=== PATIENT | female | born 1990 | race Caucasian/White ===

== ENCOUNTER 2024-02-25 09:19 | Outpatient (RCR) | payer MEDICAID, SELFPAY ==
--- NOTE | 2024-02-25 09:05 | BH.SGPN.GN ---
Behaviors/Verbalizations/Mental Status: [] Eye contact is poor.. Motor activity is appropriate. Appearance is casual. Speech is Appropriate. Mood is anxious. Affect is congruent. Thoughts are linear and logical. No evidence of psychosis. Reviewed daily check in sheet and no reports of suicidal ideations or intent. Client Response/Progress/Benefit: [] Pt did not participate in group discussions. Choose not to check-in our share reasons for entering IOP. Today was her first day in IOP. Smiled at times and appeared attentive. Group provided support, encouragement, and advice for her first day in IOP which was beneficial. Will continue in IOP to maintain safety, stabilize anxiety, and improve functioning. Narrative Note: []
--- NOTE | 2024-02-25 10:10 | BH.SGPN.GN ---
Behaviors/Verbalizations/Mental Status: []Client alert and oriented, casually dressed and groomed. Eye contact good. Motor activity appropriate. Speech within normal limits. Affect constricted, mood anxious. Thoughts linear, logical, no signs of hallucinations or delusions. Client Response/Progress/Benefit: [] Pt responded well to session AEB actively participating throughout group. Pt was attentive throughout group activity discussing famous individuals and how they overcame failure to be successful. Pt helped group identify how fear of failure can impact mental health and relationships. Pt was quiet, but she was taking notes. participated in experiential activity, working with group members to problem solve. Appeared to benefit from increased knowledge of what causes fear of failure and how it impacts people. Will continue IOP tx to prevent decompensation, gain healthy coping skills, and improve daily functioning. Narrative Note: []
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
--- NOTE | 2024-02-26 09:00 | BH.SGPN.GN ---
Behaviors/Verbalizations/Mental Status: [] Eye contact good. Motor activity appropriate. Speech within normal limits. Affect congruent, mood anxious and depressed. Thoughts linear, logical, no signs of hallucinations or delusions. Reviewed client?s symptom tracker, pt denies SI,?plan, or intent as of 02/26/2024. Client Response/Progress/Benefit: [] Client receptive of session, attentive and willing to process with group. Reports improving sx of depression?(2/5) and ongoing anxiety (4/5) per daily sx tracker. ?Identified mental health ?win as returning to group despite her nerves the day before. Shared that it had been a more open and encouraging environment than she had expected which motivated her to return. Additional win noted as feeling less anxious than yesterday. Pt however did not share anything further as she does continue to struggle with significant social anxiety. Receptive of and appearing to benefit from group support. Recommended continued IOP tx to improve mood stability, reduce anxiety, well as prevent decompensation. Narrative Note: []
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
--- NOTE | 2024-02-26 11:10 | BH.SGPN.GN ---
Behaviors/Verbalizations/Mental Status: []Pt alert and oriented, disheveled appearance. Eye contact good. Motor activity appropriate. Speech within normal limits. Affect congruent, mood anxious. Thoughts linear, logical, no signs of hallucinations or delusions. Client Response/Progress/Benefit: [] Pt responded well to session, taking notes and participating in worksheet discussion. Pt connected with the discussion on motion vs action steps, and this helped pt learn how to set goals differently. Pt set a goal to better manage her trauma and anxiety. Pt identified motion steps including getting a book about trauma, continue with IOP, and learn about her triggers. Pt also made action steps which included going to therapy appointments, reading about her diagnosis, and setting boundaries. Appeared to benefit from identifying a small goal to benefit mental health. Pt is to continue IOP to prevent decompensation, gain healthy coping skills, and improve daily functioning. ??? Narrative Note: []
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
--- NOTE | 2024-02-26 13:20 | BH.DR.ITP ---
Initial Treatment Plan Patient Information Visit Information: ADMISSION DATE: EXPECTED LOS: 4-6 weeks Problems/Symptoms Problem #1:: Anxiety Symptom:: Panic attacks, avoidance, flashbacks, nightmares, worry, rumination, rule out pseudoseizures Problem #2:: Depression Symptom:: Sadness, hopelessness, recent suicidal ideation, thoughts and actions of self-harm, hopelessness, worthlessness, anhedonia, low energy, guilt, biological disruption of sleep
--- NOTE | 2024-02-28 09:00 | BH.SGPN.GN ---
Behaviors/Verbalizations/Mental Status: [] Eye contact is good. Motor activity is appropriate. Appearance is disheveled. Speech is Appropriate. Mood is anxious/irritable. Affect is congruent. Thoughts are linear and logical. No evidence of psychosis. Reviewed daily check in sheet and no reports of suicidal ideations or intent. Client Response/Progress/Benefit: [] Pt participated at times during the group discussion. Attentive. Daily symptom tracker notes 2/5 for anxiety and 1/5 for irritability. According to pt her primary coping skills is spending time with her siblings. She has plans to attend a community movie this evening with her siblings, however is anxious due to being in a large crowd. Briefly discussed her struggles with social anxiety. Being in public leads to fear, uncertainty, and some hypervigilance. Group provided feedback and suggestions for calming skills in large social settings which was beneficial. Will continue in IOP to maintain safety, increase healthy coping, and prevent decompensation. Narrative Note: []
--- NOTE | 2024-02-28 10:10 | BH.SGPN.GN ---
Behaviors/Verbalizations/Mental Status: [] Client alert and oriented, casually dressed and groomed. Eye contact good. Motor activity appropriate. Speech within normal limits. Affect congruent, mood euthymic. Thoughts linear, logical, no signs of hallucinations or delusions. Client Response/Progress/Benefit: []Pt responded well to session AEB sharing and listening attentively to others. Group provided examples of benefits of having social support, including: validation, get assistance, and accountability. Pt also participated in group discussion regarding the barriers to accessing support including examples like: lack of trust, avoidance, and fear of vulnerability. Pt discussed that trusting others has been the biggest obstacle in reaching out for help. Pt participated in experiential activity illustrating the impact communication, boundaries, and patience play in creating healthy support systems. Pt appeared to benefit from increased knowledge of the benefits of social support and greater self-awareness. Will continue IOP tx to prevent decompensation,increase self care, and improve overall functioning. Narrative Note: []
--- NOTE | 2024-02-28 11:10 | BH.SGPN.GN ---
Behaviors/Verbalizations/Mental Status: [] Client alert and oriented, casually dressed and groomed. Eye contact good. Motor activity appropriate. Speech within normal limits. Affect congruent, mood euthymic. Thoughts linear, logical, no signs of hallucinations or delusions. Client Response/Progress/Benefit: []Pt was an active participant throughout AEB contributing to discussion, providing personal examples, and taking notes. Pt provided input during discussion on the types of support our supports can provide. Pt able to identify current support system and barriers that get in the way of using supports. Pt reported after identifying what type of supports pt receives, pt gained awareness that pt could benefit from more emotional support. Pt wants to work on opening up more and reaching out to others. Pt shared this would help her utilize others for emotional needs. Pt seemed to benefit from identifying the type of support pt needs to work on improving. Pt recommended to continue IOP tx to prevent decompensation, and increase emotional regulation skills. Narrative Note: []
--- NOTE | 2024-03-02 09:00 | BH.SGPN.GN ---
Behaviors/Verbalizations/Mental Status: [] Client alert and oriented, casually dressed and groomed. Eye contact good. Motor activity appropriate. Speech within normal limits. Affect flat, mood irritable. Thoughts linear, logical, no signs of hallucinations or delusions. Reviewed client?s symptom tracker, no risk for suicidal ideation, plan, or intent as of 03/02/24 Client Response/Progress/Benefit: [] Client attentive while other group members were sharing. Client did not want to with group today with indicating not today when called upon. Client did say she would talk about ice breaker question, but did not the other stuff. Client appeared interested in while other group members shared their wins and stressors from the weekend. Client will continue IOP tx to increase functioning and prevent decompensation. Narrative Note: []
--- NOTE | 2024-03-02 10:10 | BH.SGPN.GN ---
Behaviors/Verbalizations/Mental Status: []Eye contact is fair. Motor activity is appropriate. Appearance is causal. Speech is Appropriate. Mood is anxious. Affect is constricted. Thoughts are linear and logical. No evidence of psychosis. Client Response/Progress/Benefit: [] Pt was an active participant in group discussion and experiential activity. Attentive during psychoeducation on resilience. Participated during interactive discussion with peers on the definition of resilience. Able to relate experiential activity of group juggle to topics of resilience. Group worked together to identify what can impact one's ability to be resilient which included past experiences, trauma, toxic support system, lack of resources, and current mental/physical health state. Worked well with peers in small group in which they identified factors that contribute to building resilience. Benefited from increased awareness of resilience and the factors that contribute to building resilience. Will continue in IOP to improve distress tolerance, improve confidence, and prevent decompensation.
--- NOTE | 2024-03-02 11:10 | BH.SGPN.GN ---
Behaviors/Verbalizations/Mental Status: []Pt alert and oriented, casually dressed and groomed. Eye contact good. Motor activity appropriate. Speech within normal limits. Affect congruent, mood tired and agitated. Thoughts linear, logical, no signs of hallucinations or delusions. Client Response/Progress/Benefit: [] Pt responded well to session AEB completing the resilience worksheet provided. Pt participated in the discussion and worked cooperatively with group to identify strategies to enhance each of the components discussed. Pt reports belief they already use resilience traits of??moving towards goals.? Pt stated they would like to continue to develop resilience trait of ?maintaining a hopeful outlook and practicing self-care.? Pt seemed to benefit from discussing strategies for improving personal resilience and identifying resilience traits pt already possesses. Will continue IOP tx to prevent decompensation, improve daily functioning, and gain healthy coping skills. ??? Narrative Note: []
--- NOTE | 2024-03-03 09:05 | BH.SGPN.GN ---
Behaviors/Verbalizations/Mental Status: [] Pt alert and oriented, casually dressed and groomed. Eye contact good. Motor activity appropriate. Speech within normal limits. Affect flat, mood anxious and depressed. Thoughts linear, logical, no signs of hallucinations or delusions. Reviewed pt?s symptom tracker, no risk for suicidal ideation, plan, or intent 03/03/24 Client Response/Progress/Benefit: []Pt responded somewhat well to session, attentive and listening to peers, but pt denied to share during her check-in. Pt tends to pass during process group as pt shared she does not like to talk about things that bother her. Pt appeared depressed and anxious today, so therapist encouraged pt to practice grounding skills and talk with IOP staff if needed. Pt still appeared to benefit from not isolating at home today as home is a trigger for pt. Pt will continue IOP tx to prevent decompensation, improve daily functioning, and reduce negative thinking patterns. Narrative Note: []
--- NOTE | 2024-03-03 11:15 | BH.SGPN.GN ---
Behaviors/Verbalizations/Mental Status: [] Pt alert and oriented, casually dressed and groomed. Eye contact good. Motor activity appropriate. Speech within normal limits. Affect constricted, mood anxious and depressed. Thoughts linear, logical, no signs of hallucinations or delusions. Client Response/Progress/Benefit: [] Pt was an attentive participant in group discussions and actively engaged during experiential activity, doing well to regulate their emotions throughout the activity and work with peers. Attentive during psychoeducation on the 4 A's (Avoid, adapt, alter, accept) of coping with stress. Shared that they would benefit most from accepting her current financial situation and avoiding excessive unnecessary spending where possible. Was able to identify the connection between the experiential activity and utilization of stress management skills. Benefited from increased awareness of stress management strategies. Pt will continue IOP tx to prevent decompensation, improve use of grounding and exposure goals to reduce anxiety, as well as improve daily functioning. Narrative Note: []
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
[2024-03-04 08:28] VITALS: BP 166/95; PULSE 73
--- NOTE | 2024-03-06 10:10 | BH.SGPN.GN ---
Behaviors/Verbalizations/Mental Status: []Patient was alert and oriented, casually dressed and groomed. Eye contact was good, motor activity normal, speech within normal limits. Affect congruent, mood irritable. Thoughts linear, logical, no signs of hallucinations or delusion Client Response/Progress/Benefit: []Pt participated in the group discussions AEB nodding and taking notes. Attentive during psychoeducation Goal Setting. Participated during the discussion on common barriers and pt identified some personal barriers as feeling overwhelmed and not knowing where to start. Group also identified benefits of goals as sense of purpose, improved self-confidence, more motivation for other goals, and improved mental health. Pt?s personal benefit was having growth. Benefited from increased awareness of mental health benefits of goals as well as psychoeducation on SMART goal criteria. Will continue in IOP to improve daily functioning, reduce avoidance, and gain healthy coping skills. Narrative Note: []
--- NOTE | 2024-03-06 11:10 | BH.SGPN.GN ---
Behaviors/Verbalizations/Mental Status: []Pt alert and oriented, casually dressed and groomed. Eye contact good. Motor activity appropriate. Speech within normal limits. Affect congruent, mood anxious and content. Thoughts linear, logical, no signs of hallucinations or delusions. Client Response/Progress/Benefit: [] Pt was engaged during discussion and willing to complete the worksheet challenging them to develop a personal SMART goal. Pt chose the goal of making it to IOP tx on time 2x in the next week. Pt stated not sleeping well the night before as a potential barrier. Identified solution as listening to music to help her fall asleep. Benefited from this group by developing a short-term SMART goal related to mental health. Will continue IOP tx to increase consistent use of healthy coping skills, improve mood stability, and prevent decompensation. Narrative Note: []
--- NOTE | 2024-03-10 09:00 | BH.SGPN.GN ---
Behaviors/Verbalizations/Mental Status: [] Eye contact is good. Motor activity is appropriate. Appearance is casual. Speech is Appropriate. Mood is anxious. Affect is congruent. Thoughts are linear and logical. No evidence of psychosis. Reviewed daily check in sheet and no reports of suicidal ideations or intent. Client Response/Progress/Benefit: [] Pt participated when prompted. Attentive. Daily symptom tracker notes 3/5 for anxiety and irritability; 2/5 for anxiety. Very short and superficial check-in this AM. Shared that a recent mental health win was meeting with PCP and following through with recommendations. She briefly discussed recent health concerns which she is attempting to address rather than avoid/ignore. States feeling tired today. Limited progress or benefit noted. Will continue in IOP to maintain safety, increase healthy coping, and improve functioning. Narrative Note: []
--- NOTE | 2024-03-10 10:10 | BH.SGPN.GN ---
Behaviors/Verbalizations/Mental Status: [] Eye contact is fair. Motor activity is appropriate. Appearance is casual. Speech is Appropriate. Mood is anxious. Affect is constricted. Thoughts are linear and logical. No evidence of psychosis. Client Response/Progress/Benefit: [] Pt did well to participate in activity and was engaged and attentive during psychoeducation and interactive discussion on coping skills, why people use unhealthy coping skills, how to replace unhealthy coping skills, and internal vs external coping skills. Attentive as peers came up with list of negative coping skills including not asking for help, avoidance, isolating, sleeping, shopping, substance use, and several others. Pt stated she used to drink alcohol as an unhealthy coping skill, but stopped when realized things were getting worse. Group discussed the effects of how negative coping skills can impact mental health in a negative way. Benefited from increased understanding of unhealthy coping skills and the need for developing healthy internal and external coping skills. Will continue in IOP to improve distress tolerance, improve boundary setting, and prevent decompensation.
--- NOTE | 2024-03-10 11:10 | BH.SGPN.GN ---
Behaviors/Verbalizations/Mental Status: []Pt alert and oriented, casually dressed and groomed. Eye contact good. Motor activity appropriate. Speech within normal limits. Affect congruent, mood depressed. Thoughts linear, logical, no signs of hallucinations or delusions. Client Response/Progress/Benefit: [] Pt responded well to session, taking notes and contributing when prompted. Group discussed the different categories of coping skills which included distraction, emotional release, grounding, self-love, and thought challenging. Pt participated in creating a coping skills ?menu? from the five categories of coping skills. Pt's coping skill menu included: coming to IOP, giving herself ?juanjose,? and grounding. Appeared to benefit from increasing repertoire of healthy coping skills. Will continue IOP to prevent decompensation, gain healthy coping skills, and improve daily functioning. Narrative Note: []
--- NOTE | 2024-03-11 10:10 | BH.SGPN.GN ---
Behaviors/Verbalizations/Mental Status: [] Eye contact is fair. Motor activity is appropriate. Appearance is casual. Speech is Appropriate. Mood is anxious. Affect is congruent. Thoughts are linear and logical. No evidence of psychosis. Client Response/Progress/Benefit: [] Pt an active participant in group discussions. Participated during interactive discussion on defining conflict (internal/external) and possible benefits to conflict. Attentive during psychoeducation on conflict styles (Avoidant, Accommodating, Competing, Cooperative) and engaged during interactive discussion in which peers identified the benefits and consequences to each conflict style. Pt identified their primary conflict style as avoidant when with her family and collaborating with her friends. Stated she is often avoidant with her family because others have to be always right so it seems easier. Benefited from increased awareness of the impact of conflict styles in mental health. Will continue in IOP tx to challenge distortions, improve boundary setting, and prevent decompensation.
--- NOTE | 2024-03-11 11:15 | BH.SGPN.GN ---
Behaviors/Verbalizations/Mental Status: []Eye contact is good. Motor activity is appropriate. Appearance is casual. Speech is Appropriate. Mood is depressed and anxious. Affect is congruent. Thoughts are linear and logical. No evidence of psychosis. Client Response/Progress/Benefit: [] Pt was an active participant in group discussions and activity. Engaged with peers in activity and identifying healthy ways to approach each conflict scenario. Group discussed various conflict resolution skills that can be useful in addressing conflict outside of IOP. Benefited from practicing and learning conflict resolution skills during group activity. Able to identify areas pt wants to work on to improve how pt manages conflict both internally and externally. Expressed wanting to work on their internal conflict by establishing healthier self-talk. Will continue in IOP to stabilize mood, improve distress tolerance skills, and prevent decompensation. Narrative Note: []
--- NOTE | 2024-03-13 10:13 | BH.SGPN.GN ---
Behaviors/Verbalizations/Mental Status: [] Eye contact is good. Motor activity is appropriate. Appearance is casual. Speech is Appropriate. Mood is depressed and anxious. Affect is congruent. Thoughts are linear and logical. No evidence of psychosis. Client Response/Progress/Benefit: [] Pt was an active participant in group discussions. Attentive during psychoeducation on the 4 communication styles (Passive, Passive-Aggressive, Aggressive, and Assertive) and the obstacles to effective communication. ?Self-identified a barrier they personally struggle with as fear of judgement preventing them from communicating when they need to or want to. Contributed during interactive discussion on the benefits of communicating effectively which included; having one's needs met, building connection with others, decreases stress and uncertainty, improved relationships, healthier boundaries, and increased understanding of others. Worked well in small group in which pt and peers identified the benefits and disadvantages to the different communication styles. Benefited from increased understanding of communication styles and how these can impact effective communication. Will continue in IOP to prevent decompensation, improve mood stability and application of healthy coping skills, and improve functioning. Narrative Note: []
--- NOTE | 2024-03-13 11:10 | BH.SGPN.GN ---
Behaviors/Verbalizations/Mental Status: []Pt alert and oriented, casually dressed. Eye contact fair. Motor activity appropriate. Speech within normal limits. Affect congruent, mood anxious. Thoughts linear, logical, no signs of hallucinations or delusions. Client Response/Progress/Benefit: [] Pt responded well to session AEB Pt listening attentively to others and providing input during group discussion on the pay offs and costs of the different communication styles. Pt able to connect how current communication style impacts mental health. Connected with peers? comments about importance of using assertive communication. Pt did well with practicing being assertive in the group activity and worked with group to identify potential skills for improving communication skills. Noted she often wants to be passive when faced with difficult situation. Pt seemed to benefit from increasing awareness of healthy strategies to improve communication. Will continue IOP tx to decrease anxiety, improve use of healthy coping skills, and prevent decompensation.
--- NOTE | 2024-03-13 11:51 | BH.MDN_ITS ---
Multi-Disciplinary Note Note 30-min Individual: Time Started:: 09:29 Date: 03/13/24 Purpose of session/treatment goals addressed:: Purpose of session is to work on treatment plan goal #1, obj #1 & #2. Eye Contact:: Good Motor Activity:: Appropriate Appearance:: Casual Speech:: Appropriate Mood:: Anxious and Depressed Affect:: Congruent Thoughts:: Linear, Logical and No evidence of hallucinations/delusions noted Staff Interventions:: motivational interviewing, mindfulness skills, str engths perspective, taught coping skills and other (created ptsd coping plan) Client Response:: Pt receptive of session, willing to process current stressors impacting pt mood. Pt reports she has been inn more pain recently and is frustrated as her pain management clinician would like to wait until her psychiatric medications have ?been figured out? before prescribing or changing any medications related to pain. Noted that this is impacting her mood as she is in constant pain and nothing seems to relieve it. Did well however to identify a personal win as advocating for herself at the appointment and requesting a female nurse be in the room with them given pt?s trauma history. Pt went on to state that she has recently been struggling with increased intensity in PSTD sx. Provided an example of being triggered while listening to other group participants share during process group yesterday. Pt explained that she had to leave the group and use several grounding skills to be alright for the remainder of IOP groups that day, but felt her anxiety was increased for the remainder of the day as a result. Pt receptive of using remainder of session to create a PTSD trigger coping plan. This plan included pt?s specific triggers for PTSD sx, warning signs, and a variety of healthy skills she can utilize when recognizing she has been triggered. Skills included 5-senses, changing her environment, imagining a safe place, reminding herself she is safe, healthy distractions, as well as specific supports she can reach out to and how they can help to support her. Receptive of actively practicing each of the identified skills as well s sharing her plan with her and best friend. Risks/Concerns:: None noted. Pt denies SI, plan, or intent as of this date 03/13/24 Progress Toward Goals/Plan:: Progress is variable. Pt reports following through with practicing 2 mindfulness skills over the past week but not this has been inconsistent . She reports struggling with significant depression, anxiety, and intrusive thoughts associated with her trauma history. Pt stated she does not always know what to do when feeling triggered; however, was receptive of reviewing several grounding skills and creating a PTSD specific coping plan. Pt continues to report difficulties in motivating herself to engage in self-care, lack of interest in hobbies, and fatigue. Recommended continued IOP tx to prevent decompensation, improve consistent skill application, and stabilize mood. Time Stopped:: 10:00
--- NOTE | 2024-03-31 12:01 | BH.MDN_ITS ---
Multi-Disciplinary Note Note 45-min Individual: Time Started:: 09:26 Date: 03/31/24 Purpose of session/treatment goals addressed:: Purpose of session was to work on treatment plan goal #1, obj's #1 & #2 and goal # 2 obj #1. Eye Contact:: Good Motor Activity:: Appropriate Appearance:: Casual Mood:: Euthymic Affect:: Congruent Thoughts:: Linear, Logical and No evidence of hallucinations/delusions noted Staff Interventions:: CBT techniques, discharge planning, strengths perspective and goal setting Client Response:: Pt receptive of session, actively engaged throughout. Pt reports overall things are ?pretty good? and she is feeling more positive than she has in several weeks. Described doing well to follow-through with goal from last session of engaging in at least one self-care activity aimed at getting back into hobbies/creative outlets. Pt reports spending time over the last several days getting back into playing video games. Shared that this had been a significant part of her identity in the past and she has missed it. Reports she additionally cleaned and reorganized her room for the first time in over a year. Shared feeling accomplished and more motivated as a result. 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 Reports current stressors include news that she is going to need surgery on her foot and feeling anxious about this. Stated that they have not yet scheduled a date for this but that despite being in pain and knowing the surgery will help with this, she is hesitant to follow-through. Did well to review the pros/cons with therapist and discuss ways she can advocate for herself throughout the planning process, so she is aware of exactly what to expect. Additional stressor noted as recent intrusive suicidal thoughts over the weekend. Shared that she had previously been having a difficult conversation with her mother, whom does not believe in going to therapy, about her mental health. Insight that this may have contributed to her thoughts, but pt also took the Zyprexa she was recently prescribed for the first time that day. Shared trying not to jump to conclusions regarding the medication negatively affecting her thoughts and plans to try continue taking it for awhile first. Pt reports initially struggling to manage her intrusive suicidal thoughts, but did well to then apply grounding techniques and use cleaning her room as a healthy distraction. Reports feeling ready but nervous about upcoming IOP d/c. Discussed wanting to have more social supports for her mental health. Receptive of resource information on [facility] and expressed plans to attend a group on . Risks/Concerns:: No SI or thoughts of as of this date 03/31/24 Progress Toward Goals/Plan:: Progress noted. Pt reports following-through with her self-care goals over the past week and reports improved mood and reduced depression and anxiety as a result. Discussed feeling overall more hopeful and positive. Pt reports she has also been making progress with recognizing her accomplishments, practicing grounding, and use of cognitive diffusion techniques. Continues to struggle with interpersonal relationship issues, distress tolerance, and variable levels of motivation. Pt recommended continued IOP tx to complete d/c planning, promote consistent skill application, and prevent decompensation. Time Stopped:: 10:06
== END 2024-03-16 23:59 ==
LOC: BHIOP 09:19
PROVIDERS: PCP Physician Assistant Medical; Visit Provider Psychiatry & Neurology Psychiatry
DX: F43.10 Post-traumatic stress disorder, unspecified (principal); F33.2 Major depressive disorder, recurrent severe without psychotic features; F41.0 Panic disorder [episodic paroxysmal anxiety]; F10.90 Alcohol use, unspecified, uncomplicated
CPT/HCPCS: H2012; H2020; S9480; 90832; 90837

== ENCOUNTER → 2024-03-05 | Outpatient (CLI) | payer MEDICAID, SELFPAY ==
[2024-03-05 12:50] LABS: Absolute Lymphocyte Count 2.68 X10^3/uL (0.83-4.51); Absolute Neutrophil Count 4.1 X10^3/uL (2.0-7.7); Basophil# 0.05 X10^3/uL; Basophil% 0.7 % (0-1); Eosinophil# 0.15 X10^3/uL; Hematocrit 41.8 % (37-47); Lymphocyte # 2.68 X10^3/ul (0.83-4.51); Lymphocyte % 36.1 % (19-41); Mean Corp Hgb Conc 33.5 g/dL (32-36); Mean Corpuscular Hgb 29.6 pg (27.0-32.0); Mean Corpuscular Volume 88.4 fL (81-99); Mean Platelet Vol. 12.5 fl (6.2-12.0); Monocyte# 0.41 X10^3/uL; Monocyte% 5.5 % (0-10); NRBC Flagged by Analyzer 0 % (0-5); Neutrophil # 4.11 X10^3/uL (2.7-7.7); Neutrophil % 55.3 % (47-70); Platelet Count 122 K/mm3 (150-450); RBC Distribution Width CV 13.4 % (11.6-14.6); RBC Distribution Width SD 43.5 fl (35.1-43.9); Red Blood Count 4.73 M/mm3 (4.2-5.4); White Blood Count 7.4 K/mm3 (4.4-11.0)
[2024-03-05 13:22] LABS: ALB/GLOB Ratio 0.8 RATIO (0.9-2.4); AST(SGOT) 39 U/L (15-37); Alanine Aminotransfer ALT/SGPT 59 U/L (13-56); Albumin, Serum 3.5 g/dL (3.2-5.0); Alkaline Phosphatase 97 U/L (45-117); Anion Gap 7 (5-15); BUN 15 mg/dL (7-18); BUN/Creat Ratio 21.6 RATIO (10-20); Chloride 106 mmol/L (98-107); Cholesterol 158 mg/dL (200); Creatinine, Serum 0.69 mg/dL (0.55-1.02); EST Glomerular Filtration Rate 103 mL/min (>60); Est Glom Filt Rate - Afr Amer 125 mL/min (>60); Globulin 4.3 g/dL (2.2-4.2); Glucose 174 mg/dL (74-106); High Density Lipoprotein 71 mg/dL; Protein, Total 7.8 g/dL (6.4-8.2); Sodium Level 136 mmol/L (136-145); T4 Total, Thyroxin 8.7 ug/dL (4.8-13.9); Triglycerides 83 mg/dL; Very Low Density Lipoprotein 17 mg/dL (5-40)
[2024-03-05 13:23] LABS: Vitamin B12 321 pg/mL (211-911)
[2024-03-05 15:17] LABS: Hemoglobin A1c 6.3 % (3.8-5.6)
[2024-03-07 04:08] LABS: Thyroid Peroxidase AB > 600 IU/mL (0-34)
[2024-03-09 15:08] LABS: Thyroglobulin Antibody 496.5 IU/mL (0.0-0.9)
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
== END | disposition home or self-care (01) ==
PROVIDERS: PCP Physician Assistant Medical; Visit Provider Family Medicine
DX: R94.6 Abnormal results of thyroid function studies (principal); R20.0 Anesthesia of skin; Z13.228 Encounter for screening for other metabolic disorders
CPT/HCPCS: 36415; 80053; 80061; 82607; 83036; 84436; 84443; 84481; 85025; 86376; 86800

== ENCOUNTER 2024-03-17 08:03 | Outpatient (RCR) | payer MEDICAID, SELFPAY ==
[2024-03-17 00:47] VITALS: BP 166/95; PULSE 73
--- NOTE | 2024-03-17 09:00 | BH.SGPN.GN ---
Behaviors/Verbalizations/Mental Status: [] Eye contact is good. Motor activity is appropriate. Appearance is casual. Speech is Appropriate. Mood is depressed. Affect is congruent. Thoughts are linear and logical. No evidence of psychosis. Reviewed daily check in sheet and no reports of suicidal ideations or intent. Client Response/Progress/Benefit: [] Pt participated when prompted. Attentive. States ? I?m here today?. She shared several medical issues which are causing hip and back pain which impacts her mobility and mental health. According to pt she was in the ER yesterday due to medical issues. Limited progress as her significant medical issues are impacting her progress. She is vague regarding the plan to address her medical issues except to say she needs a ?scan? of her hip since it ?keeps popping out?. Limited progress. Benefited from group support and encouragement. Willl continue in IOP to prevent decompensation, stabilize mood, decrease anxiety, and improved functioning. Narrative Note: []
--- NOTE | 2024-03-17 10:15 | BH.SGPN.GN ---
Behaviors/Verbalizations/Mental Status: []Eye contact is good. Motor activity is appropriate. Appearance is disheveled. Speech is Appropriate. Mood is stressed but engaged. Affect is full. Thoughts are linear and logical. No evidence of psychosis. Client Response/Progress/Benefit: [] Pt was engaged and an active participant throughout, providing input and taking notes. Participated throughout interactive discussion on defining anxiety and identifying cognitive and physiological symptoms of anxiety. Group discussed the role of anxiety on isolation, avoidance, and who this emotion impacts their ability to start and complete activities/goals. Pt identified their physical/physiological signs of anxiety (i.e. sweating, increased heartbeat, and GI issues). Pt identified safety behaviors (i,e shut down, avoid people and things, and sleep.) Benefited from increased awareness and insight on anxiety and its impact. Will continue in IOP to reduce isolation, improve daily functioning, and increase self-care practices. Narrative Note: []
--- NOTE | 2024-03-17 11:15 | BH.SGPN.GN ---
Behaviors/Verbalizations/Mental Status: []Pt alert and oriented, disheveled appearnace. Eye contact good. Motor activity appropriate. Speech within normal limits. Affect congruent, mood euthymic. Thoughts linear, logical, no signs of hallucinations or delusions. Client Response/Progress/Benefit: [] Pt was an active participant AEB pt providing input and listening attentively to peers. Attentive during psychoeducation on mindfulness coping skills and their impact on reducing anxiety and improving overall mental health wellness. Group was able to identify self-soothing and mind-based coping skills which included: 5-senses, meditation, deep breathing, TIPP, thought challenging, and progressive muscle relaxation. Pt also participated with peers in practicing mindfulness skills in session including deep breathing. Pt would like to work on using delay, distract, decide to manage anxiety. Appeared to benefit from increasing repertoire of anxiety reduction skills. Pt will continue in IOP tx to prevent decompensation, improve daily functioning, and gain healthy coping skills. Narrative Note: []
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
--- NOTE | 2024-03-19 09:05 | BH.SGPN.GN ---
Behaviors/Verbalizations/Mental Status: [] Pt alert and oriented, casually dressed and groomed. Eye contact good. Motor activity appropriate. Speech within normal limits. Affect congruent, mood depressed and anxious. Thoughts linear, logical, no signs of hallucinations or delusions. Reviewed pt?s symptom tracker, no risk for suicidal ideation, plan, or intent 03/18/24 Client Response/Progress/Benefit: []Pt was an active participant in group discussions. Attentive. Able to identify mental health wins including spending time practicing grounding skills of 5-senses and deep breathing. Noted these were somewhat helpful but she is still working to feel comfortable with applying them. Additional win noted as calling and advocating for herself with her pain management doctor. Noted in the past she would not have and is proud of herself for doing so. Current stressor noted as a recent subpoena she received and expressed anxiety about appearing for due to the possibility of having to encounter her father at court. Benefited from group support, encouragement, and feedback. Will continue in IOP to prevent decompensation, improve daily functioning, and increase distress tolerance skills. Narrative Note: []
--- NOTE | 2024-03-19 10:10 | BH.SGPN.GN ---
Behaviors/Verbalizations/Mental Status: [] Eye contact is good. Motor activity is appropriate. Appearance is casual. Speech is Appropriate. Mood is anxious/irritable. Affect is congruent. Thoughts are linear and logical. No evidence of psychosis. Client Response/Progress/Benefit: [] Pt was an active participate AEB listening attentively to others, participating in group discussions, and taking notes throughout. Participated as the group defined emotion dysregulation and identified ways we can hurt others or sabotage self by not regulating our emotions. Participated with peers to identified ways emotions impact communication which included; shutting down, being irritable/short with others, difficulty focusing/staying on topic, confusion, zone out, and being aggressive or dismissive to others. Participated during group activity. Pt benefited from session by gaining an increased understanding on the importance of managing emotions to improve daily functioning. Will continue IOP tx to prevent decompensation, increase healthy coping skills, and to improve functioning. Narrative Note: []
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
--- NOTE | 2024-03-20 09:00 | BH.SGPN.GN ---
Behaviors/Verbalizations/Mental Status: [] Eye contact is good. Motor activity is appropriate. Appearance is casual. Speech is Appropriate. Mood is anxious. Affect is congruent. Thoughts are linear and logical. No evidence of psychosis. Reviewed daily check in sheet and no reports of suicidal ideations or intent. Client Response/Progress/Benefit: [] Pt participated when prompted. Attentive. Struggles to identify any mental health wins or progress stating I made it here. She reports a panic attack while shopping. Has upcoming plans to attend a local fair however reports trying to talk myself out of it due to her anxiety and fear. Peers provided feedback and support which was beneficial. Limited progress. Will continue in IOP to prevent decompensation, stabilize anxiety, increase healthy coping, and improve functioning. Narrative Note: []
--- NOTE | 2024-03-20 10:10 | BH.SGPN.GN ---
Behaviors/Verbalizations/Mental Status: []Pt alert and oriented, casually dressed and groomed. Eye contact good. Motor activity appropriate. Speech within normal limits. Affect congruent, mood dysthymic and anxious. Thoughts linear, logical, no signs of hallucinations or delusions. Client Response/Progress/Benefit: [] Pt took notes and contributed to group discussions. Attentive during psychoeducation on growth mindset. Participated during the activity. Interactive group discussion on growth mindset in which group verbalized their current fixed mindsets and how they affect their mental health. Pt shared common fixed mindset thoughts they have which included I'm never getting better; I?m broken; I can't trust anyone?. These thoughts lead to feeling and staying stuck, not letting supports help, isolating. Pt stated they have personally struggled with fixed thoughts causing them to stop trying. Pt benefited from increased awareness of growth mindset and fixed thoughts and how fixed thoughts impact their mental health. Will continue IOP tx to prevent decompensation, improve daily functioning, and promote mood stability. Narrative Note: []
--- NOTE | 2024-03-20 11:15 | BH.SGPN.GN ---
Behaviors/Verbalizations/Mental Status: []Pt alert and oriented, disheveled appearance. Eye contact good. Motor activity appropriate. Speech within normal limits. Affect congruent, mood depressed. Thoughts linear, logical, no signs of hallucinations or delusions. Client Response/Progress/Benefit: [] Pt was an active participant during activity and discussion. Pt did well to remain attentive and participate as group worked on identifying characteristics and benefits of adopting a growth mindset. Worked with fellow participants in reframing the example fixed thoughts into growth mindset thoughts. Pt worked on changing own fixed thought and reframed the thought to ?right now I?m struggling but I?m in therapy trying to help myself.? Pt also wants to work using the ?not right now? statements to help pt reduce all or nothing thinking. appeared to benefit from challenging own thoughts and engaging in the activity. Pt will continue IOP tx to prevent decompensation, improve self-care practices, and reduce negative thinking patterns. Narrative Note: []
--- NOTE | 2024-03-25 09:00 | BH.SGPN.GN ---
Behaviors/Verbalizations/Mental Status: [] Pt alert and oriented, casually dressed and groomed. Eye contact good. Motor activity appropriate. Speech within normal limits. Affect constricted, mood anxious and depressed. Thoughts linear, logical, no signs of hallucinations or delusions. Reviewed pt?s symptom tracker, no risk for suicidal ideation, plan, or intent 03/25/24 Client Response/Progress/Benefit: []Pt was not an active participant in group discussions however appearing to listen as others shared. Pt looking and nodding at various points throughout group. Declined to share however. Benefited from group support, encouragement, and feedback. Will continue in IOP to prevent decompensation, promote mood stability, and increase application of coping skills. Narrative Note: []
--- NOTE | 2024-03-25 10:10 | BH.SGPN.GN ---
Behaviors/Verbalizations/Mental Status: [] Eye contact is good. Motor activity is appropriate. Appearance is casual. Speech is Appropriate. Mood is anxious. Affect is congruent. Thoughts are linear and logical. No evidence of psychosis. Client Response/Progress/Benefit: [] Pt participated at times interactive group discussions. Contributed to interactive discussion on defining what a boundary is in mental health. Pt along with peers identified challenges to setting boundaries which included; people pleasing, fear of rejection, fear of loss, fear people won't respect the boundary, etc. Pt along with peers identified the benefits to setting boundaries such as reduces assumptions, can reduce stress, improve communication/relationships, and can keep us safe. Attentive during psychoeducation on types of boundaries (rigid, porous, flexible). Pt benefited from increased awareness and insight on the importance/benefit to setting health boundaries. Will continue in IOP to prevent decompensation, increase healthy coping, and to improve functioning. Narrative Note: []
--- NOTE | 2024-03-25 11:46 | PCM.BH.PN ---
Progress Note Progress Note: History of Present Illness/Interim History: The patient is a 34-year-old female with a history of depression, panic disorder, PTSD, anxiety and alcohol use disorder who is seen in follow-up at the [facility] behavioral health IOP. I last saw the patient 2 weeks ago and at that time the patient refused any more medication but did agree to try to take Vistaril or hydroxyzine for her panic attacks. She had recently been diagnosed with hypothyroidism and wanted to wait until treatment for this was on board for a while to see if that helped with her depression. The patient states that the Vistaril helps a little with the panic attacks but when she has severe anxiety like on days she has to go to court to testify in a domestic violence case she gets so nervous that the Vistaril does not touch it even if she takes up to 3 or 75 mg. She has been having panic attacks once daily but most of them are not severe as they are on the days she has to go to court. She denies any recent anxiety seizures which are described in prior notes. She continues to feel uncomfortable around men who she does not know due to her history of trauma in the past. She denies thoughts of self-harm, passive thoughts of , suicidal ideation, plan for suicide, homicidal ideation, hallucinations or delusions. Her depression is slowly improving in mood. She has not used any alcohol since her [birth year] on March 02, 2023. Current Psychiatric Medications: [] Paxil discontinued 3 weeks ago after 5 days of use due to side effects. Hydroxyzine 25 mg, patient took 1-3 as needed for panic attack and felt they did not help enough. Mental Status Examination: [] The patient is a 34-year-old obese, female who is casually dressed and groomed with fair hygiene and who appears otherwise normal for stated age. She has no psychomotor agitation or retardation and is ambulatory with a normal gait. She is cooperative during the interview. Speech is normal rate and rhythm and fluent with no pressure and eye contact is good. Mood is depressed and anxious. Affect is mildly constricted. Thought process is goal-directed and organized. Thought content: Patient wishes to have better medication for anxiety for when she has to go to court. There is no evidence of passive thoughts of , thoughts of self-harm, suicidal ideation, plan for suicide, homicidal ideation, hallucinations or delusions. Reality testing is intact. Intelligence is average. Judgment is intact. Insight: Limited. Impulsivity: High. Diagnoses: [] 1. PTSD 2. Major depressive disorder, recurrent, severe without psychosis 3. Panic disorder 4. Alcohol use disorder 5. Primary support and work issues and legal 6. Recently diagnosed hypothyroidism Plan: [] The patient will continue the IOP at [facility] as the structure, support, education and group therapy will hopefully prevent worsening of her symptoms which could require hospitalization. She felt safe during the interview and if it anytime she does not feel safe she agrees to go to the emergency room or to let us know. The risk, options and possible complications of medications were discussed with the patient and she understands accepts these but she does not wish to take many medications. She has had a lot of issues on psych meds and lots of side effects. She does agree to try Zyprexa 2.5 mg p.o. in the morning on the days she has to go to court or days where she is severely anxious and the hydroxyzine is not helping enough. She understands she is not to drive when taking these medications and she should take it several times before she goes to court to make sure it does not make her too tired to testify. She will continue to follow-up with her outpatient medical and psychiatric providers and I will see the patient in follow-up while she is in the IOP.
--- NOTE | 2024-03-25 15:11 | BH.MDN ---
Multi-Disciplinary Note Note 30-min Individual: Time Started:: 11:36 Date: 03/25/24 Purpose of session/treatment goals addressed:: Purpose of session was to work on treatment plan goal #1, obj's #1 & #2. Eye Contact:: Good (tearful at times) Motor Activity:: Appropriate Appearance:: Casual Speech:: Appropriate Mood:: Anxious and Depressed Affect:: Congruent Thoughts:: Linear, Logical and No evidence of hallucinations/delusions noted Staff Interventions:: CBT techniques, strengths perspective, goal setting and taught coping skills (cognitive diffusion techniques) Client Response:: Pt responded well to session, open to meeting with therapist. Pt reported she has been struggling the past few days due to issues surrounding her court subpoena date, yesterday. Pt stated that she had followed through with bringing up games to play at the hotel with her the night before and was able to successfully distract herself until everyone went to bed , when she began ruminating on what would happen in court the following day. Identified her anxious thoughts were impacting sleep and she did well to instead get up and complete a few of the mental health worksheets she requested in previous session. Noted that progressive muscle relaxation, breathing techniques, and gratitude techniques aided in reducing intensity of her anxiety but did not completely alleviate it. Shared attempting to advocate for herself to the prosecutor and request that her father be barred from attending; however, this was denied. Described struggling to manage her anxiety while in proximity to her father. Pt reports ?I blacked out and just shut down?, indicating that after a few minutes her friend was able to calm her but she struggled with anxious thoughts the remainder of the day. Further shared that she will have to return for an additional court date later in the month due to the defendant denying the plea deal. Pt became tearful as she described significant anxiety surrounding this and fears about interacting with her father again. Reports she has struggled with concentration and allowing herself to engage in self-care as a result. Receptive of discussion reviewing the impact of self-care in improved resilience, confidence, mood stability, and anxiety management. Did well to identify that although she cannot control having to return to court, she can control what she focuses on and how she prepares leading up to it. Receptive of psychoeducation on cognitive diffusion and diffusion techniques she can use when experiencing triggering thoughts consuming her attention and reinforcing anxiety. Pt additionally identified a self-care goal of engaging in one creative activity daily. Risks/Concerns:: No SI or thoughts of as of this date 03/25/24 Progress Toward Goals/Plan:: Pt has made variable progress. She does report challenging herself to attend court rather than avoid as she usually would. Additionally, pt used several skills such as healthy distraction, communicating with supports, and grounding prior to and after the court date. She did however indicate ?blacking out? and shutting down during it. Difficulties with in the moment stress management and distress tolerance. Difficulties communicating boundaries as well. Denies following through with previous self-care goals which is maintaining depression. Significant ongoing anxious and negative thinking patterns. Recommended continued IOP tx to promote mood stability, reduce maladaptive coping, and prevent decompensation. Time Stopped:: 12:06
--- NOTE | 2024-03-26 09:00 | BH.SGPN.GN ---
Behaviors/Verbalizations/Mental Status: [] Eye contact is good. Motor activity is appropriate. Appearance is casual. Speech is Appropriate. Mood is anxious. Affect is congruent. Thoughts are linear and logical. No evidence of psychosis. Reviewed daily check in sheet and no reports of suicidal ideations or intent. Client Response/Progress/Benefit: [] Pt participated at times during the group discussion. ? Feeling anxious?. Struggles to identify any mental health wins or progress except to state ? I?m here?. She elaborated on psychosocial and medical stressors which are impacting her mental health. She does not appear to be attempting to use any skills, reframing, or even distraction for her anxiety. Focused on medication interventions to aid in her progress. Limited progress. Benefited from group support, encouragement, and feedback. Will continue in IOP to prevent decompensation, stabilize anxiety, and improve functioning.?? Narrative Note: []
--- NOTE | 2024-03-26 10:15 | BH.SGPN.GN ---
Behaviors/Verbalizations/Mental Status: [] Pt alert and oriented, appropriate grooming/appearance. Eye contact good. Motor activity appropriate. Speech within normal limits. Affect congruent, mood dysthymic. Thoughts linear, logical, no signs of hallucinations or delusions. Client Response/Progress/Benefit: [] Pt was an active participant in group discussions. Attentive during psychoeducation. Contributed during interactive discussions in which peers attempted to define crisis. Group identified examples of potential crisis. Group also worked together to identify unhealthy responses to crisis which included lashing out, isolation, self-harm, and distraction. Pt identified personal warning signs for crisis as isolating, self-harm, and loss of interest. Benefited from increased understanding of crisis and awareness of personal responses to crisis. Pt will continue IOP tx to increase functioning and prevent decompensation. Narrative Note: []
--- NOTE | 2024-03-26 11:15 | BH.SGPN.GN ---
Behaviors/Verbalizations/Mental Status: []Pt alert and oriented, appropriate grooming/appearance. Eye contact good. Motor activity appropriate. Speech within normal limits. Affect congruent, mood euthymic. Thoughts linear, logical, no signs of hallucinations or delusions. Client Response/Progress/Benefit: []Pt was an semi-engaged participant in group discussions. Attentive during psychoeducation. In small group pt along with peers developed an active plan for their crisis warning signs. Pt identified three crisis warning signs as well as an action plan for each. One crisis warning sign was losing interest in hobbies. Pt identified coping skills to help with this such as: picking hobby to do at least 2 times a week, setting something out as visual reminder, and reminding self how she used to enjoy doing certain hobbies. ?Benefited from increased awareness of crisis warning signs and by developing crisis intervention strategies. Will continue in IOP to increase consistent use of healthy coping skills, improve boundary setting, and prevent decompensation.
--- NOTE | 2024-03-27 09:00 | BH.SGPN.GN ---
Behaviors/Verbalizations/Mental Status: [] Eye contact is good. Motor activity is appropriate. Appearance is casual. Speech is Appropriate. Mood is anxious. Affect is congruent. Thoughts are linear and logical. No evidence of psychosis. Reviewed daily check in sheet and no reports of suicidal ideations or intent. Client Response/Progress/Benefit: [] Pt participate at times during the group discussion. Attentive. Symptom tracker notes 06/21 for depression, anxiety, and agitation. Proud of herself for attending a movie last night in a crowded theater. She was contemplating not going due to her anxiety earlier this week, however was able to utilize skills and PRN medication to make it through. Emotion for today is content. Increase confidence in her ability to manage anxiety. Progress noted. Benefited from group support, encouragement, and feedback. Will continue in IOP to prevent decompensation, stabilize mood, and improve functioning. Narrative Note: []
--- NOTE | 2024-03-27 10:10 | BH.SGPN.GN ---
Behaviors/Verbalizations/Mental Status: [] Pt alert and oriented, casually dressed and groomed. Eye contact good. Motor activity appropriate. Speech within normal limits. Affect congruent, mood anxious and depressed. Thoughts linear, logical, no signs of hallucinations or delusions. Client Response/Progress/Benefit: [] Pt participated during small group discussions. Attentive during psychoeducation about defense mechanisms. Showed engagement during small group discussions and helped group identify which defense mechanisms were maladaptive, adaptive, or ?somewhere in the [place].? Noted she struggles with denial and humor defense mechanisms. Pt worked with small group on identifying how each defense mechanism can impact mental health and gave examples. ?Seemed to benefit from gaining awareness about the different defense mechanisms. Pt to continue IOP tx to prevent decompensation, stabilize mood, increase healthy coping, and improve functioning. Narrative Note: []
--- NOTE | 2024-03-27 11:10 | BH.SGPN.GN ---
Behaviors/Verbalizations/Mental Status: []Pt alert and oriented, disheveled appearance. Eye contact good. Motor activity appropriate. Speech within normal limits. Affect congruent, mood euthymic. Thoughts linear, logical, no signs of hallucinations or delusions. Client Response/Progress/Benefit: []Pt responded well to session, participating in activity and small group discussion. Group reviewed the rest of the defense mechanisms and discussed how these are adaptive, maladaptive, or somewhere in the [place]. Pt participated in the experiential activity which encouraged pts to draw a castle that portrayed their different defense mechanisms. Pt's defense mechanisms included projection, humor, suppression, and anticipation. Pt shared wanting to work on her self-discipline and suppression. Pt listened to studio grip teach different skills to help pt?s cope with or change their defense mechanisms. Pt appeared to benefit from gaining insight to the different defense mechanisms and learning coping skills. Pt will continue IOP tx to prevent decompensation, improve daily functioning, and increase distress tolerance skills. Narrative Note: []
--- NOTE | 2024-03-31 10:15 | BH.SGPN.GN ---
Behaviors/Verbalizations/Mental Status: []Pt alert and oriented, casually dressed and groomed. Eye contact good. Motor activity appropriate. Speech within normal limits. Affect congruent, mood content. Thoughts linear, logical, no signs of hallucinations or delusions. ? Client Response/Progress/Benefit: []Pt responded well to session, attentive and engaged. Pt participated in activity where pts had to guess the celebrity with a known mental health diagnosis and this led to discussion on self-stigma. Group participated in the discussion defining stigma as well as what stigma has kept pt's from doing in their lives. Pt stated mental health stigma has led pt to not open up to others or in therapy about her mental health struggles. Pt admits that she assumes others will not understand or will treat her poorly. Pt worked with peers to begin discussion of what reinforces stigma and this was discussed further in the next group. Pt appeared to benefit from learning about the different types of stigma as well as gaining awareness of how stigma has personally impacted pt. Pt will continue IOP tx to promote mood stability, increase use of healthy coping skills, and prevent decompensation. Narrative Note: []
--- NOTE | 2024-03-31 11:15 | BH.SGPN.GN ---
Behaviors/Verbalizations/Mental Status: []Pt alert and oriented, casually dressed and groomed. Eye contact fair. Motor activity appropriate. Speech within normal limits. Affect congruent, mood anxious. Thoughts linear, logical, no signs of hallucinations or delusions. Client Response/Progress/Benefit: [] Pt engaged participant AEB participating in the activity, providing input during small group discussion, and listening attentively to others. Pt appeared to connect with discussion in the benefits of addressing mental health stigma which included: improved relationships, increased willingness to seek help, increased happiness, and improved confidence. Group brainstormed strategies to combat social and perceived stigma. Pt shared one thing pt can do to combat self-stigma is to be open to others about getting therapy. Appeared to benefit from increasing awareness of strategies to combat stigma. Will continue IOP tx to improve confidence, increase follow through of skill utilization, and prevent decompensation.
--- NOTE | 2024-04-02 10:10 | BH.SGPN.GN ---
Behaviors/Verbalizations/Mental Status: [] Eye contact is good. Motor activity is appropriate. Appearance is casual. Speech is Appropriate. Mood is content. Affect is congruent. Thoughts are linear and logical. No evidence of psychosis. Client Response/Progress/Benefit: [] Pt receptive of session, actively engaged throughout AEB taking notes, providing input, and contributing in small group discussion. Appeared to connect with group topic of automatic thoughts and cognitive distortions, as well as the impact of thought patterns on mental health, coping behaviors, and relationships. This particular group is very heavy on psychoeducation and pt appeared to connect with distortions and how they can impact functioning. Identified struggling with disqualifying the positives distortion. Pt appeared to benefit from gaining insight on distorted thinking patterns and how this impacts overall mental health. Will continue IOP to stabilize mood, improve ability to function, and increase emotional regulation. Narrative Note: []
--- NOTE | 2024-04-02 11:10 | BH.SGPN.GN ---
Behaviors/Verbalizations/Mental Status: [] Eye contact is good. Motor activity is appropriate. Appearance is casual. Speech is Appropriate. Mood is content. Affect is congruent. Thoughts are linear and logical. No evidence of psychosis. Client Response/Progress/Benefit: [] Pt was an active participant during group discussion. Pt was placed in a smaller group and participated in combatting example distortions with peers. Pt was engaged in the smaller group, participated in group interactions to brainstorm answers, and appeared to be comprehending cognitive distortions. Pt stated could connect with many of the distortions covered in group. Pt stated they now have knowledge on how cognitive distortions are affecting them negatively. Benefited from gaining further insight and awareness of cognitive distortions as well as practicing ways to reframe and challenge thoughts. Will continue in IOP tx to increase healthy thinking patterns, functioning, and healthy daily habits. Narrative Note: []
--- NOTE | 2024-04-03 09:05 | BH.SGPN.GN ---
Behaviors/Verbalizations/Mental Status: [] Eye contact is good. Motor activity is appropriate. Appearance is casual. Speech is Appropriate. Mood is anxious/irritable. Affect is congruent. Thoughts are linear and logical. No evidence of psychosis. Reviewed daily check in sheet and no reports of suicidal ideations or intent. Client Response/Progress/Benefit: [] Participated at times during the group discussions. Attentive. Daily symptom tracker notes 2/5 for depression, anxiety and irritability. ?Nothing has changed much?. Primary stressor related to ?debating on her surgery?. She also has an upcoming court date which has intensified her anxiety. When asked about coping strategies she struggles to answer. Benefited from group support, encouragement, and feedback on anxiety management skills. Will continue in IOP to prevent decompensation, decrease anxiety, and improve functioning. Narrative Note: []
--- NOTE | 2024-04-03 10:15 | BH.SGPN.GN ---
Individual Note: Behaviors/Verbalizations/Mental Status: [] Eye contact is good. Motor activity is appropriate. Appearance is casual. Speech is Appropriate. Mood is anxious, content. Affect is congruent. Thoughts are linear and logical. No evidence of psychosis. Client Response/Progress/Benefit: [] Pt engaged participant AEB listening to others, engaging in activity, and providing feedback at times. Attentive during psychoeducation and provided insight into obstacles that impede mental wellness. Pt shared with group current mental health reality and desired mental health reality, noting that she feels stuck in her current reality and unable to speak for herself but would like shanna get to a place where she is more equip to advocate for her needs. Identified barriers to desired reality include: lack of motivation, fear of failure, and self-doubt. Benefited from taking look at current mental health state and obstacles for progress. Pt to continue IOP tx to decrease anxiety, improve confidence, and prevent decompensation. Narrative Note: []
--- NOTE | 2024-04-03 11:15 | BH.SGPN.GN ---
Behaviors/Verbalizations/Mental Status: []Eye contact is good. Motor activity is appropriate. Appearance is disheveled. Speech is Appropriate. Mood is anxious and euthymic. Affect is congruent. Thoughts are linear and logical. No evidence of psychosis. Client Response/Progress/Benefit: []Pt was an engaged participant in group discussion and activity. Worked with group to identify strategies to help overcome barriers and obstacles to desired reality. Group developed strategies for the common barriers. Identified personal barriers to desired reality and choose one obstacle to work. Pt stated pt wants to work on barrier of fear of failure by setting tiny goals. Pt seemed to benefit from increased repertoire of healthy coping skills/strategies to overcome common barriers to moving forward. Pt is to continue IOP to promote use of healthy coping skills, reduce negative thinking, and increase distress tolerance skills. Narrative Note: []
--- NOTE | 2024-04-06 10:15 | BH.SGPN.GN ---
Behaviors/Verbalizations/Mental Status: []Eye contact is good. Motor activity is appropriate. Appearance is disheveled. Speech is Appropriate. Mood is stressed. Affect is congruent. Thoughts are linear and logical. No evidence of psychosis. Client Response/Progress/Benefit: [] Pt participated, AEB taking notes and providing input in group discussion when prompted. Attentive during psychoeducation. Pt engaged during interactive discussion in which the group defined self-care and discussed its benefits. Group discussed barriers to engaging in self-care. Group members together came up with not having time, it being selfish, not feeling like they deserve it, and not having energy. Pt stated their personal barrier is feeling like self-care is only selfish. Pt participated in small groups where they worked to identified and challenged common self-care ?myths?. Benefited from increased awareness of self-care, its benefits, and the consequences of not utilizing self-care strategies. Will continue IOP tx to promote mood stability, increase self-confidence, and improve daily functioning. Narrative Note: []
--- NOTE | 2024-04-06 11:15 | BH.SGPN.GN ---
Behaviors/Verbalizations/Mental Status: []Eye contact is good. Motor activity is appropriate. Appearance is disheveled. Speech is Appropriate. Mood is stressed. Affect is congruent. Thoughts are linear and logical. No evidence of psychosis. Client Response/Progress/Benefit: []Pt engaged in discussion reviewing different areas of self-care and completing self-assessment of current self-care, as well as providing input throughout discussion. Did well to complete self-care self-assessment worksheet. Pt identified current self-care practices and what self-care activities Pt wants to start using. Pt selected emotional self-care as the area pt wants to improve and she will do this by ?allowing myself to feel my emotions.? Appeared to benefit from completing the self-care evaluation and gaining insights into current self-care practices, as well as identifying areas in which Pt would like to improve upon. Pt will continue IOP tx to promote mood stability, increase self-confidence, and improve daily functioning. Narrative Note: []
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
--- NOTE | 2024-04-07 10:57 | PCM.BH.PN ---
Progress Note Progress Note: History of Present Illness/Interim History: The patient is a 34-year-old female with a history of depression, panic disorder, PTSD, anxiety and alcohol use disorder who is seen in follow-up at the [facility] behavioral health [facility]. I last saw the patient 2 weeks ago and at that time Zyprexa was added to help with severe anxiety or panic attacks. The patient has had difficulty tolerating medications due to side effects. The patient states she only took the Zyprexa 2 times and she feels that both times it caused her to experience suicidal ideation. She states that she feels she is doing very well and feels she has greatly benefit from the IOP. She feels she has much more support and will have much more support this in place when she leaves the [facility]. She would like to try to continue to use coping skills and to stay off all medication for now as she has side effects and every make medication she takes. The patient states that she has had panic attacks up to 3 times daily sometimes in the past few weeks and so they have not resolved. She is uncertain if she is more anxious about her court date or her future after she leaves the IOP. She states that at home she feels in a good mood and does well but when she leaves the house her anxiety and PTSD symptoms get worse. She denies any recent anxiety seizures that we discussed in prior notes. She states that she is less uncomfortable around men than she was when she started the program. She is sleeping 8 hours a night now which is much improved but she does have occasional hot flashes which may be due to the increased dose of her thyroid medication. She is a little worried about an upcoming court date in the presence of her father in the court room. She remains sober from alcohol since March 02, 2024. She denies any thoughts of self-harm, passive thoughts of , suicidal ideation, plan for suicide, homicidal ideation, hallucinations or delusions. Current Psychiatric Medications: [] Paxil discontinued 4 weeks ago after 5 days of use due to side effects; hydroxyzine which patient feels does not help; Zyprexa 2.5 mg daily or as needed which the patient discontinued after taking it 2 times as she felt both times it because suicidal ideation. Mental Status Examination: [] The patient is a 34-year-old obese, female who is casually dressed and groomed with fair hygiene and appears normal for stated age. She is ambulatory with a normal gait and has no psychomotor agitation or retardation. She is cooperative during the interview. Eye contact is good and speech is normal rate and rhythm and fluent with no pressure. Mood is mildly anxious and euthymic. Affect is full and normal. Thought process is goal-directed and organized. Thought content: Patient feels hopeful for the future but does not wish to take medication as they all give her side effects. There is no evidence of passive thoughts of , thoughts of self-harm, suicidal ideation, plan for suicide, homicidal ideation, hallucinations or delusions. Reality testing is intact. Intelligence is average. Judgment is intact. Insight is limited but some present. Impulsivity is high. Diagnoses: [] 1. PTSD 2. Major depressive disorder in full remission 3. Panic disorder 4. Alcohol use disorder (sober x 5 weeks) 5. Primary support, work and legal issues 6. Hypothyroidism with medications recently adjusted Plan: [] The patient will continue the IOP as she has benefited from the program and she may be discharged next week if she continues to improve and maintain her stability. She felt safe during the interview and if it anytime she does not feel safe she agrees to let us know or go to the emergency room. No medication changes were made today as the patient has discontinued all medication due to side effects and refuses to go back on any more medication because she wants to try to use the skills she learned in therapy to manage her anxiety. The patient plans to do the aftercare program if she is discharged next week from the IOP. She also has appointments with a follow-up counselor and other supports in place that she did not have before. She will continue to follow-up with her outpatient providers and I will see the patient in follow-up while she is in the IOP.
--- NOTE | 2024-04-07 11:15 | BH.SGPN.GN ---
Behaviors/Verbalizations/Mental Status: []Pt alert and oriented, casually dressed and groomed. Eye contact good. Motor activity appropriate. Speech within normal limits. Affect congruent, mood anxious. Thoughts linear, logical, no signs of hallucinations or delusions. Client Response/Progress/Benefit: []Pt engaged participant AEB listening attentively to others and providing input throughout group. Pt worked within their small group to identify strategies to manage inappropriate guilt. Identified a personal example of inappropriate guilt as ?feeling responsible when others treat me wrong?. Provided insight that this cues a feeling of ?fear of disappointing others?. Pt wants to work on combatting inappropriate guilt by correcting the distortions and practicing sitting with the uncomfortable. Pt seemed to benefit from learning about strategies to manage appropriate and inappropriate guilt. Pt to continue IOP level of care to increase consistent use of healthy coping skills, challenge negative thoughts, and prevent decompensation.
--- NOTE | 2024-04-14 10:15 | BH.SGPN.GN ---
Behaviors/Verbalizations/Mental Status: [] Eye contact is good. Motor activity is appropriate. Appearance is casual. Speech is Appropriate. Mood is euthymic. Affect is congruent. Thoughts are linear and logical. No evidence of psychosis. Client Response/Progress/Benefit: [] Pt was an active participant in group discussions. Attentive during psychoeducation on the 4 communication styles (Passive, Passive-Aggressive, Aggressive, and Assertive) and the obstacles to effective communication. ?Self-identified a barrier they personally struggle with as shutting down preventing them from communicating when they need to or want to. Contributed during interactive discussion on the benefits of communicating effectively which included; having one's needs met, decreases stress and uncertainty, improved relationships, healthier boundaries, and avoids unnecessary conflict. Worked well with peers to identify the benefits and disadvantages to the different communication styles. Benefited from increased understanding of communication styles and how these can impact effective communication. Will d/c from IOP and continue in outpatient counseling to prevent decompensation, maintain mood stability and continue to promote application of healthy coping skills. Narrative Note: []
--- NOTE | 2024-04-14 11:10 | BH.SGPN.GN ---
Behaviors/Verbalizations/Mental Status: []Pt alert and oriented, casually dressed. Eye contact good. Motor activity appropriate. Speech within normal limits. Affect congruent, mood euthymic. Thoughts linear, logical, no signs of hallucinations or delusions. Client Response/Progress/Benefit: [] Pt responded well to session AEB Pt listening attentively to others and providing input during group discussion on the pay offs and costs of the different communication styles. Pt able to connect how current communication style impacts mental health. Connected with peers? comments about importance of using assertive communication. Pt did well with practicing being assertive in the group activity and worked with group to identify potential skills for improving communication skills. Pt stated she will practice being assertive by starting to make more decisions for herself. Pt seemed to benefit from increasing awareness of healthy strategies to improve communication. Will discharge from [facility] today.
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
== END 2024-04-14 12:09 | disposition home or self-care (01) ==
LOC: BHIOP 08:03
PROVIDERS: PCP Physician Assistant Medical; Visit Provider Psychiatry & Neurology Psychiatry
DX: F43.10 Post-traumatic stress disorder, unspecified (principal); F33.42 Major depressive disorder, recurrent, in full remission; F41.0 Panic disorder [episodic paroxysmal anxiety]; F10.90 Alcohol use, unspecified, uncomplicated; E03.9 Hypothyroidism, unspecified; Z79.899 Other long term (current) drug therapy
CPT/HCPCS: H2012; H2020; S9480; 90832; 90834

== ENCOUNTER → 2024-03-17 | Outpatient (CLI) | payer MEDICAID, SELFPAY ==
--- NOTE | 2024-03-17 12:30 | RAD_ITS ---
STUDY: X-RAY - PELVIS AND LEFT HIP REASON FOR EXAM: Female, 34 years old. Hip pain, low back pain. Left hip pain. No known injury. TECHNIQUE: 3 views of the pelvis and left hip. COMPARISON: None. FINDINGS: There is a non-specific bowel gas pattern. Normal visualized soft tissue structures. Normal bilateral iliac wings, sacroiliac joints and visualized sacrum. Normal bilateral superior and inferior pubic rami. Normal pubic symphysis. Normal bilateral ischial tuberosities. Normal visualized femoral heads bilaterally. There is osteoarthritic spur formation of the acetabular rims bilaterally. Intact hip joints. There is no demonstrated acute fracture. RAD/HIP, UNI W/ Pelvis 2-3 Views IMPRESSION: Mild degenerative arthrosis of the hip joints bilaterally. No demonstrated acute fracture. Electronically Signed: Igor Barker MD at 15:01 EDT ,
--- NOTE | 2024-03-17 12:30 | RAD_ITS ---
INDICATION: LOW BACK PAIN EXAMINATION/TECHNIQUE: X-RAY - XR Spine Lumbar 2 or 3 Views COMPARISON: No relevant prior comparison study available FINDINGS: VERTEBRAE: Preserved vertebral body height. No fracture. No spondylolisthesis. Preservation of the normal lumbar lordosis. No significant facet arthropathy. DISCS: Disc spaces are maintained. INCLUDED ABDOMEN: Included bowel gas pattern is non-obstructive. RAD/Lumbar Spine 2 or 3 Views IMPRESSION: No evidence of lumbar spinal fracture or spondylolisthesis. Electronically Signed: Matthew Cruz MD at 1:55 EDT ,
== END | disposition home or self-care (01) ==
LOC: RAD 12:29
PROVIDERS: PCP Family Medicine; Referring Provider Anesthesiology; Visit Provider Anesthesiology
DX: M25.552 Pain in left hip (principal); M54.50 Low back pain, unspecified
CPT/HCPCS: 72100; 73502

== ENCOUNTER 2024-04-23 14:07 | Outpatient (RCR) | payer MEDICAID, SELFPAY ==
--- NOTE | 2024-04-23 14:00 | BH.SGPN.GN ---
Behaviors/Verbalizations/Mental Status: []Pt alert and oriented, casually dressed and groomed. Eye contact fair to good. Motor activity appropriate. Speech within normal limits. Affect congruent, mood agitated, dysthymic. Thoughts linear, logical, no signs of hallucinations or delusions. Client Response/Progress/Benefit: []Pt responded well to session AEB sharing and listening attentively to others. Pt has scheduled outpatient mental health appointments for early next week and maintains medication compliance. Pt reports using 5-senses, plans to attend [facility], and self-care to help with managing mental health symptoms. Pt participated in group discussion defining affirmations and why they are important. Pt provided insight throughout clinician?s presentation of tips for writing personal affirmations and wrote their own affirmations, including ?I am capable of setting boundaries, and I am proud for setting them, I am capable of healthy change in my life, and I am working on feeling comfortable with who I am right now?. Pt appeared to benefit from increased knowledge of affirmation writing skills and creating their own affirmation statements to remind themselves of outside tx environment. Will continue aftercare tx to promote consistent mental health maintenance and prevent decompensation. Narrative Note: []
--- NOTE | 2024-05-07 14:00 | BH.SGPN.GN ---
Behaviors/Verbalizations/Mental Status: []Pt alert and oriented, casually dressed and groomed. Eye contact fair. Motor activity appropriate. Speech within normal limits. Affect congruent, mood depressed. Thoughts linear, logical, no signs of hallucinations or delusions. Client Response/Progress/Benefit: []Client stated she has seen her individual therapist in the last week. Client reported she is still not taking her medications and is unsure if she plans to take any. Client reported she hasn't been using her healthy coping skills and did not complete homework from last session. Client attentive to psychoeducation about gratitude and provided contributions throughout. Client created her gratitude plan for the week. Pt has decompensation since discharging from IOP AEB her stopping all her medications, not using healthy coping skills, and reporting increased mental health symptoms. Client is discharging from Aftercare program today and is starting the IOP at [facility].
--- NOTE | 2024-05-07 16:16 | BH.DS ---
Discharge Summary Demographics Date of Admission:: 04/23/24 Discharge Date: 05/07/24 Presenting Problems at Admission:: Pt had discharged from IOP tx and planned to continue care to further reduce symptoms and increase daily functioning. However, pt reported that at admission to IOP aftercare she had stopped using healthy coping skills and quickly fell into old habits. Discharge Diagnoses:: 1. PTSD 2. Major depressive disorder, recurrent, severe without psychosis 3. Panic disorder 4. Alcohol use disorder in full remission for 2 years. Current Diagnoses:: 1. PTSD 2. Major depressive disorder, recurrent, severe without psychosis 3. Panic disorder 4. Alcohol use disorder in full remission for 2 years. Reason for Discharge:: Pt reports decompensation since discharging from IOP tx on 04/14/24. Pt plans to begin the IOP at [facility] to prevent further decompensation. Pt will begin next week. Treatment Progress During Treatment & Response: Limited progress as pt self-reported that following IOP discharge she has decompensated and her depression, anxiety, and panic are significantly impacting her daily functioning. For the two weeks pt attended IOP aftercare, she denied completing homework and she admitted she was not using healthy coping skills. Issues Still to be Addressed:: Pt reports symptoms and functioning to be at the same level as previous IOP admission. Pt is encouraged to work on reducing depressive symptoms, PTSD symptoms, and panic. Pt also reports her home environment is triggering for her PTSD which hinders pt's ability to make long-standing progress. Discharge Recommendations/Instructions:: Pt will discharge from IOP aftercare and begin [facility]. Pt is encouraged to follow up with their treatment plan recommendations and medication management. Discharge Handout
== END 2024-05-08 07:18 | disposition home or self-care (01) ==
LOC: BHOG 14:07
PROVIDERS: PCP Family Medicine; Referring Provider Psychiatry & Neurology Psychiatry; Visit Provider Psychiatry & Neurology Psychiatry
DX: F43.10 Post-traumatic stress disorder, unspecified (principal); F33.2 Major depressive disorder, recurrent severe without psychotic features; F41.0 Panic disorder [episodic paroxysmal anxiety]; F10.91 Alcohol use, unspecified, in remission
CPT/HCPCS: 90853

== ENCOUNTER 2024-05-18 22:57 | Emergency (ER) | payer MEDICAID, SELFPAY ==
[2024-05-18 22:58] VITALS: BP 177/101; PULSE 91; RESP 16; TEMP 37.1; O2SAT 99
--- NOTE | 2024-05-18 23:35 | RAD_ITS ---
EXAM: XR LEFT ANKLE COMPLETE, 3 OR MORE VIEWS CLINICAL INDICATION: injury TECHNIQUE: Frontal, lateral and oblique views of the left ankle. COMPARISON: No relevant prior studies available. FINDINGS: BONES/JOINTS: Small calcaneal spur. Calcifications at the posterior margin of the calcaneus in the expected region of the Achilles insertion. No evidence of Achilles tear. Coarse well-corticated calcification of roughly 7 mm and adjacent 2 mm calcification near the proximal margin of the fifth metatarsal. Faint 3 mm ossific density near the medial malleolus, likely chronic. Hypertrophic changes at the dorsal talonavicular joint on the lateral view. No ankle joint effusion. No visible fractures or significant joint asymmetry. SOFT TISSUES: Minimal ventral ankle soft tissue swelling. No radiopaque foreign body. RAD/Ankle min 3 Views IMPRESSION: Mild soft tissue swelling. No other convincing acute abnormality. Multiple fairly well-corticated osseous foci, likely chronic, and hypertrophic joint changes. Electronically Signed: Wendi Barber MD at 0:17 EST ,
--- NOTE | 2024-05-18 23:36 | ED.VIS.LOWEX ---
HPI History of Present Illness HPI Narrative: 34-year-old female history of hypothyroidism. States she has had pain in her left Achilles tendon for about 3 weeks. Does not remember a specific injury. No prior history of surgery on this foot or ankle. No other complaints. Chief Complaint: Lower Extremity Injury Informant: patient Occured/Mechanism Mechanism/Context: No injury and No blunt trauma Onset/Context/Timing Onset: Weeks Context: Gradual Onset Timing: Continuous Quality of Pain: Sharp Current Severity: Moderate Maximum Severity: Moderate Associated Symptoms Associated Symptoms: Negative for Parasthesia, Weakness or Loss of Funtion Narrative Narrative: 34-year-old female with left Achilles tendon pain for about 3 weeks. No known injury. No prior history of surgery to that extremity. No other complaints. Prior similar symptoms: No Recent Illness/Hospitalization: No [facility] Medical History History of alcohol use disorder Panic disorder Major depressive disorder, recurrent severe without psychotic features PTSD (post-traumatic stress disorder) Home Medications ?Medication ?Instructions ?Recorded ?Last Taken ?Type hydroxyzine pamoate 25 mg capsule 25 mg PO TID PRN panic attack(s) 03/11/24 Unknown Rx (Vistaril) 30 days #90 caps olanzapine 2.5 mg tablet (Zyprexa) 2.5 mg PO DAILY 30 days #30 tabs 03/25/24 Unknown Rx Allergy/AdvReac Type Severity Reaction Status Date / Time procaine (From Novocain) Allergy Severe throat Verified 05/18/24 22:58 swelling, itching sulfamethoxazole (From Allergy Severe Anaphylaxis Verified 05/18/24 22:58 Bactrim) trimethoprim (From Bactrim) Allergy Severe Anaphylaxis Verified 05/18/24 22:58 amoxicillin AdvReac Intermediate hallucinati Verified 05/18/24 22:58 ons ketamine AdvReac Intermediate aggression Verified 05/18/24 22:58 Penicillins AdvReac Intermediate hallucinati Verified 05/18/24 22:58 ons bacitracin (From Neosporin AdvReac Mild Rash Verified 05/18/24 22:58 ([id number])) neomycin (From Neosporin AdvReac Mild Rash Verified 05/18/24 22:58 ([id number])) polymyxin B (From Neosporin AdvReac Mild Rash Verified 05/18/24 22:58 ([id number])) Surgical History History of carpal tunnel release History of tonsillectomy and adenoidectomy Social History Smoking Status: Never smoker ROS ROS ED ROS Narrative Denies. Constitutional Constitutional ED: Denies chills or fever(s) Eyes Eyes: Denies blurry vision ENT ENT ED: Denies ear pain Cardiovascular Cardiovascular: Denies chest pain Respiratory/Chest Respiratory/Chest: Denies cough or dyspnea Gastrointestinal Gastrointestinal: Denies abdominal pain Genitourinary Genitourinary ED: Denies dysuria or hematuria Musculoskeletal Musculoskeletal: Denies arthralgias Integumentary Denies abscess Neurologic Neurologic: Denies headache(s) Psychiatric Psychiatric: Denies anxiety Endocrine Endocrinology: Denies polydipsia Hematologic/Lymphatic Hematologic/Lymphatic: Denies easy bleeding Allergic/Immunologic Allergic/Immunologic ED: Denies mouth swelling EXAM Physical Exam Narrative Exam Narrative: 34-year-old female no acute distress. Vital signs stable afebrile. H EENT exam unremarked. Lungs clear. Heart regular rhythm rate about 90 no murmur. Chest wall and ribs nontender. Abdomen soft nontender. Moving all 4 extremities. Neurovascular intact. Dorsi plantarflexion intact in both ankles but she has pain with dorsi and plantarflexion of the left foot. Normal DP pulse. Normal touch sensation. No swelling or redness. She has tenderness along her left Achilles tendon appears to be intact. She does have dorsi and plantarflexion is just uncomfortable when she does it. Otherwise she has normal flexion extension of her knee and hip. Otherwise exam unremarkable. There is no swelling or discoloration of the ankle or the foot. Const Vital Signs: 05/18/24 22:58 Temperature 98.7 F Temperature Source Oral Pulse Rate 91 Respiratory Rate 16 Blood Pressure 177/101 H Blood Pressure Mean 126 Pulse Ox 99 Oxygen Delivery Method Room Air Positive well nourished and well developed; Negative for cachectic, contractures or unkempt General Appearance ED: well developed; Negative for unkempt, cachectic or contractures Nutritional Appearance: Negative for cachectic HEENT Reports moist mucous membranes normocephalic and atraumatic Eyes PERRL Neck full ROM and supple Chest Wall inspection of chest normal and palpation of chest normal Resp normal respiratory effort, no retractions and clear to auscultation bilaterally Auscultation: Negative for rales, rhonchi or wheezes Cardio regular rate, regular rhythm, S1 normal heart sound, S2 normal heart sound and no murmurs Rate: Negative for bradycardia or tachycardic Rhythm: Negative for abnormal rhythm Bruits: Negative for other GI non-tender, non-distended and no masses Palpation: soft; Negative for tender, guarding or rebound tenderness present Back/Spine no CVA tenderness Extremity normal to inspection and full ROM Extremity Narrative: Except left Achilles is tender to palpation. She is able to do dorsi and plantarflexion. She has a negative Mariscal's squeeze test. She does have dorsi and plantarflexion. Normal DP pulse. Able to wiggle her toes. No swelling. No discoloration. No redness. The calf proximally is nontender. She has normal range of motion of the left hip and knee. Exam is consistent with a left Achilles tendon strain or tendinitis. Neuro oriented x3 and CN's II-XII intact bilaterally Sensorium / Orientation: alert, oriented to person, oriented to place and oriented to time; Negative for orientation impaired or confused Motor Exam: strength 5/5 throughout Psych mental status grossly normal Appearance: Negative for unkempt Skin no wounds Lesions: no lesions Rashes: no rashes Trauma: Negative for abrasion or laceration MDM MDM MDM Narrative Medical decision making narrative: 34-year-old female with pain to her left Achilles it appears to be intact. This is most likely a strain or tendinitis. There is no history of trauma. I am obtaining an ankle x-ray. She was seen in a prior ER a week or so ago they did a foot x-ray said it was negative. This will be treated with ice, rest and anti-inflammatories and follow-up if not improving. Repeat exam at 11:50 PM unchanged. We discussed diagnosis and treatment. She requested a dose of Zofran just for some nausea prior to discharge. History & Record Review Discussion w/independent historian: Patient Radiography Diagnostic Testing: Left ankle x-ray, 3 views, interpreted by myself shows no acute abnormality. No fracture. Discharge Plan Triage Chief Complaint: Lower Extremity Injury ED Provider: Lauri Frias Dx/Rx/DC Orders Clinical Impression: Achilles tendinitis, left leg Instructions: Tendonitis and Tenosynovitis Prescriptions: No Action hydroxyzine pamoate [Vistaril] 25 mg capsule 25 mg PO TID PRN (Reason: panic attack(s)) 30 Days Qty: 90 0RF olanzapine [Zyprexa] 2.5 mg tablet 2.5 mg PO DAILY 30 Days Qty: 30 0RF Primary Care Provider: Justa Light Referrals: Justa Light, DO [Primary Care Provider] - 1 Week if not improving Activity Restrictions/Additional Instructions: Your x-ray look good. This is most likely either strained Achilles tendon or tendinitis which is inflammation of the tendon. Rest the ankle by using crutches. Ice that area 3 times a day for 20 to 30 minutes each time. Use Motrin, Advil or ibuprofen 600 mg 3 times a day for the next week to help decrease the inflammation. If not improving follow-up with your doctor for further evaluation. You do not see this tendon on an x-ray. If it needs further evaluation you may need an MRI but typically this will get better on its own and you will need that. Print Language: Mohawk Disposition Disposition: Home, Self Care
[2024-05-18] MEDS: Ondansetron ODT 4 MG Tablet 8 MG PO (23:57)
== END 2024-05-19 00:07 | disposition home or self-care (01) ==
PROVIDERS: Emergency Provider Emergency Medicine; PCP Family Medicine; Visit Provider Emergency Medicine
DX: M76.62 Achilles tendinitis, left leg (principal)
CPT/HCPCS: 73610; 99283

== ENCOUNTER 2024-05-25 04:01 | Emergency (ER) | payer MEDICAID, SELFPAY ==
[2024-05-25 04:01] VITALS: BP 147/90; PULSE 80; RESP 17; TEMP 36.5; O2SAT 98; BMI 52.1
--- NOTE | 2024-05-25 04:20 | EDS_ITS ---
HPI History of Present Illness Chief Complaint: Rash Informant: patient and friend Narrative Narrative: Patient is a 34-year-old female with past medical history of PTSD and depression. She states she stayed at hotel previously and then noticed a rash on her hand and left leg. She states she was seen at an outside facility and placed on a steroid cream. She states she has been using it for the last 3 to 4 days as directed along with Benadryl but is continuing to have bouts of itching and she feels like the rash is spreading. She denies any new exposures and she states no one else at home has the rash. However because of its persistent nature she presents for evaluation [facility] Medical History History of alcohol use disorder Panic disorder Major depressive disorder, recurrent severe without psychotic features PTSD (post-traumatic stress disorder) Home Medications ?Medication ?Instructions ?Recorded ?Last Taken ?Type hydroxyzine pamoate 25 mg capsule 25 mg PO TID PRN panic attack(s) 03/11/24 Unknown Rx (Vistaril) 30 days #90 caps olanzapine 2.5 mg tablet (Zyprexa) 2.5 mg PO DAILY 30 days #30 tabs 03/25/24 Unknown Rx prednisone 10 mg tablet 10 mg PO DAILY #48 TABLETS 05/25/24 Unknown Rx triamcinolone acetonide 0.1 % 1 applic topical 4X/DAY 05/25/24 Unknown History topical cream Allergy/AdvReac Type Severity Reaction Status Date / Time procaine (From Novocain) Allergy Severe throat Verified 05/25/24 04:01 swelling, itching sulfamethoxazole (From Allergy Severe Anaphylaxis Verified 05/25/24 04:01 Bactrim) trimethoprim (From Bactrim) Allergy Severe Anaphylaxis Verified 05/25/24 04:01 amoxicillin AdvReac Intermediate hallucinati Verified 05/25/24 04:01 ons ketamine AdvReac Intermediate aggression Verified 05/25/24 04:01 Penicillins AdvReac Intermediate hallucinati Verified 05/25/24 04:01 ons bacitracin (From Neosporin AdvReac Mild Rash Verified 05/25/24 04:01 ([id number])) neomycin (From Neosporin AdvReac Mild Rash Verified 05/25/24 04:01 ([id number])) polymyxin B (From Neosporin AdvReac Mild Rash Verified 05/25/24 04:01 ([id number])) Surgical History History of carpal tunnel release History of tonsillectomy and adenoidectomy Social History Smoking Status: Never smoker ROS ROS ED Constitutional Constitutional ED: Denies chills or fever(s) ENT ENT ED: Denies sore throat Cardiovascular Cardiovascular: Denies chest pain Respiratory/Chest Respiratory/Chest: Denies cough or dyspnea Gastrointestinal Gastrointestinal: Denies abdominal pain, diarrhea, nausea or vomiting Genitourinary Genitourinary ED: Denies dysuria Musculoskeletal Musculoskeletal: Denies myalgias Integumentary Reports rash Neurologic Neurologic: Denies headache(s) Hematologic/Lymphatic Hematologic/Lymphatic: Denies easy bleeding or easy bruising Allergic/Immunologic Allergic/Immunologic ED: Denies mouth swelling or tongue swelling EXAM Physical Exam Const Vital Signs: 05/25/24 04:01 Temperature 97.7 F L Temperature Source Oral Pulse Rate 80 Respiratory Rate 17 Blood Pressure 147/90 H Blood Pressure Mean 109 Pulse Ox 98 Oxygen Delivery Method Room Air Positive well nourished and well developed General Appearance ED: well developed HEENT HEENT Narrative: No tongue or lip swelling no oral lesions no airway edema or compromise No signs of angioedema Eyes PERRL and EOMs intact bilaterally Neck supple Resp normal respiratory effort and clear to auscultation bilaterally Cardio regular rate and regular rhythm Extremity normal to inspection Neuro oriented x3, CN's II-XII intact bilaterally and no sensory deficits noted Sensorium / Orientation: alert Motor Exam: strength 5/5 throughout Psych mental status grossly normal Skin Skin Narrative: Patient has erythematous and blanchable well-circumscribed lesions in a linear pattern up the left lateral thigh the left distal humerus and similar lesions along the dorsal aspect of her right hand near the fourth phalanx extending into the dorsum of the hand. The area seem to be more consistent with a insect bite or sting as there is a small puncture in the center. No obvious abscess formation no lymphangitic streaking no involvement of the palms or soles MDM MDM MDM Narrative Medical decision making narrative: Patient presented the ER hypertensive but otherwise with stable vitals. Patient had a rash that has been persistent for the past 3 to 4 days despite topical cream. Her physical exam does not suggest cellulitis or abscess or shingles. She does not have signs of angioedema. As the rash is well-circumscribed and in a linear pattern this is most likely insect bite or sting and with her recent report of hotel exposure this may be bedbugs. At this time as there is no obvious signs of infection or airway compromise I do not feel there is need for imaging or laboratory studies. As patient states that the topical steroid is not controlling her symptoms should be placed on a prednisone taper but is otherwise safe for discharge History & Record Review Discussion w/independent historian: Patient and Friend Discharge Plan Triage Chief Complaint: Rash ED Provider: Vern Richards Dx/Rx/DC Orders Clinical Impression: Dermatitis, Hypertension, Depression Instructions: ED Bedbug Bites, ED Insect Bite Prescriptions: New prednisone 10 mg tablet 10 mg PO DAILY Qty: 48 0RF Rx Instructions: 6 po qd x 3 days, 4 po qd x 3 days, 2 po qd x 3 days, 1 po qd x 3 days No Action hydroxyzine pamoate [Vistaril] 25 mg capsule 25 mg PO TID PRN (Reason: panic attack(s)) 30 Days Qty: 90 0RF olanzapine [Zyprexa] 2.5 mg tablet 2.5 mg PO DAILY 30 Days Qty: 30 0RF triamcinolone acetonide 0.1 % cream 1 applic topical 4X/DAY Primary Care Provider: Justa Light Referrals: Justa Light, DO [Primary Care Provider] - Activity Restrictions/Additional Instructions: Your rash appears to be most likely from a insect bite or sting. Please check any bedding or clothing at home to make sure there are no insects that could be reexposed and you. Continue the triamcinolone cream. Add the oral prednisone for improved inflammatory and itch control. You may take up to 50 mg / 2 pills of [id number] Benadryl 3 times a day if needed for improved itch relief. Return to the ER should you have any further concern Print Language: Libyan Disposition Disposition: Home, Self Care Discharge Date/Time: 05/25/24 04:37
[2024-05-25] MEDS: predniSONE 20 MG Tablet 60 MG PO (04:34)
[2024-05-25 04:36] VITALS: BP 142/89; PULSE 84; RESP 16; TEMP 36.6; O2SAT 99
== END 2024-05-25 04:37 | disposition home or self-care (01) ==
LOC: ED 04:29
PROVIDERS: Emergency Provider Emergency Medicine; PCP Family Medicine; Visit Provider Emergency Medicine
DX: L30.9 Dermatitis, unspecified (principal); I10 Essential (primary) hypertension; F32.A Depression, unspecified
CPT/HCPCS: 99282

== ENCOUNTER 2024-06-09 08:00 | Outpatient (RCR) | payer MEDICAID, SELFPAY ==
--- NOTE | 2024-06-09 09:00 | BH.SGPN.GN ---
Behaviors/Verbalizations/Mental Status: []Pt alert and oriented, disheveled appearance. Eye contact good. Motor activity appropriate. Speech within normal limits. Affect flat, mood depressed. Thoughts linear, logical, no signs of hallucinations or delusions. Reviewed pt?s symptom tracker, no risk for suicidal ideation, plan, or intent 06/09/24 Client Response/Progress/Benefit: []Pt attentive, but quiet. Pt declined to share during check-in today, but pt appeared to be listening to peers. Pt has been in IOP previously and returns due to decompensation of mental health symptoms. Pt will continue IOP tx to prevent decompensation, improve daily functioning, and maintain safety. Narrative Note: []
--- NOTE | 2024-06-09 10:15 | BH.SGPN.GN ---
Behaviors/Verbalizations/Mental Status: []Eye contact is fair. Motor activity is appropriate. Appearance is casual. Speech is Appropriate. Mood is anxious and dysthymic. Affect is congruent. Thoughts are linear and logical. No evidence of psychosis. Client Response/Progress/Benefit: []Pt receptive of session, actively engaged throughout AEB taking notes, providing input, and contributing in small group discussion. Appeared to connect with group topic of automatic thoughts and cognitive distortions, as well as the impact of thought patterns on mental health, coping behaviors, and relationships. This particular group is very heavy on psychoeducation and pt appeared to connect with distortions and how they can impact functioning. Identified struggling with all or nothing distortion. Pt appeared to benefit from gaining insight on distorted thinking patterns and how this impacts overall mental health. Will continue IOP to increase healthy coping, maintain safety, and prevent decompensation. Narrative Note: []
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
--- NOTE | 2024-06-11 11:10 | BH.SGPN.GN ---
Behaviors/Verbalizations/Mental Status: [] Pt alert and oriented. Appearance is neat. Eye contact good. Motor activity appropriate. Speech within normal limits. Affect is depressed. Mood is congruent. Thoughts linear, logical, no signs of hallucinations or delusions. Client Response/Progress/Benefit: [] Pt was engaged during discussion and experiential activity. Completed the worksheet challenging them to develop a personal SMART goal. Pt chose a SMART goal of taking my meds and being held accountable by placing a pill container and cup in bathroom to take daily. Insight into how consistent use of mediation will benefit her mental health. Obstacles include laziness, procrastination, and forgetfulness. Benefited from this group by developing a short-term SMART goal related to mental health. Will continue IOP to maintain safety, prevent decompensation, and stabilize mood. Narrative Note: []
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
[2024-06-11 11:47] VITALS: BP 150/90; PULSE 81
--- NOTE | 2024-06-11 11:59 | BH.DR.ITP ---
Initial Treatment Plan Patient Information Visit Information: ADMISSION DATE: EXPECTED LOS: 4-6 weeks Problems/Symptoms Problem #1:: Depression Symptom:: Sadness, hopelessness, worthlessness, guilt, low energy, decreased concentration, biological disruption of sleep, anhedonia, recent possible suicidal ideation and self-harm Problem #2:: Anxiety Symptom:: Worry, rumination, avoidance, panic attacks, triggers, flashbacks
--- NOTE | 2024-06-15 09:05 | BH.SGPN.GN ---
Behaviors/Verbalizations/Mental Status: [] Eye contact is good. Motor activity is appropriate. Appearance is casual. Speech is Appropriate. Mood is depressed. Affect is flat. Thoughts are linear and logical. No evidence of psychosis. Reviewed daily check in sheet and pt reports 3/5 for suicidal ideations and 1/5 for itent. Client Response/Progress/Benefit: [] Pt participated when prompted. Attentive. Daily symptom tracker notes 4/5 for depression, 3/5 for anxiety and self-harm urges. Difficulty getting to IOP this AM. Struggling with sleep; however she did not elaborate. Briefly discussed stressors. Limited progress. Depression, anxiety, and low energy impacting her functioning. Benefited from group support, encouragement, and feedback. Will continue in IOP to maintain safety, stabilize mood, and improve functioning. Narrative Note: []
--- NOTE | 2024-06-15 10:10 | BH.SGPN.GN ---
Behaviors/Verbalizations/Mental Status: []Pt alert and oriented, casually dressed and groomed. Eye contact fair. Motor activity appropriate. Speech within normal limits. Affect congruent, mood anxious. Thoughts linear, logical, no signs of hallucinations or delusions. Client Response/Progress/Benefit: [] Pt was attentive during psychoeducation and participated in group activity. Group discussed what contributes to a person?s perspective and how perspective can positively or negatively impact mental health treatment. Pt reflected on their perspective today and how it is impacting them. Pt shared her perspective is closer towards positive but is having a hard time opening up and sharing because of intrusive thoughts. Pt appeared to benefit from increasing awareness of different perspectives and how they can affect mental health. Pt will continue IOP tx to improve daily functioning, increase healthy coping skills, and prevent decompensation.
--- NOTE | 2024-06-15 11:15 | BH.SGPN.GN ---
Behaviors/Verbalizations/Mental Status: []Pt alert and oriented, casually dressed and groomed. Eye contact good. Motor activity appropriate. Speech within normal limits. Affect congruent, mood depressed. Thoughts linear, logical, no signs of hallucinations or delusions. Client Response/Progress/Benefit: []Pt was attentive and contributed to group discussion. Pt worked with group to identify strategies that can help with challenging negative perspective. Pt stated she can remind self to use ?delay, distract, decide? skill as a way to challenge negative perspective. Pt completed strengths exploration worksheet, identifying personal strengths of honesty, patience, and independence. Pt able to acknowledge how these strengths are helping pt and can continue to help pt in mental health journey. Benefited from identifying personal strengths and strategies for perspective challenging. Pt will continue IOP tx to continue practice healthy coping skills, build self-care, and prevent decompensation. Narrative Note: []
--- NOTE | 2024-06-16 09:00 | BH.COMM ---
Communication Note Communication with Client Communication Note: Cancelled IOP today due to car issues. No significant mental health concerns reported. Plans to be back on 06/18/24.
== END 2024-06-16 23:59 ==
LOC: BHIOP 08:00
PROVIDERS: PCP Family Medicine; Referring Provider Psychiatry & Neurology Psychiatry; Visit Provider Psychiatry & Neurology Psychiatry
DX: F43.10 Post-traumatic stress disorder, unspecified (principal); F33.2 Major depressive disorder, recurrent severe without psychotic features; F41.0 Panic disorder [episodic paroxysmal anxiety]; F10.11 Alcohol abuse, in remission; E03.9 Hypothyroidism, unspecified; Z91.148 Patient's other noncompliance with medication regimen for other reason
CPT/HCPCS: H2012; H2020

== ENCOUNTER 2024-06-11 12:11 | Outpatient (CLI) | payer MEDICAID, SELFPAY ==
[2024-06-11 13:38] LABS: Free T3 3.1 pg/mL (2.18-3.98); T4 Free Direct 1.12 ng/dL (0.76-1.46); T4 Total, Thyroxin 8.5 ug/dL (4.8-13.9)
== END 2024-06-11 23:59 | disposition home or self-care (01) ==
LOC: LAB 12:12
PROVIDERS: PCP Family Medicine; Referring Provider Psychiatry & Neurology Psychiatry; Visit Provider Psychiatry & Neurology Psychiatry
DX: E55.9 Vitamin D deficiency, unspecified (principal); F33.2 Major depressive disorder, recurrent severe without psychotic features; F43.10 Post-traumatic stress disorder, unspecified; F41.0 Panic disorder [episodic paroxysmal anxiety]; F10.11 Alcohol abuse, in remission; E03.9 Hypothyroidism, unspecified; Z91.148 Patient's other noncompliance with medication regimen for other reason
CPT/HCPCS: 84439; 36415; 82306; 84436; 84443; 84481; H2012

== ENCOUNTER 2024-06-18 07:08 | Outpatient (RCR) | payer MEDICAID, SELFPAY ==
[2024-06-17 00:31] VITALS: BP 150/90; PULSE 81
--- NOTE | 2024-06-18 09:00 | BH.SGPN.GN ---
Behaviors/Verbalizations/Mental Status: [] Pt alert and oriented, disheveled appearance. Eye contact good. Motor activity appropriate. Speech within normal limits. Affect congruent, mood euthymic. Thoughts linear, logical, no signs of hallucinations or delusions. Reviewed pt?s symptom tracker, no risk for suicidal ideation, plan, or intent ?06/18/24. Client Response/Progress/Benefit: [] Pt was an active participant in group discussions. Attentive. Able to identify mental health wins including getting to IOP on time, getting sleep yesterday, and being away from her house/family. Pt admits that being away from home is both ?stressful and freeing.? Pt's stressor today is pt has been off her thyroid medications for a while now and she needs a new PCP. Therapist will bring this up to treatment team. Pt stated she is feeling sassy this morning. Pt receptive to feedback from peers which pt reported was helpful. Progress noted. Benefited from group support, encouragement, and feedback. Will continue in IOP to prevent decompensation, increase distress tolerance, and gain self-care practices. Narrative Note: []
--- NOTE | 2024-06-18 10:10 | BH.SGPN.GN ---
Behaviors/Verbalizations/Mental Status: [] Eye contact is poor. Motor activity is appropriate. Appearance is casual. Speech is Appropriate. Mood is depressed. Affect is flat. Thoughts are linear and logical. No evidence of psychosis. Client Response/Progress/Benefit: [] Pt participated on occasion during group discussion. Attentive during psychoeducation and interactive discussion on coping skills, why people use unhealthy coping skills, how to replace unhealthy coping skills, and internal vs external coping skills. Attentive as peers came up with list of unhealthy coping skills. Attentive as group discussed the effects of maladaptive coping skills on mental health. Benefited from increased understanding of unhealthy coping skills and the need for developing healthy internal and external coping skills. Actively participated during experiential group activity and was able to related this activity to group topic. Will continue in IOP to maintain safety, increase healthy coping, and prevent decompensation. Narrative Note: []
--- NOTE | 2024-06-18 11:15 | BH.SGPN.GN ---
Behaviors/Verbalizations/Mental Status: []Pt alert and oriented, casually dressed and groomed. Eye contact good. Motor activity appropriate. Speech within normal limits. Affect congruent, mood content. Thoughts linear, logical, no signs of hallucinations or delusions. Client Response/Progress/Benefit: [] Pt responded well to session, taking notes and contributing when prompted. Group discussed the different categories of coping skills which included distraction, emotional release, grounding, self-love, and thought challenging. Pt participated in creating a coping skills ?menu? from the different categories of coping skills. Pt's coping skill menu included: reading, crafts, talking to boyfriend, cooking, boundaries, and opposite action. Appeared to benefit from increasing repertoire of healthy coping skills. Will continue IOP to prevent decompensation, improve daily functioning, and increase distress tolerance skills. Narrative Note: []
--- NOTE | 2024-06-18 14:22 | BH.MDN ---
Multi-Disciplinary Note Note 60-min Individual: Time Started:: 12:15 Date: 06/18/24 Purpose of session/treatment goals addressed:: Purpose of session was to address goals 1 and 2 from MTP. Eye Contact:: Good Motor Activity:: Restless Appearance:: Casual Speech:: Appropriate Mood:: Dysthymic Affect:: Constricted Thoughts:: Linear, Logical and No evidence of hallucinations/delusions noted Staff Interventions:: thought challenging, motivational interviewing, CBT techniques, rapport building, strengths perspective, goal setting and taught coping skills Client Response:: Client reported she slept all day yesterday because she did not feel like doing anything. Client stated sometimes she struggles with staying stuck in her isolated behavior. Client shared she has been taking the Abilify for about a week but is unsure if it something that she is going to continue because she does not like taking medications. Client shared her and boyfriend have been supportive to her lately. She did have some conflict with her recently but stated he is back on his medication and is doing better. Client stated her boyfriend tends to be more consistent with his support towards her. Client stated she still struggles with opening up to her supports. Client stated this time around in IOP she is hopeful things can improve because she does not really remember much from last time she was here due to going through significant stress of living with her mother and dealing with court with her father. Therapist and client work together to create a coping menu of skills that client has found to be helpful. Client stated her coping menu includes reading, talking to boyfriend, journaling, engaging her 5 senses, setting boundaries, and opposite action. Client agreeable to practice utilizing these skills to help improve distress tolerance and challenge negative distorted thought patterns. Risks/Concerns:: Pt reports chronic thoughts of . Pt denies active suicidal thoughts, plan, or intention. Pt reports ability to maintain safety. Pt states she is living in a hotel room with her boyfriend and so is under constant supervision. Progress Toward Goals/Plan:: Progress limited. Client continues to report utilization of unhealthy coping skills like isolation and sleeping. Client struggles with managing emotions in the moment which results in her engaging in coping skills that keep her from feeling difficult emotions. Client is open to practicing healthy coping skills on a more consistent basis to improve distress tolerance. Plan is for client to continue IOP to increase use of healthy coping skills, challenge distortions, and prevent decompensation. Time Stopped:: 13:15
--- NOTE | 2024-06-22 10:10 | BH.SGPN.GN ---
Behaviors/Verbalizations/Mental Status: [] Eye contact is fair. Motor activity is appropriate. Appearance is casual. Speech is Appropriate. Mood is agitated and depressed. Affect is constricted. Thoughts are linear and logical. Denies hallucinations or delusions. Client Response/Progress/Benefit: [] Pt was an attentive but passive participate AEB listening attentively to others during group discussions and taking notes throughout. Did decline to participate in the activity. Attentive and nodding as the group identified ways we can hurt others or sabotage self by not regulating our emotions. Attentive as peers worked to identify ways emotions impact communication and pt nodding in agreement as another participant shared making assumptions when anxiety is high. Pt benefited from session by gaining an increased understanding on the importance of managing emotions to improve daily functioning as well as supportive environment. Will continue IOP tx to promote use of healthy coping skills, reduce negative thinking patterns, and improve mood stability. ? Narrative Note: []
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
--- NOTE | 2024-06-23 10:10 | BH.SGPN.GN ---
Behaviors/Verbalizations/Mental Status: [] Eye contact is good. Motor activity is appropriate. Appearance is disheveled. Speech is Appropriate. Mood is dysthymic. Affect is congruent. Thoughts are linear and logical. No evidence of psychosis. Client Response/Progress/Benefit: [] Pt was an active participant during group discussions and group activities. This portion of group was very psychoeducation heavy and pt was attentive during psychoeducation. Engaged during activity in which they identified which type of foods (i.e. carbs, sugar, salt, fast food, caffeine, etc) they seek out when sad, tired, angry, stressed, anxious, etc. Pt was able to identify the impact that certain foods have on their mental health through group example which was beneficial. Benefited from increased awareness of the connection between nutrition and mental health. Will continue in IOP to improve distress tolerance, challenge distortions, and prevent decompensation.
--- NOTE | 2024-06-23 11:10 | BH.SGPN.GN ---
Behaviors/Verbalizations/Mental Status: [] Client alert and oriented, casually dressed and groomed. Eye contact good. Motor activity appropriate. Speech within normal limits. Affect congruent, mood depressed. Thoughts linear, logical, no signs of hallucinations or delusions. Client Response/Progress/Benefit: []Client was an active participant throughout AEB contributing to group discussion and taking notes. Client provided input during small group discussion on strategies to combat each factor maintaining adverse nutritional cycles. Worked with group to identify ways to foster more mindful nutritional choices. Each group participant identified one small step they could take today to begin establishing mental wellness promoting nutritional choices. Client shared plans to practice maintaining sobriety.?Appeared to benefit from gaining insight into mental wellness centered nutrition and identifying personal steps client can take to support own nutritional psychology. Recommended continued IOP tx to improve mood stability, improve healthy boundaries , and prevent decompensation. Narrative Note: []
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
--- NOTE | 2024-06-24 15:45 | BH.COMM ---
Communication Note Communication with Client Communication Note: Therapist confirmed with pt that her boyfriend is picking her up at noon today.
--- NOTE | 2024-06-24 15:46 | BH.COMM ---
Communication Note Communication with Client Communication Note: Therapist checked in with pt during the group sessions and with each check-in pt reported feeling a little better. By 11am pt was receptive to journaling and was given a notebook and highlighter to do this. Pt was also joking with therapist and stated she was in a better head space.
--- NOTE | 2024-06-26 09:05 | BH.SGPN.GN ---
Behaviors/Verbalizations/Mental Status: [] Eye contact is good. Motor activity is appropriate. Appearance is casual. Speech is Appropriate. Mood is depressed/irritable. Affect is congruent. Thoughts are linear and logical. No evidence of psychosis. Reviewed daily check in sheet and pt reports 1/5 for suicidal thoughts and 0/5 for intent. This is significantly decreased from earlier this week. Client Response/Progress/Benefit: [] Pt participated at times during group discussions. Attentive. ? I made it?. Daily symptom tracker notes 3/5 for depression, agitation, and self-harm urges which are improved from earlier this week. Notes mood and functioning are better. Reports significant struggles with mental health yesterday. Briefly elaborated and reports being motivated to change and not isolate today. According to pt she missed appointments when she is isolating. Benefited from group support, encouragement, and feedback. Will continue in IOP to maintain safety, prevent decompensation, and increase healthy coping Narrative Note: []
--- NOTE | 2024-06-26 10:10 | BH.SGPN.GN ---
Behaviors/Verbalizations/Mental Status: [] Eye contact good. Motor activity is appropriate. Appearance is casual. Speech within normal limits. Mood is depressed. Affect is congruent. Thoughts are linear and logical. No evidence of psychosis. ? ? Client Response/Progress/Benefit: [] Client was a semi-active participant in group discussion and experiential activity. Attentive during psychoeducation on resilience but was variable in amount of provided input, at times distracted by self or phone. Participated in interactive discussion with peers on the definition of resilience and where it comes from. Group identified that resiliency can be impacted by; past experiences, upbringing, and current mental health state. Group also worked together to identify the benefits of being resilient and how it is related to mental health. Reflected on personal resilience story. Able to relate experiential activity of group juggle to topics of resilience. Worked with peers in small group in which they identified factors that contribute to resilience. Benefited from increased awareness of resilience and the factors that contribute to building resilience. Will continue in IOP to increase healthy thought patterns and further promote mood stability. Narrative Note: []
--- NOTE | 2024-06-26 11:15 | BH.SGPN.GN ---
Behaviors/Verbalizations/Mental Status: []Pt alert and oriented, disheveled appearance. Eye contact good. Motor activity appropriate. Speech within normal limits. Affect congruent, mood euthymic. Thoughts linear, logical, no signs of hallucinations or delusions. Client Response/Progress/Benefit: [] Pt responded well to session AEB completing the resilience worksheet provided. Pt actively participated in the discussion and worked cooperatively with group to identify strategies to enhance each of the components discussed. Pt reports belief they already use resilience trait of ?self-awareness.? Pt discussed that they could work on ?moving towards goals? by making a list of her boundaries. Pt seemed to benefit from discussing strategies for improving personal resilience and identifying resilience traits Pt already possesses. Will continue IOP tx to prevent decompensation, increase distress tolerance skills, and combat distortions. Narrative Note: []
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
--- NOTE | 2024-06-30 15:00 | BH.SGPN.GN ---
Behaviors/Verbalizations/Mental Status: [] Client alert and oriented, casually dressed and groomed. Eye contact good. Motor activity appropriate. Speech within normal limits. Affect congruent, mood dysthymic. Thoughts linear, logical, no signs of hallucinations or delusions. Client Response/Progress/Benefit: [] Pt responded well to session AEB sharing when prompted and listening attentively to others. Group provided examples of benefits of having social support, including: validation, help in coping with stressors, company, and accountability. Pt also participated in group discussion regarding the barriers to accessing support identifying examples to include: negative thinking, lack of communication, and fear of being a burden or judgement. Shared struggling personally with poor boundaries and isolation. Pt participated in experiential activity illustrating the impact communication, boundaries, and patience play in creating healthy support systems. Pt appeared to benefit from increased knowledge of the benefits of social support and greater self-awareness. Pt to continue IOP to improve mood stability, increase consistent use of healthy coping skills to maintain mood stability, and prevent decompensation. Narrative Note: []
--- NOTE | 2024-07-01 10:10 | BH.SGPN.GN ---
Behaviors/Verbalizations/Mental Status: [] Client alert and oriented, casually dressed and groomed. Eye contact good. Motor activity appropriate. Speech within normal limits. Affect flat, mood content. Thoughts linear, logical, no signs of hallucinations or delusions. Client Response/Progress/Benefit: [] Client was an active participant in group discussions. Attentive during psychoeducation on 4 types of conflict styles (Competing, Collaborating, Avoiding, and Accommodating). Worked with group to define conflict and identify how conflict is helpful. With peers, pt identified barriers to addressing or managing conflict which included: trauma, unmanaged emotions, and cognitive distortions. Client believes they use avoidant style of conflict resolution at times and passive-aggressive or aggressive if feeling triggered or depending on the relationship. Client shared this style leads to not getting her needs met as well as additional unnecessary conflict. Benefited from group due to increase insight and awareness of benefits to conflict, conflict styles, and obstacles to managing conflict. Will continue in IOP to prevent decompensation, gain healthier coping skills, and increase functioning. Narrative Note: []
--- NOTE | 2024-07-01 11:10 | BH.SGPN.GN ---
Behaviors/Verbalizations/Mental Status: [] Client alert and oriented, casually dressed and groomed. Eye contact good. Motor activity appropriate. Speech within normal limits. Affect congruent, mood dysthymic. Thoughts linear, logical, no signs of hallucinations or delusions. Client Response/Progress/Benefit: [] Client engaged in session AEB contributing to discussion and engaging in small group. Attentive during discussion on strategies for more effectively managing conflict in personal life. Client participated in small group for activity and did well practicing how to manage conflict scenarios. Client given handout on [employer] with strategies to to communicate effectively in conflict. Client indicated what needs improvement in conflict for them. Appeared to benefit from gaining strategies to help client better manage conflict. Will continue IOP tx to improve communication with supports, challenge negative thoughts, and prevent decompensation.
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
--- NOTE | 2024-07-01 17:20 | BH.TPR ---
Treatment Plan Review Demographics Date of Admission:: 06/09/24 Date of Treatment Plan Review:: 07/01/24 Admitting Diagnoses:: F43.1 1. PTSD 2. Major depressive disorder, recurrent, severe without psychosis 3. Panic disorder 4. Alcohol use disorder in full remission for 2 years 5. Primary support, work and financial issues Current Diagnoses:: F43.1 1. PTSD 2. Major depressive disorder, recurrent, severe without psychosis 3. Panic disorder 4. Alcohol use disorder in full remission for 2 years 5. Primary support, work and financial issues Patient Status Patient's Response to Treatment:: Pt's attendance has been variable throughout program. Pt's engagement is variable throughout sessions at times she provides feedback during group sessions and other times she is a more passive participant. Status of Current Problems and Symptoms: Ongoing problems. Client continues to report depressed and anxious symptoms. Client has been struggling off and on since start of IOP with passive thoughts and self-harm. Client has reported one week of no self-harm behavior. Client often reports significant crisis situation that has to be the focus of session and can at times be a barrier to treatment progress. Client is trying to work on using healthy coping skills more consistently to decrease isolation and shutting down. Progress Problem #1: Problem Name:: Anxiety Status of Goals:: Obj 1 - not met. Client can identify healthy calming skills but struggles with utilizing skills on consistent basis to manage her anxiety symptoms. Obj 2 - not met. Client able to identify her anxious triggers, but struggles with consistent application of skills. Team Recommendations:: Team recommends to continue current objectives and goals to give time to see more consistent treatment progress. Problem #2: Problem Name:: Depression Status of Goals:: Obj 1 - progress noted, ongoing work encouraged. Client can identify healthy coping skills like walking, opposite action, journaling, and changing environment. Client struggling with using skills on consistent basis. Obj 2 - ongoing work encouraged. Client able to identify negative thoughts, but needs continued work with challenging negative thoughts independently. Team Recommendations:: Team recommends to continue current objectives and goals to give time to see more consistent treatment progress.
--- NOTE | 2024-07-03 09:05 | BH.SGPN.GN ---
Behaviors/Verbalizations/Mental Status: []? Eye contact is poor, looking down. Motor activity is appropriate. Appearance is disheveled. Speech is constricted. Mood is agitated. Affect is constricted. Thoughts are linear and logical. No evidence of psychosis. Reviewed daily check in sheet and no reports of suicidal ideations or intent.? Client Response/Progress/Benefit: []? Pt was a passive participant in group discussion. Attentive and nodding but not engaged throughout discussion. Pt declined to share during process portion of group. Pt difficulties engaging in group environment continues to contribute to limited progress in managing mental health sx. Pt recommended continued IOP tx to improve mood stability, reduce avoidance, and improve healthy communication. Narrative Note: []
--- NOTE | 2024-07-03 10:10 | BH.SGPN.GN ---
Behaviors/Verbalizations/Mental Status: [] Pt alert and oriented, casually dressed and groomed. Eye contact good. Motor activity appropriate. Speech within normal limits. Affect congruent, mood content,Thoughts linear, logical, no signs of hallucinations or delusions. Client Response/Progress/Benefit: [] Pt receptive to session AEB contributing to group discussion, as well as listening attentively to others, and taking notes. Worked with group to brainstorm the positive and negative aspects of stress on physical and mental health as well as the impact of distress on performance, relationships, and mental health. Pt shared their top stressors to be: family and not being able to see siblings. Shared when feeling overwhelmed with stress pt tends to increase anger towards others. Benefited from increased awareness of positive and negative stress as well as how stress impact individuals. Will continue in IOP to increase functioning and prevent decompensation. Narrative Note: []
--- NOTE | 2024-07-03 11:10 | BH.SGPN.GN ---
Behaviors/Verbalizations/Mental Status: [] Pt alert and oriented, casually dressed and groomed. Eye contact good. Motor activity appropriate. Speech within normal limits. Affect congruent, mood content, Thoughts linear, logical, no signs of hallucinations or delusions. Client Response/Progress/Benefit: [] Pt was an attentive participant in group discussions and actively engaged during experiential activity, doing well to regulate their emotions throughout the activity and work with peers. Attentive during psychoeducation on the 4 A's (Avoid, adapt, alter, accept) of coping with stress. Shared that they would benefit from avoiding approach to avoid situation that causes stress. Was able to identify the connection between the experiential activity and utilization of stress management skills. Benefited from increased awareness of stress management strategies. Pt will continue IOP to increase consistent use of healthy coping skills, challenge negative thoughts, and prevent decompensation. Narrative Note: []
--- NOTE | 2024-07-06 10:15 | BH.SGPN.GN ---
Behaviors/Verbalizations/Mental Status: []Client alert and oriented, disheveled appearance. Eye contact good. Motor activity appropriate. Speech within normal limits. Affect congruent, mood depressed. Thoughts linear, logical, no signs of hallucinations or delusions. Client Response/Progress/Benefit: [] Pt participated AEB taking notes and engaging in group activity. Pt engaging in side conversations at times. Connected with the topic of pitfalls and listened to group discussion on barriers that prevent from choosing a healthier path to mental wellness. Group worked together to identify examples of personal pitfalls. These examples included; shutting down, not asking for help, negative thinking patterns, and using substances. Pt benefited from group as Pt learned to better identify potential barriers to improving mental health symptoms. Pt will continue IOP tx to promote use of healthy coping skills, reduce self-harm urges, and increase ability to function. Narrative Note: []
--- NOTE | 2024-07-06 11:15 | BH.SGPN.GN ---
Behaviors/Verbalizations/Mental Status: []Client alert and oriented, casually dressed and groomed. Eye contact good. Motor activity appropriate. Speech within normal limits. Affect congruent, mood content. Thoughts linear, logical, no signs of hallucinations or delusions. Client Response/Progress/Benefit: [] Pt receptive of session, engaged throughout AEB Pt actively listening and contributing to discussion as well as taking notes.? Pt participated in the experiential activity and did well to communicate ideas with peers and manage emotions. Pt attentive as group processed how the emotions and perspective of the group impacted the activity. Group worked together to identify different coping skills to help manage pitfalls. Pt identified a pitfall they struggle with as ?shutting down? and isolating. Pt plans to work on their pitfall by using opposite action and asking for support. Benefited from identifying personal pitfalls and strategies to overcome these pitfalls. Pt will continue IOP tx to prevent decompensation, improve daily functioning, and gain skills to maintain mood stability. Narrative Note: []
--- NOTE | 2024-07-08 09:00 | BH.SGPN.GN ---
Behaviors/Verbalizations/Mental Status: [] Eye contact is good. Motor activity is appropriate. Appearance is casual. Speech is Appropriate. Mood is irritable. Affect is occurrent. Thoughts are linear and logical. No evidence of psychosis. Reviewed daily check in sheet and no reports of suicidal ideations or intent. Client Response/Progress/Benefit: [] Pt participated at times during the group discussions. Attentive. Daily symptom tracker notes 2/5 fo anxiety and 4/5 for irritability and self-harm urges. States her mental health has been a struggle however did not elaborate further. Feeling drained and shared recent stressors. Inconsistent use of skills. Low frustration tolerance and self-sabotage behaviors. I feel drained. Several situational stressors. Limited progress noted. Benefited from group support, encouragement, and feedback. Will continue in IOP to maintain safety, prevent decompensation, and improve functioning. Narrative Note: []
--- NOTE | 2024-07-08 11:15 | BH.SGPN.GN ---
Behaviors/Verbalizations/Mental Status: []Client alert and oriented, casually dressed and groomed. Eye contact fair. Motor activity appropriate. Speech within normal limits. Affect constricted, mood anxious. Thoughts linear, logical, no signs of hallucinations or delusions. Client Response/Progress/Benefit: []Pt was engaged throughout AEB contributing to group discussion and activity. Group processed how they each responded to the intentionally difficult task they were asked to completed and described the physical and emotional anger cues experienced throughout, as well as strategies used for managing these frustrations. Pt contributed as group brainstormed healthy coping skills for better managing anger which included: music, walking/exercise, taking a break, healthy venting, avoiding unnecessary stressors, reflection, and journaling. Pt cooperative with working in small groups to identify what strategy wants to work on to help interrupt personal anger cycle. Pt to continue IOP to improve use of healthy coping skills, improve emotion regulation, and prevent decompensation.
--- NOTE | 2024-07-08 11:40 | PCM.BH.PN_ITS ---
Progress Note Progress Note: History of Present Illness/Interim History: The patient is a 34-year-old female who is seen in follow-up at the [facility] behavioral health IOP. She has a history of depression, PTSD, panic attacks and alcohol use disorder (in full remission since March 02, 2024). The patient was last seen over 3 weeks ago and at that time Abilify was prescribed but the patient states that she had worsening suicidal ideation when she took it so she discontinued the Abilify shortly after starting it. She states that she does not wish to take any medications as they all have bad side effects. The patient's lab work was discussed with her at the last visit and she saw her PCP who started her back on her Synthroid. She restarted these thyroid meds around July 01, 2023. The patient states that she did cut herself 1 time in the past 10 diet days due to stress on her left forearm. It is a very superficial scratch. She endorses sadness but lessening hopelessness. She still having panic attacks once every day or every other day. She denies passive thoughts of and denies suicidal ideation, plan for suicide, homicidal ideation, hallucinations or delusions. She remains sober from alcohol. She feels she has benefited from the program. Current Psychiatric Medications: [] Synthroid 25 mg p.o. daily (x 1 week) Mental Status Examination: [] The patient is a obese 34-year-old female who appears normal for stated age and is casually dressed and groomed w ith fair hygiene but is somewhat malodorous. She has no psychomotor agitation or retardation and is ambulatory with a normal gait. Eye contact is good and speech is normal rate and rhythm and fluent with no pressure. She is cooperative during the interview. Mood is anxious and depressed and affect is mildly constricted. Thought process is goal-directed and organized. Thought content: The patient refused to take medication as she always has side effects on them. There is no evidence of passive thoughts of , suicidal ideation, homicidal ideation, hallucinations or delusions. There remains evidence of occasional trauma triggers and reactivation of trauma symptoms and panic attacks at times. Reality testing is intact. Judgment is intact. Insight Limited but some present. Impulsivity is high. Diagnoses: [] 1. PTSD 2. Major depressive disorder, recurrent, moderate 3. Panic disorder 4. Strong cluster B traits 5. Alcohol use disorder in full remission since March 02, 2024. 6. Hypothyroidism 7. Primary support, work and financial issues Plan: [] The patient will continue the IOP in behavioral health at [facility] as the structure, support, education and group therapy will hopefully prevent worsening of the patient's symptoms which could require hospitalization. She felt safe during the interview and if it anytime she does not feel safe sh e agrees to let us know or go to the emergency room. She continues to refuse any medications as she feels they all cause side effects. She agrees to remain sober from alcohol use and to decrease her marijuana use. She agrees to continue on her thyroid medication and follow-up with her thyroid doctor. She will continue to follow-up with her outpatient medical and psychiatric providers and I will see the patient in follow-up while she is in the IOP. Vitamin D prescription was sent in for 50,000 units once a week for 3 months due to the low vitamin D on her laboratory.
--- NOTE | 2024-07-08 15:00 | BH.SGPN.GN ---
Behaviors/Verbalizations/Mental Status: [] Eye contact is good. Motor activity is appropriate. Appearance is casual. Speech is Appropriate. Mood is anxious and depressed. Affect is congruent. Thoughts are linear and logical. No evidence of psychosis Client Response/Progress/Benefit: [] Pt responded well to session AEB contributing to small group discussion, taking notes, and listening attentively to others. Group defined anger and discussed the benefits of managed anger and anger as a secondary emotion. Group shared perspective on benefits of anger as advocating for self and getting needs met, as well as a catalyst for change. Pt engaged in group discussion on common underlying emotions that mask as anger. Identified feeling anxious or disappointed as a common secondary emotion to anger. Appeared to benefit from increased knowledge of the anger cycle as well as personal triggers. Will continue IOP to increase healthy coping, prevent decompensation, and improve functioning. Narrative Note: []
--- NOTE | 2024-07-10 10:10 | BH.SGPN.GN ---
Behaviors/Verbalizations/Mental Status: [] Eye contact is fair. Motor activity is appropriate. Appearance is casual. Speech is Appropriate. Mood is depressed. Affect is constricted. Thoughts are linear and logical. No evidence of psychosis. Client Response/Progress/Benefit: [] Pt receptive of session, actively engaged throughout AEB taking notes, providing input, and contributing in small group discussion. Appeared to connect with group topic of automatic thoughts and cognitive distortions, as well as the impact of thought patterns on mental health, coping behaviors, and relationships. This particular group is very heavy on psychoeducation and pt appeared to connect with distortions and how they can impact functioning. Identified cognitive distortions that impact her the most are all or nothing thinking and disqualifying the positives. Pt appeared to benefit from gaining insight on distorted thinking patterns and how this impacts overall mental health. Will continue IOP to improve distress tolerance, decrease negative thoughts, and prevent decompensation.
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
--- NOTE | 2024-07-14 10:10 | BH.SGPN.GN ---
Behaviors/Verbalizations/Mental Status: []Patient was alert and oriented, casually dressed and groomed. Eye contact good. motor activity appropriate. speech within normal limits. Affect congruent, mood euthymic. Thoughts linear, logical, no signs of hallucinations or delusion. Client Response/Progress/Benefit: []Pt participated in the group discussions AEB providing input, nodding and taking notes. Attentive during psychoeducation Goal Setting. Participated during the discussion on common barriers. Pt stated a personal barrier to accomplishing goals is lack of motivation and getting bored. Group also identified benefits of goals as sense of purpose, improved self-confidence, more motivation for other goals, sense of accomplishment, and improved mental health. Pt identified personal benefits to goal setting. Benefited from increased awareness of mental health benefits of goals as well as psychoeducation on SMART goal criteria. Will continue in IOP to improve functioning and mood stability, reduce maladaptive coping, and prevent decompensation. Narrative Note: []
--- NOTE | 2024-07-14 11:10 | BH.SGPN.GN ---
Behaviors/Verbalizations/Mental Status: [] Pt alert and oriented. Appearance is casual. Eye contact good. Motor activity appropriate. Speech within normal limits. Affect is depressed. Mood is constricted. Thoughts linear, logical, no signs of hallucinations or delusions. Client Response/Progress/Benefit: [] Pt was engaged during discussion and experiential activity. Completed the worksheet challenging them to develop a personal SMART goal. Pt chose a SMART goal of using two of her coping skills throughout the week. Believes that practicing her skills will help decrease isolation and shutting down. Identified obstacles such as procrastinating and not having her coping box with her.. Benefited from this group by developing a short-term SMART goal related to mental health. Will continue IOP to increase consistent use of healthy coping skills, improve distress tolerance, andprevent decompensation.
--- NOTE | 2024-07-14 15:37 | BH.MDN_ITS ---
Multi-Disciplinary Note Note 45-min Individual: Time Started:: 09:20 Date: 07/14/24 Purpose of session/treatment goals addressed:: Purpose of session was to address goals 1 and 2 from MTP. Eye Contact:: Good Motor Activity:: Appropriate Appearance:: Casual Speech:: Appropriate Mood:: Dysthymic Affect:: Congruent Thoughts:: Linear, Logical and No evidence of hallucinations/delusions noted Staff Interventions:: thought challenging, motivational interviewing, CBT techniques, discharge planning, strengths perspective and goal setting Client Response:: Client reported she has stayed sober since last . client reported she recognizes drinking alcohol makes her situation worse and only provides temporary relief. Client reported she is feeling stressed because she is having some menstrual issues and knows she should go to the obgyn for a checkup, but reported she can't because of her trauma triggers. Therapist assisted client with problem solving different strategies that might help her be able to go to a obgyn. Client stated she has been trying to utilize the healthy coping skills on her list in her notebook and has been check marking which skills she is using. Client reported she created a coping box in which she put stress balls, book, and journal. Client stated skills that she has found helpful have been reading, journaling, and opening up. Client stated she's been talking to someone through an anonymous mental health lucian and this person encouraged her to write about her story. Client reported she typed up what happened to her in the past. Client stated she thinks it was helpful to write her story out to see how much she's been through in life. Client reported she is wanting to open up more to others because she thinks it will be helpful. Therapist processed client's desire to share her story with others. Discussed being mindful of how talking about past trauma impacts her mood. Client reported she wants to continue working on improving ability to manage her emotions. Risks/Concerns:: Client denies active suicidal thoughts, plan, or intention. Future oriented. Progress Toward Goals/Plan:: Client reports progress with not using alcohol since . Client reports increased use of healthy coping skills like journaling, reading, and starting to open up. Started discussion about discharge from [facility] in 3 weeks. Client stated she knows she has a lot of continued work to do, but can see progress with herself since starting IOP. Client reported she believes she is doing better with managing her suicidal thoughts and has maintained boundaries with her mom. Client is to continue IOP to increase healthy coping skills, challenge negative thoughts, and prevent decompensation. Time Stopped:: 10:00
--- NOTE | 2024-07-15 09:00 | BH.SGPN.GN ---
Behaviors/Verbalizations/Mental Status: [] Client alert and oriented, casual appearance. Eye contact fair. Motor activity appropriate. Speech within normal limits. Affect congruent, mood euthymic. Thoughts linear, logical, no signs of hallucinations or delusions. Reviewed client's symptom tracker, no risk for suicidal ideation, plan, or intent. Client Response/Progress/Benefit: []Client responded well to session AEB listening to others and sharing thoughts/feelings. Client reported mental health positive as showing up to IOP on time two times this week. Client noted additional mental health positive as walking away from her boyfriend when they were getting into an argument. Client stated walking away helped her calm down so she didn't make any impulsive decisions. Client reported current stressor is having to deal with her mom. Appeared to benefit from support from peers. Will continue IOP tx to improve consistent use of healthy coping skills, improve distress tolerance, and prevent decompensation.
--- NOTE | 2024-07-15 10:15 | BH.SGPN.GN ---
Behaviors/Verbalizations/Mental Status: []Pt alert and oriented, disheveled appearance. Eye contact good. Motor activity appropriate. Speech within normal limits. Affect congruent, mood playful. Thoughts linear, logical, no signs of hallucinations or delusions. Client Response/Progress/Benefit: [] Pt was attentive during psychoeducation and participated in group activity. Group discussed what contributes to a person?s perspective and how perspective can positively or negatively impact mental health treatment. Pt reflected on their perspective today and how it is impacting them. Pt shared their perspective is ?mostly negative? which leads to pt wanting to give? up when things are hard. Pt appeared to benefit from increasing awareness of different perspectives and how they can affect mental health. Pt will continue IOP tx to prevent decompensation, improve daily functioning, and reduce self-sabotaging behaviors. Narrative Note: []
--- NOTE | 2024-07-15 11:10 | BH.SGPN.GN ---
Behaviors/Verbalizations/Mental Status: []Pt alert and oriented, casually dressed and groomed. Eye contact fair. Motor activity appropriate. Speech within normal limits. Affect congruent, mood dysthymic. Thoughts linear, logical, no signs of hallucinations or delusions. Client Response/Progress/Benefit: []Pt was attentive and contributed to group discussion. Pt worked with group to identify strategies that can help with challenging negative perspective. Pt stated she can take a break and come back as a way to challenge negative perspective. Pt completed strengths exploration worksheet, identifying personal strengths. Pt able to acknowledge how these strengths are helping pt and can continue to help pt in mental health journey. Pt identified wanting to work on leaning on strength of love of learning. Benefited from identifying personal strengths and strategies for enhancing use of identified strengths. Pt will continue IOP tx to continue improve functioning, mood stability, and prevent decompensation. Narrative Note: []
--- NOTE | 2024-07-15 11:20 | PCM.BH.PN_ITS ---
Progress Note Progress Note: History of Present Illness/Interim History: The patient is a 34-year-old female who is seen in follow-up at the [facility] behavioral health IOP. She has a history of depression, PTSD, irritability, anger outbursts, panic attacks and alcohol use disorder. The patient was last seen 1 week ago and at that time she did not wish to go on a medication as she has side effects on all of them. The patient's today however states that she discussed with her counselor the fact that they think she may have some type of bipolar disorder due to her persistent irritability and mood fluctuations and anger outbursts. In the past the patient has taken many antipsychotics and mood stabilizers and has not tolerated them due to side effects. The patient also states that she last used alcohol 1 week ago and she used it for 4 days that week and describes the use as heavy. She denies any withdrawal or other effects from the alcohol. She states that she plans to get sober now and dumped all of the alcohol out from her house. She denies any self-harm since I saw her 1 week ago. She still having occasional panic attacks, irritability and fluctuating moods. She denies passive thoughts of , suicidal ideation, plan for suicide, homicidal ideation, hallucinations or delusions. She understands she has a problem with alcohol but does not wish to do AA or any other rehab. Current Psychiatric Medications: [] Synthroid 25 mg p.o. daily (x 2 weeks) Mental Status Examination: [] The patient is an obese 34-year-old female who appears normal for stated age and is casually dressed and groomed with good hygiene. She is ambulatory with a normal gait and has no psychomotor agitation or retardation. Speech is normal rate and rhythm and fluent with no pressure. Eye contact is good. Mood is irritable and depressed. Affect is mildly constricted. Thought process is goal-directed and organized. Thought content: The patient wishes to try medication for her mood instability. There is no evidence of passive thoughts of , suicidal ideation, homicidal ideati on, hallucinations or delusions. There remains evidence of trauma triggers and reactivation of symptoms and panic attacks at times. Reality testing is intact. Judgment is intact. Insight Limited but some present. Impulsivity is high. Diagnoses: [] 1. Bipolar, NOS 2. PTSD 3. Panic disorder 4. Strong cluster B traits 5. Alcohol use disorder 6. Hypothyroidism 7. Primary support, work and financial issues Plan: [] Patient will continue the IOP and behavioral health at [facility] as the structure, support, education and group therapy will hopefully prevent worsening of the patient's symptoms. She felt safe during the interview and if it anytime she does not feel safe she agrees to let us know or go to the emergency room. The risks, options, possible complications and side effects of medications were discussed with the patient and she understands accepts these. The initial evaluation was reviewed and the patient has already taken many mood stabilizers and antipsychotics in the past and states she had side effects on all of them. She has never taken Vraylar so we will try Vraylar and prescription is sent in for this at 1.5 mg p.o. daily. Discussed with the patient that she needs to stay sober from all alcohol use and she agrees to do this but refuses AA or other alcohol rehab. She will continue to follow-up with her outpatient providers and I will see the patient in follow-up while in the IOP in 2 weeks.
--- NOTE | 2024-07-16 09:05 | BH.SGPN.GN ---
Behaviors/Verbalizations/Mental Status: [] Client Response/Progress/Benefit: [] Narrative Note: []
--- NOTE | 2024-07-16 10:00 | BH.SGPN.GN ---
Behaviors/Verbalizations/Mental Status: [] Pt alert and oriented, casually dressed and groomed. Eye contact good. Motor activity appropriate. Speech within normal limits. Mood: euthymic. Affect: full. Thoughts linear, logical, no signs of hallucinations or delusions. Client Response/Progress/Benefit: [] Pt was an active participate during group discussions. Attentive during psychoeducation on self-sabotage and its impact on mental health. Worked with peers to identify different types of self-sabotage such as; procrastination, self-medicating, unrealistic expectations, people-pleasing, and poor boundaries. Worked with peers to identify reasons for self-sabotage behaviors (feels comfortable, fear of failure, false sense of control, low self-worth, and fear of being vulnerable). Seemed to benefit from gaining awareness about the self-sabotage. Pt to continue IOP tx to prevent decompensation, maintain safety, stablize mood, and increase healthy coping. Narrative Note: []
--- NOTE | 2024-07-16 11:10 | BH.SGPN.GN ---
Behaviors/Verbalizations/Mental Status: []Pt alert and oriented, casually dressed and groomed. Eye contact fair. Motor activity appropriate. Speech within normal limits. Affect congruent, mood dysthymic. Thoughts linear, logical, no signs of hallucinations or delusions. Client Response/Progress/Benefit: []Pt responded well to session, attentive and providing input. Pt worked on his mental health wellness garden picture and discussed things that contribute to mental wellness in his life. With peers, pt discussed things that would sabotage one's mental health wellness and added it to the garden metaphor. Pt identified things pt personally does to sabotage as not asking for help and self-medicating. Pt attentive during psychoeducation on ways to reduce self-sabotage. Pt appeared to benefit from learning skills and gaining awareness of self-sabotaging behaviors. Pt will continue IOP tx to continue working on improving distress tolerance, challenge negative thoughts, and prevent decompensation.
== END 2024-07-17 23:59 ==
LOC: BHIOP 07:08
PROVIDERS: PCP Family Medicine; Referring Provider Psychiatry & Neurology Psychiatry; Visit Provider Psychiatry & Neurology Psychiatry
DX: F31.9 Bipolar disorder, unspecified (principal); F43.10 Post-traumatic stress disorder, unspecified; F41.0 Panic disorder [episodic paroxysmal anxiety]; F10.90 Alcohol use, unspecified, uncomplicated; E03.9 Hypothyroidism, unspecified; Z79.899 Other long term (current) drug therapy
CPT/HCPCS: 90839; 90840; H2012; H2020; S9480; 90832; 90834; 90837

== ENCOUNTER 2024-07-20 07:15 | Outpatient (RCR) | payer MEDICAID, SELFPAY ==
[2024-07-18 00:54] VITALS: BP 150/90; PULSE 81
--- NOTE | 2024-07-20 14:30 | BH.COMM_ITS ---
Communication Note Communication with Client Communication Note: Client no showed/no called [facility] today. This sign writer hand reached out to client this afternoon via phone call and client reported she was sick this morning. Client confirmed she would be at [facility] tomorrow, unless she was still sick.
--- NOTE | 2024-07-20 14:30 | BH.COMM ---
Communication Note Communication with Client Communication Note: Client no showed/no called [facility] today. This policy writer sales reached out to client this afternoon via phone call and client reported she was sick this morning. Client confirmed she would be at [facility] tomorrow, unless she was still sick.
--- NOTE | 2024-07-21 09:10 | BH.SGPN.GN ---
Behaviors/Verbalizations/Mental Status: [] Eye contact is good. Motor activity is appropriate. Appearance is casual. Speech is Appropriate. Mood is depressed and irritable. Affect is full. Thoughts are linear and logical. No evidence of psychosis. Reviewed daily check in sheet and no reports of suicidal ideations or intent. Client Response/Progress/Benefit: [] Participated at times during the group discussions. Attentive. Daily symptom tracker notes 08/19 for irritability. She reports being ill yesterday which caused her to miss IOP. States that she sleep over 15 hours yesterday and feels rested today. She elaborated on her sleep schedule which is very detrimental to her mental health. Reports that she has difficulty falling asleep often not getting to bed till 3am. Led to group discussion on sleep routines and habits. She is not receptive to suggests stating ? tried it doesn?t work?. She shared stressors and reports overall feeling ?determined? today. Progress noted. Benefited from group support, encouragement, and feedback. Will continue in IOP to maintain safety, prevent decompensation, and to improve functioning. Narrative Note: []
--- NOTE | 2024-07-21 10:10 | BH.SGPN.GN ---
Behaviors/Verbalizations/Mental Status: []Eye contact is good. Motor activity is appropriate. Appearance is casual, disheveled. Speech is Appropriate. Mood is content. Affect is congruent. Thoughts are linear and logical. No evidence of psychosis. Client Response/Progress/Benefit: [] Pt was engaged and participating throughout, providing input and taking notes. Participated in an interactive discussion on defining anxiety and identifying cognitive and physiological symptoms of anxiety. The group discussed the role of anxiety on isolation, avoidance, and how this emotion impacts their ability to start and complete activities/goals. Pt identified their physical/physiological signs of anxiety which includes: headache, short of breath, and shakiness. Benefited from increased awareness and insight on anxiety and its impact. Will continue in IOP to increase mood stability, increase healthy coping skills, and prevent decompensation. Narrative Note: []
--- NOTE | 2024-07-21 16:49 | BH.MDN_ITS ---
Multi-Disciplinary Note Note 60-min Individual: Time Started:: 11:05 Date: 07/21/24 Purpose of session/treatment goals addressed:: Purpose of session was to address goals 1 and 2 from MTP. Eye Contact:: Fair Motor Activity:: Appropriate Appearance:: Disheveled Speech:: Appropriate Mood:: Anxious and Dysthymic Affect:: Congruent Thoughts:: Linear, Logical and No evidence of hallucinations/delusions noted Staff Interventions:: thought challenging, CBT techniques, mindfulness skills, strengths perspective and goal setting Client Response:: Client reported feeling stressed because she potentially has to go through a civil lawsuit in order to get some of her belongings back from her boyfriend's car that recently was repossessed. Client stated they initially thought his car was stolen but now have found out that it was repossessed. Client stated she has reached out to the Police Department and these individuals that repossess cars have been known to not return certain belongings. Client stated she's upset because there are a few things that she really would like back from the car and this just added layer of stress to her plate. Client reported despite feeling stressed she does feel like she's been managing this added stressor more effectively than she would have in the past period client says she's trying to take action versus panic and shut down. Client reported additional stressor as finding out that her younger brother is s truggling with some mental health issues. Client stated because her brother is starting to struggle her mother has been reaching out wanting client to see her siblings. Client reported she wants to be able to see her siblings and help out but has to set boundaries on what she is OK and not OK with if she were to go visit her mom?s house. Client stated she has seen significant benefit in her mental health by staying away from her mom's house and limiting interaction with mom. Client stated she doesn't want to head backwards on those boundaries because she knows it will likely negatively impact her mental health. Client reported she has been trying to challenge negative thought patterns and use her coping skills checklist. Were able to continue practicing the coping skills utilization on a consistent basis to decrease isolation and shutting down. Risks/Concerns:: Client denies suicidal ideation, plan, or intention to date. future oriented. Progress Toward Goals/Plan:: Progress noted with client reporting use of healthy coping skills/strategies to help her manage recent psychosocial stressors. Client reported she sees progress within herself on how she has been dealing with life stressors and events. Client stated she is trying to decrease how often she isolates. Client is feeling anxious about upcoming discharge from program, but stated she can see progress in how she handles stressors. Client is to continue IOP to consistently utilize healthy coping skills, challenge distorted/negative thoughts, and prevent decompensation. Time Stopped:: 12:00
--- NOTE | 2024-07-29 09:00 | BH.SGPN.GN ---
Behaviors/Verbalizations/Mental Status: []Pt alert and oriented, disheveled appearance. Eye contact good. Motor activity appropriate. Speech within normal limits. Affect flat, mood depressed. Thoughts linear, logical, no signs of hallucinations or delusions. Reviewed pt?s symptom tracker, no risk for suicidal ideation, plan, or intent 07/29/24 Client Response/Progress/Benefit: []Pt was an active participant in group discussions. Attentive. Pt struggled to identify mental health wins today, but she reported being here is a win I guess. Pt's stressor today is there's just a lot going on. Pt stated she is feeling blah this morning but she did not elaborate why. Pt receptive to feedback from peers which pt reported was helpful. Benefited from group support, encouragement, and feedback. Will continue in IOP to prevent decompensation, gain healthy coping skills, and reduce negative thinking patterns. Narrative Note: []
--- NOTE | 2024-07-29 10:10 | BH.SGPN.GN ---
Behaviors/Verbalizations/Mental Status: []Pt alert and oriented, casually dressed and groomed. Eye contact good. Motor activity appropriate. Speech within normal limits. Affect congruent, mood content. Thoughts linear, logical, no signs of hallucinations or delusions. Client Response/Progress/Benefit: [] Pt took notes and contributed to group discussions. Attentive during psychoeducation on growth mindset. Participated during the activity. Interactive group discussion on growth mindset in which group verbalized their current fixed mindsets and how they affect their mental health. Pt shared common fixed mindset thoughts they have. These thoughts lead to feeling hopeless, not reaching out to others, and self-sabotage. Pt stated they have personally struggled with fixed thoughts causing them to avoid out of fear of failure. Pt benefited from increased awareness of growth mindset and fixed thoughts and how fixed thoughts impact their mental health. Will continue IOP tx to prevent decompensation, improve daily functioning, and promote mood stability. Narrative Note: []
--- NOTE | 2024-07-29 11:10 | BH.SGPN.GN ---
Behaviors/Verbalizations/Mental Status: []Pt alert and oriented, casually dressed and groomed. Eye contact fair. Motor activity appropriate. Speech within normal limits. Affect constricted, mood dysthymic. Thoughts linear, logical, no signs of hallucinations or delusions. Client Response/Progress/Benefit: []Pt was an active participant during activity and discussion. Pt did well to remain attentive and participate as group worked on identifying characteristics and benefits of adopting a growth mindset. Worked with fellow participants in reframing the example fixed thoughts into growth mindset thoughts. Pt worked on changing own fixed thought and reframed the thought to ?embrace challenges.? Pt also wants to work on willingness to take small risk by trying something new. Pt appeared to benefit from challenging own thoughts and engaging in the activity. Pt will continue IOP tx to improve distress tolerance, increase consistent use of healthy coping skills, and prevent decompensation.
--- NOTE | 2024-07-30 09:00 | BH.SGPN.GN ---
Behaviors/Verbalizations/Mental Status: [] Eye contact is fair. Motor activity is appropriate. Appearance is casual. Speech is Appropriate. Mood is dysthymic. Affect is congruent. Thoughts are linear and logical. No evidence of psychosis. Reviewed daily check in sheet and no reports of suicidal ideations or intent Client Response/Progress/Benefit: [] Pt participated at times during the group discussions. Attentive. Daily symptom tracker notes 4/5 for anxiety and 3/5 for irritability. Also reports 1/5 for self-harm urges. Superficial check-in. Struggles to find wins except to state I made it here today. Emotion is content. Reports superficial stressors. Limited engagement in group discussions. Limited benefited from group. No progress noted. Not utilizing skills or taking medications. Will continue in IOP to maintain safety, prevent decompensation, and increase healthy coping. Narrative Note: []
--- NOTE | 2024-07-30 10:10 | BH.SGPN.GN ---
Behaviors/Verbalizations/Mental Status: [] Eye contact is fair. Motor activity is appropriate. Appearance is casual. Speech is Appropriate. Mood is dysthymic. Affect is constricted. Thoughts are linear and logical. No evidence of psychosis. Client Response/Progress/Benefit: [] Pt was an active participant during interactive group discussions. Along with peers contributed to interactive discussion on defining what a boundary is in mental health. Pt along with peers identified challenges to setting boundaries which included: people pleasing, fear of rejection, fear of loss, fear people won't respect the boundary. Pt stated a personal barrier to setting boundaries is thinking what's the point, others don't respect my boundaries anyway. Pt along with peers identified the benefits to setting boundaries such as reduces assumptions, can reduce stress, improve communication/relationships, and can keep us safe. Attentive during psychoeducation on types of boundaries (rigid, porous, flexible). Pt benefited from increased awareness and insight on the importance/benefit to setting health boundaries. Will continue in IOP to improve distress tolerance, increase consistent use of healthy coping skills, and prevent decompensation.
--- NOTE | 2024-07-30 16:57 | BH.MDN ---
Multi-Disciplinary Note Note 45-min Individual: Time Started:: 11:10 Date: 07/30/24 Purpose of session/treatment goals addressed:: Purpose of session was to address goals 1 and 2 from MTP. Eye Contact:: Fair Motor Activity:: Appropriate Appearance:: Casual Speech:: Appropriate Mood:: Anxious Affect:: Congruent Thoughts:: Linear, Logical and No evidence of hallucinations/delusions noted Staff Interventions:: thought challenging, CBT techniques, discharge planning, strengths perspective and goal setting Client Response:: Client stated tomorrow she has a meeting with crisis at the counseling center because she has to be cleared by them after recent negative interaction last week. Client stated from her perspective she does not believe how the counseling center handles crisis is very helpful. Client said she plans to report one of the crisis workers because in client's perspective that highway maintenance crew worker came off as uncooperative towards client and make client feel unsafe. Client stated after this situation with the counseling center last week she was planning to stop doing all therapy and not return to anything. Client reported over the weekend he admits getting back to shutting down and isolation. Client stated one of her friends came over on Saturday and helped her ?get out of my isolation?. Client reported she realizes sabotaging her treatment and not completing IOP would not be beneficial to her mental health. Client reported despite the stressor of last week with her outpatient counseling facility she feels like things been better at her home. Client stated her relationships are slightly improved with less conflict period client stated her mom has also been doing better with accepting that client will not be moving back home. Client stated she is anxious about discharging from IOP, but recognizes she has been doing better with distress tolerance. Client agreeable for homework to start writing down skills/strategies that she thinks will be helpful to put on her maintenance plan. Risks/Concerns:: Client denies suicidal ideation, plan, or intention. Client shared she did have some non-suicidal self-harm thoughts, but reported was able to use skills to keep herself from acting on those thoughts. Client stated feels able to keep herself safe. Progress Toward Goals/Plan:: Progress variable. Client noted decompensation over the weekend with isolating and have non-suicidal self-harm thoughts. Client was able to challenge her negative thoughts and not engage in self-harm. Client attributed slight decompensation over the weekend to stressful negative interaction with crisis at her counseling appointment. Client able to recover from the weekend which is progress for client. Client hasn't reported any suicidal thoughts in over three weeks and hasn't engaged in self-harm. Plan is for client to discharge from [facility] next week. Time Stopped:: 11:55
--- NOTE | 2024-08-05 10:10 | BH.SGPN.GN ---
Behaviors/Verbalizations/Mental Status: [] Pt alert and oriented, casually dressed and groomed. Eye contact good. Motor activity appropriate. Speech within normal limits. Affect congruent, mood depressed. Thoughts linear, logical, no signs of hallucinations or delusions. Client Response/Progress/Benefit: []Pt an active participant in group discussions on defining conflict (internal/external) and possible benefits to conflict. Attentive during psychoeducation on conflict styles (avoidant, accommodating, competing, cooperative) and engaged during group discussion in which peers identified the benefits and consequences to each conflict style. Pt identified that she tends to be avoidant more than the other styles especially with her , but can easily switch to competing. Benefited from increased awareness of the impact of conflict styles in mental health. Will continue in IOP tx to prevent decompensation, stabilize mood, and improve functioning. Narrative Note: []
--- NOTE | 2024-08-06 14:01 | BH.COMM_ITS ---
Communication Note Communication with Client Communication Note: Client was scheduled to discharge from [facility] on August 06. Client missed attending IOP. Client called and spoke to staff stating she would like to come in the following week to meet with IOP therapist for last session before discharging.
--- NOTE | 2024-08-14 14:03 | BH.COMM_ITS ---
Communication Note Communication with Client Communication Note: Client had to cancel last individual session scheduled this week for discharging from [facility] due to having another appointment. Client has moved back last individual session to August 18, 2023. Client will stay admitted into program with current diagnosis of F43.1 PTSD, Major depressive disorder, recurrent, severe without psychosis, and Panic disorder. It is in client's best interest to continue client in program until she can have her discharge individual session next week.
== END 2024-08-14 23:59 | disposition home or self-care (01) ==
LOC: BHIOP 07:15
PROVIDERS: PCP Family Medicine; Referring Provider Psychiatry & Neurology Psychiatry; Visit Provider Psychiatry & Neurology Psychiatry
DX: F43.10 Post-traumatic stress disorder, unspecified (principal); F32.2 Major depressive disorder, single episode, severe without psychotic features; F41.0 Panic disorder [episodic paroxysmal anxiety]
CPT/HCPCS: H2012; H2020; S9480; 90834; 90837

== ENCOUNTER 2024-08-05 11:06 | Emergency (ER) | payer MEDICAID, SELFPAY ==
[2024-08-05 11:07] VITALS: BP 150/85; PULSE 77; RESP 15; TEMP 36.7; O2SAT 99; BMI 46.2
--- NOTE | 2024-08-05 11:47 | RAD_ITS ---
PROCEDURE: SHOULDER MIN 2 VIEWS REASON FOR EXAM: Atraumatic pain. TECHNIQUE: Four views of the right shoulder were obtained. COMPARISON: None. FINDINGS: RIGHT SHOULDER: No fracture. No suspicious bone lesion. Normal alignment of the acromioclavicular and glenohumeral joints. Soft tissues are unremarkable. RAD/Shoulder min 2 Views IMPRESSION: No acute abnormality is seen. Reading Location: [facility]
--- NOTE | 2024-08-05 11:54 | EDS_ITS ---
HPI History of Present Illness Chief Complaint: Upper Extremity Injury Detail of Chief Complaint: Right shoulder pain with limited range of motion Informant: patient Occured/Mechanism Mechanism/Context: Yes other see comment below Comment: Pain started during the second game of bowling. She felt acute pain. Onset/Context/Timing Onset: Yesterday Context: Sudden Onset Timing: Continuous Quality of Pain: Aching Location: Right shoulder region. Current Severity: Mild Maximum Severity: Severe Worsened by: Movement and palpation Relieved by: Nothing Associated Symptoms Associated Symptoms: Positive for Parasthesia (Of all her fingers.); Negative for Weakness Narrative Narrative: Patient is a 37-year-old woman. BMI is 46.2. She has a history of hypothyroidism. She denies history of shoulder injury or rotator cuff injury or impingement syndrome. There is no history of direct trauma. She complains of paresthesia in all of her fingers. She also complains of pain in the fingertips. Patient has not noted a rash. Patient denies history of gout or pseudogout. Tetanus Immunization: 5-10 years Prior similar symptoms: No Recent Illness/Hospitalization: No [facility] Medical History History of alcohol use disorder Panic disorder Major depressive disorder, recurrent severe without psychotic features PTSD (post-traumatic stress disorder) Home Medications ?Medication ?Instructions ?Recorded ?Last Taken ?Type ergocalciferol (vitamin D2) 1,250 1,250 mcg PO QWEEK 3 months #13 07/08/24 Unknown Rx mcg (50,000 unit) capsule (Vitamin caps D2) levothyroxine 25 mcg tablet 25 mcg PO DAILY 30 days #3 0 tabs 07/08/24 Unknown Rx (Synthroid) cariprazine 1.5 mg capsule 1.5 mg PO DAILY 30 days #30 caps 07/15/24 Unknown Rx (Vraylar) naproxen 500 mg tablet 500 mg PO BID #14 tabs 08/05 Unknown Rx Allergy/AdvReac Type Severity Reaction Status Date / Time procaine (From Novocain) Allergy Severe throat Verified 08/05/24 11:09 swelling, itching sulfamethoxazole (From Allergy Severe Anaphylaxis Verified 08/05/24 11:09 Bactrim) trimethoprim (From Bactrim) Allergy Severe Anaphylaxis Verified 08/05/24 11:09 amoxicillin AdvReac Intermediate hallucinati Verified 08/05/24 11:09 ons ketamine AdvReac Intermediate aggression Verified 08/05/24 11:09 Penicillins AdvReac Intermediate hallucinati Verified 08/05/24 11:09 ons bacitracin (From Neosporin AdvReac Mild Rash Verified 08/05/24 11:09 ([id number])) neomycin (From Neosporin AdvReac Mild Rash Verified 08/05/24 11:09 ([id number])) polymyxin B (From Neosporin AdvReac Mild Rash Verified 08/05/24 11:09 ([id number])) Surgical History History of carpal tunnel release History of tonsillectomy and adenoidectomy Social History household members: spouse and children Smoking Status: Never smoker ROS ROS ED Constitutional Constitutional ED: Denies chills, fever(s), subjective or sweats Cardiovascular Cardiovascular: Denies chest pain or palpitations Respiratory/Chest Respiratory/Chest: Denies cough or dyspnea Musculoskeletal Musculoskeletal: Denies neck pain Integumentary Denies rash Neurologic Neurologic: Reports paresthesias RUE; Denies weakness Hematologic/Lymphatic Hematologic/Lymphatic: Denies easy bleeding or easy bruising EXAM Physical Exam Const Vital Signs: 08/05/24 11:07 Temperature 98.1 F Temperature Source Temporal Pulse Rate 77 Respiratory Rate 15 Blood Pressure 150/85 H Blood Pressure Mean 106 Pulse Ox 99 Oxygen Delivery Method Room Air Positive well nourished and well developed General Appearance ED: well developed and NAD HEENT Reports moist mucous membranes normocephalic and atraumatic Eyes PERRL and EOMs intact bilaterally Neck full ROM and supple Resp normal respiratory effort and clear to auscultation bilaterally Cardio regular rate, regular rhythm, S1 normal heart sound, S2 normal heart sound and no murmurs Extremity normal to inspection; Negative for full ROM Extremity Narrative: Patient has pain with abduction past 90 degrees. Axillary, median, radial and ulnar function intact. Radial is 2+. There is pain palpation over the clavicle, trapezius area as well as the proximal humerus. There is no rash or skin lesions noted. Neuro oriented x3, CN's II-XII intact bilaterally, no focal motor deficits and no sensory deficits noted Sensorium / Orientation: alert Skin General Skin Exam: Negative for petechiae Lesions: no lesions Rashes: no rashes Trauma: no lacerations or abrasions MDM MDM MDM Narrative Medical decision making narrative: Differential diagnosis is muscle strain, rotator cuff injury, impingement syndrome doubt fracture or dislocation. X-ray was obtained to determine if ther e is calcification of the supraspinatus tendon or significant arthritic changes. Patient was medicated with IV ketorolac since she has no contraindication. History & Record Review Additional record(s) reviewed:: Prior ED visit (Seen May 2024 for dermatitis. Seen May 2024 for Achilles tendinitis.) Radiography Chest X-Ray - ED: Read by ED Physician (4 views of the shoulder were obtained. There is no evidence of fracture, subluxation dislocation. There is slight arthritic changes noted of the distal aspect of the clavicle. At the time my read radiology report was not available.) Treatment and Re-Evaluation Narrative: Patient was informed of her results. Where I told her there is some mild arthritic changes she has been told that she needs surgery of the distal clavicle. She has not been able to make arrangements because she has to work. Patient reports marked improvement after IV ketorolac. Will discharge with prescription for Naprosyn. Discharge Plan Triage Chief Complaint: Upper Extremity Injury ED Provider: Lexx Payne Dx/Rx/DC Orders Clinical Impression: Impingement syndrome of right shoulder, Elevated blood-pressure reading without diagnosis of hypertension, BMI 45.0-49.9, adult Instructions: ED Shoulder Impingement Syndrome Prescriptions: New naproxen 500 mg tablet 500 mg PO BID Qty: 14 0RF No Action levothyroxine [Synthroid] 25 mcg tablet 25 mcg PO DAILY 30 Days Qty: 30 1RF ergocalciferol (vitamin D2) [Vitamin D2] 1,250 mcg (50,000 unit) capsule 1,250 mcg PO QWEEK 90 Days Qty: 13 0RF Rx Instructions: 1 po once a week for 3 months. Vraylar 1.5 mg capsule 1.5 mg PO DAILY 30 Days Qty: 30 0RF Primary Care Provider: Justa Light Referrals: Justa Light, DO [Primary Care Provider] - 1 Week if not improving Print Language: Occitan Disposition Disposition: Home, Self Care
[2024-08-05] MEDS: Ketorolac 30 MG/ML Syringe 15 MG IV (11:59)
[2024-08-05] MEDS: Morphine 4 MG/ML Syringe IV (11:59)
[2024-08-05 13:16] VITALS: BP 140/78; PULSE 70; RESP 16; TEMP 36.7; O2SAT 99
== END 2024-08-05 13:17 | disposition home or self-care (01) ==
PROVIDERS: Emergency Provider Emergency Medicine; PCP Family Medicine; Visit Provider Emergency Medicine
DX: M75.41 Impingement syndrome of right shoulder (principal); F32.2 Major depressive disorder, single episode, severe without psychotic features; R03.0 Elevated blood-pressure reading, without diagnosis of hypertension; E03.9 Hypothyroidism, unspecified; Z79.890 Hormone replacement therapy; X58.XXXA Exposure to other specified factors, initial encounter; Y93.54 Activity, bowling; F43.10 Post-traumatic stress disorder, unspecified; F41.0 Panic disorder [episodic paroxysmal anxiety]
CPT/HCPCS: 73030; 96374; 96375; 99283; H2012; A4216

== ENCOUNTER → 2024-10-28 | Outpatient (CLI) | payer MEDICAID, SELFPAY ==
--- NOTE | 2024-10-28 13:11 | NEURO ---
NCS and/or EMG Patient Report Ordering Doctor: Gustavo Her DATE OF SERVICE: 10/28/24 Edel presents for electrodiagnostic testing of the left lower limb. She reports intermittent numbness, tingling and weakness in the left leg. She reports ongoing lower back pain. Electrodiagnostic findings: Left peroneal motor nerve demonstrates normal distal latency, amplitude and conduction velocity. Left tibial motor response is within normal limits. Normal left tibial and left peroneal F?waves. Normal H?reflex bilaterally. Sensory responses are normal. Needle EMG testing was performed of the left lower limb. All muscles tested showed no evidence of denervation with normal motor unit action potentials. Electrodiagnostic impression: This is a normal electrodiagnostic study of the left lower limb. There is no electrodiagnostic evidence for peripheral neuropathy or lumbosacral radiculopathy. Multi Select Codes Neurology Neurology Interp Codes: 69981-21 Musc test done w/n test comp (interp) and 12932-00 Nrv cndj tst 5-6 studies (interp)
== END | disposition home or self-care (01) ==
LOC: PSN 12:17
PROVIDERS: PCP Family Medicine; Referring Provider Anesthesiology; Visit Provider Anesthesiology
DX: M54.16 Radiculopathy, lumbar region (principal)
CPT/HCPCS: 95886; 95909

== ENCOUNTER 2025-01-14 08:00 | Outpatient (RCR) | payer MEDICAID, SELFPAY ==
--- NOTE | 2025-01-14 09:00 | BH.SGPN.GN ---
Behaviors/Verbalizations/Mental Status: [] ?Eye contact is good. Motor activity is appropriate. Appearance is casual. Speech is Appropriate. Mood is dysthymic. Affect is congruent. Thoughts are linear and logical. No evidence of psychosis. Reviewed daily check in sheet and no reports of suicidal ideations or intent. Client Response/Progress/Benefit: [] ?Pt was an active participant in group discussions. Attentive. Did well to identify 2 mental health wins including managing to get to group today despite not wanting to get up. Shared using opposite action and reminding herself that her mental health needs the extra support. Additional win noted as reaching out for help despite fear that she would be turned away. Did well to challenge these distortions. Stressor noted as ongoing difficulties with negative thinking and navigating a divorce. Benefited from group support, encouragement, and feedback. Will continue in IOP to prevent decompensation, promote mood stability, and increase healthy coping consistency. Narrative Note: []
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
--- NOTE | 2025-01-14 10:22 | BH.DR.ITP ---
Initial Treatment Plan Patient Information Visit Information: ADMISSION DATE: EXPECTED LOS: 6-8 weeks Diagnoses:: MDD, PTSD, etoh use Problems/Symptoms Problem #1:: MDD Symptom:: Low mood, poor appetite, low motivation, intermittent passive SI, poor sleep, guilt. Problem #2:: PTSD Symptom:: Continued nightmares and flashbacks Problem #3:: Alcohol use disorder Symptom:: had relapse 01/13/25 after months of sobriety
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
[2025-01-14 11:54] VITALS: BP 144/92; PULSE 69
== END 2025-01-14 23:59 ==
LOC: BHIOP 08:00
PROVIDERS: PCP Family Medicine; Referring Provider Internal Medicine; Visit Provider Internal Medicine
DX: F33.2 Major depressive disorder, recurrent severe without psychotic features (principal); F43.10 Post-traumatic stress disorder, unspecified; E03.9 Hypothyroidism, unspecified; F10.90 Alcohol use, unspecified, uncomplicated; Z79.899 Other long term (current) drug therapy
CPT/HCPCS: H2012

== ENCOUNTER 2025-01-15 07:52 | Outpatient (RCR) | payer MEDICAID, SELFPAY ==
--- NOTE | 2025-01-15 09:05 | BH.SGPN.GN ---
Behaviors/Verbalizations/Mental Status: [] Eye contact is good. Motor activity is appropriate. Appearance is casual. Speech is Appropriate. Mood is euthymic. Affect is full. Thoughts are linear and logical. No evidence of psychosis. Reviewed daily check in sheet and no reports of suicidal ideations or intent. Client Response/Progress/Benefit: [] Pt participated at times during the group discussions. Attentive. Able to identify mental health wins and healthy habits. Feeling ? thankful? today. According to pt she stepped outside her comfort zone and went to busy local business in which she had to wait 4 hours. Increased anxiety, however, was able to reframe and challenge thoughts which was beneficial. Utilizing skills. Not isolating or avoiding anxiety producing situations. Progress noted. Benefited from group support, encouragement, and feedback. Will continue in IOP to maintain safety, prevent decompensation, and increase healthy coping skills. Narrative Note: []
--- NOTE | 2025-01-15 10:10 | BH.SGPN.GN ---
Behaviors/Verbalizations/Mental Status: [] Eye contact is fair. Motor activity is appropriate. Appearance is casual. Speech is Appropriate. Mood is anxious. Affect is congruent. Thoughts are linear and logical. No evidence of psychosis. Client Response/Progress/Benefit: [] Pt was engaged and participating throughout, providing input and taking notes. Attentive during psychoeducation on anxiety and cognitive triangle. Participated in an interactive discussion on defining anxiety and identifying cognitive and physiological symptoms of anxiety. The group discussed helpful vs harmful anxiety. Pt identified their physical/physiological signs of anxiety which includes: increase heart rate and upset stomach. Benefited from increased awareness and insight on anxiety and its impact. Will continue in IOP to prevent decompensation, improve mood stability, and improve healthy coping skills.
--- NOTE | 2025-01-15 11:15 | BH.SGPN.GN ---
Behaviors/Verbalizations/Mental Status: [] Eye contact is good. Motor activity is appropriate. Appearance is appropriate. Speech is Appropriate. Mood is anxious and depressed. Affect is congruent. Thoughts are linear and logical. No evidence of psychosis. Client Response/Progress/Benefit: [] Pt was an active participant AEB pt providing input and listening attentively to peers. Attentive during psychoeducation on mindfulness coping skills, body-based coping skills, and mind-based coping skills and their impact on reducing anxiety and improving overall mental health wellness. Group was able to identify self-soothing and mind-based coping skills which included: 5-senses, meditation, deep breathing,walking/exercise, music, engaging with others, opposite-action, and affirmations. Pt verbalized skill to make effort to use this week as not cancel plans. Pt will continue IOP to prevent decompensation, maintain safety, increase healthy coping, and improve functioning. Narrative Note: []
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
--- NOTE | 2025-01-18 10:10 | BH.SGPN.GN ---
Behaviors/Verbalizations/Mental Status: []Eye contact is fair. Motor activity is appropriate. Appearance is casual. Speech is Appropriate. Mood is dysthymic. Affect is congruent. Thoughts are linear and logical. No evidence of psychosis. Client Response/Progress/Benefit: []Pt was an active participant in group discussions. Attentive during psychoeducation on the 4 communication styles (Passive, Passive-Aggressive, Aggressive, and Assertive) and the obstacles to effective communication. Contributed during interactive discussion on the benefits of communicating effectively. Worked well with peers to identify the benefits and disadvantages to the different communication styles. Pt believes that she is primarily passive because she would rather avoid conflict. Benefited from increased understanding of communication styles and how these can impact effective communication. Will continue in IOP to improve distress tolerance, improve healthy coping skills, and prevent decompensation. Narrative Note: []
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
--- NOTE | 2025-01-18 11:15 | BH.SGPN.GN ---
Behaviors/Verbalizations/Mental Status: []Pt alert and oriented, casually dressed and groomed. Eye contact good. Motor activity restless. Speech within normal limits. Affect congruent, mood depressed and irritable. Thoughts linear, logical, no signs of hallucinations or delusions. Client Response/Progress/Benefit: [] Pt responded well to session AEB Pt listening attentively to others and providing input during group discussion on the pay offs and costs of the different communication styles. Pt able to connect how current communication style impacts mental health. Connected with peers? comments about the importance of using assertive communication. Pt seemed to benefit from increasing awareness of healthy strategies to improve communication and worked with peers during the experiential activity to practice assertive communication. Pt reported she wants to work on ?saying no more.? Will continue IOP tx to prevent decompensation, increase distress tolerance skills, and reduce negative thinking patterns. Narrative Note: []
--- NOTE | 2025-01-18 13:42 | BH.MDN ---
Multi-Disciplinary Note Note 60-min Individual: Date: 01/18/25
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
--- NOTE | 2025-01-20 10:05 | BH.SGPN.GN ---
Behaviors/Verbalizations/Mental Status: [] Eye contact is good. Motor activity is appropriate. Appearance is casual. Speech is Appropriate. Mood is dysthymic, irritable. Affect is congruent. Thoughts are linear and logical. No evidence of psychosis. Client Response/Progress/Benefit: [] Pt semi-participated in the group discussions AEB providing input and taking notes at times but becoming distracted by self/phone at others. Somewhat attentive during psychoeducation on SMART Goal Setting. When prompted, Pt worked with group to identify common barriers to goal setting which included; mental health struggles, energy/motivation, limited support, change to routine, lack or resources, having unrealistic goals, and our internal expectations. Group also identified benefits of goals, which included: promotes a sense of accomplishment, it challenges oneself, can boast confidence, and can cause positive change/growth. Pt declined to identify personal benefits to goal setting. Benefited from increased awareness of mental health benefits of goals as well as psychoeducation on SMART goal criteria. Will continue in IOP to prevent decompensation, increase healthy coping consistency, and improve functioning. Narrative Note: []
--- NOTE | 2025-01-20 11:05 | BH.SGPN.GN ---
Behaviors/Verbalizations/Mental Status: [] Pt alert and oriented. Appearance is casual, hygiene is fair. Eye contact fair. Motor activity appropriate. Speech within normal limits. Affect is dysthymic. Mood is constricted. Thoughts linear, logical, no signs of hallucinations or delusions. Client Response/Progress/Benefit: [] Pt was engaged during discussion and experiential activity. Completed the worksheet challenging them to develop a personal SMART goal. Pt chose SMART goal of challenging at least one negative thought each day. Stated this goal will help improve positive thinking. Client noted potential barriers to be: forgetfulness, apathy, and procrastination. Worked with group to identify potential solutions to barriers. Benefited from this group by developing a short-term SMART goal related to mental health. Will continue IOP to prevent decompensation, improve confidence, and stabilize mood.
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
--- NOTE | 2025-01-29 09:00 | BH.SGPN.GN ---
Behaviors/Verbalizations/Mental Status: [] Client alert and oriented, casual appearance. Eye contact fair. Motor activity restless. Speech within normal limits. Affect flat, mood irritable. Thoughts linear, logical, no signs of hallucinations or delusions. Reviewed client's symptom tracker, no risk for suicidal ideation, plan, or intent. Client Response/Progress/Benefit: [] Client was less engaged in group compared to her typical engagement in process group. However client did appear to be listening to others. Client stated she did not want to check in this morning. Appeared to benefit from support from peers. Will continue IOP tx to improve distress tolerance, challenge negative thoughts, and prevent decompensation. Narrative Note: []
--- NOTE | 2025-01-29 10:00 | BH.SGPN.GN ---
Behaviors/Verbalizations/Mental Status: []Pt alert and oriented, disheveled appearance. Eye contact good. Motor activity appropriate. Speech within normal limits. Affect congruent, mood irritable and anxious. Thoughts linear, logical, no signs of hallucinations or delusions. Client Response/Progress/Benefit: []Pt was an active participant in group discussions. Attentive during psychoeducation on the CBT [place] (Thoughts, Behaviors, Emotions). Engaged in group discussion on how thoughts and behaviors can contribute to maintaining adverse feelings, such as depression, anxiety, and irritability. Completed worksheet in which pt identified obstacles and/or thoughts that are keeping them stuck. Shared obstacles that included; not being good enough and not liking herself. Pt benefited from increased awareness of the basis of CBT therapy as well as specific thoughts that are impacting pt's progress. Will continue in IOP to prevent decompensation, improve daily functioning, and increase distress tolerance. Narrative Note: []
--- NOTE | 2025-01-29 11:00 | BH.SGPN.GN ---
Behaviors/Verbalizations/Mental Status: []Pt alert and oriented, casually dressed and groomed. Eye contact good. Motor activity appropriate. Speech within normal limits. Affect congruent, mood content. Thoughts linear, logical, no signs of hallucinations or delusions. Client Response/Progress/Benefit: [] Pt responded well to session, contributing to discussion and attentive throughout. Pt identified a negative thought that has kept them stuck. Pt's thought was This will never get better?. Pt reported when they think this way, pt isolates, self-sabotages, or shuts down. Pt worked to reframe the thought by finding more rational, realistic ways to look at the thoughts and then processed them within group setting. Pt reframed the thought to ?I have worked through this before and have the skills to improve?. Pt appeared to benefit from practicing challenging negative thinking with peers and gaining coping skills. Pt will continue IOP tx to promote mood stability, increase thought challenging, and further increase self-care. Narrative Note: []
--- NOTE | 2025-02-04 09:05 | BH.SGPN.GN ---
Behaviors/Verbalizations/Mental Status: [] Eye contact is good. Motor activity is appropriate. Appearance is casual. Speech is Appropriate. Mood is euthymic. Affect is full. Thoughts are linear and logical. No evidence of psychosis. Reviewed daily check in sheet and pt reports 3/5 for suicidal thoughts/not wanting to be alive; 0/5 for intent. Long-standing daily SI which is baseline. Client Response/Progress/Benefit: [] Pt participated at times during the group discussions. Attentive. Daily symptom tracker notes 5/5 for agitation, 4/5 for anxiety, and 3/5 for depression. Despite elevated scores reports overall her mood and functioning are ?better?. She continues to verbalize struggling IOP stating ?I thought about not coming?. ? I?ve been through a lot in the past 2 weeks?. ? My is in [facility]?. Also reports poor sleep, isolation, and coping with alcohol. Group focused on strategies and encouraged focusing on things in her control. Regression noted. Benefited from group support and encouragement. Dismissive of feedback at times. Narrative Note: []
--- NOTE | 2025-02-04 10:10 | BH.SGPN.GN ---
Behaviors/Verbalizations/Mental Status: [] Eye contact is fair. Motor activity is appropriate. Appearance is casual. Speech is Appropriate. Mood is depressed. Affect is constricted. Thoughts are linear and logical. No evidence of psychosis. Client Response/Progress/Benefit: [] Pt engaged in session AEB listening attentively to others and providing input throughout. Pt engaged in activity, able to connect how it can be uncomfortable and difficult to practice acceptance when situations are out of one?s own control. Identified what they are struggling to accept in personal life. Worked with peer group to define acceptance and identify the benefits that acceptance can bring. Benefits included; reduce stuckness, reduced stress, helps one to focus on situations we can change, and decreased negative self-talk. Seemed to benefit from increased awareness of the meaning as well as the importance of acceptance. Will continue in IOP to improve emotion regulation, challenge distortions, and prevent decompensation.
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
--- NOTE | 2025-02-05 09:00 | BH.SGPN.GN ---
Behaviors/Verbalizations/Mental Status: [] Pt alert and oriented, casually dressed and groomed. Eye contact good. Motor activity appropriate. Speech within normal limits. Affect constricted, mood dysthymic. Thoughts linear, logical, no signs of hallucinations or delusions. Reviewed pt?s symptom tracker, no risk for suicidal ideation, plan, or intent 02/05/25. Client Response/Progress/Benefit: [] Pt was an active participant in group discussions. Attentive. Able to identify mental health wins including ?I made it to group today and I wante to cancel and I had to make a hard decision the other day.? ?Pt's stressor today is ?the court system is stupid.? The group offered pt suggests to manage this stressor and emotional support which pt reported was helpful. Pt is feeling ?apathetic.? this morning. Pt receptive to feedback from peers. Benefited from group support, encouragement, and feedback. Progress noted. Will continue IOP tx to prevent decompensation, increase use of healthy coping skills, and reduce self-sabotaging behaviors. ? Narrative Note: []
--- NOTE | 2025-02-05 10:10 | BH.SGPN.GN ---
Behaviors/Verbalizations/Mental Status: []Pt alert and oriented, disheveled appearance. Eye contact good. Motor activity appropriate. Speech within normal limits. Affect constricted, mood agitated. Thoughts linear, logical, no signs of hallucinations or delusions. Client Response/Progress/Benefit: [] Pt responded well to session AEB sharing and listening attentively to others. Group provided examples of types of support (professional, pets, hobbies, community, spouse, adriana, etc) as well as benefits of having social support, including: validation, get perspective, and accountability. Pt also participated in group discussion regarding the barriers to accessing support and pt?s barriers included; trying to do things on her own, shutting down, and feeling like a burden. Pt participated in experiential activity illustrating the impact communication, boundaries, and patience play in creating healthy support systems. Pt appeared to benefit from increased knowledge of the benefits of social support and greater self-awareness. Pt to continue IOP to reduce self-sabotaging behaviors, improve daily functioning, and improve distress tolerance. Narrative Note: []
--- NOTE | 2025-02-05 11:15 | BH.SGPN.GN ---
Behaviors/Verbalizations/Mental Status: []Client alert and oriented, casually dressed and groomed. Eye contact good. Motor activity appropriate. Speech within normal limits. Affect congruent, mood euthymic. Thoughts linear, logical, no signs of hallucinations or delusions. Client Response/Progress/Benefit: [] Pt participated throughout AEB contributing to discussion, providing examples, and taking notes. Pt provided input during discussion on the types of support our supports can provide. Pt able to identify current support system and barriers that get in the way of using supports. Pt reported after identifying what type of supports pt receives, pt gained awareness that pt could benefit from more emotional support by putting more effort into consistently reaching out to supports for help instad of shutting down. Pt seemed to benefit from identifying the type of support pt needs to work on improving. Pt recommended to continue IOP tx to promote increase positive self-talk, improve healthy communication, and prevent decompensation. Narrative Note: []
--- NOTE | 2025-02-05 11:32 | PCM.BH.PN_ITS ---
Intake Vital Signs 01/14/25 11:54 02/05/25 11:33 Height 1.7 m 1.7 m Intake Visit Reasons: f/u MDD Allergies procaine (From Novocain) Allergy (Severe, Verified 01/28/25 12:53) throat swelling, itching sulfamethoxazole (From Bactrim) Allergy (Severe, Verified 01/28/25 12:53) Anaphylaxis trimethoprim (From Bactrim) Allergy (Severe, Verified 01/28/25 12:53) Anaphylaxis amoxicillin Adverse Reaction (Intermediate, Verified 01/28/25 12:53) hallucinations ketamine Adverse Reaction (Intermediate, Verified 01/28/25 12:53) aggression Penicillins Adverse Reaction (Intermediate, Verified 01/28/25 12:53) hallucinations bacitracin (From Neosporin ([id number])) Adverse Reaction (Mild, Verified 01/28/25 12:53) Rash neomycin (From Neosporin ([id number])) Adverse Reaction (Mild, Verified 0 01/28/25 12:53) Rash polymyxin B (From Neosporin ([id number])) Adverse Reaction (Mild, Verified 01/28/25 12:53) Rash Medications ?Medication ?Instructions ?Recorded ?Confirmed ?Type levothyroxine 25 mcg tablet 25 mcg PO DAILY 30 days #3 0 tabs 01/14/25 Rx asenapine maleate 5 mg sublingual 5 mg sublingual QHS 30 days #30 02/05/25 Rx tablet tabs lorazepam 1 mg tablet (Ativan) 1 mg PO DAILY PRN anxie ty with MRI 02/05/25 Rx #1 TAB HPI () History of Present Illness History provided by: patient Chief complaint: Angry, low mood HPI: -Current psychiatric medications: None, patient stopped taking Lamictal -SUBJECTVE: Reports feeling about the same as she was, has not been sleeping well still, endorses that she was taking the Lamictal but noticed intermittently the rash on her abdomen and did not find it helpful so she stopped taking it 2 days ago. She thinks the rash is cleared, discussed that this was probably a side effect and not necessarily an allergy and of itself. Reports still not sleeping particularly well. Has had a lot of stressors since her last evaluation especially with her . She does have chronic back pain and is supposed to go get an MRI today and will be following with pain management. Does note she will be seeing a PCP in April, appointment has been made but she is unsure if she will keep it, she was encouraged to continue Exam Mental Status Exam- Psych () Appearance casually dressed and appears older than stated age Attitude other (More cooperative and somewhat more engaged) Activity/Motor Behavior psychomotor slowing Speech regular rate and monotone (Slight increase in inflection) Mood anhedonic Affect restricted Thought Process coherent Thought Content no delusions and no hallucinations Suicidal Ideation passive (Without any intent) Homicidal Ideation none Attention intact Concentration intact Sensorium/Orientation awake and alert Memory/Cognition intact Insight questionable Judgement questionable Assessment & Plan () Assessment & Plan (1) MDD (major depressive disorder), recurrent severe, without psychosis: Plan: Patient stopped taking Lamictal as she did not find it helpful, had discussed possibility of a rash with her last appointment as a side effect and she notes she intermittently had a rash on her abdomen that she thought was heat rash but has not recurred since she stopped Lamictal 2 days ago, does not have anything that sounded like Beltran-Aris syndrome. Patient has taken multiple medications in the past without much improvement, she asked again about Vraylar as she feels like she would want to trial this as she has heard good things about it but notes she is unable to take capsules, does not appear that there is another way to take Vraylar, after reviewing her med trials discussed trying asenapine as it is sublingual so absorption is different and there is no need for capsule, ultimately patient agreeable to trialing this medication. Could always consider Tegretol or Geodon as alternate med trials moving forward if necessary but 1 adequate trial of asenapine first. Starting at 5 mg sublingual nightly and if she is tolerating can consider 5 twice daily. Also patient scheduled to have an MRI this evening, reports she has been unable to get a hold of her pain management office but has claustrophobia and cannot tolerate an MRI without medication, discussed Ativan, she has taken this before and has tolerated it well, will send in 1 pill of Ativan to take for the MRI, patient confirms she has some body to drive her home Will continue to encourage patient to take Synthroid and establish with a primary care physician, presently has an appointment scheduled in April, patient was provided with refills on the Synthroid Medications: New lorazepam (Ativan) 1 mg PO DAILY PRN 1 TAB 0RF anxiety with MRI asenapine maleate 5 mg sublingual QHS 30 tabs 0RF 30 days Discontinued lamotrigine (Lamictal) Discontinued Reason: MD Ordered 25 mg PO DAILY 30 tabs 0RF 30 days Visit Details Comments: Spent a total of [ ] minutes on the date of the service which included [ ]. Charges/Coding Behavior Health Behavior Health EST Pt E/M: 42322 Est Pt Level IV
--- NOTE | 2025-02-09 11:10 | BH.SGPN.GN ---
Behaviors/Verbalizations/Mental Status: []Client alert and oriented, casually dressed and groomed. Eye contact good. Motor activity appropriate. Speech within normal limits. Affect congruent, mood euthymic. Thoughts linear, logical, no signs of hallucinations or delusions. Client Response/Progress/Benefit: [] Pt receptive of session, engaged throughout AEB Pt actively listening and contributing to discussion as well as taking notes.? Pt participated in the experiential activity and did well to communicate ideas with peers and manage emotions. Pt attentive as group processed how the emotions and perspective of the group impacted the activity. Pt admitted that they were doubtful at times, but pt was able to thought challenge and take deep breaths to complete the activity with peers. Group worked together to identify different coping skills to help manage pitfalls. Pt identified a pitfall they struggle with as ?shutting down?. Pt plans to work on their pitfall by challenging themselves to reach out for help when needed, as well as setting healthy boundaries. Benefited from identifying personal pitfalls and strategies to overcome these pitfalls. Pt will continue IOP tx to prevent decompensation, improve daily functioning, and increase mood stability. ? Narrative Note: []
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
== END 2025-02-11 11:22 | disposition home or self-care (01) ==
LOC: BHIOP 07:52
PROVIDERS: PCP Family Medicine; Referring Provider Internal Medicine; Visit Provider Internal Medicine
DX: F33.2 Major depressive disorder, recurrent severe without psychotic features (principal); F43.10 Post-traumatic stress disorder, unspecified; E03.9 Hypothyroidism, unspecified; F10.90 Alcohol use, unspecified, uncomplicated; Z79.899 Other long term (current) drug therapy
CPT/HCPCS: H2012; H2020; S9480; 90834; 90837

== ENCOUNTER 2025-01-23 04:31 | Emergency (ER) | payer MEDICAID, SELFPAY ==
[2025-01-23 04:33] VITALS: BP 160/103; PULSE 85; RESP 16; TEMP 36.5; O2SAT 99; BMI 49.6
--- NOTE | 2025-01-23 04:43 | EKG12_ITS ---
Test Reason : HEAD INJURY Blood Pressure : */* mmHG Vent. Rate : 85 BPM Atrial Rate : 85 BPM P-R Int : 142 ms QRS Dur : 90 ms QT Int : 388 ms P-R-T Axes : 21 41 -2 degrees QTcB Int : 461 ms Normal sinus rhythm Normal ECG Confirmed by [address], DEE ([id number]), copy editor DARREL SHI ([id number]) on 01/25/2025 1:09:12 PM Referred By: SOPHIE Confirmed By: DEE HANEY MD
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
--- OUTSIDE RECORDS SUMMARY | 2025-01-23 04:46 | XMS RPT_ITS | CCD ---
Author Organization [facility] Care Team Providers Care Manager Qa Name Role Phone Shira Norma Thomas Unavailable PAOLA CAREY Unavailable Unavailable REFERRED, SELF Unavailable Unavailable NO PRIMARY CAREMD Unavailable Unavailable Norma Silva Unavailable Unavaila Norma Vela Unavailable Unavaila Wendy Escobedo Primary Care Provider [phone] Arturo Beaversn Unavailable Unavailable Carlos Lara Unavailable Unavailable Pancho Kentminder Unavailable Unavailable Wendy Beavers Unavailable Unavailable Kay Perea Unavailable Unavailable Norma Silva Unavailable Unavailable Wendy Beavers Primary Care Provider [phone] Kay Perea Unavailable Unavailable Kay Perea DO Unavailable Unavailable ObWendy powell DO Unavailable Unavailable Kent, Asif Unavailable Unavailable Wendy Beavers L Unavailable Unavailable Kay Perea Unavailable Unavailable Mallorie Silvahel B Unavailable Unavailable OberhausWendy ely DO Primary Care Provider [phone] Arturo Beaversn L Unavailable Unavailable Unavailable Wendy Beavers DO Primary Care Provider [phone] Sandra Bhakta Attending Unavailamelie Beavers, Dr. Baxter Primary Care Unavailamelie Beavers, Dr. Baxter Primary Care UnavailKay Matthews Attending Unavailable Kay Perea Referring Unavailable Ruthann, Dr. Baxter Primary Care Unavailabl e Oberhauser, Dr. Baxter Attending Unavailabl e Ruthann, Dr. Baxter Referring Unavailabl e NO FAMILY, PHYSICIAN Primary Care Provider Unava ilable DO Srinath Israel Emergency Provider [phone] No, Physician Primary Care Provider Unavailamelie e ESTIVEN RYDER Attending Unavaila ble NO, PHYSICIAN Primary Care Unavailable ESTIVEN RYDER Attending Unavaila ble NO, PHYSICIAN Primary Care Unavailable Hal Argueta Admitting Unavailable Hal Argueta Attending Unavailable Provider, None Primary Care Unavailable Maricruz Hurst Attending Unavailable Provider, None Primary Care Unavailable Maricruz Hurst Admitting Unavailable Provider, None Primary Care Unavailable Kay Vazquez Admitting Unavailab Kay Blair Attending Unavailab le NO FAMILY, PHYSICIAN Primary Care Unavailable Mohan Breen Jr Attending Unavailable Mohan Breen Jr Admitting Unavailable NO FAMILY, PHYSICIAN Primary Care Unavailable Srinath Israel Attending Unavailable Srinath Israel Admitting Unavailable NO, PHYSICIAN Primary Care Unavailable ESTIVEN RYDER Referring Unavaila ble ESTIVEN RYDER Attending Unavaila ble Wendy Beavers DO Primary Care Provider Jadyn Light DO Primary Care Provider [phone] RODOLFO ABRAMS Attending Unavailable JADYN LIGHT Primary Care Unavailable JADYN LIGHT Primary Care Unavailable ELIZABETH HERNANDEZ Attending Unavailable DANAE MAJOR Referring Unavailable JADYN LIGHT Primary Care Unavailable JADYN LIGHT Primary Care Unavailabl e ELIZABETH DIAZ Attending Unavailable JADYN LIGHT Primary Care Unavailabl ELIZABETH Yates Attending Unavailable GUSTAVO OLSON Attending Unava ilable NO, PHYSICIAN Primary Care Unavailable JADYN LIGHT Primary Care Unavailabl e ARLINE RODARTE Attending Unavaila ble JADYN LIGHT Primary Care Unavailabl e GUSTAVO OLSON Attending Unava ilable KATHARINA IZAGUIRRE Attending Unavailable JADYN LIGHT Primary Care Unavailabl e JADYN LIGHT SHANNON Primary Care Unavailabl e DOMENICO LOPEZ Attending Unavailable NO, PHYSICIAN Primary Care Unavailable ARLINE RODARTE Attending Unavaila ble NO, PHYSICIAN Primary Care Unavailable CARLOS LEON Attending Unavailable NO, PHYSICIAN Primary Care Unavailable ELIZABETH DIAZ Attending Unavailable NO, PHYSICIAN Primary Care Unavailable ARLINE RODARTE Attending Unavaila ROSALINDA Cody Attending Unavailab le NO, PHYSICIAN Primary Care Unavailable NADEGEJADYN Primary Care Unavailabl e HASANARLINE Attending Unavaila ble Oberhauser DO, Wendy L Primary Care Provider LAWRENCE BRIGGS Attending Unavailable OBERHAUSER, WENDY L Primary Care Unavailable OBERHAUSER, WENDY L Primary Care Unavailable WARREN JEONG Attending Unavailable OBERHAUSER, WENDY L Primary Care Unavailable Nadege VSC, Justa Primary Care Unavailable Azalia Markham Referring Unavailable Azalia Markham Attending Unavailable Lauri Frias Attending Unavailable Nadege VSC, Justa Primary Care Unavailable Lexx Payne Attending Unavailable Nadege VSC, Justa Primary Care Unavailable Nadege VSC, Justa Primary Care Unavailable Nadege VSC, Justa Attending Unavailable Gustavo Her Attending Unavailable Tawanda Herolas Referring Unavailable Nadege VSC, Justa Primary Care Unavailable Nadege VSC, Justa Primary Care Unavailable Azalia Markham Referring Unavailable Azalia Markham Attending Unavailable Vern Richards Attending Unavailable Nadege VSC, Justa Primary Care Unavailable Gustavo Her Attending Unavailable Tawanda Herolas Referring Unavailable Nadege VSC, Justa Primary Care Unavailable Bia Brown Consulting Unavailable Bia Brown Attending Unavailable Kevin Bia Referring Unavailable Nadege VSC, Justa Primary Care Unavailable Prayson Gustavo Referring Unavailable Prayson Gustavo Consulting Unavailable Idalia Polanco Attending Unavailable Nadege VSC, Justa Primary Care Unavailable Shira PA, Norma Primary Care Unavailabl e Azalia Markham Attending Unavailable Shira CLEARY Norma Primary Care Unavailabl e Nadege VSC, Justa Attending Unavailable Tawanda Herolas Referring Unavailable Nadege VSC, Justa Primary Care Unavailable Gustavo Her Attending Unavailable Azalia Markham Referring Unavailable Azalia Markham Attending Unavailable [facility], [facility] Primary [facility] Unavailable Norma Rosenthal Primary Care UnavailAzalia Wallace Attending Unavailable Azalia Markham Referring Unavailable Azalia Markham Attending Unavailable [facility], [facility] Primary Care Unavailable [facility], [facility] Primary Care Unavailable Azalia Markham Referring Unavailable Azalia Markham Attending Unavailable Azalia Markham Attending Unavailable Lakeshiaro, Azalia Referring Unavailable [facility], [facility] Primary Care Unavailable Brown, Bia Referring Unavailable Brown Bia Attending Unavailable [facility], [facility] Primary Care Unavailable Brown, Bia Referring Unavailable Brown Bia Attending Unavailable [facility], [facility] Unavailable Allergies Allergy Classification Reported Allergen(s) Allergy Type Date of Onset Reaction(s) Facility Acetaminophen (4 sources) Acetaminophen; Translations: [acetaminophen] Drug Allergy [facility] Work Phone: [phone] Aspirin (7 sources) Aspirin; Translations: [aspirin] Drug Allergy 016 [facility] Work Phone: [phone] bacitracin / neomycin / polymyxin b (3 sources) bacitracin / neomycin / polymyxin b Drug Allergy 016 [facility] Bacitracin / Neomycin / Polymyxin B (3 sources) Bacitracin / Neomycin / Polymyxin B; Translations: [Neosporin OINT] Drug Allergy Hives [facility] Work Phone: [phone] Bacitracin / Polymyxin B (1 source) Bacitracin / Polymyxin B Drug Allergy Hives [facility] Work Phone: [phone] Contrast Media (4 sources) Contrast media Substance Allergy Hives [facility] Work Phone: [phone] Corticosteroids (4 sources) Cortisone; Translations: [cortisone] Drug Allergy Rash [facility] Work Phone: [phone] Ketamine (4 sources) Ketamine; Translations: [ketamine] Drug Allergy [facility] Work Phone: Opioid Agonists (4 sources) HYDROcodone; Translations: [hydrocodone] Drug Allergy [facility] Work Phone: Penicillins (antibiotic) (14 sources) Amoxicillin; Translations: [Penicillins] Drug Allergy 016 Hallucinations [facility] Serotonin Reuptake Inhibitors (SSRIs) (4 sources) Citalopram; Translations: [Citalopram Hydrobromide TABS] Drug Allergy [facility] Work Phone: [phone] Sulfamethoxazole / Trimethoprim (11 sources) Sulfamethoxazole / Trimethoprim; Translations: [Bactrim] Drug Allergy 016 Psychosis [facility] Work Phone: (20 sources) amoxicillin; Translations: [amoxicillin] Propensity to adverse reactions to drug 016 Hallucinations, Unknown [facility] Work Phone: (20 sources) aspirin; Translations: [aspirin] Propensity to adverse reactions to drug 016 Unknown [facility] Work Phone: (6 sources) bacitracin / neomycin / polymyxin b; Translations: [NEOMYCIN-BACITRAC NZN-POLYMYXNB] Propensity to adverse reactions to drug 016 [facility] Work Phone: (13 sources) Penicillins; Translations: [PENICILLINS] Propensity to adverse reactions to drug 010 Unknown [facility] Work Phone: (20 sources) sulfamethoxazole / trimethoprim; Translations: [Bactrim] Propensity to adverse reactions to drug 016 Angioedema, Rash, Vomiting, Unknown [facility] Work Phone: (1 source) SULFA ANTIBIOTICS; Translations: [SULFA ANTIBIOTICS] Propensity to adverse reactions to drug (disorder) 017 [facility] Repository (20 sources) Acetaminophen; Translations: [acetaminophen] Drug Allergy 010 [facility] Repository (20 sources) Bacitracin / Polymyxin B; Translations: [Neosporin OINT] Drug Allergy 024 Hives, Swelling [facility] Work Phone: [phone] (20 sources) Citalopram; Translations: [Citalopram Hydrobromide TABS] Drug Allergy [facility] Work Phone: [phone] (20 sources) Contrast media Allergy to substance (finding) Hives [facility] Work Phone: [phone] (20 sources) Cortisone; Translations: [cortisone] Drug Allergy 021 Rash, Other (See Comments), Swelling, [facility] (20 sources) HYDROcodone; Translations: [hydrocodone] Drug Allergy [facility] Work Phone: [phone] (20 sources) Ketamine; Translations: [ketamine] Drug Allergy 021 Other (See Comments), Agitation [facility] Work Phone: [phone] (20 sources) Penicillins; Translations: [Penicillins] Allergy to drug (finding) Hallucinations [facility] Work Phone: [phone] (5 sources) Sulfamethoxazole / Trimethoprim; Translations: [Bactrim] Drug Allergy Psychosis Repository (8 sources) Neomycin-Bacitracn zn-Polymyxnb Propensity to adverse reactions to drug 016 Dermatitis, Rash [facility] (17 sources) Azithromycin; Translations: [Azithromycin TABS] Drug Allergy 024 Headache [facility] (11 sources) Latex; Translations: [LATEX] Propensity to adverse reactions to drug 016 Hives [facility] (1 source) Penicillins Propensity to adverse reactions to drug 016 [facility] (6 sources) Procaine; Translations: [PROCAINE] Drug Allergy 021 Other (See Comments) [facility] (6 sources) Penicillins Propensity to adverse reactions to drug 010 Hallucinations, Unknown [facility] (3 sources) Azithromycin; Translations: [AZITHROMYCIN] Drug Allergy 024 [facility] Repository (3 sources) BACITRACIN ZINC-POLYMYXIN B; Translations: [BACITRACIN ZINC-POLYMYXIN B] Propensity to adverse reactions to drug (disorder) [facility] Repository (1 source) Bacitracin / Neomycin / Polymyxin B; Translations: [Neosporin] Drug Allergy Repository (1 source) Penicillin; Translations: [penicillin] Drug Allergy Repository (3 sources) Furosemide; Translations: [FUROSEMIDE] Drug Allergy [facility] Repository (2 sources) Penicillins Drug allergy (disorder) [facility] Repository (2 sources) Procaine Drug Allergy [facility] Repository (4 sources) Sulfamethoxazole; Translations: [SULFAMETHOXAZOLE] Drug Allergy [facility] Repository (4 sources) Trimethoprim; Translations: [TRIMETHOPRIM] Drug Allergy [facility] Repository (3 sources) Bacitracin; Translations: [BACITRACIN] Drug Allergy 024 [facility] Repository (2 sources) Citalopram; Translations: [CITALOPRAM] Drug Allergy 024 [facility] Repository (3 sources) Neomycin; Translations: [NEOMYCIN] Drug Allergy [facility] Repository (5 sources) Iodine; Translations: [IODINE] Drug Allergy Rash [facility] (5 sources) Gel; Translations: [GEL] Drug Intolerance Rash [facility] (5 sources) Hydrocortisone; Translations: [HYDROCORTISONE] Drug Allergy 024 [facility] Work Phone: (5 sources) Lidocaine; Translations: [LIDOCAINE] Drug Allergy 024 [facility] Work Phone: (1 source) Penicillins Propensity to adverse reactions [facility] (1 source) NEOMYCIN-BACITRACI N-POLYMYXIN; Translations: [NEOMYCIN-BACITRAC IN-POLYMYXIN] Propensity to adverse reactions to drug (disorder) [facility] [place] Repository (1 source) Amoxicillin Drug Allergy [facility] Repository (1 source) polymyxin B Drug allergy (disorder) 025 [facility] Repository Medications Current Medications Medication Drug Class(es) Dates Sig (Normalized) Sig (Original) albuterol 0.21 mg/ml inhalation solution (20 sources) beta2-Adrenergic Agonist Start: 12-22-2023 take 0.63 mg by inhalation every six hours as needed Albuterol Sulfate 0.63 mg/3 mL nebulizer solution Inhale 0.63 mg as instructed every 6 hours as needed. 12/22/2023 Active Start: 12-22-2023 take 2 puff(s) by in halation every four hours as needed albuterol HFA (PROVENTIL HFA, VENTOLIN HFA) 90 mcg/actuation inhaler Inhale 2 Puffs as instructed every 4 hours as needed. 12/22/2023 Active Start: 12-22-2023 End: 01-21-2024 take 0.63 mg by inhalation every six hours as needed for wheezing albuterol (ACCUNEB) 0.63 mg/3 mL nebulizer solution Take 3 mL (0.63 mg total) by nebulization every 6 (six) hours as needed for wheezing . 75 mL 12/22/2023 01/21/2024 Active Start: 12-22-2023 End: 01-21-2024 take 2 puff(s) by inhalation every four hours as needed for cough albuterol 90 mcg/actuation inhaler Indications: Moderate persistent asthma without complication Inhale 2 (two) puffs every 4 (four) hours as needed for wheezing or cough . 18 g 12/22/2023 01/21/2024 Active Start: 07-06-2022 take 2 puff(s) by in halation every four hours as needed for cough albuterol 90 mcg/actuation inhaler Indications: Moderate persistent asthma without complication Inhale 2 (two) puffs every 4 (four) hours as needed for wheezing or cough . 18 g 1 07/06/2022 Active Start: 03-14-2021 Albuterol Sulf ate (2.5 MG/3ML) 0.083% Inhalation Nebulization Solution Quantity: 90 Refills: 0 Ordered: 14-Mar-2021 DO Start : 14-Mar-2021 Complete Start: 03-14-2021 Albuterol Sulf ate 2.5 MG/0.5ML Inhalation Nebulization Solution USE 0.5ML IN 2.5ML NORMAL SALINE VIA NEBULIZER 3 TO 4 TIMES DAILY NEEDED FOR WHEEZING. Quantity: 3 Refills: 3 Ordered: 14-Mar-2021 Wendy Beavers DO Start : 14-Mar-2021 Active Start: 2021 End: 03-14-2021 take 1-2 puff(s) by inhalation every six hours as needed Albuterol Sulfate HFA 108 (90 Base) MCG/ACT Inhalation Aerosol Solution INHALE 1 TO 2 PUFFS EVERY 6 HOURS NEEDED. Quantity: 1 Refills: 3 Ordered: 02-Mar-2021 Wendy Beavers DO Start : 02-Mar-2021 End : 14-Mar-2021 Complete Start: 02-26-2021 take 0.63 mg by inha lation every six hours as needed for wheezing albuterol (ACCUNEB) 0.63 mg/3 mL nebulizer solution Take 3 mL (0.63 mg total) by nebulization every 6 (six) hours as needed for wheezing . 75 mL 0 02/26/2021 Active Start: 01-05-2021 take 2 puff(s) by in halation every four hours as needed for cough albuterol 90 mcg/actuation inhaler Inhale 2 (two) puffs every 4 (four) hours as needed for wheezing or cough . 1 Inhaler 0 01/05/2021 Active Start: 12-11-2019 take 1 puff(s) by in halation every four hours as needed Ventolin HFA 108 (90 Base) MCG/ACT Inhalation Aerosol Solution INHALE 1 PUFF EVERY 4 HOURS NEEDED. Quantity: 3 Refills: 3 Ordered: 15-Feb-2021 Wendy Beavers DO Start : 11-Dec-2019 Active Start: 12-11-2019 take 1 puff(s) by in halation every four hours as needed Ventolin HFA 108 (90 Base) MCG/ACT Inhalation Aerosol Solution INHALE 1 PUFF EVERY 4 HOURS NEEDED. Quantity: 3 Refills: 3 Wendy Beavers DO Start : 11-Dec-2019 Active 8 GM Inhaler Start: 12-11-2019 take 1 puff(s) by in halation every four hours as needed Ventolin HFA 108 (90 Base) MCG/ACT Inhalation Aerosol Solution INHALE 1 PUFF EVERY 4 HOURS NEEDED. Quantity: 3 Refills: 3 Wendy Beavers DO Start : 11-Dec-2019 Active 8 GM Inhaler take 2.5 mg by inhal ation every six hours as needed albuterol (PROVENTIL) 5 mg/mL nebulizer solution Take 2.5 mg by nebulization every 6 (six) hours as needed for wheezing. 0 Active brexpiprazole 0.5 mg oral tablet (3 sources) Atypical Antipsychotic Start: 05-13-2024 take 1 tablet by mouth once daily at bedtime REXULTI 0.5 mg tablet Take 0.5 mg by mouth daily at bedtime. 05/13/2024 Active budesonide / formoterol (10 sources) Corticosteroid, beta2-Adrenergic Agonist Start: 12-22-2023 End: 01-21-2024 take 2 puff(s) by inhalation twice daily budesonide-formot Harriet (SYMBICORT) 160-4.5 mcg/actuation inhaler Indications: Moderate persistent asthma without complication Inhale 2 (two) puffs 2 (two) times a day . 1 each 5 12/22/2023 01/21/2024 Active Start: 07-06-2022 take 2 puff(s) by in halation twice daily budesonide-formoteroL (SYMBICORT) 160-4.5 mcg/actuation inhaler Indications: Moderate persistent asthma without complication Inhale 2 (two) puffs 2 (two) times a day . 1 each 1 07/06/2022 Active take 2 puff(s) by in halation twice daily budesonide-formoterol (SYMBICORT) 160-4.5 mcg/actuation inhaler Inhale 2 puffs 2 (two) times a day. 0 Active budesonide-formo terol (SYMBICORT) 160-4.5 mcg/actuation inhaler Inhale 2 puffs 2 (two) times a day. Active cephalexin 50 mg/ml oral suspension (8 sources) Cephalosporin Antibacterial Start: 12-22-2024 End: 12-29-2024 take 10 mL by mouth three times daily cephALEXin (KEFLEX) 250 mg/5 mL suspension Indications: Dental infection Take 10 mL by mouth three times a day for 7 days. 210 mL 12/22/2024 12/29/2024 Active Start: 05-23-2024 End: 05-30-2024 take 1 capsule by mouth three times daily cephALEXin (KEFLEX) 500 mg capsule Indications: Toothache Take 1 capsule by mouth three times a day for 7 days. 21 capsule 05/23/2024 05/30/2024 Active Start: 08-28-2021 End: 09-04-2021 take 1 capsule by mouth four times daily cephALEXin (KEFLEX) 500 MG capsule Take 1 (one) capsule (500 mg total) by mouth 4 (four) times a day for 7 days . 28 capsule 0 08/28/2021 09/04/2021 Active Start: 10-06-2020 take 5 mL by mouth once daily Cephalexin 250 MG/5ML Oral Suspension Reconstituted TAKE 5 ML EVERY 6 HOURS DAILY. Quantity: 1 Refills: 0 Ordered: 06-Oct-2020 Wendy Beavers DO Start : 06-Oct-2020 Active clindamycin 15 mg/ml oral solution (4 sources) Lincosamide Antibacterial Start: 01-16-2024 End: 01-23-2024 take 20 mL by mouth three times daily clindamycin (CLEOCIN) 75 mg/5 mL solution Take 20 mL (300 mg total) by mouth 3 (three) times a day for 7 days . 420 mL 01/16/2024 01/23/2024 Active Start: 01-03-2021 Clindamycin HC l - 300 MG Oral Capsule Quantity: 30 Refills: 0 Ordered: 03-Jan-2021 DO Start : 03-Jan-2021 Complete take 1 capsule by mo [facility] three times daily clindamycin (CLEOCIN) 300 MG capsule Take 1 (one) capsule (300 mg total) by mouth 3 (three) times a day . 0 Active cyclobenzaprine hydrochloride 10 mg oral tablet (7 sources) Muscle Relaxant Start: 05-23-2024 take 1 tablet by mouth three times daily as needed cyclobenzaprine (FLEXERIL) 10 mg tablet Indications: Acute right-sided low back pain without sciatica Take 1 tablet by mouth three times a day as needed. 15 tablet 05/23/2024 Active Start: 09-15-2022 [facility] as needed for muscle spasms cyclobenzaprine (FLEXERIL) 10 MG tablet Take 1 (one) tablet (10 mg total) by mouth 3 (three) times a day as needed for muscle spasms . 30 tablet 09/15/2022 Active Start: 02-10-2021 take 1 tablet by jabier th three times daily as needed Cyclobenzaprine HCl - 10 MG Oral Tablet TAKE 1 TABLET 3 TIMES DAILY NEEDED. Quantity: 30 Refills: 3 Ordered: 10-Feb-2021 Wendy Beavers DO Start : 10-Feb-2021 Active take 1 tablet by jabier th twice daily as needed for muscle spasms cyclobenzaprine (FLEXERIL) 10 MG tablet Take 1 (one) tablet (10 mg total) by mouth 2 (two) times a day as needed for muscle spasms . 0 Active dicyclomine hydrochloride 10 mg oral capsule (5 sources) Anticholinergic take 1 capsule by mouth four times daily dicyclomine (BENTYL) 10 MG capsule Take 10 mg by mouth 4 (four) times a day . 0 Active etodolac 400 mg oral tablet (1 source) Nonsteroidal Anti-inflammatory Drug Start: 05-11-20 End: 05-18-20 take 1 tablet by mouth twice daily etodolac (Lodine) 400 mg tablet Indications: Foot sprain, left, initial encounter Take 1 tablet (400 mg) by mouth 2 times a day for 7 days. 14 tablet 05/11/2024 05/18/2024 Active guanFACINE 1 mg oral tablet (3 sources) Central alpha-2 Adrenergic Agonist Start: 04-29-20 take 1 tablet by mouth once daily at bedtime guanFACINE (TENEX) 1 mg tablet Take 1 mg by mouth daily at bedtime. 04/29/2024 Active hydrOXYzine pamoate 25 mg oral capsule (20 sources) Antihistamine Start: 03-11-20 take 1 capsule by mouth every eight hours as needed hydrOXYzine pamoate (VISTARIL) 25 mg capsule Take 25 mg by mouth three times a day as needed for anxiety. 03/11/2024 Active Start: 02-13-2021 take 1 tablet by jabier th four times daily hydrOXYzine HCl - 50 MG Oral Tablet TAKE 1 TABLET BY MOUTH 4 TIMES DAILY Quantity: 90 Refills: 3 Ordered: 13-Feb-2021 Wendy Beavers DO Start : 13-Feb-2021 Active levothyroxine sodium 0.025 mg oral tablet (4 sources) l-Thyroxine Start: 03-11-2024 take 1 tablet by mouth once levothyroxine (SYNTHROID) 25 mcg tablet Take 1 tablet by mouth every afternoon. 03/11/2024 Active lidocaine 0.05 mg/mg medicated patch (20 sources) Antiarrhythmic, Amide Local Anesthetic Start: 05-23-2024 apply 1 dose transdermal route every twelve hours lidocaine (LIDODERM) 5 % Indications: Acute right-sided low back pain without sciatica Apply 1 Patch as directed every 12 hours. Remove old patch prior to placing new patch. Location: back 10 Patch 05/23/2024 Active Start: 03-14-2021 Lidocaine 5 % External Patch APPLY 1 PATCH TO THE AFFECTED AREA AND LEAVE IN PLACE FOR 12 HOURS, THEN REMOVE AND LEAVE OFF FOR 12 HOURS. Quantity: 30 Refills: 0 Ordered: 30-Jun-2021 Wendy Beavers DO Start : 14-Mar-2021 Active meclizine hydrochloride 25 mg oral tablet (15 sources) Antiemetic Start: 07-06-2022 take 1 tablet by mouth three times daily as needed for nausea meclizine (ANTIVERT) 25 mg tablet Indications: Vertigo Take 1 (one) tablet (25 mg total) by mouth 3 (three) times a day as needed for nausea . 90 tablet 1 07/06/2022 Active Start: 03-03-2021 Meclizine HCl - 25 MG Oral Tablet Quantity: 30 Refills: 0 Ordered: 03-Mar-2021 DO Start : 03-Mar-2021 Complete Start: 2021 take 1 tablet by [facility] three times daily as needed Meclizine HCl - 25 MG Oral Tablet TAKE 1 TABLET 3 TIMES DAILY NEEDED. Quantity: 20 Refills: 3 Ordered: 22-May-2021 Wendy Beavers DO Start : 22-May-2021 Active OLANZapine 2.5 mg oral tablet (4 sources) Atypical Antipsychotic Start: 03-25-2024 take 1 tablet by mouth once OLANZapine (ZYPREXA) 2.5 mg tablet Take 1 tablet by mouth every afternoon. 03/25/2024 Active omeprazole 20 mg delayed release oral tablet (7 sources) Proton Pump Inhibitor omeprazole (PRILOSEC OTC) 20 MG tablet Take 1 (one) tablet (20 mg total) by mouth . Active 12 hr orphenadrine citrate 100 mg extended release oral tablet (1 source) Mus[employer]ant Start: 10-27-2020 End: 11-06-2020 take 1 tablet by mouth twice daily orphenadrine (NORFLEX) 100 mg tablet Take 1 (one) tablet (100 mg total) by mouth 2 (two) times a day for 10 days . 20 tablet 0 10/27/2020 11/06/2020 Active PARoxetine hydrochloride 10 mg oral tablet (20 sources) Serotonin Reuptake Inhibitor Start: 07-06-2022 take 1 tablet by mouth once daily PARoxetine (PAXIL) 10 MG tablet Indications: Generalized anxiety disorder Take 1 (one) tablet (10 mg total) by mouth daily . 90 tablet 0 07/06/2022 Active Start: 02-13-2021 take 1 tablet by jabier th once daily PARoxetine HCl - 20 MG Oral Tablet TAKE 1 TABLET BY MOUTH EVERY DAY Quantity: 30 Refills: 11 Ordered: 27-Nov-2021 Wendy Beavers DO Start : 13-Feb-2021 Active promethazine hydrochloride 25 mg oral tablet (2 sources) Phenothiazine Start: 12-22-2023 take 1 tablet by mouth every six hours as needed for nausea promethazine (PHENERGAN) 25 MG tablet Take 1 (one) tablet (25 mg total) by mouth every 6 (six) hours as needed for nausea . 20 tablet 12/22/2023 Active Start: 06-25-2023 take 1 tablet by jabier th every six hours as needed for nausea promethazine (PHENERGAN) 25 MG tablet Take 1 (one) tablet (25 mg total) by mouth every 6 (six) hours as needed for nausea . 15 tablet 0 06/25/2023 Active 60 actuat tiotropium 0.17467 mg/actuat inhalation spray (9 sources) Anticholinergic Start: 02-24-2016 SPIRIVA RESPIMAT 1.25 mcg/actuation mist Indications: Uncomplicated severe persistent asthma (HCC) INHALE 2 INHALATION INSTRUCTED ONCE DAILY FOR 30 DAYS. 1 Cartridge 6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 Normal appearance. HENT: Head: Normocephalic and atraumatic. Mouth/Throat: Mouth: Mucous membranes are moist. Dentition: Abnormal dentition. Dental tenderness and dental caries present. No dental abscesses. Pharynx: Oropharynx is clear. Uv (more content not included)... Normal [facility] NCS and/or EMG Patienton NCS and/or EMG Patient [facility] Pulmonary Services/Neurology [address] [place] [address] MR#: [id number] Acct: [id number] Name: PHILLIP QUEEN Rep #: [id number] : 1990 34 From: Idalia Polanco MD Referring Dr: Gustavo Her MD Status: REG C LI Location: [facility] Date: 10/28/24 Sex: F C NCS and/or EMG Patient Report Ordering Doctor: Gustavo Her DATE OF SERVICE: 10/28/24 Phillip presents for electrodiagnostic testing of the left lower limb. She reports intermittent numbness, tingling and weakness in the left leg. She reports ongoing lower back pain. Electrodiagnostic findings: Left peroneal motor nerve demonstrates normal distal latency, amplitude and conduction velocity. Left tibial motor response is within normal limits. Normal left tibial and left peroneal F???waves. Normal H???reflex bilaterally. Sensory responses are normal. Needle EMG testing was performed of the left lower limb. All muscles tested showed no evidence of denervation with normal motor unit action potentials. Electrodiagnostic impression: This is a normal electrodiagnostic study of the left lower limb. There is no electrodiagnostic evidence for peripheral neuropathy or lumbosacral radiculopathy. Multi Select Codes Neurology Neurology Interp Codes: 29846-77 Musc test done w/n test comp (interp) and 92419-45 Nrv cndj tst 5-6 studies (interp) 10/28/24 1317 Date Idalia Polanco MD CC: Dr. Idalia Polanco MD; Dr. Gustavo Her MD; Justa Light, Date Dictated: 10/28/24 1311 Date Transcribed: 10/28/241310 Photographic Equipment Inspector: DONATO Signed Normal [facility] ED Prov Noteon 10-12-2024 ED Prov Note ED PROVIDER NOTE [facility] EM[facility] NAME: Phillip Queen AGE: 34 y.o. : 1990 VISIT DATE: 10/12/2024 CSN: [id number] PCP: No, Physician Chief Complaint Patient presents with Leg Pain 34-year-old female patient presents for left leg pain, patient states symptoms began 3 days, waxing waning, worse palpation with rest, no numbness or tingling, no traumas or injuries, no swelling Past Medical History: Diagnosis Date Anxiety Asthma CTS (carpal tunnel syndrome) left Hypothyroidism IBS (irritable bowel syndrome) Past Surgical History: Procedure Laterality Date ADENOIDECTOMY ANKLE SURGERY Left 2015 Dr. Vasquez ?type - can't recall CARPAL TUNNEL RELEASE Bilateral 2017 one year apart - dr perea / justa? KNEE SURGERY Left 2008 meniscal scope - Dr. Vasquez - TONSILLECTOMY Family History Problem Relation Age of Onset Diabetes Mother COPD Father Dementia Paternal Grandmother Social History [1] Previous Medications Medication Sig albuterol (ACCUNEB) 0.63 mg/3 mL nebulizer solution Take 3 mL (0.63 mg total) by nebulization every 6 (six) hours as needed for wheezing . albuterol 90 mcg/actuation inhaler Inhale 2 (two) puffs every 4 (four) hours as needed for wheezing or cough . budesonide-formoteroL (SYMBICORT) 160-4.5 mcg/actuation inhaler Inhale 2 (two) puffs 2 (two) times a day . clindamycin (CLEOCIN) 300 MG capsule Take 1 (one) capsule (300 mg total) by mouth 3 (three) times a day . hydrOXYzine (ATARAX) 50 MG tablet Take 0.5 (one-half) tablet (25 mg total) by mouth 3 (three) times a day as needed for anxiety . levothyroxine (SYNTHROID, LEVOTHROID) 25 MCG tablet Take 1 (one) tablet (25 mcg total) by mouth every night at bedtime . OLANZapine (ZYPREXA) 2.5 MG tablet Take 1 (one) tablet (2.5 mg total) by mouth every night at bedtime . omeprazole (PRILOSEC OTC) 20 MG tablet Take 1 (one) tablet (20 mg total) by mouth . promethazine (PHENERGAN) 25 MG tablet Take 1 (one) tablet (25 mg total) by mouth every 6 (six) hours as needed for nausea . Allergies[2] Review of Systems All other systems reviewed and are negative. Patient Vitals for the past 24 hrs: BP Temp Temp src Pulse Resp SpO2 Height Weight 10/12/242124 (!) 175/95 -- -- -- -- -- -- -- 10/12/242122 -- 98.1 degrees F (36.7 degrees C) Temporal 96 18 96 % 5' 7 131.5 kg (290 lb) Physical Exam Vitals and nursing note reviewed. Constitutional: Appearance: Normal appearance. HENT: Head: Normocephalic and atraumatic. Right Ear: External ear normal. Left Ear: External ear normal. Nose: Nose normal. Mouth/Throat: Mouth: Mucous membranes are moist. Pharynx: Oropharynx is clear. Eyes: Extraocular Movements: Extraocular movements intact. Conjunctiva/sclera: Conjunctivae normal. Pupils: Pupils are equal, round, and reactive to light. Cardiovascular: Rate and Rhythm: Normal rate and regular rhythm. Musculoskeletal: General: Normal range of motion. Cervical back: Normal range of motion and neck supple. Comments: Anterior tibial pain left leg Pulmonary: Effort: Pulmonary effort is normal. Breath sounds: Normal breath sounds. Abdominal: General: Abdomen is flat. Bowel sounds are normal. Palpations: Abdomen is soft. Neurological: General: No focal deficit present. Mental Status: She is alert and oriented to person, place, and time. Mental status is at baseline. Psychiatric: Mood and Affect: Mood normal. Thought Content: Thought content normal. Laboratory & Radiographic Imaging (if done): No results found for this visit on 10/12/24. No orders to display Procedures Medical Decision Making Patient presents for a anterior tibial pain, this is atraumatic, focal tenderness without any swelling, no calf pain swelling, no chest pain difficulty breathing, no secondary signs of infection, will provide supportive measures and outpatient follow-up The patient has been informed that they may have pre-hypertension or hypertension based on a blood pressure reading in the Emergency Department. I recommend that the patient call the primary care provider listed on their discharge instructions or a physician of their choice as soon as possible to arrange follow-up in the next 4 weeks for further evaluation of possible pre-hypertension or hypertension. . Clinical Impression: No diagnosis found. ED Disposition None Follow-up Information Follow-up information has not been specified. Contact information for after-discharge care Follow-up information has not been specified. [1] Social History Socioeconomic History Marital status: Occupational History Occupation: unable to work Tobacco Use Smoking status: Former Types: Cigarettes Smokeless tobacco: Current Types: Chew Vaping Use Vaping status: Former Substance and Sexual Activity Alcohol use: No Drug use: Yes Types: Marijuana Comment: medical (more content not included)... [facility] POINT OF CARE ULTRASOUND NO CHARGEon 09-01-2024 POINT OF CARE ULTRASOUND NO CHARGE These images are not reportable by radiology and will not be interpreted by Radiologists. [facility] US Abdomenon 09-01-2024 These images are not reportable by radiology and will not be interpreted by Radiologists. IMAGING ED Prov Noteon 08-21-2024 ED Prov Note ED PROVIDER NOTE [facility] NAME: Phillip Queen AGE: 34 y.o. : 1990 VISIT DATE: 08/21/2024 CSN: [id number] PCP: No, Physician Chief Complaint Patient presents with Sore Throat Chief complaint sore throat History of present illness 34-year-old female whose had a sore throat for 3 days and fever no vomiting Past Medical History: Diagnosis Date Anxiety Asthma CTS (carpal tunnel syndrome) left Hypothyroidism IBS (irritable bowel syndrome) Past Surgical History: Procedure Laterality Date ADENOIDECTOMY ANKLE SURGERY Left 2016 Dr. Vasquez ?type - can't recall CARPAL TUNNEL RELEASE Bilateral 2017 one year apart - dr perea / justa? KNEE SURGERY Left 2009 meniscal scope - Dr. Vasquez - TONSILLECTOMY Family History Problem Relation Age of Onset Diabetes Mother COPD Father Dementia Paternal Grandmother Social History Socioeconomic History Marital status: Occupational History Occupation: unable to work Tobacco Use Smoking status: Former Types: Cigarettes Smokeless tobacco: Current Types: Chew Vaping Use Vaping status: Former Substance and Sexual Activity Alcohol use: No Drug use: Yes Types: Marijuana Comment: medical marijuana in past Previous Medications Medication Sig albuterol (ACCUNEB) 0.63 mg/3 mL nebulizer solution Take 3 mL (0.63 mg total) by nebulization every 6 (six) hours as needed for wheezing . albuterol 90 mcg/actuation inhaler Inhale 2 (two) puffs every 4 (four) hours as needed for wheezing or cough . budesonide-formoteroL (SYMBICORT) 160-4.5 mcg/actuation inhaler Inhale 2 (two) puffs 2 (two) times a day . clindamycin (CLEOCIN) 300 MG capsule Take 1 (one) capsule (300 mg total) by mouth 3 (three) times a day . hydrOXYzine (ATARAX) 50 MG tablet Take 0.5 (one-half) tablet (25 mg total) by mouth 3 (three) times a day as needed for anxiety . levothyroxine (SYNTHROID, LEVOTHROID) 25 MCG tablet Take 1 (one) tablet (25 mcg total) by mouth every night at bedtime . OLANZapine (ZYPREXA) 2.5 MG tablet Take 1 (one) tablet (2.5 mg total) by mouth every night at bedtime . omeprazole (PRILOSEC OTC) 20 MG tablet Take 1 (one) tablet (20 mg total) by mouth . promethazine (PHENERGAN) 25 MG tablet Take 1 (one) tablet (25 mg total) by mouth every 6 (six) hours as needed for nausea . Allergies Allergen Reactions Bactrim [Sulfamethoxazole-Trimethop rim] Angioedema Tongue and throat swelling Latex Hives Aspirin Unknown Was just told as a child not to take Azithromycin Headache Bacitracin Unknown Bacitracin Zinc-Polymyxin B Swelling Citalopram Unknown Furosemide Unknown Neomycin Unknown Sulfamethoxazole Unknown Trimethoprim Unknown Cortisone Other (See Comments) Had shots in knee - caused swelling Ketamine Other (See Comments) Increased aggressive behavior after surgery Neosporin (Dgi-Czn-Ybnft) [Mfmuiahv-Idfycbkgbbg-Lbuxm yxnb] Dermatitis Penicillins Hallucinations Procaine Other (See Comments) Swelling - but does okay with lidocaine Review of Systems All other systems reviewed and are negative. No data found. Physical Exam Vitals and nursing note reviewed. Constitutional: General: She is in acute distress. Appearance: She is normal weight. HENT: Head: Normocephalic and atraumatic. Mouth/Throat: Pharynx: Oropharyngeal exudate and posterior oropharyngeal erythema present. Tonsils: 1+ on the right. 1+ on the left. Eyes: Conjunctiva/sclera: Conjunctivae normal. Pupils: Pupils are equal, round, and reactive to light. Musculoskeletal: Cervical back: Normal range of motion and neck supple. Abdominal: Palpations: Abdomen is soft. Skin: General: Skin is warm. Capillary Refill: Capillary refill takes less than 2 seconds. Neurological: Mental Status: She is alert. Laboratory & Radiographic Imaging (if done): No results found for this visit on 08/21/24. No orders to display Procedures Medical Decision Making Differential diagnosis Strep exposure Viral syndrome Influenza Considering the above treatment was given Clinical Impression: 1. Exudative pharyngitis ED Disposition ED Disposition Discharge Condition Stable Comment Phillip Queen discharged to home/self care in stable condition. Follow-up Information 1. Jadyn Light DO. Specialty: Family Medicine [address] [place] [facility] [id number] Contact information for after-discharge care Follow-up information has not been specified. New Prescriptions levoFLOXacin (LEVAQUIN) 500 MG tablet Take 1 (one) tablet (500 mg total) by mouth daily for 7 days . Rosalinda Quintero MD 08/22/242040 AUTHENTICATED BY ROSALINDA QUINTERO, ON 08/22/2024 20:41:24 [facility] XR SHOULDER RIGHT 2+ VIEWSon 08-06-2024 XR SHOULDER RIGHT 2+ VIEWS Interpreted By: Collin Smiley, STUDY: XR SHOULDER RIGHT 2+ VIEWS; ; 08/06/2024 10:20 pm INDICATION: Signs/Symptoms:Pain. COMPARISON: None. ACCESSION NUMBER(S): [id number] ORDERING CLINICIAN: ELIZABETH HERNANDEZ FINDINGS: Multiple views of the shoulder are obtained. No acute fracture or dislocation. Bones are well mineralized. Mild degenerative spurring of the AC joint. Soft tissues are unremarkable. IMPRESSION: No acute fracture. MACRO: None Signed by: Collin Smiley 08/06/2024 11:07 PM Dictation workstation: [id number] [facility] XR Shoulder - right 2 Viewso n 08-06-2024 No acute fracture. MACRO: None Signed by: Collin Smiley 08/06/2024 11:07 PM Dictation workstation: [id number] MMODAL Interpreted By: Collin Olivera, STUDY: XR SHOULDER RIGHT 2+ VIEWS; ; 08/06/2024 10:20 pm INDICATION: Signs/Symptoms:Pain. COMPARISON: None. ACCESSION NUMBER(S): [id number] ORDERING CLINICIAN: ELIZABETH HERNANDEZ FINDINGS: Multiple views of the shoulder are obtained. No acute fracture or dislocation. Bones are well mineralized. Mild degenerative spurring of the AC joint. Soft tissues are unremarkable. [facility] MMODAL Collin Smiley MD - 08/06/2024 Interpreted By: Collin Smiley, STUDY: XR SHOULDER RIGHT 2+ VIEWS; ; 08/06/2024 10:20 pm INDICATION: Signs/Symptoms:Pain. COMPARISON: None. ACCESSION NUMBER(S): [id number] ORDERING CLINICIAN: ELIZABETH HERNANDEZ FINDINGS: Multiple views of the shoulder are obtained. No acute fracture or dislocation. Bones are well mineralized. Mild degenerative spurring of the AC joint. Soft tissues are unremarkable. IMPRESSION: No acute fracture. MACRO: None Signed by: Collin Smiley 08/06/2024 11:07 PM Dictation workstation: [id number] [facility] Work Phone: Radiology Study observation (narrative) [facility] Work Phone: XR Shoulder - right 2 ViewsO rdered By: Collin Smiley on 08-06-2024 [facility] Work Phone: Emergency Department Summary on 08-05-2024 Emergency Department Summary [facility] Medical Records Department [address] [place] [address] Emergency Department Summary 08/05/24 MR#: [id number] Acct: [id number] Name: PHILLIP QUEEN Rep #: [id number] : 1990 34 From: Lexx Payne MD PCP: Justa Light DO Status:REG ER Location: ED HPI History of Present Illness Chief Complaint: Upper Extremity Injury Detail of Chief Complaint: Right shoulder pain with limited range of motion Informant: patient Occured/Mechanism Mechanism/Context: Yes other see comment below Comment: Pain started during the second game of [employer]. She felt acute pain. Onset/Context/Timing Onset: Yesterday Context: Sudden Onset Timing: Continuous Quality of Pain: Aching Location: Right shoulder region. Current Severity: Mild Maximum Severity: Severe Worsened by: Movement and palpation Relieved by: Nothing Associated Symptoms Associated Symptoms: Positive for Parasthesia (Of all her fingers.); Negative for Weakness Narrative Narrative: Patient is a 37-year-old woman. BMI is 46.2. She has a history of hypothyroidism. She denies history of shoulder injury or rotator cuff injury or impingement syndrome. There is no history of direct trauma. She complains of paresthesia in all of her fingers. She also complains of pain in the fingertips. Patient has not noted a rash. Patient denies history of gout or pseudogout. Tetanus Immunization: 5-10 years Prior similar symptoms: No Recent Illness/Hospitalization: No PFSH [facility] Medical History History of alcohol use disorder Panic disorder Major depressive disorder, recurrent severe without psychotic features PTSD (post-traumatic stress disorder) Home Medications ???Medication ???Instructions ???Recorded ???Last Taken ???Type ergocalciferol (vitamin D2) 1,250 1,250 mcg PO QWEEK 3 months #13 0 07/08/24 Unknown Rx mcg (50,000 unit) capsule (Vitamin caps D2) levothyroxine 25 mcg tablet 25 mcg PO DAILY 30 days #30 tabs 0 07/08/24 Unknown Rx (Synthroid) cariprazine 1.5 mg capsule 1.5 mg PO DAILY 30 days #30 caps 0 07/15/24 Unknown Rx (Vraylar) naproxen 500 mg tablet 500 mg PO BID #14 tabs 08/05/24 Un known Rx Allergy/AdvReac Type Severity Reaction Status Date / Time procaine (From Novocain) Allergy Severe throat Verified 08/05/24 11:09 swelling, itching sulfamethoxazole (From Allergy Severe Anaphylaxis Verified 08/05/24 11:09 Bactrim) trimethoprim (From Bactrim) Allergy Severe Anaphylaxis Verified 08/05/24 11:09 amoxicillin AdvReac Intermediate hallucinati Verified 08/05/24 11:09 ons ketamine AdvReac Intermediate aggression Verified 08/05/24 11:09 Penicillins AdvReac Intermediate hallucinati Verified 08/05/24 11:09 ons bacitracin (From Neosporin AdvReac Mild Rash Verified 08/05/24 11:09 (ivw-bnh-zjith)) neomycin (From Neosporin AdvReac Mild Rash Verified 08/05/24 11:09 (bzw-iqm-hfcec)) polymyxin B (From Neosporin AdvReac Mild Rash Verified 08/05/24 11:09 (vmb-jxj-ihdwc)) Surgical History History of carpal tunnel release History of tonsillectomy and adenoidectomy Social History household members: spouse and children Smoking Status: Never smoker ROS ROS ED Constitutional Constitutional ED: Denies chills, fever(s), subjective or sweats Cardiovascular Cardiovascular: Denies chest pain or palpitations Respiratory/Chest Respiratory/Chest: Denies cough or dyspnea Musculoskeletal Musculoskeletal: Denies neck pain Integumentary Denies rash Neurologic Neurologic: Reports paresthesias RUE; Denies weakness Hematologic/Lymphatic Hematologic/Lymphatic: Denies easy bleeding or easy bruising EXAM Physical Exam Const Vital Signs: 08/05/24 11:07 Temperature 98.1 F Temperature Source Temporal Pulse Rate 77 Respiratory Rate 15 Blood Pressure 150/85 H Blood Pressure Mean 106 Pulse Ox 99 Oxygen Delivery Method Room Air Positive well nourished and well developed General Appearance ED: well developed and NAD HEENT Reports moist mucous membranes normocephalic and atraumatic Eyes PERRL and EOMs intact bilaterally Neck full ROM and supple Resp normal respiratory effort and clear to auscultation bilaterally Cardio regular rate, regular rhythm, S1 normal heart sound, S2 normal heart sound and no murmurs Extremity normal to inspection; Negative for full ROM Extremity Narrative: Patient has pain with abduction past 90 degrees. Axillary, median, radial and ulnar function intact. Radial is 2+. There is pain palpation over the clavicle, trapezius area as well as the proximal humerus. There is no rash or skin lesions noted. Neuro orient (more content not included)... Normal [facility] Shoulder min 2 Viewson 08-05 Shoulder min 2 Views [facility] Imaging Services [address] [place], [place] [id number] Shoulder min 2 Views MR#: [id number] Acct: [id number] Name: PHILLIP QUEEN Rep #: [id number] : 1990 F 34 From: Tonny sapp MD PCP: Justa Light DO Status: REG ER Study: Shoulder min 2 Views Date of Exam: 08/05/24 Exam# [id number] Ordering Dr: Lexx Payne MD PROCEDURE: SHOULDER MIN 2 VIEWS REASON FOR EXAM: Atraumatic pain. TECHNIQUE: Four views of the right shoulder were obtained. COMPARISON: None. FINDINGS: RIGHT SHOULDER: No fracture. No suspicious bone lesion. Normal alignment of the acromioclavicular and glenohumeral joints. Soft tissues are unremarkable. RAD/Shoulder min 2 Views IMPRESSION: No acute abnormality is seen. Reading Location: [facility] CC: Dr. Lexx Payne MD; Justa Light DO Photographic Equipment Inspector: Signed Normal [facility] ED Prov Noteon 07-05-2024 ED Prov Note ED PROVIDER NOTE [facility] NAME: Phillip Queen AGE: 34 y.o. : 1990 VISIT DATE: 07/05/2024 CSN: [id number] PCP: Jadyn Light DO No chief complaint on file. 34-year-old presents for bug bite to right leg. Symptoms occurred yesterday, tried popping it today, no fevers nausea or emesis. Past Medical History: Diagnosis Date Anxiety Asthma CTS (carpal tunnel syndrome) left Hypothyroidism IBS (irritable bowel syndrome) Past Surgical History: Procedure Laterality Date ADENOIDECTOMY ANKLE SURGERY Left 2015 Dr. Vasquez ?type - can't recall CARPAL TUNNEL RELEASE Bilateral 2017 one year apart - dr perea / justa? KNEE SURGERY Left 2008 meniscal scope - Dr. Vasquez - TONSILLECTOMY Family History Problem Relation Age of Onset Diabetes Mother COPD Father Dementia Paternal Grandmother Social History Socioeconomic History Marital status: Occupational History Occupation: unable to work Tobacco Use Smoking status: Former Types: Cigarettes Smokeless tobacco: Current Types: Chew Vaping Use Vaping status: Former Substance and Sexual Activity Alcohol use: No Drug use: Yes Types: Marijuana Comment: medical marijuana in past Previous Medications Medication Sig albuterol (ACCUNEB) 0.63 mg/3 mL nebulizer solution Take 3 mL (0.63 mg total) by nebulization every 6 (six) hours as needed for wheezing . albuterol 90 mcg/actuation inhaler Inhale 2 (two) puffs every 4 (four) hours as needed for wheezing or cough . budesonide-formoteroL (SYMBICORT) 160-4.5 mcg/actuation inhaler Inhale 2 (two) puffs 2 (two) times a day . clindamycin (CLEOCIN) 300 MG capsule Take 1 (one) capsule (300 mg total) by mouth 3 (three) times a day . hydrOXYzine (ATARAX) 50 MG tablet Take 0.5 (one-half) tablet (25 mg total) by mouth 3 (three) times a day as needed for anxiety . levothyroxine (SYNTHROID, LEVOTHROID) 25 MCG tablet Take 1 (one) tablet (25 mcg total) by mouth every night at bedtime . OLANZapine (ZYPREXA) 2.5 MG tablet Take 1 (one) tablet (2.5 mg total) by mouth every night at bedtime . omeprazole (PRILOSEC OTC) 20 MG tablet Take 1 (one) tablet (20 mg total) by mouth . promethazine (PHENERGAN) 25 MG tablet Take 1 (one) tablet (25 mg total) by mouth every 6 (six) hours as needed for nausea . Allergies Allergen Reactions Bactrim [Sulfamethoxazole-Trimethop rim] Angioedema Tongue and throat swelling Latex Hives Aspirin Unknown Was just told as a child not to take Azithromycin Headache Bacitracin Unknown Bacitracin Zinc-Polymyxin B Swelling Citalopram Unknown Furosemide Unknown Neomycin Unknown Sulfamethoxazole Unknown Trimethoprim Unknown Cortisone Other (See Comments) Had shots in knee - caused swelling Ketamine Other (See Comments) Increased aggressive behavior after surgery Neosporin (Jwz-Ibw-Dojlz) [Gbjvydrz-Vbftvmaiqnc-Kqkxg yxnb] Dermatitis Penicillins Hallucinations Procaine Other (See Comments) Swelling - but does okay with lidocaine Review of Systems All other systems reviewed and are negative. No data found. Physical Exam Vitals and nursing note reviewed. Constitutional: Appearance: Normal appearance. HENT: Head: Normocephalic and atraumatic. Right Ear: External ear normal. Left Ear: External ear normal. Nose: Nose normal. Mouth/Throat: Mouth: Mucous membranes are moist. Pharynx: Oropharynx is clear. Eyes: Extraocular Movements: Extraocular movements intact. Conjunctiva/sclera: Conjunctivae normal. Pupils: Pupils are equal, round, and reactive to light. Cardiovascular: Rate and Rhythm: Normal rate and regular rhythm. Musculoskeletal: General: Normal range of motion. Cervical back: Normal range of motion and neck supple. Pulmonary: Effort: Pulmonary effort is normal. Breath sounds: Normal breath sounds. Abdominal: General: Abdomen is flat. Bowel sounds are normal. Palpations: Abdomen is soft. Skin: Comments: Right post leg erythema and tenderness Neurological: General: No focal deficit present. Mental Status: She is alert and oriented to person, place, and time. Mental status is at baseline. Psychiatric: Mood and Affect: Mood normal. Thought Content: Thought content normal. Laboratory & Radiographic Imaging (if done): No results found for this visit on 07/05/24. No orders to display Procedures Medical Decision Making Patient presents ER for evaluation of bug bite to her right leg, she is otherwise well-appearing, no acute distress. No abscess. Will place on antibiotics and have follow-up with PCP. The patient has been informed that they may have pre-hypertension or hypertension based on a blood pressure reading in the Emergency Department. I recommend that the patient call the primary care provider listed on their discharge instructions or a physician of their choice as soon as possible to arrange follow- (more content not included)... [facility] 06-23-2024 [facility] Telephone (PODIWS) PHILLIP QUEEN ([id number]) 1990 F Date Time Provider Department 06/23/24 NURSE/[facility] PODIWS During your visit today, we recorded the following information about you: Leanna Hernandez 06/23/2024 8:18 AM Signed Patient was here previously to see Dr. Briggs and he put an order in for PT Patient stopped by and asked if she could do aqua therapy with this order Told her we would check and someone would get back with her Jennifer Merritt LPN 06/29/2024 4:04 PM Signed Called patient she states that physical therapy had not helped for Tendonitis, Achilles, right and would like to try aqua therapy. Please advise. ANGELA Batres Amelia, LPN 07/01/2024 8:22 AM Signed Order has been faxed to [facility] [employer]. ANGELA Batres Amelia, LPN 07/01/2024 9:41 AM Signed Called patient to inform her that aqua therapy order has been sent to [facility] [employer]. No response. Left VM. Jennifer Merritt LPN Allergies As of Date: 06/23/2024 Noted Allergy Reaction BACTRIM (SULFAMETHOXAZOLE-TRIMETH*0 11/25/2015 2 - Rash 11 - Vomiting GEL 01/27/2016 2 - Rash Comments: Patient developed rash after the use of ultrasound transmission gel. IVP DYE (IODINE) 12/24/2020 2 - Rash LATEX 01/18/2016 4 - Hives NEOSPORIN (MNMLFLAN-NQCHWZYBUL-RB* 2 - Rash PENICILLINS 12/14/2009 CORTISONE 01/05/2021 7 - Swelling 2 - Rash Comments: Had shots in knee - caused swelling Date Reviewed: 05/23/2024 Reviewed by: Laine Ramsey MA - Fully Assessed Primary Visit Diagnosis:Tendonitis, Achilles, right [M76.61] Order(s):CONSULT TO PHYSICAL THERAPY [9032] Order #: [id number]: 1 FUTURE Prescriptions as of 07/13/2024 - REXULTI 0.5 mg tablet Take 0.5 mg by mouth daily at bedtime. - guanFACINE (TENEX) 1 mg tablet Take 1 mg by mouth daily at bedtime. - tiZANidine (ZANAFLEX) 4 mg tablet Take 4 mg by mouth three times a day as needed. - cyclobenzaprine (FLEXERIL) 10 mg tablet Take 1 tablet by mouth three times a day as needed. - lidocaine (LIDODERM) 5 % Apply 1 Patch as directed every 12 hours. Remove old patch prior to placing new patch. Location: back - Albuterol Sulfate 0.63 mg/3 mL nebulizer solution Inhale 0.63 mg as instructed every 6 hours as needed. - albuterol HFA (PROVENTIL HFA, VENTOLIN HFA) 90 mcg/actuation inhaler Inhale 2 Puffs as instructed every 4 hours as needed. - hydrOXYzine pamoate (VISTARIL) 25 mg capsule Take 25 mg by mouth three times a day as needed for anxiety. - levothyroxine (SYNTHROID) 25 mcg tablet Take 1 tablet by mouth every afternoon. - OLANZapine (ZYPREXA) 2.5 mg tablet Take 1 tablet by mouth every afternoon. - ibuprofen (MOTRIN) 600 mg tablet Take 600 mg by mouth every 6 hours as needed. - ALPRAZolam (XANAX) 0.5 mg tablet Take 0.25 mg by mouth at bedtime as needed. - SPIRIVA RESPIMAT 1.25 mcg/actuation mist INHALE 2 INHALATION INSTRUCTED ONCE DAILY FOR 30 DAYS. - EPIPEN 2-LEANNE 0.3 mg/0.3 mL auto-injector - topiramate (TOPAMAX) 50 mg tablet Problem List As Of Date 06/23/2024 Noted Resolved Depression [F32.A] 12/14/2009 Anger Reaction [R45.4] 12/14/2009 Poorly controlled persistent asthma [J45.998] 11/25/2015 Hypersomnia [G47.10] 11/25/2015 Morbid obesity due to excess calories [E66.01] 11/25/2015 Encounter Status:Closed by JENNIFER MERRITT on 07/13/24 Normal [facility] ED Prov Noteon 06-13-2024 ED Prov Note HPI: 06/13/2024, Time: @[place]@ Phillip Gomez Phu is a 34 y.o. female presenting to the ED for painful ingrown toenail left great toe, beginning 2 weeks ago. The complaint has been constant, moderate in severity, and worsened by walking. No fever or red streaks . ROS: Pertinent positives and negatives are stated within HPI, all other systems reviewed and are negative. PAST HISTORY Past Medical History: @[facility]@ Past Surgical History: has a past surgical history that includes Knee surgery (Left, 2009); Ankle surgery (Left, 2016); adenoidectomy; tonsillectomy; and Carpal tunnel release (Bilateral, 2017). Social History: reports that she has quit smoking. Her smoking use included cigarettes. Her smokeless tobacco use includes chew. She reports current drug use. Drug: Marijuana. She reports that she does not drink alcohol. Family History: family history includes COPD in her father; Dementia in her paternal grandmother; Diabetes in her mother. The patient's home medications have been reviewed. Allergies: Bactrim [sulfamethoxazole-trimethop rim], Latex, Aspirin, Azithromycin, Bacitracin, Bacitracin zinc-polymyxin b, Citalopram, Furosemide, Neomycin, Sulfamethoxazole, Trimethoprim, Cortisone, Ketamine, Neosporin (tyq-uri-kfikk) [bycpblxn-ghqoyjtwtey-uuboi yxnb], Penicillins, and Procaine RESULTS All laboratory and radiology results have been personally reviewed by myself LABS: Results for orders placed or performed during the hospital encounter of 10/23/20 EKG 12-lead Collection Time: 10/23/20 5:06 PM Result Value Ref Range Ventricular Rate 89 BPM Atrial Rate 89 BPM P-R Interval 124 ms QRS Duration 80 ms Q-T Interval 378 ms QTC Calculation (Bezet) 459 ms P [place] 57 degrees R [place] 61 degrees T [place] 17 degrees POC CBC and Differential Collection Time: 10/23/20 5:10 PM Result Value Ref Range WBC 10.99 4.50 - 11.00 K/mcL RBC 5.07 4.00 - 5.20 M/mcL Hemoglobin 15.0 12.0 - 16.0 g/dL Hematocrit 44.4 36.0 - 46.0 % MCV 87.6 80.0 - 100.0 fL MCH 29.6 26.0 - 34.0 pg MCHC 33.8 31.0 - 37.0 g/dL RDW - CV 14.3 11.6 - 14.8 % Platelets 201 150 - 400 K/mcL MPV 11.6 9.4 - 12.4 fL Neutrophils 63.4 % Lymphocytes 29.3 % Monocytes 5.4 % Eosinophils 1.2 % Basophils 0.5 % IG Percent 0.20 % Neutrophils Abs 6.97 1.70 - 7.00 K/mcL Lymphocytes Abs 3.22 0.90 - 4.00 K/mcL Monocytes Abs 0.59 0.30 - 0.90 K/mcL Eosinophils Abs 0.13 0.00 - 0.50 K/mcL Basophils Abs 0.06 0.00 - 0.30 K/mcL IG Absolute 0.02 0.00 - 0.30 K/mcL POC Basic Metabolic Panel Collection Time: 10/23/20 5:15 PM Result Value Ref Range Glucose 144 (H) 65 - 99 mg/dL BUN 9 8 - 25 mg/dL Creatinine 0.71 0.40 - 1.10 mg/dL GFR 115 >=60 mL/min/1.73 m2 Sodium 143 135 - 145 mmol/L Potassium 3.5 3.5 - 5.1 mmol/L Chloride 108 98 - 108 mmol/L TCO2 26 21 - 32 mmol/L Ionized Calcium 4.5 4.5 - 5.3 mg/dL POC D-dimer Collection Time: 10/23/20 5:26 PM Result Value Ref Range POC D-Dimer <100 <350 ng/mL DDU RADIOLOGY: Interpreted by Radiologist. No orders to display NURSING NOTES AND VITALS REVIEWED The nursing notes within the ED encounter and vital signs as below have been reviewed. BP 129/88 (BP Location: Left arm, Patient Position: Sitting) Pulse 87 Temp 97.9 degrees F (36.6 degrees C) (Temporal) Resp 18 Ht 5' 7 Wt 136.1 kg (300 lb) SpO2 97% BMI 46.99 kg/m Oxygen Saturation Interpretation: Normal PHY SICAL EXAM Constitutional/General: Alert and oriented x3, well appearing, non toxic in NAD Head: NC/AT Eyes: PERRL, EOMI Mouth: Oropharynx clear, handling secretions, no trismus Neck: Supple, full ROM, no meningeal signs Pulmonary: Lungs clear to auscultation bilaterally, no wheezes, rales, or rhonchi. Not in respiratory distress Cardiovascular: Regular rate and rhythm, no murmurs, gallops, or rubs. 2+ distal pulses Abdomen: Soft, non tender, non distended, Extremities: Moves all extremities x 4. Warm and well perfused, left foot: Moderate tenderness to palpation with slight erythema over the nail fold on the outside of the nail which is slightly ingrown Skin: warm and dry without rash Neurologic: GCS 15, Psych: Normal Affect --- ED COURSE/MEDICAL DECISION MAKING - Medications clindamycin (CLEOCIN) capsule 300 mg (has no administration in time range) Medical Decision Making: Will prescribe clindamycin, patient refused Motrin for pain and will refer to podiatry Counseling: The emergency provider has spoken with the patient and discussed today's results, in addition to providing specific (more content not included)... Normal [facility] Free T3on 06-11-2024 Free T3 [Mass/Vol] 3.1 pg/mL Normal 2.18-3.98 [facility] Comment on above: Performed By: #### L [id number], L501.9310, L501.9520, L506.1000, L506.0400 ####[facility] [address] [place], [place], [id number]) T4 Free Directon 06-11-2024 T4 FREE DIRECT 1.12 ng/dL Normal 0.76-1.46 [facility] Comment on above: Performed By: #### L 501.93437, L501.9310, L501.9520, L506.1000, L506.0400 ####[facility] [address] [place], [address] T4 Total, Thyroxinon 024 T4 [Mass/Vol] 8.5 ug/dL Normal 4.8-13.9 [facility] Comment on above: Performed By: #### L 501.67227, L501.9310, L501.9520, L506.1000, L506.0400 ####[facility] [address] [place], [address] Thyroid Stim Hormone (TSH)on 06-11-2024 TSH 7.480 uIU/mL High 0.358-3.74 0 [facility] Comment on above: Performed By: #### L 501.20859, L501.9310, L501.9520, L506.1000, L506.0400 ####[facility] [address] [place], [address] Vitamin D,25 Hydroxyon 06-11 Vitamin D 25-OH 11.0 ng/mL Normal [facility] Comment on above: Result Comment: Светлана min D 25(OH) Status Range Deficiency <20 ng/mL (50nmol/L) Insufficiency 20 - 30 ng/mL (50 - 75 nmol/L) Sufficiency 30 - 100 ng/mL (75 - 250 nmol/L) Toxicity >100 ng/mL (>250 nmol/L) Performed By: #### L 501.40409, L501.9310, L501.9520, L506.1000, L506.0400 ####[facility] [address] [place], [address] Emergency Department Summary on 05-25-2024 Emergency Department Summary [facility] Medical Records Department [address] [facility] [place] [address] Emergency Department Summary 05/25/24 MR#: [id number] Acct: [id number] Name: PHILLIP QUEEN Rep #: [id number] : 1990 34 From: Vern Richards DO PCP: Justa Light DO Status:DEP ER Location: ED HPI History of Present Illness Chief Complaint: Rash Informant: patient and friend Narrative Narrative: Patient is a 34-year-old female with past medical history of PTSD and depression. She states she stayed at hotel previously and then noticed a rash on her hand and left leg. She states she was seen at an outside facility and placed on a steroid cream. She states she has been using it for the last 3 to 4 days as directed along with Benadryl but is continuing to have bouts of itching and she feels like the rash is spreading. She denies any new exposures and she states no one else at home has the rash. However because of its persistent nature she presents for evaluation [facility] Medical History History of alcohol use disorder Panic disorder Major depressive disorder, recurrent severe without psychotic features PTSD (post-traumatic stress disorder) Home Medications ???Medication ???Instructions ???Recorded ???Last Taken ???Type hydroxyzine pamoate 25 mg capsule 25 mg PO TID PRN panic attack(s) 03/11/24 Unknown Rx (Vistaril) 30 days #90 caps olanzapine 2.5 mg tablet (Zyprexa) 2.5 mg PO DAILY 30 days #30 tabs 03/25/24 Unknown Rx prednisone 10 mg tablet 10 mg PO DAILY #48 TABLETS 05/25/24 Unknown Rx triamcinolone acetonide 0.1 % 1 applic topical 4X/DAY 05/25/24 Unknown History topical cream Allergy/AdvReac Type Severity Reaction Status Date / Time procaine (From Novocain) Allergy Severe throat Verified 05/25/24 04:01 swelling, itching sulfamethoxazole (From Allergy Severe Anaphylaxis Verified 05/25/24 04:01 Bactrim) trimethoprim (From Bactrim) Allergy Severe Anaphylaxis Verified 05/25/24 04:01 amoxicillin AdvReac Intermediate hallucinati Verified 05/25/24 04:01 ons ketamine AdvReac Intermediate aggression Verified 05/25/24 04:01 Penicillins AdvReac Intermediate hallucinati Verified 05/25/24 04:01 ons bacitracin (From Neosporin AdvReac Mild Rash Verified 05/25/24 04:01 ([id number]-[id number])) neomycin (From Neosporin AdvReac Mild Rash Verified 05/25/24 04:01 (emo-hpm-fvslb)) polymyxin B (From Neosporin AdvReac Mild Rash Verified 05/25/24 04:01 (ktd-yng-dpxrr)) Surgical History History of carpal tunnel release History of tonsillectomy and adenoidectomy Social History Smoking Status: Never smoker ROS ROS ED Constitutional Constitutional ED: Denies chills or fever(s) ENT ENT ED: Denies sore throat Cardiovascular Cardiovascular: Denies chest pain Respiratory/Chest Respiratory/Chest: Denies cough or dyspnea Gastrointestinal Gastrointestinal: Denies abdominal pain, diarrhea, nausea or vomiting Genitourinary Genitourinary ED: Denies dysuria Musculoskeletal Musculoskeletal: Denies myalgias Integumentary Reports rash Neurologic Neurologic: Denies headache(s) Hematologic/Lymphatic Hematologic/Lymphatic: Denies easy bleeding or easy bruising Allergic/Immunologic Allergic/Immunologic ED: Denies mouth swelling or tongue swelling EXAM Physical Exam Const Vital Signs: 05/25/24 04:01 Temperature 97.7 F L Temperature Source Oral Pulse Rate 80 Respiratory Rate 17 Blood Pressure 147/90 H Blood Pressure Mean 109 Pulse Ox 98 Oxygen Delivery Method Room Air Positive well nourished and well developed General Appearance ED: well developed HEENT HEENT Narrative: No tongue or lip swelling no oral lesions no airway edema or compromise No signs of angioedema Eyes PERRL and EOMs intact bilaterally Neck supple Resp normal respiratory effort and clear to auscultation bilaterally Cardio regular rate and regular rhythm Extremity normal to inspection Neuro oriented x3, CN's II-XII intact bilaterally and no sensory deficits noted Sensorium / Orientation: alert Motor Exam: strength 5/5 throughout Psych mental status grossly normal Skin Skin Narrative: Patient has erythematous and blanchable well-circumscribed lesions in a linear pattern up the left lateral thigh the left distal humerus and similar lesions along the dorsal aspect of her right hand near the fourth phalanx extending into the dorsum of the hand. The area seem to be more consistent with a insect bite or sting as there is a small puncture in the center. No obvious abscess formation no lymphangitic streaking no involvement of the palms or soles MDM MDM (more content not included)... Normal [facility] CNOVon 05-23-2024 CNOV Office Visit (UCWSTR ) PHILLIP QUEEN ([id number]) 1990 F Date Time Provider Department 05/23/24 10:30 AM EBENEZER GARRETT [facility] During your visit today, we recorded the following information about you: Temperature Pulse Respiration Blood pressure 95.5 degrees 73/minute 16/minute 160/100 Weight Last Period 147.8 kg 04/27/24 Ebenezer Garrett APRN.RABBIT BREEDER 05/23/2024 11:07 AM Signed Subjective HPI HPI Phillip Queen is a 34 year old female who presents today for CC of itchy painful rash on hands. This started 2 days ago. Has tried nothing for relief. Symptoms are worsened by nothing. Right tooth pain, tried otc medication for relief. Hx of bad dental health. Denies fever. Fall few days ago causing back pain to increase, reports always has back pain, now just worse. Otc medication tried. Denies abd pain. Denies change in bowel/bladder habits. Denies possibility of being . . .Patient presents with: Rash: On RIGHT finger AND little finger x 2 days; itch AND painful PAST MEDICAL HISTORY Diagnosis Date Anxiety Depression Morbid obesity due to excess calories 11/25/2015 Poorly controlled persistent asthma 11/25/2015 PAST SURGICAL HISTORY Procedure Laterality Date ORTHOPEDICS SURGERY HX TONSILLECTOMY PRIMARY/SECONDARY Tonsillectomy ALLERGIES Bactrim [Sulfamethoxazole-Trimethop rim], Gel, Ivp Dye [Iodine], Latex, Neosporin [Vjrbwpaj-Txsibnapec-Tqwuua zoila], Penicillins, and Cortisone MEDICATIONS REXULTI 0.5 mg tablet Take 0.5 mg by mouth daily at bedtime. tiZANidine (ZANAFLEX) 4 mg tablet Take 4 mg by mouth three times a day as needed. levothyroxine (SYNTHROID) 25 mcg tablet Take 1 tablet by mouth every afternoon. guanFACINE (TENEX) 1 mg tablet Take 1 mg by mouth daily at bedtime. (Patient not taking: Reported on 05/23/2024) cyclobenzaprine (FLEXERIL) 10 mg tablet Take 1 tablet by mouth three times a day as needed. cephALEXin (KEFLEX) 500 mg capsule Take 1 capsule by mouth three times a day for 7 days. triamcinolone acetonide (KENALOG) 0.1 % cream Apply 1 application to affected area three times a day for 10 days. Apply sparingly to area for rash/itching. lidocaine (LIDODERM) 5 % Apply 1 Patch as directed every 12 hours. Remove old patch prior to placing new patch. Location: back Albuterol Sulfate 0.63 mg/3 mL nebulizer solution Inhale 0.63 mg as instructed every 6 hours as needed. (Patient not taking: Reported on 05/23/2024) albuterol HFA (PROVENTIL HFA, VENTOLIN HFA) 90 mcg/actuation inhaler Inhale 2 Puffs as instructed every 4 hours as needed. (Patient not taking: Reported on 05/23/2024) hydrOXYzine pamoate (VISTARIL) 25 mg capsule Take 25 mg by mouth three times a day as needed for anxiety. (Patient not taking: Reported on 05/23/2024) OLANZapine (ZYPREXA) 2.5 mg tablet Take 1 tablet by mouth every afternoon. (Patient not taking: Reported on 05/23/2024) ibuprofen (MOTRIN) 600 mg tablet Take 600 mg by mouth every 6 hours as needed. (Patient not taking: Reported on 03/30/2024) ALPRAZolam (XANAX) 0.5 mg tablet Take 0.25 mg by mouth at bedtime as needed. (Patient not taking: Reported on 03/30/2024) SPIRIVA RESPIMAT 1.25 mcg/actuation mist INHALE 2 INHALATION INSTRUCTED ONCE DAILY FOR 30 DAYS. (Patient not taking: Reported on 03/30/2024) EPIPEN 2-LEANNE 0.3 mg/0.3 mL auto-injector (Patient not taking: Reported on 03/30/2024) topiramate (TOPAMAX) 50 mg tablet (Patient not taking: Reported on 12/25/2020) FAMILY HISTORY Problem Relation Age of Onset Diabetes Maternal Grandmother Hypertension Maternal Grandmother Social History Tobacco Use Smoking status: Never Smokeless tobacco: Current Types: Chew Vaping Use Vaping status: Never Used Substance Use Topics Alcohol use: No Drug use: No Review of Systems Constitutional: Negative for chills, fever and weight loss. Cardiovascular: Negative for leg swelling. Gastrointestinal: Negative for abdominal pain, constipation, diarrhea, nausea and vomiting. Genitourinary: Negative for dysuria, flank pain, frequency, hematuria and urgency. Musculoskeletal: Positive for back pain. Skin: Negative for rash. Neurological: Negative for sensory change and focal weakness. Objective Blood pressure 151/100, pulse 73, temperature (!) 35.3 ?C (95.5 ?F), temperature source Left Tympanic, resp. rate 16, weight (!) 147.8 kg (325 lb 13.4 oz), last menstrual period 04/27/2024, SpO2 99%. Physical Exam Constitutional: General: She is not in acute distress. Appearance: Normal appearance. She is not diaphoretic. HENT: Mouth/Throat: Lips: Mammoth. Mouth: Mucous membranes are moist. Cardiovascular: Pulses: Dorsalis pedis pulses are 2+ on the right side and 2+ on the left side. Posterior tibial pulses are 2+ on the right side and 2+ on the left side. Abdominal: General: Bowel sounds are normal. Palpations: Abdomen is soft. (more content not included)... Normal [facility] Ankle min 3 Viewson 05-18-20 Ankle min 3 Views [facility] Services [address] [place] [address] [id number] Ankle min 3 Views MR#: [id number] Acct: [id number] Name: PHILLIP QUEEN Rep #: [id number] : 1990 F 34 From: Wendi Barber MD PCP: Justa Light DO Status: DEP ER Study: Ankle min 3 Views Date of Exam: 05/18/24 Exam# [id number] Ordering Dr: Lauri Frias MD [id number] EXAM: XR LEFT ANKLE COMPLETE, 3 OR MORE VIEWS CLINICAL INDICATION: injury TECHNIQUE: Frontal, lateral and oblique views of the left ankle. COMPARISON: No relevant prior studies available. FINDINGS: BONES/JOINTS: Small calcaneal spur. Calcifications at the posterior margin of the calcaneus in the expected region of the Achilles insertion. No evidence of Achilles tear. Coarse well-corticated calcification of roughly 7 mm and adjacent 2 mm calcification near the proximal margin of the fifth metatarsal. Faint 3 mm ossific density near the medial malleolus, likely chronic. Hypertrophic changes at the dorsal talonavicular joint on the lateral view. No ankle joint effusion. No visible fractures or significant joint asymmetry. SOFT TISSUES: Minimal ventral ankle soft tissue swelling. No radiopaque foreign body. RAD/Ankle min 3 Views IMPRESSION: Mild soft tissue swelling. No other convincing acute abnormality. Multiple fairly well-corticated osseous foci, likely chronic, and hypertrophic joint changes. Electronically Signed: Wendi Barber MD at 0:17 EST , CC: Dr. Lauri Frias MD; Justa Light DO Photographic Equipment Inspector: Signed Normal [facility] Emergency Department Summary on 05-18-2024 Emergency Department Summary [facility] Medical Records Department [address] [place] [id number] Emergency Department Summary 05/18/24 MR#: [id number] Acct: [id number] Name: PHILLIP QUEEN Rep #: [id number] : 1990 34 From: Lauri Frias MD PCP: Justa Light DO Status:REG ER Location: ED HPI History of Present Illness HPI Narrative: 34-year-old female history of hypothyroidism. States she has had pain in her left Achilles tendon for about 3 weeks. Does not remember a specific injury. No prior history of surgery on this foot or ankle. No other complaints. Chief Complaint: Lower Extremity Injury Informant: patient Occured/Mechanism Mechanism/Context: No injury and No blunt trauma Onset/Context/Timing Onset: Weeks Context: Gradual Onset Timing: Continuous Quality of Pain: Sharp Current Severity: Moderate Maximum Severity: Moderate Associated Symptoms Associated Symptoms: Negative for Parasthesia, Weakness or Loss of Funtion Narrative Narrative: 34-year-old female with left Achilles tendon pain for about 3 weeks. No known injury. No prior history of surgery to that extremity. No other complaints. Prior similar symptoms: No Recent Illness/Hospitalization: No [facility] Medical History History of alcohol use disorder Panic disorder Major depressive disorder, recurrent severe without psychotic features PTSD (post-traumatic stress disorder) Home Medications ???Medication ???Instructions ???Recorded ???Last Taken ???Type hydroxyzine pamoate 25 mg capsule 25 mg PO TID PRN panic attack(s) 03/11/24 Unknown Rx (Vistaril) 30 days #90 caps olanzapine 2.5 mg tablet (Zyprexa) 2.5 mg PO DAILY 30 days #30 tabs 03/25/24 Unknown Rx Allergy/AdvReac Type Severity Reaction Status Date / Time procaine (From Novocain) Allergy Severe throat Verified 05/18/24 22:58 swelling, itching sulfamethoxazole (From Allergy Severe Anaphylaxis Verified 05/18/24 22:58 Bactrim) trimethoprim (From Bactrim) Allergy Severe Anaphylaxis Verified 05/18/24 22:58 amoxicillin AdvReac Intermediate hallucinati Verified 05/18/24 22:58 ons ketamine AdvReac Intermediate aggression Verified 05/18/24 22:58 Penicillins AdvReac Intermediate hallucinati Verified 05/18/24 22:58 ons bacitracin (From Neosporin AdvReac Mild Rash Verified 05/18/24 22:58 ([id number])) neomycin (From Neosporin AdvReac Mild Rash Verified 05/18/24 22:58 ([id number])) polymyxin B (From Neosporin AdvReac Mild Rash Verified 05/18/24 22:58 ([id number])) Surgical History History of carpal tunnel release History of tonsillectomy and adenoidectomy Social History Smoking Status: Never smoker ROS ROS ED ROS Narrative Denies. Constitutional Constitutional ED: Denies chills or fever(s) Eyes Eyes: Denies blurry vision ENT ENT ED: Denies ear pain Cardiovascular Cardiovascular: Denies chest pain Respiratory/Chest Respiratory/Chest: Denies cough or dyspnea Gastrointestinal Gastrointestinal: Denies abdominal pain Genitourinary Genitourinary ED: Denies dysuria or hematuria Musculoskeletal Musculoskeletal: Denies arthralgias Integumentary Denies abscess Neurologic Neurologic: Denies headache(s) Psychiatric Psychiatric: Denies anxiety Endocrine Endocrinology: Denies polydipsia Hematologic/Lymphatic Hematologic/Lymphatic: Denies easy bleeding Allergic/Immunologic Allergic/Immunologic ED: Denies mouth swelling EXAM Physical Exam Narrative Exam Narrative: 34-year-old female no acute distress. Vital signs stable afebrile. H EENT exam unremarked. Lungs clear. Heart regular rhythm rate about 90 no murmur. Chest wall and ribs nontender. Abdomen soft nontender. Moving all 4 extremities. Neurovascular intact. Dorsi plantarflexion intact in both ankles but she has pain with dorsi and plantarflexion of the left foot. Normal DP pulse. Normal touch sensation. No swelling or redness. She has tenderness along her left Achilles tendon appears to be intact. She does have dorsi and plantarflexion is just uncomfortable when she does it. Otherwise she has normal flexion extension of her knee and hip. Otherwise exam unremarkable. There is no swelling or discoloration of the ankle or the foot. Const Vital Signs: 05/18/24 22:58 Temperature 98.7 F Temperature Source Oral Pulse Rate 91 Respiratory Rate 16 Blood Pressure 177/101 H Blood Pressure Mean 126 Pulse Ox 99 Oxygen Delivery Method Room Air Positive well nourished and well developed; Negative for cachectic, contractures or unkempt General Appearance ED: well developed; Negative for unkempt, cachectic or contractures Nutriti (more content not included)... Normal [facility] No Panel Informationon 05-11 No acute bony abnorm ality left ankle and left foot. MACRO: None Signed by: Beth Sin 05/11/2024 3:48 PM Dictation workstation: [id number] [facility] Interpreted By: Beth Patton, STUDY: XR ANKLE LEFT 3+ VIEWS; XR FOOT LEFT 3+ VIEWS; ; 05/11/2024 3:37 pm INDICATION: Signs/Symptoms:injury; Signs/Symptoms:Injury. COMPARISON: Left ankle 01/31/2014 ACCESSION NUMBER(S): [id number]; [id number] ORDERING CLINICIAN: RODOLFO ABRAMS FINDINGS: Three views left ankle, three views left foot: There is no fracture or dislocation. The ankle mortise is intact. There is spurring of the medial and lateral malleoli. There is a small plantar calcaneal spur. There is partial ossification of the Achilles tendon at its insertion site on the posterior calcaneus. There is mild spurring of the tarsal region. There is mild spurring of the base of the 5th metatarsal. There is mild spurring of the 1st metatarsophalangeal joint. [facility] Beth Sin M D - 05/11/2024 Interpreted By: Beth Sin, STUDY: XR ANKLE LEFT 3+ VIEWS; XR FOOT LEFT 3+ VIEWS; ; 05/11/2024 3:37 pm INDICATION: Signs/Symptoms:injury; Signs/Symptoms:Injury. COMPARISON: Left ankle 01/31/2014 ACCESSION NUMBER(S): [id number]; [id number] ORDERING CLINICIAN: RODOLFO ABRAMS FINDINGS: Three views left ankle, three views left foot: There is no fracture or dislocation. The ankle mortise is intact. There is spurring of the medial and lateral malleoli. There is a small plantar calcaneal spur. There is partial ossification of the Achilles tendon at its insertion site on the posterior calcaneus. There is mild spurring of the tarsal region. There is mild spurring of the base of the 5th metatarsal. There is mild spurring of the 1st metatarsophalangeal joint. IMPRESSION: No acute bony abnormality left ankle and left foot. MACRO: None Signed by: Beth Sin 05/11/2024 3:48 PM Dictation workstation: [id number] [facility] Work Phone: Radiology Study observation (narrative) [facility] Work Phone: No Panel InformationOrdered By: Beth Sin on 05-11-2024 [facility] Work Phone: XR ANKLE LEFT 3+ VIEWSon XR ANKLE LEFT 3+ VIEWS Interpreted By: Beth Sin, STUDY: XR ANKLE LEFT 3+ VIEWS; XR FOOT LEFT 3+ VIEWS; ; 05/11/2024 3:37 pm INDICATION: Signs/Symptoms:injury; Signs/Symptoms:Injury. COMPARISON: Left ankle 01/31/2014 ACCESSION NUMBER(S): [id number]; [id number] ORDERING CLINICIAN: RODOLFO ABRAMS FINDINGS: Three views left ankle, three views left foot: There is no fracture or dislocation. The ankle mortise is intact. There is spurring of the medial and lateral malleoli. There is a small plantar calcaneal spur. There is partial ossification of the Achilles tendon at its insertion site on the posterior calcaneus. There is mild spurring of the tarsal region. There is mild spurring of the base of the 5th metatarsal. There is mild spurring of the 1st metatarsophalangeal joint. IMPRESSION: No acute bony abnormality left ankle and left foot. MACRO: None Signed by: Beth Sin 05/11/2024 3:48 PM Dictation workstation: [id number] [facility] XR FOOT LEFT 3+ VIEWSon 04-18 XR FOOT LEFT 3+ VIEWS Interpreted By: Beth Stearns, STUDY: XR ANKLE LEFT 3+ VIEWS; XR FOOT LEFT 3+ VIEWS; ; 05/11/2024 3:37 pm INDICATION: Signs/Symptoms:injury; Signs/Symptoms:Injury. COMPARISON: Left ankle 01/31/2014 ACCESSION NUMBER(S): [id number]; [id number] ORDERING CLINICIAN: RODOLFO ABRAMS FINDINGS: Three views left ankle, three views left foot: There is no fracture or dislocation. The ankle mortise is intact. There is spurring of the medial and lateral malleoli. There is a small plantar calcaneal spur. There is partial ossification of the Achilles tendon at its insertion site on the posterior calcaneus. There is mild spurring of the tarsal region. There is mild spurring of the base of the 5th metatarsal. There is mild spurring of the 1st metatarsophalangeal joint. IMPRESSION: No acute bony abnormality left ankle and left foot. MACRO: None Signed by: Beth Sin 05/11/2024 3:48 PM Dictation workstation: [id number] [facility] ED Prov Noteon 04-21-2024 ED Prov Note ED PROVIDER NOTE [facility] NAME: Phillip Queen AGE: 34 y.o. : 1990 VISIT DATE: 04/21/2024 CSN: [id number] PCP: Nadege, Jadyn Shannon, DO Chief Complaint Patient presents with Dental Pain Patient is a 34-year-old female with a past medical history available bowel syndrome, carpal tunnel syndrome, anxiety and asthma presents today for concern of dental pain. Patient states the last 2 weeks she has had bilateral lower jaw dental pain. Patient denies any inability handle secretions, drooling, change in voice, chest pain, shortness of breath, lightheadedness, dizziness or syncope. Patient denies additional ENT symptoms. Patient states has not been to the dentist for quite some time. Past Medical History: Diagnosis Date Anxiety Asthma CTS (carpal tunnel syndrome) left Hypothyroidism IBS (irritable bowel syndrome) Past Surgical History: Procedure Laterality Date ADENOIDECTOMY ANKLE SURGERY Left 2015 Dr. Vasquez ?type - can't recall CARPAL TUNNEL RELEASE Bilateral 2017 one year apart - dr perea / justa? KNEE SURGERY Left 2008 meniscal scope - Dr. Vasquez - TONSILLECTOMY Family History Problem Relation Age of Onset Diabetes Mother COPD Father Dementia Paternal Grandmother Social History Socioeconomic History Marital status: Occupational History Occupation: unable to work Tobacco Use Smoking status: Former Types: Cigarettes Smokeless tobacco: Current Types: Chew Vaping Use Vaping status: Former Substance and Sexual Activity Alcohol use: No Drug use: Yes Types: Marijuana Comment: medical marijuana in past Previous Medications Medication Sig albuterol (ACCUNEB) 0.63 mg/3 mL nebulizer solution Take 3 mL (0.63 mg total) by nebulization every 6 (six) hours as needed for wheezing . albuterol 90 mcg/actuation inhaler Inhale 2 (two) puffs every 4 (four) hours as needed for wheezing or cough . budesonide-formoteroL (SYMBICORT) 160-4.5 mcg/actuation inhaler Inhale 2 (two) puffs 2 (two) times a day . hydrOXYzine (ATARAX) 50 MG tablet Take 0.5 (one-half) tablet (25 mg total) by mouth 3 (three) times a day as needed for anxiety . ibuprofen (ADVIL,MOTRIN) 600 MG tablet Take 1 (one) tablet (600 mg total) by mouth every 6 (six) hours as needed for pain . levothyroxine (SYNTHROID, LEVOTHROID) 25 MCG tablet Take 1 (one) tablet (25 mcg total) by mouth every night at bedtime . OLANZapine (ZYPREXA) 2.5 MG tablet Take 1 (one) tablet (2.5 mg total) by mouth every night at bedtime . omeprazole (PRILOSEC OTC) 20 MG tablet Take 1 (one) tablet (20 mg total) by mouth . promethazine (PHENERGAN) 25 MG tablet Take 1 (one) tablet (25 mg total) by mouth every 6 (six) hours as needed for nausea . Allergies Allergen Reactions Bactrim [Sulfamethoxazole-Trimethop rim] Angioedema Tongue and throat swelling Latex Hives Aspirin Unknown Was just told as a child not to take Azithromycin Headache Bacitracin Unknown Bacitracin Zinc-Polymyxin B Swelling Citalopram Unknown Furosemide Unknown Neomycin Unknown Sulfamethoxazole Unknown Trimethoprim Unknown Cortisone Other (See Comments) Had shots in knee - caused swelling Ketamine Other (See Comments) Increased aggressive behavior after surgery Neosporin (Lmj-Mrd-Feizw) [Jlsxnnao-Bffnldpxrpl-Vtreg yxnb] Dermatitis Penicillins Hallucinations Procaine Other (See Comments) Swelling - but does okay with lidocaine Review of Systems Constitutional: Negative for chills and fever. HENT: Positive for dental problem. Eyes: Negative for pain. Respiratory: Negative for cough, chest tightness and shortness of breath. Cardiovascular: Negative for chest pain and palpitations. Gastrointestinal: Negative for abdominal pain, nausea and vomiting. Genitourinary: Negative for flank pain. Musculoskeletal: Negative for arthralgias and myalgias. Skin: Negative for rash. Neurological: Negative for dizziness, syncope, light-headedness and headaches. Psychiatric/Behavioral: Negative for agitation. All other systems reviewed and are negative. No data found. Physical Exam Vitals and nursing note reviewed. Constitutional: Appearance: Normal appearance. HENT: Head: Normocephalic. Mouth/Throat: Comments: Poor dentition throughout with carious bilateral lower jaw posterior molars. Patent posterior oropharynx. No tongue elevation or swelling. No difficulty handle secretions. Eyes: Pupils: Pupils are equal, round, and reactive to light. Cardiovascular: Rate and Rhythm: Normal rate and regular rhythm. Pulses: Normal pulses. Heart sounds: Normal heart sounds. Musculoskeletal: Cervical back: Normal range of motion. Pulmonary: Effort: Pulmonary effort is normal. Breath sounds: Normal breath sounds. Skin: General: Skin is warm. Capillary Refill: Capillary refill takes less than 2 seconds. Neurological: General: No focal deficit (more content not included)... Normal [facility] ED Prov Noteon 04-02-2024 ED Prov Note HPI: 04/02/2024, Time: @RONDA@ Phillip Queen is a 34 y.o. female presenting to the ED for right elbow pain, beginning over the last week ago. The complaint has been intermittent, moderate in severity, and worsened by changing position. And lifting and bending elbow no fever or chills and no known injury. Also complains of a small bump on the top of her left foot ROS: Pertinent positives and negatives are stated within HPI, all other systems reviewed and are negative. PAST HISTORY Past Medical History: @[facility]@ Past Surgical History: has a past surgical history that includes Knee surgery (Left, 2009); Ankle surgery (Left, 2016); adenoidectomy; tonsillectomy; and Carpal tunnel release (Bilateral, 2017). Social History: reports that she has quit smoking. Her smoking use included cigarettes. Her smokeless tobacco use includes chew. She reports current drug use. Drug: Marijuana. She reports that she does not drink alcohol. Family History: family history includes COPD in her father; Dementia in her paternal grandmother; Diabetes in her mother. The patient's home medications have been reviewed. Allergies: Bactrim [sulfamethoxazole-trimethop rim], Latex, Aspirin, Azithromycin, Bacitracin, Bacitracin zinc-polymyxin b, Citalopram, Furosemide, Neomycin, Sulfamethoxazole, Trimethoprim, Cortisone, Ketamine, Neosporin (sqj-kra-uisrm) [hbjjqpsm-jfqlsrvchuc-xzsgt yxnb], Penicillins, and Procaine RESULTS All laboratory and radiology results have been personally reviewed by myself LABS: Results for orders placed or performed during the hospital encounter of 10/23/20 POC CBC and Differential Result Value Ref Range WBC 10.99 4.50 - 11.00 K/mcL RBC 5.07 4.00 - 5.20 M/mcL Hemoglobin 15.0 12.0 - 16.0 g/dL Hematocrit 44.4 36.0 - 46.0 % MCV 87.6 80.0 - 100.0 fL MCH 29.6 26.0 - 34.0 pg MCHC 33.8 31.0 - 37.0 g/dL RDW - CV 14.3 11.6 - 14.8 % Platelets 201 150 - 400 K/mcL MPV 11.6 9.4 - 12.4 fL Neutrophils 63.4 % Lymphocytes 29.3 % Monocytes 5.4 % Eosinophils 1.2 % Basophils 0.5 % IG Percent 0.20 % Neutrophils Abs 6.97 1.70 - 7.00 K/mcL Lymphocytes Abs 3.22 0.90 - 4.00 K/mcL Monocytes Abs 0.59 0.30 - 0.90 K/mcL Eosinophils Abs 0.13 0.00 - 0.50 K/mcL Basophils Abs 0.06 0.00 - 0.30 K/mcL IG Absolute 0.02 0.00 - 0.30 K/mcL EKG 12-lead Result Value Ref Range Ventricular Rate 89 BPM Atrial Rate 89 BPM P-R Interval 124 ms QRS Duration 80 ms Q-T Interval 378 ms QTC Calculation (Bezet) 459 ms P [place] 57 degrees R [place] 61 degrees T [place] 17 degrees POC Basic Metabolic Panel Result Value Ref Range Glucose 144 (H) 65 - 99 mg/dL BUN 9 8 - 25 mg/dL Creatinine 0.71 0.40 - 1.10 mg/dL GFR 115 >=60 mL/min/1.73 m2 Sodium 143 135 - 145 mmol/L Potassium 3.5 3.5 - 5.1 mmol/L Chloride 108 98 - 108 mmol/L TCO2 26 21 - 32 mmol/L Ionized Calcium 4.5 4.5 - 5.3 mg/dL POC D-dimer Result Value Ref Range POC D-Dimer <100 <350 ng/mL DDU RADIOLOGY: Interpreted by Radiologist. No orders to display NURSING NOTES AND VITALS REVIEWED The nursing notes within the ED encounter and vital signs as below have been reviewed. BP 127/86 (BP Location: Left arm, Patient Position: Sitting) Pulse 79 Temp 97.9 degrees F (36.6 degrees C) (Temporal) Resp 18 Ht 5' 7 Wt 133.8 kg (295 lb) LMP 03/17/2024 (Within Days) SpO2 96% BMI 46.20 kg/m Oxygen Saturation Interpretation: Normal PHY SICAL EXAM Constitutional/General: Alert and oriented x3, well appearing, non toxic in NAD Head: NC/AT Eyes: PERRL, EOMI Mouth: Oropharynx clear, handling secretions, no trismus Neck: Supple, full ROM, no meningeal signs Pulmonary: Lungs clear to auscultation bilaterally, no wheezes, rales, or rhonchi. Not in respiratory distress Cardiovascular: Regular rate and rhythm, no murmurs, gallops, or rubs. 2+ distal pulses Abdomen: Soft, non tender, non distended, Extremities: Moves all extremities x 4. Warm and well perfused, right elbow: Moderate tenderness to palpation over the medial epicondyles specially with flexion and extension of the wrist against resistance. Left foot: Small papule/nodule but not fluctuant Skin: warm and dry without rash Neurologic: GCS 15, Psych: Normal Affect --- ED COURSE/MEDICAL DECISION MAKING - Medications ibuprofen (ADVIL,MOTRIN) tablet 800 mg (has no administration in time range) Medical Decision Making: Will advise elbow strap and Motrin for tendinitis of the elbow Counseling: The emergency provider has spoken with the patient and discussed today's results, in (more content not included)... [facility] CNOVon 03-30-2024 CNOV Office Visit (PODIWS ) PHILLIP SHER ([id number]) 1990 F Date Time Provider Department 03/30/24 2:45 PM LAWRENCE BRIGGS PODIWS During your visit today, we recorded the following information about you: Kaylin Bell RN 03/31/2024 7:54 AM Signed AMB ROOMING INTAKE FLOWSHEET DATA Risk Screening Do you have concerns about personal safety or safety in the home?: No Pain Pain Level: 8 Pain Location: Foot-Left Description: Sharp, Burning, Dull, Aching Duration Amount of Time: 4 Duration Units: Months Frequency: Intermittent Intervention/Comfort measure: Relaxation, Reposition Patient presents with: Left Foot - New, Pain Patient presents for Left foot and ankle pain that has been ongoing since November when she injured foot. States that she was told she has achilles tendon thinning and a heel spur. Pain worse when pointing her toes, states pain shoots up back of leg. Numbness to heel now. Has been primarily in a boot since November, but states that recently it has been causing pain to left hip and side. Has not tried a right heel lift. Unable to walk without pain especially when not wearing the boot. Pain with boot -08/24, Pain without boot -03/26 Brought imaging disk today. Seen in ED for left foot pain 03/17/24 Lawrence Briggs 03/31/2024 7:54 AM Signed Initial Podiatric Office Visit: Chief Complaint: This 34 year old female who presents with chief complaint:right heel pain HPI Patient presents to clinic for evaluation of right foot Complains of right heel pain that has been present since November. States the pain is all located to the posterior right heel extending up the achilles tendon. Is currently being seen by Dr. Ryder in [place]. Has tried stretching but was in too much pain. Has been in a pneumatic (black) boot since November. When she is in a boot, she has no pain. When she goes without the boot she is in pain. She states that when she is in the boot, she has more issues with her sciatica. Has been on toradol and naproxen but didn't help. Dr. Ryder discussed surgery but would not do the surgery because she is too overweight. Patient weighs about 295 lbs. PAIN EVALUATION 03/30/2024 [id number] Pain Level: 8 Pain Location: Foot-Left Description: Sharp;Burning;Dull;Aching Duration Amount of Time: 4 Duration Units: Months Frequency: Intermittent Intervention/Comfort measure: Relaxation;Reposition No results found for: HBA1C PCP: Wendy Beavers DO PAST MEDICAL HISTORY Diagnosis Date Anxiety Depression Morbid obesity due to excess calories 11/25/2015 Poorly controlled persistent asthma 11/25/2015 Current Outpatient Medications Medication Sig Albuterol Sulfate 0.63 mg/3 mL nebulizer solution Inhale 0.63 mg as instructed every 6 hours as needed. albuterol HFA (PROVENTIL HFA, VENTOLIN HFA) 90 mcg/actuation inhaler Inhale 2 Puffs as instructed every 4 hours as needed. hydrOXYzine pamoate (VISTARIL) 25 mg capsule Take 25 mg by mouth three times a day as needed for anxiety. levothyroxine (SYNTHROID) 25 mcg tablet Take 1 tablet by mouth every afternoon. OLANZapine (ZYPREXA) 2.5 mg tablet Take 1 tablet by mouth every afternoon. ibuprofen (MOTRIN) 600 mg tablet Take 600 mg by mouth every 6 hours as needed. (Patient not taking: Reported on 03/30/2024) ALPRAZolam (XANAX) 0.5 mg tablet Take 0.25 mg by mouth at bedtime as needed. (Patient not taking: Reported on 03/30/2024) SPIRIVA RESPIMAT 1.25 mcg/actuation mist INHALE 2 INHALATION INSTRUCTED ONCE DAILY FOR 30 DAYS. (Patient not taking: Reported on 03/30/2024) EPIPEN 2-LEANNE 0.3 mg/0.3 mL auto-injector (Patient not taking: Reported on 03/30/2024) topiramate (TOPAMAX) 50 mg tablet (Patient not taking: Reported on 12/25/2020) No current facility-administered medications for this visit. ALLERGIES Allergen Reactions Bactrim [Sulfametho* Rash, Vomiting Gel Rash Patient developed rash after the use of ultrasound transmission gel. Ivp Dye [Iodine] Rash Latex Hives Neosporin [Neomycin* Rash Penicillins Cortisone Swelling, Rash Had shots in knee - caused swelling PAST SURGICAL HISTORY Procedure Laterality Date ORTHOPEDICS SURGERY HX TONSILLECTOMY PRIMARY/SECONDARY Tonsillectomy FAMILY HISTORY Problem Relation Age of Onset Diabetes Maternal Grandmother Hypertension Maternal Grandmother Social History Tobacco Use Smoking status: Never Smokeless tobacco: Current Types: Chew Vaping Use Vaping status: Never Used Substance Use Topics Alcohol use: No Drug use: No REVIEW OF SYSTEMS GENERAL: Negative for Malaise, significant weight loss, fever RESPIRATORY: Negative for cough, wheezing and shortness of breath CARDIOVASCULAR: Negative for chest pain, leg swelling and palpitations GI: Negative for abdominal discomfort, blood in stools or black stools and change in bowel habits (more content not included)... Normal [facility] ED Prov Noteon 03-17-2024 ED Prov Note ED PROVIDER NOTE [facility] NAME: Phillip Queen AGE: 34 y.o. : 1990 VISIT DATE: 03/17/2024 CSN: [id number] PCP: Jadyn Light DO Chief Complaint Patient presents with Foot Pain LEFT 34-year-old female patient presents for foot pain, patient states felt a popping sensation in her foot, dull pain, worse palpation relieved with rest. No numbness or tingling. Past Medical History: Diagnosis Date Anxiety Asthma CTS (carpal tunnel syndrome) left IBS (irritable bowel syndrome) Past Surgical History: Procedure Laterality Date ADENOIDECTOMY ANKLE SURGERY Left 2015 Dr. Vasquez ?type - can't recall CARPAL TUNNEL RELEASE Bilateral 2017 one year apart - dr perea / justa? KNEE SURGERY Left 2008 meniscal scope - Dr. Vasquez - TONSILLECTOMY Family History Problem Relation Age of Onset Diabetes Mother COPD Father Dementia Paternal Grandmother Social History Socioeconomic History Marital status: Occupational History Occupation: unable to work Tobacco Use Smoking status: Never Smokeless tobacco: Current Types: Chew Vaping Use Vaping status: Former Substance and Sexual Activity Alcohol use: No Drug use: Yes Types: Marijuana Comment: medical marijuana in past Previous Medications Medication Sig traMADol (ULTRAM) 50 mg tablet Take 1 (one) tablet (50 mg total) by mouth every 6 (six) hours as needed for pain . albuterol (ACCUNEB) 0.63 mg/3 mL nebulizer solution Take 3 mL (0.63 mg total) by nebulization every 6 (six) hours as needed for wheezing . albuterol 90 mcg/actuation inhaler Inhale 2 (two) puffs every 4 (four) hours as needed for wheezing or cough . budesonide-formoteroL (SYMBICORT) 160-4.5 mcg/actuation inhaler Inhale 2 (two) puffs 2 (two) times a day . cyclobenzaprine (FLEXERIL) 10 MG tablet Take 1 (one) tablet (10 mg total) by mouth 3 (three) times a day as needed for muscle spasms . ketorolac (TORADOL) 10 mg tablet Take 1 (one) tablet (10 mg total) by mouth every 6 (six) hours as needed . lidocaine (LIDODERM) 5 % patch Place 1 (one) patch on the skin daily Remove & Discard patch within 12 hours or as directed by MD . omeprazole (PRILOSEC OTC) 20 MG tablet Take 1 (one) tablet (20 mg total) by mouth . predniSONE (DELTASONE) 20 MG tablet Take 1 (one) tablet (20 mg total) by mouth daily for 5 days . promethazine (PHENERGAN) 25 MG tablet Take 1 (one) tablet (25 mg total) by mouth every 6 (six) hours as needed for nausea . Allergies Allergen Reactions Bactrim [Sulfamethoxazole-Trimethop rim] Angioedema Tongue and throat swelling Latex Hives Aspirin Unknown Was just told as a child not to take Azithromycin Headache Bacitracin Unknown Bacitracin Zinc-Polymyxin B Swelling Citalopram Unknown Furosemide Unknown Neomycin Unknown Sulfamethoxazole Unknown Trimethoprim Unknown Cortisone Other (See Comments) Had shots in knee - caused swelling Ketamine Other (See Comments) Increased aggressive behavior after surgery Neosporin (Evd-Oph-Wlbtp) [Ndklqqhf-Slbtkijhbhx-Vblfg yxnb] Dermatitis Penicillins Hallucinations Procaine Other (See Comments) Swelling - but does okay with lidocaine Review of Systems All other systems reviewed and are negative. Patient Vitals for the past 24 hrs: BP Temp Pulse Resp SpO2 Height Weight 03/17/24 2239 (!) 135/90 98.1 degrees F (36.7 degrees C) 77 (!) 20 97 % 5' 7 133.8 kg (295 lb) Physical Exam Vitals and nursing note reviewed. Constitutional: Appearance: Normal appearance. HENT: Head: Normocephalic and atraumatic. Right Ear: External ear normal. Left Ear: External ear normal. Nose: Nose normal. Mouth/Throat: Mouth: Mucous membranes are moist. Pharynx: Oropharynx is clear. Eyes: Extraocular Movements: Extraocular movements intact. Conjunctiva/sclera: Conjunctivae normal. Pupils: Pupils are equal, round, and reactive to light. Cardiovascular: Rate and Rhythm: Normal rate and regular rhythm. Musculoskeletal: General: Normal range of motion. Cervical back: Normal range of motion and neck supple. Comments: Tenderness along the fifth metatarsal Pulmonary: Effort: Pulmonary effort is normal. Breath sounds: Normal breath sounds. Abdominal: General: Abdomen is flat. Bowel sounds are normal. Palpations: Abdomen is soft. Neurological: General: No focal deficit present. Mental Status: She is alert and oriented to person, place, and time. Mental status is at baseline. Psychiatric: Mood and Affect: Mood normal. Thought Content: Thought content normal. Laboratory & Radiographic Imaging (if done): No results found for this visit on 03/17/24. XR Foot Left 3+ Views (Standard) Final Result No acute fracture. Workstation ID: [id number] Procedures Medical Decision Making Patient presents ER for evaluation of left foot pain, differentials include but not limited to fracture sprain, (more content not included)... Normal [facility] HIP, UNI W/ Pelvis 2-3 Views on 03-17-2024 HIP, UNI W/ Pelvis 2-3 Views [facility] [address] [place], [place] [address]AL[place], [place] [id number] HIP, UNI W/ Pelvis 2-3 Views MR#: [id number] Acct: [id number] Name: PHILLIP QUEEN Rep #: [id number] : 1990 F 34 From: Igor Barker MD PCP: Justa Light DO Status: REG CLI Study: HIP, UNI W/ Pelvis 2-3 Views Date of Exam: 07/10 Exam# [id number] Ordering Dr: Gustavo Her MD [id number] STUDY: X-RAY - PELVIS AND LEFT HIP REASON FOR EXAM: Female, 34 years old. Hip pain, low back pain. Left hip pain. No known injury. TECHNIQUE: 3 views of the pelvis and left hip. COMPARISON: None. FINDINGS: There is a non-specific bowel gas pattern. Normal visualized soft tissue structures. Normal bilateral iliac wings, sacroiliac joints and visualized sacrum. Normal bilateral superior and inferior pubic rami. Normal pubic symphysis. Normal bilateral ischial tuberosities. Normal visualized femoral heads bilaterally. There is osteoarthritic spur formation of the acetabular rims bilaterally. Intact hip joints. There is no demonstrated acute fracture. RAD/HIP, UNI W/ Pelvis 2-3 Views IMPRESSION: Mild degenerative arthrosis of the hip joints bilaterally. No demonstrated acute fracture. Electronically Signed: Igor Barker MD at 15:01 EDT Reading Location ID and State: [facility] / [place] , Service support , CC: Dr. Gustavo Her MD; Justa Light DO Photographic Equipment Inspector: Signed Normal [facility] Lumbar Spine 2 or 3 Viewson 03-17-2024 Lumbar Spine 2 or 3 Views [facility] Services [address] [place] [address] Lumbar Spine 2 or 3 Views MR#: [id number] Acct: [id number] Name: PHILLIP QUEEN Rep #: [id number] : 1990 F 34 From: Matthew higgins MD PCP: Justa Light DO Status: REG CLI Study: Lumbar Spine 2 or 3 Views Date of Exam: Exam# [id number] Ordering Dr: Justa Light DO [id number] INDICATION: LOW BACK PAIN EXAMINATION/TECHNIQUE: X-RAY - XR Spine Lumbar 2 or 3 Views COMPARISON: No relevant prior comparison study available FINDINGS: VERTEBRAE: Preserved vertebral body height. No fracture. No spondylolisthesis. Preservation of the normal lumbar lordosis. No significant facet arthropathy. DISCS: Disc spaces are maintained. INCLUDED ABDOMEN: Included bowel gas pattern is non-obstructive. RAD/Lumbar Spine 2 or 3 Views IMPRESSION: No evidence of lumbar spinal fracture or spondylolisthesis. Electronically Signed: Matthew Cruz MD at 1:55 EDT Reading Location ID and State: [address] [place] [address] Tel , Service support , CC: Justa Light DO Photographic Equipment Inspector: Signed Normal [facility] XR FOOT LEFT 3+ VIEWS (STAND VINAYAK)on 03-17-2024 XR FOOT LEFT 3+ VIEWS (STANDARD) EXAMINATION: XR FOOT LEFT 3+ VIEWS (STANDARD) EXAM DATE: 03/17/2024 10:43 pm HISTORY: ORDERING SYSTEM PROVIDED HISTORY: fx, pain at 5th tarsal, TECHNOLOGIST PROVIDED HISTORY: Injury/Trauma Reason for exam: left lateral foot pain Cancer History: no Surgery, RadiationHistory: no Encounter Type: Initial Mechanism of injury: PT STATES NOW WITH LEFT FOOT PAIN AFTER POPPING SOUND TODAY ORDERING SYSTEM PROVIDED DIAGNOSIS CODES: COMPARISON: 12/19/2021 TECHNIQUE: AP, lateral and oblique views of the foot FINDINGS: No acute fracture or dislocation. Mild degenerative changes of the midfoot. No gas within the soft tissues. Small calcaneal spurs. Chronic small ossific density/spur adjacent to the base of the 5th metatarsal. Stable spur related to the distal calcaneus. IMPRESSION: No acute fracture. Workstation ID: [id number] Dictated by: NOELLE ESTRELLA on SatMar 17, 2024 10:54:00 PM EDT Transcribed by: NOELLE ESTRELLA on SatMar 17, 2024 10:54:00 PM EDT Finalized by: NOELLE ESTRELLA on SatMar 17, 2024 10:54:00 PM EDT [facility] Comment on above: Order Comment: Injur y/Trauma or Illness?:Injury/Trauma How long have you had these symptoms (acute/chronic)?:Acute Reason for exam?:left lateral foot pain History of cancer?:no Surgeries, chemotherapy, or radiation?:no Type of Exam?:Initial Mechanism of injury?:PT STATES NOW WITH LEFT FOOT PAIN AFTER POPPING SOUND TODAY ED Prov Noteon 03-16-2024 ED Prov Note ED PROVIDER NOTE [facility] NAME: Phillip Queen AGE: 34 y.o. : 1990 VISIT DATE: 03/16/2024 CSN: [id number] PCP: Jadyn Light DO Chief Complaint Patient presents with Leg Pain 34-year-old female with history of left sciatica comes in with pain in the left leg. Pain is sharp and stabbing moderate in intensity starting in the lumbar area left buttock area down to the mid calf region. She was seen here last night for the same thing. Denies any numbness tingling or weakness. Just mostly pain. Leg Pain Past Medical History: Diagnosis Date Anxiety Asthma CTS (carpal tunnel syndrome) left IBS (irritable bowel syndrome) Past Surgical History: Procedure Laterality Date ADENOIDECTOMY ANKLE SURGERY Left 2015 Dr. Vasquez ?type - can't recall CARPAL TUNNEL RELEASE Bilateral 2017 one year apart - dr perea / justa? KNEE SURGERY Left 2008 meniscal scope - Dr. Vasquez - TONSILLECTOMY Family History Problem Relation Age of Onset Diabetes Mother COPD Father Dementia Paternal Grandmother Social History Socioeconomic History Marital status: Occupational History Occupation: unable to work Tobacco Use Smoking status: Never Smokeless tobacco: Current Types: Chew Vaping Use Vaping status: Former Substance and Sexual Activity Alcohol use: No Drug use: Yes Types: Marijuana Comment: medical marijuana in past Previous Medications Medication Sig albuterol (ACCUNEB) 0.63 mg/3 mL nebulizer solution Take 3 mL (0.63 mg total) by nebulization every 6 (six) hours as needed for wheezing . albuterol 90 mcg/actuation inhaler Inhale 2 (two) puffs every 4 (four) hours as needed for wheezing or cough . budesonide-formoteroL (SYMBICORT) 160-4.5 mcg/actuation inhaler Inhale 2 (two) puffs 2 (two) times a day . cyclobenzaprine (FLEXERIL) 10 MG tablet Take 1 (one) tablet (10 mg total) by mouth 3 (three) times a day as needed for muscle spasms . ketorolac (TORADOL) 10 mg tablet Take 1 (one) tablet (10 mg total) by mouth every 6 (six) hours as needed . lidocaine (LIDODERM) 5 % patch Place 1 (one) patch on the skin daily Remove & Discard patch within 12 hours or as directed by MD . omeprazole (PRILOSEC OTC) 20 MG tablet Take 1 (one) tablet (20 mg total) by mouth . promethazine (PHENERGAN) 25 MG tablet Take 1 (one) tablet (25 mg total) by mouth every 6 (six) hours as needed for nausea . Allergies Allergen Reactions Bactrim [Sulfamethoxazole-Trimethop rim] Angioedema Tongue and throat swelling Latex Hives Acetaminophen Swelling Pt reports throat swells Aspirin Unknown Was just told as a child not to take Azithromycin Headache Bacitracin Unknown Bacitracin Zinc-Polymyxin B Swelling Citalopram Unknown Furosemide Unknown Neomycin Unknown Sulfamethoxazole Unknown Trimethoprim Unknown Cortisone Other (See Comments) Had shots in knee - caused swelling Ketamine Other (See Comments) Increased aggressive behavior after surgery Neosporin (Ski-Sjz-Azvuy) [Wxarteot-Jzapziuqhgb-Gyxkw yxnb] Dermatitis Penicillins Hallucinations Procaine Other (See Comments) Swelling - but does okay with lidocaine Review of Systems Patient Vitals for the past 24 hrs: BP Temp Pulse Resp SpO2 Height Weight 03/16/24 1211 -- -- -- 16 -- -- -- 03/16/24 1141 (!) 163/97 97.9 degrees F (36.6 degrees C) 78 18 97 % 5' 7 133.8 kg (295 lb) Physical Exam Vitals and nursing note reviewed. Constitutional: Appearance: Normal appearance. HENT: Head: Normocephalic and atraumatic. Nose: Nose normal. Eyes: Extraocular Movements: Extraocular movements intact. Pupils: Pupils are equal, round, and reactive to light. Musculoskeletal: General: Normal range of motion. Cervical back: Normal range of motion and neck supple. Comments: There is pain in the left buttock region left hamstring area. No weakness is noted in the bilateral lower extremities. Abdominal: Tenderness: There is no abdominal tenderness. There is no rebound. Skin: General: Skin is warm and dry. Neurological: General: No focal deficit present. Mental Status: She is alert and oriented to person, place, and time. Laboratory & Radiographic Imaging (if done): No results found for this visit on 03/16/24. No orders to display Procedures Medical Decision Making We gave tramadol here. Rx for prednisone, Flexeril, and tramadol given. Will discharge home. Follow-up with PCP. DDx: Sciatica, acute lumbar strain, left leg strain The patient has been informed that they may have pre-hypertension or hypertension based on a blood pressure reading in the Emergency Department. I recommend that the patient call the primary care provider listed on their discharge instructions or a physician of their choice as soon as possible to arrange follow-up in the next 4 weeks for further evaluation of possible pre-hypertension or hypertension. . (more content not included)... Normal [facility] ED Prov Noteon 03-15-2024 ED Prov Note [facility] Physician Note: NAME: Phillip Queen 34 y.o. CSN: [id number] PCP: No, Physician ED Course / Medical Decision Making: Patient comes in with sciatica. She has a history of chronic sciatica which flares from time to time. She denies any fall or injury. She has no signs of cauda equina syndrome she denies any weakness numbness or tingling or loss of bowel or bladder function. She has no sign of spinal abscess she denies any fever she has no signs of renal calculi or aneurysm. At this time I do not feel any imaging indicated. Patient given Toradol and Lidoderm in ER. Patient to follow-up with primary doctor for worsening symptoms come back to the ER Medical Decision Making Amount and/or Complexity of Data Reviewed Independent Historian: Details: Patient gave history Clinical Impression: 1. Injury of sciatic nerve at hip and thigh level, left leg, initial encounter Disposition: Patient is being discharged to home New Prescriptions ketorolac (TORADOL) 10 mg tablet Take 1 (one) tablet (10 mg total) by mouth every 6 (six) hours as needed . lidocaine (LIDODERM) 5 % patch Place 1 (one) patch on the skin daily Remove & Discard patch within 12 hours or as directed by MD . History: Chief Complaint: Sciatica HPI: The history was obtained from the patient. She is a 34 y.o. female who presents with a chief complaint of Sciatica. HPI patient states she has chronic sciatica. She has pain in her buttocks going down her left leg. This flared over the last couple days. She has seen her doctor for this. She denies any fall or heavy lifting. She denies any urinary symptoms no pain when she urinates no frequency or loss of bowel or bladder function. She denies any numbness or tingling. She denies any fever. She has no abdominal discomfort.. She denies any fall or injury. She denies any heavy lifting. Patient denies any abdominal pain or nausea vomiting. Patient denies any dizziness or near syncope PMHx: Past Medical History: Diagnosis Date Anxiety Asthma CTS (carpal tunnel syndrome) left IBS (irritable bowel syndrome) PMSx: Past Surgical History: Procedure Laterality Date ADENOIDECTOMY ANKLE SURGERY Left 2016 Dr. Vasquez ?type - can't recall CARPAL TUNNEL RELEASE Bilateral 2017 one year apart - dr perea / justa? KNEE SURGERY Left 2008 meniscal scope - Dr. Vasquez - TONSILLECTOMY FAM. Hx: Family History Problem Relation Age of Onset Diabetes Mother COPD Father Dementia Paternal Grandmother SOC. Hx: Social History Socioeconomic History Marital status: Occupational History Occupation: unable to work Tobacco Use Smoking status: Never Smokeless tobacco: Current Types: Chew Vaping Use Vaping status: Former Substance and Sexual Activity Alcohol use: No Drug use: Yes Types: Marijuana Comment: medical marijuana in past MEDs: Previous Medications Medication Sig albuterol (ACCUNEB) 0.63 mg/3 mL nebulizer solution Take 3 mL (0.63 mg total) by nebulization every 6 (six) hours as needed for wheezing . albuterol 90 mcg/actuation inhaler Inhale 2 (two) puffs every 4 (four) hours as needed for wheezing or cough . budesonide-formoteroL (SYMBICORT) 160-4.5 mcg/actuation inhaler Inhale 2 (two) puffs 2 (two) times a day . cyclobenzaprine (FLEXERIL) 10 MG tablet Take 1 (one) tablet (10 mg total) by mouth 3 (three) times a day as needed for muscle spasms . [] doxycycline hyclate (VIBRA-TABS) 100 MG tablet Take 1 (one) tablet (100 mg total) by mouth 2 (two) times a day for 7 days . omeprazole (PRILOSEC OTC) 20 MG tablet Take 1 (one) tablet (20 mg total) by mouth . promethazine (PHENERGAN) 25 MG tablet Take 1 (one) tablet (25 mg total) by mouth every 6 (six) hours as needed for nausea . [DISCONTINUED] ketorolac (TORADOL) 10 mg tablet Take 1 (one) tablet (10 mg total) by mouth 3 (three) times a day as needed for pain . ALL: Allergies Allergen Reactions Bactrim [Sulfamethoxazole-Trimethop rim] Angioedema Tongue and throat swelling Latex Hives Acetaminophen Swelling Pt reports throat swells Aspirin Unknown Was just told as a child not to take Azithromycin Headache Bacitracin Unknown Bacitracin Zinc-Polymyxin B Swelling Citalopram Unknown Furosemide Unknown Neomycin Unknown Sulfamethoxazole Unknown Trimethoprim Unknown Cortisone Other (See Comments) Had shots in knee - caused swelling Ketamine Other (See Comments) Increased aggressive behavior after surgery Neosporin (Sgw-Zvr-Rkzzv) [Czekbgvl-Vcnzjoijmsn-Gitjd yxnb] Dermatitis Penicillins Hallucinations Procaine Other (See Comments) Swelling - but does okay with lidocaine ROS: Review of Systems Constitutional: Negative. HENT: Negative. Respiratory: Negative. Cardiovascular: Negative. Gastrointestinal: Negative. Endocrine: Negative. Genitourinary: Negative. Musculoskeletal: Positive for back pain. Negative for arthralgi (more content not included)... Normal [facility] Thyroglobulin Antibodyon TG AB 496.5 IU/mL High 0.0-0.9 [facility] Comment on above: Result Comment: Thyr oglobulin Antibody measured by [facility] [place] Method[employer] It should be noted that the presence of thyroglobulin antibodies may not be pathogenic nor diagnostic, especially at very low levels. The assay rope machine setter has found that four percent of individuals without evidence of thyroid disease or autoimmunity will have positive TgAb levels up to 4 IU/mL. Performed at: [facility] [id number] Make Up Artist: Chencho Sanford PhD, Phone: [phone] Performed By: #### L [id number] ####[facility] [id number] [place], [address] ED Prov Noteon 03-07-2024 ED Prov Note ED PROVIDER NOTE [facility] NAME: Phillip Queen AGE: 34 y.o. : 1990 VISIT DATE: 03/07/2024 CSN: [id number] PCP: No, Physician Chief Complaint Patient presents with Nasal Congestion Rash Patient is a 34-year-old female with past medical history anxiety, asthma, irritable bowel syndrome who presents today for concern of nasal congestion and rash. Patient states for the last 3 weeks she has had nasal congestion and sinus pressure and is concerned that she has a sinus infection. Patient states her last 2 days she has had a area of redness tenderness and warmth on the right side of her neck and she is concerned about an infection. Patient denies any concern for allergic reaction. Patient denies any chest pain, shortness of breath, nausea, vomiting, lightness, dizziness or syncope. Patient been eating and drinking normally. Past Medical History: Diagnosis Date Anxiety Asthma CTS (carpal tunnel syndrome) left IBS (irritable bowel syndrome) Past Surgical History: Procedure Laterality Date ADENOIDECTOMY ANKLE SURGERY Left 2015 Dr. Vasquez ?type - can't recall CARPAL TUNNEL RELEASE Bilateral 2017 one year apart - dr perea / justa? KNEE SURGERY Left 2008 meniscal scope - Dr. Vasquez - TONSILLECTOMY Family History Problem Relation Age of Onset Diabetes Mother COPD Father Dementia Paternal Grandmother Social History Socioeconomic History Marital status: Occupational History Occupation: unable to work Tobacco Use Smoking status: Never Smokeless tobacco: Current Types: Chew Vaping Use Vaping status: Former Substance and Sexual Activity Alcohol use: No Drug use: Yes Types: Marijuana Comment: medical marijuana in past Previous Medications Medication Sig albuterol (ACCUNEB) 0.63 mg/3 mL nebulizer solution Take 3 mL (0.63 mg total) by nebulization every 6 (six) hours as needed for wheezing . albuterol 90 mcg/actuation inhaler Inhale 2 (two) puffs every 4 (four) hours as needed for wheezing or cough . budesonide-formoteroL (SYMBICORT) 160-4.5 mcg/actuation inhaler Inhale 2 (two) puffs 2 (two) times a day . cyclobenzaprine (FLEXERIL) 10 MG tablet Take 1 (one) tablet (10 mg total) by mouth 3 (three) times a day as needed for muscle spasms . ketorolac (TORADOL) 10 mg tablet Take 1 (one) tablet (10 mg total) by mouth 3 (three) times a day as needed for pain . omeprazole (PRILOSEC OTC) 20 MG tablet Take 1 (one) tablet (20 mg total) by mouth . promethazine (PHENERGAN) 25 MG tablet Take 1 (one) tablet (25 mg total) by mouth every 6 (six) hours as needed for nausea . Allergies Allergen Reactions Bactrim [Sulfamethoxazole-Trimethop rim] Angioedema Tongue and throat swelling Latex Hives Acetaminophen Swelling Pt reports throat swells Aspirin Unknown Was just told as a child not to take Azithromycin Headache Bacitracin Unknown Bacitracin Zinc-Polymyxin B Swelling Citalopram Unknown Furosemide Unknown Neomycin Unknown Sulfamethoxazole Unknown Trimethoprim Unknown Cortisone Other (See Comments) Had shots in knee - caused swelling Ketamine Other (See Comments) Increased aggressive behavior after surgery Neosporin (Tcx-Mza-Tdnpp) [Dnpscbgk-Hvuurrdgtet-Wnkyb yxnb] Dermatitis Penicillins Hallucinations Procaine Other (See Comments) Swelling - but does okay with lidocaine Review of Systems Constitutional: Negative for chills and fever. HENT: Positive for congestion. Eyes: Negative for pain. Respiratory: Negative for cough, chest tightness and shortness of breath. Cardiovascular: Negative for chest pain and palpitations. Gastrointestinal: Negative for abdominal pain, nausea and vomiting. Genitourinary: Negative for flank pain. Musculoskeletal: Negative for arthralgias and myalgias. Skin: Positive for rash. Negative for wound. Neurological: Negative for dizziness, syncope, light-headedness and headaches. Psychiatric/Behavioral: Negative for agitation. All other systems reviewed and are negative. Patient Vitals for the past 24 hrs: BP Temp Pulse Resp SpO2 Height Weight 03/07/24 1011 (!) 142/75 -- -- -- -- -- -- 03/07/24 1008 -- 98.3 degrees F (36.8 degrees C) 80 16 98 % 5' 7 133.8 kg (295 lb) Physical Exam Vitals and nursing note reviewed. Constitutional: Appearance: Normal appearance. HENT: Head: Normocephalic. Nose: Congestion and rhinorrhea present. Eyes: Pupils: Pupils are equal, round, and reactive to light. Cardiovascular: Rate and Rhythm: Normal rate and regular rhythm. Pulses: Normal pulses. Heart sounds: Normal heart sounds. Musculoskeletal: Cervical back: Normal range of motion. Pulmonary: Effort: Pulmonary effort is normal. Breath sounds: Normal breath sounds. Skin: General: Skin is warm. Capillary Refill: Capillary refill takes less than 2 seconds. Findings: Rash present. Comments: No evidence of induration or (more content not included)... Normal [facility] Thyroid Peroxidase ABon 02-16 THYR PEROX AB > 600 High 0-34 [facility] Comment on above: Result Comment: Perf ormed at: [facility] - [facility] [address] [id number] Make Up Artist: Chencho Sanford PhD, Phone: [phone] Performed By: #### L 100.0100, L501.30225, L501.9310, L501.9520, L501.9985, L503.0105, L500.4100, L3300.6900, L500.4050 ####[facility] [id number] [place], [address] CBC W/Diff, Automatedon 02-15 Absolute Lymph 2.68 X10 3/uL Normal 0.83-4.51 [facility] Comment on above: Performed By: #### L 100.0100, L501.62418, L501.9310, L501.9520, L501.9985, L503.0105, L500.4100, L3300.6900, L500.4050 #### [facility] [address] [place], [address] Absolute Neut 4.1 X10 3/uL Normal 2.0-7.7 [facility] Comment on above: Performed By: #### L 100.0100, L501.15255, L501.9310, L501.9520, L501.9985, L503.0105, L500.4100, L3300.6900, L500.4050 #### [facility] [address] [facility] [place], [address] Basophils/100 WBC (Bld) 0.7 % Normal 0-1 [facility] Comment on above: Performed By: #### L 100.0100, L501.26929, L501.9310, L501.9520, L501.9985, L503.0105, L500.4100, L3300.6900, L500.4050 #### [facility] [address] [facility] [place], [address] Eosinophils/100 WBC (Bld) 2.0 % Normal 0-5 [facility] Comment on above: Performed By: #### L 100.0100, L501.45959, L501.9310, L501.9520, L501.9985, L503.0105, L500.4100, L3300.6900, L500.4050 #### [facility] [address] [facility] [place], [address] Erythrocyte distribution width (RBC) [Ratio] 13.4 % Normal 11.6-14.6 [facility] Comment on above: Performed By: #### L 100.0100, L501.20933, L501.9310, L501.9520, L501.9985, L503.0105, L500.4100, L3300.6900, L500.4050 #### [facility] [address] [facility] [place], [address] Hematocrit (Bld) [Volume fraction] 41.8 % Normal 37-47 [facility] Comment on above: Performed By: #### L 100.0100, L501.38143, L501.9310, L501.9520, L501.9985, L503.0105, L500.4100, L3300.6900, L500.4050 #### [facility] [address] [place], [address] Hemoglobin (Bld) [Mass/Vol] 14.0 g/dL Normal 12.0-15.0 [facility] Comment on above: Performed By: #### L 100.0100, L501.48913, L501.9310, L501.9520, L501.9985, L503.0105, L500.4100, L3300.6900, L500.4050 #### [facility] [address] [place], [address] IG% 0.400 Normal 0.0-0.9 [facility] Comment on above: Result Comment: IG% - Immature Granulocytes (promyelocytes, myelocytes and metamyelocytes) > 1% indicates that a LEFT SHIFT is Present. Performed By: #### L 100.0100, L501.97009, L501.9310, L501.9520, L501.9985, L503.0105, L500.4100, L3300.6900, L500.4050 #### [facility] [address] [place], [address] Lymphocytes/100 WBC (Bld) 36.1 % Normal 19-41 [facility] Comment on above: Performed By: #### L 100.0100, L501.65235, L501.9310, L501.9520, L501.9985, L503.0105, L500.4100, L3300.6900, L500.4050 #### [facility] [address] [place], [address] MCH (RBC) [Entitic mass] 29.6 pg Normal 27.0-32.0 [facility] Comment on above: Performed By: #### L 100.0100, L501.75958, L501.9310, L501.9520, L501.9985, L503.0105, L500.4100, L3300.6900, L500.4050 #### [facility] [address] [place], [address] MCHC (RBC) [Mass/Vol] 33.5 g/dL Normal 32-36 [facility] Comment on above: Performed By: #### L 100.0100, L501.97507, L501.9310, L501.9520, L501.9985, L503.0105, L500.4100, L3300.6900, L500.4050 #### [facility] [address] [facility] [place], [address] MCV (RBC) [Entitic vol] 88.4 fL Normal 81-99 [facility] Comment on above: Performed By: #### L 100.0100, L501.92510, L501.9310, L501.9520, L501.9985, L503.0105, L500.4100, L3300.6900, L500.4050 #### [facility] [address] [facility] [place], [address] Monocytes/100 WBC (Bld) 5.5 % Normal 0-10 [facility] Comment on above: Performed By: #### L 100.0100, L501.07896, L501.9310, L501.9520, L501.9985, L503.0105, L500.4100, L3300.6900, L500.4050 #### [facility] [address] [place], [address] (188) Neutrophils/100 WBC (Bld) 55.3 % Normal 47-70 [facility] Comment on above: Performed By: #### L 100.0100, L501.57470, L501.9310, L501.9520, L501.9985, L503.0105, L500.4100, L3300.6900, L500.4050 #### [facility] [address] [place], [address] (432) Nucleated RBC (Bld) [#/Vol] 0 10*3/uL Normal 0-5 [facility] Comment on above: Performed By: #### L 100.0100, L501.21434, L501.9310, L501.9520, L501.9985, L503.0105, L500.4100, L3300.6900, L500.4050 #### [facility] [address] [place], [address] (127) Platelet mean volume (Bld) [Entitic vol] 12.5 fL High 6.2-12.0 [facility] Comment on above: Performed By: #### L 100.0100, L501.95056, L501.9310, L501.9520, L501.9985, L503.0105, L500.4100, L3300.6900, L500.4050 #### [facility] [address] [place], [address] (692) Platelets (Bld) [#/Vol] 122 10*3/uL Low 150-450 [facility] Comment on above: Performed By: #### L 100.0100, L501.43576, L501.9310, L501.9520, L501.9985, L503.0105, L500.4100, L3300.6900, L500.4050 #### [facility] [address] [place], [address] RBC (Bld) [#/Vol] 4.73 10*6/uL Normal 4.2-5.4 [facility] Comment on above: Performed By: #### L 100.0100, L501.96952, L501.9310, L501.9520, L501.9985, L503.0105, L500.4100, L3300.6900, L500.4050 #### [facility] [address] [place], [address] RDW SD 43.5 fl Normal 35.1-43.9 [facility] Comment on above: Performed By: #### L 100.0100, L501.06117, L501.9310, L501.9520, L501.9985, L503.0105, L500.4100, L3300.6900, L500.4050 #### [facility] [address] [place], [place], [id number] WBC (Bld) [#/Vol] 7.4 10*3/uL Normal 4.4-11.0 [facility] Comment on above: Performed By: #### L 100.0100, L501.54273, L501.9310, L501.9520, L501.9985, L503.0105, L500.4100, L3300.6900, L500.4050 #### [facility] [address] [place], [place], [id number] Comprehensive Metabolic Prof [facility] 03-05-2024 Albumin [Mass/Vol] 3.5 g/dL Normal 3.2-5.0 [facility] Comment on above: Performed By: #### L 100.0100, L501.70548, L501.9310, L501.9520, L501.9985, L503.0105, L500.4100, L3300.6900, L500.4050 #### [facility] [address] [place], [address] Albumin/Globulin [Mass ratio] 0.8 {ratio} Low 0.9-2.4 [facility] Comment on above: Performed By: #### L 100.0100, L501.69290, L501.9310, L501.9520, L501.9985, L503.0105, L500.4100, L3300.6900, L500.4050 #### [facility] [address] [place], [address] ALK P 97 U/L Normal 45-117 [facility] Comment on above: Performed By: #### L 100.0100, L501.69596, L501.9310, L501.9520, L501.9985, L503.0105, L500.4100, L3300.6900, L500.4050 #### [facility] [address] [place], [address] ALT [Catalytic activity/Vol] 59 U/L High 13-56 [facility] Comment on above: Performed By: #### L 100.0100, L501.77265, L501.9310, L501.9520, L501.9985, L503.0105, L500.4100, L3300.6900, L500.4050 #### [facility] [address] [place], [address] AST [Catalytic activity/Vol] 39 U/L High 15-37 [facility] Comment on above: Performed By: #### L 100.0100, L501.83664, L501.9310, L501.9520, L501.9985, L503.0105, L500.4100, L3300.6900, L500.4050 #### [facility] [address] [place], [address] Bilirubin [Mass/Vol] 0.60 mg/dL Normal 0.20-1.00 [facility] Comment on above: Result Comment: For patients on eltrombopag therapy, use of Dimension [place] TBIL is not recommended. Performed By: #### L 100.0100, L501.67475, L501.9310, L501.9520, L501.9985, L503.0105, L500.4100, L3300.6900, L500.4050 #### [facility] [address] [place], [address] BUN/CRE 21.6 RATIO High 10-20 [facility] Comment on above: Performed By: #### L 100.0100, L501.73143, L501.9310, L501.9520, L501.9985, L503.0105, L500.4100, L3300.6900, L500.4050 #### [facility] [address] [place], [place], [phone] (947 CA,Total 9.0 mg/dL Normal 8.5-10.1 [facility] Comment on above: Performed By: #### L 100.0100, L501.90455, L501.9310, L501.9520, L501.9985, L503.0105, L500.4100, L3300.6900, L500.4050 #### [facility] [address] [place], [address] Chloride [Moles/Vol] 106 mmol/L Normal 98-107 [facility] Comment on above: Performed By: #### L 100.0100, L501.28601, L501.9310, L501.9520, L501.9985, L503.0105, L500.4100, L3300.6900, L500.4050 #### [facility] [address] [place], [address] CO2 [Moles/Vol] 23.0 mmol/L Normal 21.0-32.0 [facility] Comment on above: Performed By: #### L 100.0100, L501.95533, L501.9310, L501.9520, L501.9985, L503.0105, L500.4100, L3300.6900, L500.4050 #### [facility] [address] [place], [place], [phone] (174) Creatinine [Mass/Vol] 0.69 mg/dL Normal 0.55-1.02 [facility] Comment on above: Result Comment: The validity of the calculated GFR GFRAA in patients over 70 years has not been determined. Clinical correlation is essential. Performed By: #### L 100.0100, L501.32908, L501.9310, L501.9520, L501.9985, L503.0105, L500.4100, L3300.6900, L500.4050 #### [facility] [address] [place], [address] (623) EST GFR - AA 125 mL/min Normal >60 [facility] Comment on above: Result Comment: Afri can Ecuadorean GFR Calc Performed By: #### L 100.0100, L501.61526, L501.9310, L501.9520, L501.9985, L503.0105, L500.4100, L3300.6900, L500.4050 #### [facility] [address] [place], [place], [id number] GAP 7 Normal 5-15 [facility] Comment on above: Performed By: #### L 100.0100, L501.73887, L501.9310, L501.9520, L501.9985, L503.0105, L500.4100, L3300.6900, L500.4050 #### [facility] [address] [place], [place], [phone] (055) GFR/1.73 sq M.predicted among non-blacks MDRD (S/P/Bld) [Vol rate/Area] 103 mL/min/{1.73_m2} Normal >60 [facility] Comment on above: Result Comment: Non- GFR Calc Performed By: #### L 100.0100, L501.73424, L501.9310, L501.9520, L501.9985, L503.0105, L500.4100, L3300.6900, L500.4050 #### [facility] [address] [place], [address] Globulin (S) [Mass/Vol] 4.3 g/dL High 2.2-4.2 [facility] Comment on above: Performed By: #### L 100.0100, L501.66063, L501.9310, L501.9520, L501.9985, L503.0105, L500.4100, L3300.6900, L500.4050 #### [facility] [address] [place], [address] Glucose [Mass/Vol] 174 mg/dL High 74-106 [facility] Comment on above: Result Comment: Fast ing Glucose result greater than or equal to 126 mg/dL suggests DIABETES MELLITUS per A.D.A. criteria. Performed By: #### L 100.0100, L501.40911, L501.9310, L501.9520, L501.9985, L503.0105, L500.4100, L3300.6900, L500.4050 #### [facility] [address] [place], [address] Potassium [Moles/Vol] 4.0 mmol/L Normal 3.5-5.1 [facility] Comment on above: Performed By: #### L 100.0100, L501.45757, L501.9310, L501.9520, L501.9985, L503.0105, L500.4100, L3300.6900, L500.4050 #### [facility] [address] [place], [address] Sodium [Moles/Vol] 136 mmol/L Normal 136-145 [facility] Comment on above: Performed By: #### L 100.0100, L501.79348, L501.9310, L501.9520, L501.9985, L503.0105, L500.4100, L3300.6900, L500.4050 #### [facility] [address] [place], [address] T PROT 7.8 g/dL Normal 6.4-8.2 [facility] Comment on above: Performed By: #### L 100.0100, L501.72862, L501.9310, L501.9520, L501.9985, L503.0105, L500.4100, L3300.6900, L500.4050 #### [facility] [address] [place], [place], [phone] (765) Urea nitrogen [Mass/Vol] 15 mg/dL Normal 7-18 [facility] Comment on above: Performed By: #### L 100.0100, L501.10553, L501.9310, L501.9520, L501.9985, L503.0105, L500.4100, L3300.6900, L500.4050 #### [facility] [address] [place], [address] Free T3on 03-05-2024 Free T3 [Mass/Vol] 3.0 pg/mL Normal 2.18-3.98 [facility] Comment on above: Performed By: #### L 100.0100, L501.56532, L501.9310, L501.9520, L501.9985, L503.0105, L500.4100, L3300.6900, L500.4050 ####[facility] [address] [place], [address] Hemoglobin A1con 03-05-2024 HbA1c (Bld) [Mass fraction] 6.3 % High 3.8-5.6 [facility] Comment on above: Result Comment: Norm al < 5.7 % Prediabetic 5.7 - 6.4 % Diabetic >or= 6.5 % Please note range changes. Performed By: #### L 100.0100, L501.04266, L501.9310, L501.9520, L501.9985, L503.0105, L500.4100, L3300.6900, L500.4050 ####[facility] [address] [place], [address] Lipid Profileon 03-05-2024 Cholesterol [Mass/Vol] 158 mg/dL Normal 200 [facility] Comment on above: Result Comment: <200 mg/dL Desirable 200-240 mg/dL Borderline >240 mg/dL High Risk Performed By: #### L 100.0100, L501.64037, L501.9310, L501.9520, L501.9985, L503.0105, L500.4100, L3300.6900, L500.4050 ####[facility] [address] [place], [address] Cholesterol in HDL [Mass/Vol] 71 mg/dL Normal [facility] Comment on above: Result Comment: The drugs N-Acetylcysteine and Metamizole may falsely depress this assay. Reference Range HDL <40 mg/dL Low HDL Cholesterol HDL >or= 60 mg/dL High HDL Cholesterol Performed By: #### L 100.0100, L501.24271, L501.9310, L501.9520, L501.9985, L503.0105, L500.4100, L3300.6900, L500.4050 ####[facility] [address] [place], [address] Cholesterol in LDL [Mass/Vol] 70 mg/dL Normal 0-130 [facility] Comment on above: Performed By: #### L 100.0100, L501.23684, L501.9310, L501.9520, L501.9985, L503.0105, L500.4100, L3300.6900, L500.4050 ####[facility] [address] [place], [place], [phone] Cholesterol in VLDL [Mass/Vol] 17 mg/dL Normal 5-40 [facility] Comment on above: Performed By: #### L 100.0100, L501.28571, L501.9310, L501.9520, L501.9985, L503.0105, L500.4100, L3300.6900, L500.4050 ####[facility] [address] [place], [place], [phone] Triglyceride [Mass/Vol] 83 mg/dL Normal [facility] Comment on above: Result Comment: The drugs N-Acetylcysteine and Metamizole may falsely depress this assay. Serum Triglycerides Reference Interval Normal <150 mg/dL Borderline high 150 - 199 mg/dL High 200 - 499 mg/dL Very High > or = 500 mg/dL Performed By: #### L 100.0100, L501.59714, L501.9310, L501.9520, L501.9985, L503.0105, L500.4100, L3300.6900, L500.4050 ####[facility] [address] [place], [place], [id number] T4 Total, Thyroxinon 024 T4 [Mass/Vol] 8.7 ug/dL Normal 4.8-13.9 [facility] Comment on above: Performed By: #### L 100.0100, L501.24486, L501.9310, L501.9520, L501.9985, L503.0105, L500.4100, L3300.6900, L500.4050 ####[facility] [address] [place], [place], [id number] Thyroid Stim Hormone (TSH)on 03-05-2024 TSH 4.410 uIU/mL High 0.358-3.74 0 [facility] Comment on above: Performed By: #### L 100.0100, L501.40360, L501.9310, L501.9520, L501.9985, L503.0105, L500.4100, L3300.6900, L500.4050 ####[facility] [address] [place], [address] Vitamin B12on 03-05-2024 Cobalamin (Vitamin B12) [Mass/Vol] 321 pg/mL Normal 211-911 [facility] Comment on above: Performed By: #### L 100.0100, L501.42229, L501.9310, L501.9520, L501.9985, L503.0105, L500.4100, L3300.6900, L500.4050 #### [facility] [address] [place], [place], [address] ED Prov Noteon 02-04-2024 ED Prov Note ED PROVIDER NOTE [facility] NAME: Phillip Queen AGE: 33 y.o. : 1990 VISIT DATE: 02/04/2024 CSN: [id number] PCP: No, Physician Chief Complaint Patient presents with Dental Pain Right lower x 2-3 days. No meds [employer]. 33-year-old female patient returns ER for evaluation of dental pain. Said 3 days ago, dull aching pain, intermittent, worse with eating relieved with rest. No associate fevers nausea emesis, no trismus, dysphagia. Past Medical History: Diagnosis Date Anxiety Asthma CTS (carpal tunnel syndrome) left IBS (irritable bowel syndrome) Past Surgical History: Procedure Laterality Date ADENOIDECTOMY ANKLE SURGERY Left 2015 Dr. Vasquez ?type - can't recall CARPAL TUNNEL RELEASE Bilateral 2017 one year apart - dr perea / justa? KNEE SURGERY Left 2008 meniscal scope - Dr. Vasquez - TONSILLECTOMY Family History Problem Relation Age of Onset Diabetes Mother COPD Father Dementia Paternal Grandmother Social History Socioeconomic History Marital status: Occupational History Occupation: unable to work Tobacco Use Smoking status: Never Smokeless tobacco: Current Types: Chew Vaping Use Vaping status: Former Substance and Sexual Activity Alcohol use: No Drug use: Yes Types: Marijuana Comment: medical marijuana in past Previous Medications Medication Sig albuterol (ACCUNEB) 0.63 mg/3 mL nebulizer solution Take 3 mL (0.63 mg total) by nebulization every 6 (six) hours as needed for wheezing . albuterol 90 mcg/actuation inhaler Inhale 2 (two) puffs every 4 (four) hours as needed for wheezing or cough . budesonide-formoteroL (SYMBICORT) 160-4.5 mcg/actuation inhaler Inhale 2 (two) puffs 2 (two) times a day . cyclobenzaprine (FLEXERIL) 10 MG tablet Take 1 (one) tablet (10 mg total) by mouth 3 (three) times a day as needed for muscle spasms . ketorolac (TORADOL) 10 mg tablet Take 1 (one) tablet (10 mg total) by mouth 3 (three) times a day as needed for pain . omeprazole (PRILOSEC OTC) 20 MG tablet Take 1 (one) tablet (20 mg total) by mouth . promethazine (PHENERGAN) 25 MG tablet Take 1 (one) tablet (25 mg total) by mouth every 6 (six) hours as needed for nausea . Allergies Allergen Reactions Bactrim [Sulfamethoxazole-Trimethop rim] Angioedema Tongue and throat swelling Latex Hives Aspirin Unknown Was just told as a child not to take Azithromycin Headache Bacitracin Zinc-Polymyxin B Swelling Cortisone Other (See Comments) Had shots in knee - caused swelling Ketamine Other (See Comments) Increased aggressive behavior after surgery Neosporin (Kep-Bzb-Nddrz) [Mcdqjqko-Bhnucdzhsii-Fcgaq yxnb] Dermatitis Penicillins Hallucinations Procaine Other (See Comments) Swelling - but does okay with lidocaine Review of Systems All other systems reviewed and are negative. Patient Vitals for the past 24 hrs: BP Temp Temp src Pulse Resp SpO2 Height Weight 02/04/24 0807 (!) 155/87 97.5 degrees F (36.4 degrees C) Temporal 75 16 96 % 5' 7 136.1 kg (300 lb) Physical Exam Vitals and nursing note reviewed. Constitutional: Appearance: Normal appearance. HENT: Head: Normocephalic and atraumatic. Comments: Decayed molar to the right posterior oropharynx mild soft tissue swelling around the gum lines, no obvious periapical abscess Right Ear: External ear normal. Left Ear: External ear normal. Nose: Nose normal. Mouth/Throat: Mouth: Mucous membranes are moist. Pharynx: Oropharynx is clear. Eyes: Extraocular Movements: Extraocular movements intact. Conjunctiva/sclera: Conjunctivae normal. Pupils: Pupils are equal, round, and reactive to light. Cardiovascular: Rate and Rhythm: Normal rate and regular rhythm. Musculoskeletal: General: Normal range of motion. Cervical back: Normal range of motion and neck supple. Pulmonary: Effort: Pulmonary effort is normal. Breath sounds: Normal breath sounds. Abdominal: General: Abdomen is flat. Bowel sounds are normal. Palpations: Abdomen is soft. Neurological: General: No focal deficit present. Mental Status: She is alert and oriented to person, place, and time. Mental status is at baseline. Psychiatric: Mood and Affect: Mood normal. Thought Content: Thought content normal. . Laboratory & Radiographic Imaging (if done): No results found for this visit on 02/04/24. No orders to display Procedures Medical Decision Making Patient presents to the ER for evaluation of dental pain secondary to decay fractured right posterior molar associated mild signs of infection, she is overall well-appearing, no acute distress, no clinical signs of RPA, [employer], Reynaldo's or other acute necrotizing infections. Will place on prophylactic antibiotics, pain control, follow-up with dentist. The patient has been informed that they may have pre-hypertension or hypertension based on a blood pressure reading in the Emergency (more content not included)... Normal [facility] Coding Summaryon 01-21-2024 Coding Summary HTMLBase 64 NqzldxgyTNo8aXj+PGhlYWQ+PE1 NLIShH84pyHYdrA1fS6INXCcGYr llWKPYBBvWLeQsprVuSE3nuREeA XJu IC8+XO8oMVCvFgpxoBWvw2F6gCO 8O53evb1gDVzbtZH2XXCsReBdhc kon7fthZy4ATjvLrveNjNl KCBefP38GQV1zN25Yw66sFHmjKC bh2irqZf0NfCcAFKnCMC5aDlbJE vzf2NdUMYqJ53zeFKwk9S3 OPZfoGxcbDWrVmNkgPX7jT4gXCs kvxkbz4fingwlWic6oi22vHYiy8 Q5cMF6C3XekjC7NIBtqAGf UasfkYTRbT0qoagrp8gucrxaGjN kONVeEQf2SSq2SJNgwDwvUjElBB 66AGW6DNHjxgOdP4JdSSVb jHmjLgK5h6C8Qy8FW0QXYgtoO8O NTUFSWTwvdGQ+EJ15la79B0LmGn emChy7KKYrEER4dTN4oF3h TEXiSBelc9A9lCZ4H4GvsiFdim0 sr9rzSZXsTDaqQ47veCNfr2E8QB UuzWX6EMRxsIkoRkNgkL43 Oyc+MNDenGajd0LpPjnxj8qtm8k juUg6HwlhWXTubcUeoPppGHO9q1 CyUq6pRQXijGM7fQJ7oR6v KsIlQtB9FJprV033GrXtxQUoCtt dG00lJ5DihDN+IRVyYap3VINohF mtDY4mH8PzFYNlipwrxGXs cJsaWS5eBVLdrqpbAZTjjZ8kUXT mM2u1PiGfMaX1JNtmB5MhVQXfjr ahDb52yO9nRcFgEhO1LYtf M7RacgC2NUThqUJhDGwsHSZ2L63 sj7W4EEXsZBQgFHU4qJK1rO3ddL lnbjogbGVmdDsgdmVydGlj VZxtHFfmM900NOKvhDdeVlMhLYh uZyBEYXRlOiAgMDgvMDYvMjAyND wvdGQ+VADcSRQ6dWnlXXIm yVIxMEprVf7zgMvdiGllEJ2nGIU ccjrpJPUbxQ5eZXBmlZTslDzgKS 0fMUAslppfo899XuFsDFD0 YDRxeJEvJ8JoyZ5iPvRtTXRaBNQ qV2MzgNChDDssO592LJfuOuN2TZ PwyuLxQ1UgXPEmvExoHxJ8 e9K0Xt2Lt5YzbcgxC9ZjjEToGeQ jWdafJDa9K3QwUsojfUE+PC90YW PpIH43WAa1YNC3aIazAYoj WXLuS1XcfU4eJfSjCDYrNWOtBtf +PHRhYmxlIHdpZHRoPScxMDAlJy XfiBsqDR8eKb5iECMyGZOx yOhsdPJwSaGgj1etTJLgRQybQV2 hvKoxX9IicLV7GXDid5y1Np60G9 6nX6ImpOQ+DIWptAT7tNG3 qP9zEgGjGhU7VPylP033UyKuvYF hTzllz3qje4mmrVb9TeE6QLSrst HbnNiiCRU7o9AvAy18G58a IHdpZHRoPSIxNSUiIHZhbGlnbj0 uzO5gJa1+DZHjhAS7fBE0jJ0tFh AiRtV1RUqnZ988KhAfeHEq Rybod7qlm7yeiDk3PuJkYVUfyaM aeHlaRJC8i6IbKd63G7RmnQwlw9 LwEmf6pz93lLEqp8H9vMM6 U2VdJSRhkegcbKHqzVefMG3bAMT mzmaoYYKupH3sOUHrF5s3FsOgYv A7ZDhuT8KfgrC3OEGjgJCl QMKlaDDSaW0axkgiw4qprgtoNlJ rVPYbKJf5USh4WJGwuTprOnBnNC N2PbQ0XIT8rKBdkM7vbXzk lqrqxA6eKrv+IQR2rYQaiSGJJR0 lOjwvdGQ+PXUtPCS8qFjdRKrhJC JutR1yHNKzZ9g6JrXlCrB6 NPfpB2CamjV7OWJsrHZeTPGehNQ KcY7swumuz5plemmaJcRiONDkDU x9EVa6EGKygZycOiRjIHO4 XlD7IWH8dHNthV0laIwkytajbR4 wOyc+LinibIkkWVV3MLa9X9VsGx r1OSDxcXonMK9evJIpKFfp Nh0cyRjrmAlgQT3gYTUasadbq62 0NlTkx2dyWKIvoJGiTJxzNEP0G6 2ib4C3RUXuHCKbJQU5gNK8 hK7hwDkmnjxszORjfXsqcxIueDn jPAmxPRavQ505SZPjvKxzLvKxZY k7N1IdByq5ZTIcrDkiJS9o oEYdHLehNk4cqAjjaKeyRK9wDHD lexzhd658SvStt8jeHDOkrYSyIL yxXXS0O61tb3L9KKJyQSWm VRF8yYD9sN9znQpsdjjcaHQvmRg iucTanVrmWGtzQMknT873YTBlxW vbJiByfWn5G1SyWri7DLBl kMhhLI5whBJhKLmqWu2ouEpguPh eWF8kRQMishpeb811XlTxv2thHO SbjQRoAHodUGB3V65aj3I8 FTTbPJJtNMD4bAH6hB5iwZcxxmz gbGVmdDsgdmVydGljYWwtYWxpZ2 46IHRvcDsnPlBhdGllbnQg LLzyDMh8R8MhOrvpbZT+XO47MRP mSM33bHQnbRQiq8larHp4SmNjJK PiDCD3mUlsLOmqn3LuRQFp E77pbOMsk5F6IZTzqCkbmZLyDiB jvNV5kY2gFBrjekaur3uuflyiLq gmm7ucnd58iS77Z91xIVwu IPKiEXGxWUOqIEAwjOutsc1luZ3 wIi8+RLNrwRS2dHQ6jD9aYKHfFu V8KMaxJ690OjKbtBIfJkeq n9urc4vtrUy4PpP5ABLdxkCxyXx eMTJ9w0MrDi23R28nXHakFAZqTO AkILYiOCHqqQpwso9kfX5y Ii8+NZBdcFE6aFP2lN9oGwSzMxA 0EGnlA127EcYwnPHsKpvaR51xQ2 JvdXA+YLXgGsj7ANMnqJim NL8bxDObZPamTm8lUWB6IzXjQaK xRWtaC6UpYGAmsfhndruvyVK5CV UpQLCfuD74Cg3otWmgQZZh mIDRfL5yarbqm2jldrzaWfVuUFI iJMw3LXh2GOBwfHzlSaEjMOH0Am P1NPJ4lUOxgG2ayNddaadb rV7oS5PxUTJcohvvBr84xC8eLpQ sOzQ3TGxbJfq+WUFORUssIEVSSU 3iDNFOLNY6F4ZzXhi9SJFx hEcnMX5seVVvDThzPg0keTbceYy hLK5jILGeylfrCZEurE2yQVTebZ WdcRkzOU5dLVJjqucbt957 MlKfFQR1YHQbcELbP2JnvT9cOhK wMMCoHMFxL0AgiVQiIMocF129ER baAtZ6TXInrsXmI5VoJXNe zZiuDlL0r8C6We7jBD6nVp1rTPb pAA15IP11cBFoz6H9kVH7V1RyZD CopwpljfpumCD8SDJvLFJu pK51jSAeFXqoVq3qv9K7u790GFJ tHICjuK46Ab3spJksZHBhsQWEaN 5xpqoiz5qfvqxtJkHjXHYs NCb5QJt2UWJyzAlnErAlSJC7TbQ 0PXT2tQOipE9eaGnwdpcwwG4rXa c+CbFpCYInfjR6N0UhUuf2 SENetTtrIO6giRPoJOsvAu7jmRb tnHehTX8fZVHjkltbWBTswZ8nBP TbvUMwuRxfBO1yLTCxtkag a854ToYvLLV0ECNkwCHaE9EprP4 dNpNiBLMtRQUcI7HirMXdHDfvY9 05QPogTdQ0WIUsynYaJ1Qd GUQrrEsbNdV0i4H2Tj4QDM5GQMN 4K9CaDjk0RZKtuXriRL0mqYMiDC pzQm4nfIucyNzvJK1gEUZz cphwKFJcyL8gVNRxgHEigLjjGD1 qMKPyumbpw452QkPiNNB3KGDbbP MxQ1UycB4xBtGaORBhFOWg G0OheLEqCTjiG278HVowTtI1PSO kxhPkN9FqODWxyJwgDqC8r1X4Om 4KqNOwA4QtP1r3O6AlYvni dHI+CF52AZXlCF58cQFijQDhg3j ejFp4XwWqRTLlKPC0jKqhVXwvs0 UsOKNaY36dwPNmx4P9WAGa nQegjCWsEaNbgMM9wX0pBEoucfq rf8kvnduwPcwco3aozz16kK27B7 9sIHdpZHRoPSIzMCUiIHZh pYignx2lfG3vXh6+ZRNswCY0qZT 1hW3sIvYgImN5IEzrH090SsHdqX SoKhxxj9ytt2urdLv8WcLg UZMutuEwkBftTDT3g9EvHl24U78 sIHdpZHRoPSIyMCUiIHZhbGlnbj 3wuB8eAq7+BI2dc9rxup01 dL07iNB+XGToMUA8eMvyGIoqZLP chW7dOYvoDgF9NVTjEyJhcW95aW LiZUspQh5roPmrjWspHN8g CMOtevkmu374WmSbx2jaYWLxoWI wVNwaMGF7B63xl7Z5CYDyHOZvLZ F8ySP7xM7teRnwcshulBLg wYplivUasDiqEMpwXCixI649RQC rcThrUeJtrSNnW7ejpuTRLC8dLh wvdGQ+TRIhIVD2aWlvVDln REBtwO4fWTMoS3f7OkDkYsR8LHq pI8LdlrD6OPQytQEmNRTvjSFJtW 9eskjfw7efseffZoCnFWRk JIk7UXu5IYIjmVebUuXgQOP3PdS 9LES6aQQtiJ9emYjmbrpzlB0aKk c+RklOOjwvdGQ+PHRkIHN0 pWehABgxJKEzeN4nEPYrO6p0CyN dGfJ7RApfQ0KieqE9WFAmoYIaJU YzvQPHiF0szohve9pzztkl BpGoHCEsWMb3BRy6LDEmiHlwWyO qTCE7XxR4PRD3vFKifS2asUrzwg wpbC6oNss+TVJOOjwvdGQ+ DGQqMVF2tVnpKNmeLADcbT7fEIU kK5v1IoWhMvL5LYdtP9EebtG0RX OxyPOpZURnpOSRnM2dpzyh q6uglyybMrUcYDRdCBq8LWn2NDJ zlHvdWoKoRJH9HfC1FKI6bXQjsQ 2ryLmsrkatdT2zVgj+UGF5 NCV0LN59QN92B8GdZoqeqDLcnGV +PHRhYmxlIHdpZHRoPScxMDAlJy OapBmiVP9qOh0pDJCoKCEp bGx (more content not included)... [facility] Coding Summaryon 01-17-2024 Coding Summary [employer] 64 IbromwwrRAt4jRd+PGhlYWQ+PE1 HNMMwP20mzDDhbM8bJ5QJGJwZRe pwSHOBMXdKAcNqwrJrLG6yoXWfW XJu IC8+XN3pLIOaDniymQJhw7L7yTL 9T71zrw9gMIpmfMM9FZBsHcSwrx zev2iodIb7RBqrEdmrApLa ZUNziE51GUZ7nZ88Br65aAUgnGT ka0skqNh2QgWvMWNyGSM9nFmnKB bgd3ReSAYoF53tcFIlh9A7 KWOkjHzzdMAsOgNxbMH4cC6hTUv ihprtt7petzghAbr4dw24rNHey8 M5tSE0Q6LtifG3YXSnrONy EjxenRWVxH6scqlzh5inquijKmL gDOThAHv8PZf8ZVGeeNbgAhFtZO 44QMO0PDTjekGtA2XcEQRp xKqjOdR6b8E8Vk5XK0NXOjxeR1A NTUFSWTwvdGQ+SY80yc26H7TgZm ivIll8THImTIY9uKO3jC2b QOMpYFjvc1B9jWG5Y6RfitMyav5 gr7goIDSaXJabF37rjIOpe7Z5KW TqrMA6XQGbdBfnZdIxdH05 Oyc+TYQcuRicq7MfXkyfg0wgr1o kkNp4FmhmRDPubcZppYqpSWZ2p6 IfLr6uJCIxgFG9iYQ8pF6n UjUaPgV4JJtuY664EjCziISvJuw hO26xD2UphNC+KWMoFex1ZTBawV hzIR5hT9RrDFWchbpsqZXw iRwwJO4pOGQrzrpfFNBkeK0kLTT qZ8l5VhIiGlH3MYcxD9DxRCWydv onLn30kB9cIhFiHkE0NWnd U5ZdquS5FSWlpQKjEUseRVI9C32 el0U2ARQiWFQwMAO9vRX3eX7dxR lnbjogbGVmdDsgdmVydGlj QVviJCxqQ403NDZcjFavMwKnVZd uZyBEYXRlOiAgMDgvMDIvMjAyND wvdGQ+CFXiWMB1nSgoMDDn yRWdTYtySp1leImegOwkHB4fCYZ olxdjSWImxA5hXXRidRMmzEnhYK 3lDZMhbihog391EdFfAZF9 MNRgrEWjE4RdfB9bKpHaLCLpUQU gT6DuaVShXArqX169BXxaXwP6WQ OrssYoM7AaQTWzhRulKgU2 t0U1Oo5Kz0RdoritI9MmrWHfHfZ tXrahTGi0N7TyLodqgUZ+PC90YW AlRU03NAe6HWJ4pLxoXWli LVQrD2WmeT9rXiFkNXOcHIDpKsd +PHRhYmxlIHdpZHRoPScxMDAlJy ZfhFxsEL4oKx6oUIJfDZSe aTqvdEXrVyKfo7siSHXpQZgxKM1 paPgwG5YfzJR1BSLmv3t3Hi21U9 7lG9IrmZP+QZXhuOD1eNI6 rH0zJjPsBaP3MWnuQ144LhJcfOI uBvldo9pac9ralQb8OgI6IWReyd QkxBopCLP1t6FdPl55P67z IHdpZHRoPSIxNSUiIHZhbGlnbj0 zwQ1dKv7+BNUqjUJ3dHF2fF2xRw FoWvT6BXwdT255QmMurEYw Wnvhy1ybg0wgfHk1CtUyDGLexeW thSpjEXM2x6YfRv32U0GbrRpnk5 TxKtw9gx59nITaz9V9aPM9 J4RgCSPhdelcaPMvlGmbDI2tHVV vdtrlTDDlgW1fVXVaY2y4VkSzDv S9FCijS9ErluB4YHMnmBEc FGBwjKIGkE2xiutua7cqvbxmIoT mGFGbWAa0IEd3RXQwyUxwCyAmWV D4AtW1LGM2zVMhsN8fwLez almvmB0rJmm+GEO9fNBecRQATI8 lOjwvdGQ+EPOaDNB9kIgcDGyeED MfoM3dCWKqR0r8SnCdCoI0 UAzeP6FlooH8TMOjfCWuGGRpoNF OdQ0vnhqyg7ncnvarFwIwEJUaCP f7KUw7GRJokMbjCrOdIRM2 VhR2PKM2jJBzpB5scJtzouxixA9 wOyc+VxaqrCzhQMZ8FTe2Y0NgEk e2QSMzsZfdJH4ekDOrPNgh Jq9bjRfmrSzuFL1gSAPktvkfh63 6HxEni9irRVFmdNLvKZiwGXZ5J4 0fu6P5VYQhATAnGTD5vRO5 iP2cmQnwinlwjQRdjBgqheGohEc pZOfwGUnmO426RCYytPxsXqBfDW c7J3DfTes2XBRhgIiuFL7t nAGpVMfeUk7ltMgzfEvzYA3uNFX cpduum277IwHat0vqSFQdsDLeOJ anATP1X37nc8M2BHZsKMYe LVE6jZF0hK8epHjglbwgtOFvpFd hmpDvaJbaIZnxFBiiU961VJKljG ibEgFwzQe6R1EkTnk1PGAu tUypZT7hrRIlQAekVq3rmSiszAx iXH6cHZGzzzciu045JzErt9ofEO SitTTqWAwbTGB4E76gf3M1 KRWgCNEsSFZ8tLA2wY1bpTguqky gbGVmdDsgdmVydGljYWwtYWxpZ2 46IHRvcDsnPlBhdGllbnQg WNjtBBo1G6NtRllusHU+BK94DLA hEW26jCEoqYThj2driTw7JoPwOD VgGSY8vZqoEDptq5GoZSAy B14aqOIxz4K5UOXckFvajVSnWrT yhCZ8xC4vXCveoupsk0gcvwitOz wnr1hfvu54zD01S19gCSog JEFaZKJdTPWrJBVpdOpowy9vyC2 wIi8+ZVHmeYF2tJU3qE6wMIMaZs G4NAolG282NfBvmHPkBvet t2wbf9kukCh2TgZ6RTUavfFjhOb vEFV5e4SzQm49W71fKHtiPLAjLF PdVCKrEUObbAqnmf3ueC3y Ii8+MQTiaJO1hJC8aQ2aHgEiQlS 9SUmxF565UdQilURvCsojF25nV5 JvdXA+QKGrOsz7JWNbvMqn IR5jzUIhTBuhDc3kIOZ9OxNpIxK qVXgaV2ZcJDInuzsilpthoFW4DP NcTYHymA61Nv7xgIakERGt qOVItC2vkvrwd8qzdavyIiMnDGL aAGo2NEc3NIFiwFbsNdFyGMM0Ji L0TYO7yMPthO9oeNggxgfa zN2gU5FmUXUpdepyAa69uI4lMaZ lObB7OFogJfi+WUFORUssIEVSSU 2pOEGICOO6E7FmXuh4ZWYq dGlyZV4ibDZbGWtjIq9mqRrfuLz pHH4rOGKqqoiwOHDcjI5tFOTjdV GhkJbeYE9vTBYfjzakw425 XxLaHZE4YDDwrHMpJ5DiaE8sMoM gTKGpQZOxQ6BxgOHjVFniX154DB aeAaP2QYJgqmNcF9WiSRIw iPmzYuV2r6I8Lz0fHS9dNk1fYKl iJL32SZ97uNJyt8H7hOF4J1QxUL VywkcktfrksGZ3GEPzXGQh sR32aOJgERikRj8lz8S6p584ITR lAUTksY60Gm3hlRopCGYllYCGiS 6lbeytt7xngmuvBgTeBPSa QBh1ESq0XXUqlAekRiVrSFM6CrE 2VQV0aAZjzD2nuXqnxrzlfW6lDy c+ImKzCXKgtxK3Z0QbJwo3 YGYipFtvWE8vwJNrIYdwZh1fqWq ydKcrLV5nBGPpwklbHIKhpW8aCC LjsAZyjVtdCX1yLZOpxfry p501OxCmCBE3BFSeoULxC4PfiU0 qOsEkOUGnAGVpE2XdkDRwJFqaL6 84UDszTbD9VJOzzaVbQ5Qs VLXtmYfpVoM3r1M5Xc9EEU6UVEN 5A2QbOjq7NKMkdHrmRX2sqHFoON rdQh1teGnwkMgjDC3iPWQe kgdoXHSkbD3xDRGoxEHbfEndIE3 eKKZlljneu231XiUoLWN2DJYwhV FaS5DkcB7bBuNdJJKwLHNk L8HqqSXzUBmhN783KIecDkL5DFZ smpSpE8HdHCUbsZieHvT5w3B5Mr 3JjNUyH6FzE2o4L7CxVrhc dHI+CU73YJWtXW22kTJgrPVmh7r avAs1OjFfVKVbXKN7nMzqDNfss5 BsKHWkA19inWRyj2I5MQJy lFgjyZRyNhKywWJ4uK9aZInlbiw yb2xvzolxKoytm0fdml52zH80U9 9sIHdpZHRoPSIzMCUiIHZh bRcvla8ugP6wXg4+INCyaAE4yPF 0gP7jGwAtNbB6EQtgY404UaBysQ TiKgfjn3chn0xtuIm0BhRd UMXvrsUuhMpmIEL7z8WvOp48W72 sIHdpZHRoPSIyMCUiIHZhbGlnbj 1qeD9zZn4+VG4aq9wdbm45 xN82eXB+IRIgCLX6jBkzEWovNQR osV8mXIpuEfE8CWSeVsJoxQ21hJ LkWWznOe1ykVhwvYspXV3m BEXrlwrpw626SlNle4zdFCHygLS qJLjfRQA5M11wo0I5GMAhBAZlOY V5nLG2pU8dbKknrvnrxNBu aBfumoOokCeiQRvoITrqV458OIF wiOuwEmHbkDDcV4yclpQUUD8lUp wvdGQ+ZLQtYNH1zXykXSxo QREggV0gTKItU6q2QwZfOuW3QWr qK4LcclO4DAZhsBYgTVZqdPOQeA 3ihczhv4ohtkrmPaFuJYPz VTp4BJe0KLRonBikNqPpPCC0BkY 3XWU7oYAjmT5sbVjetbpggX4xIi c+RklOOjwvdGQ+PHRkIHN0 iJxwNFagZLIqfA0uHARaT1w4OwI jLiR5EYteT5KhfbF6APDnrYHuLT QoqQAXmD9vvdtkd4vcaszg GmKiMZCiGMt5QUt8LKFxaSxtQmC tKIZ2RfM8LUV2mWSqnH4bfVirsy cykU9yTzh+TVJOOjwvdGQ+ RTGbUES0iAfnHOdaZHOxeL9nCMS iM0h5ObViSuG0VLayT6NectH6RW UugDVhJWKhyRNSqB4eonir u4mlnsyjIbZbSWScZNe1ZKk1RKF xgPipXiPqISE8AoI7GYQ0qCFraJ 0kzKpcfwcbuA2bMfm+UGF5 LMV8FH14FG61W9KzSlqsaAWriVJ +PHRhYmxlIHdpZHRoPScxMDAlJy MnxEkxQX2kNu2jXTIzCZQd bGx (more content not included)... [facility] ED Clinical Summaryon 2023 ED Clinical Summary [facility] Emergency Department [address] [place] [address] ED Clinical Summary PERSON INFORMATION Name: PHILLIP QUEEN Age: 33 Years Sex: FEMALE : 1990 MRN: Acct#: Visit Reason: Toe pain-swelling; INFECTED TOE RT FOOOT Arrival: 01/10/2024 17:21:10 Discharge: 01/10/2024 19:19:00 LOS: 000 01:58 Check In: 01/10/2024 17:21:10 Checkout:01/10/2024 19:19:00 Address: [address] [place] [address] PCP: Provider, None PROVIDER INFORMATION Provider Role Assigned Unassigned Hal Argueta MD ED Provider 01/10/2024 17:33:24 Carine Wagoner IT NETWORK ADMINISTRATOR Nurse 01/10/2024 17:49:42 VITALS INFORMATION Vital Sign Triage Latest Temperature Tympanic Temperature Temporal Artery Pulse Rate O2 Sat 94 % 94 % Respiratory Rate 16 br/min 16 br/min Blood Pressure /58 mmHg /58 mmHg MEDICAL INFORMATION Medications Given: Allergy Information: Bactrim; Neosporin; penicillin PHYSICIAN DOCUMENTATION DISCHARGE INFORMATION: Discharge Disposition: Home Discharge Location: Home PATIENT EDUCATION INFORMATION Instructions: Ingrown Toenail Follow-Up: With: Address: When: Follow up with primary care provider Within 3 to 5 days With: Address: When: Provider, None [address] [place] [address] Within 3 to 5 days DIAGNOSIS: 1:Ingrown toenail Patient Understands: Yes - Patient/family/caregiver verbalizes understanding of instructions given Comment: [facility] ED Patient Summaryon 024 ED Patient Summary [facility] Emergency Department [address] [place] [id number] PATIENT DISCHARGE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 QpgRDCqV9xiesbw0hwwpgj NzRdUQKaOSo6QBw3UXMrrEyaCrT jZPU7UkV7ZZN3lFBgfC8fnEcmkj yaxN6aMfn+TVJOOjwvdGQ+ PVVxGKD8kTmzGInqKIZdjG4uKNQ kZ4s3ZtMbRdI2NItsZ5TgavA3JV LxgTAnYXAzgQWOdR5jdods f2dncpqaFpJvXDPfWUa5BJr3DNA ggVjvZzRuHOX6SuM1GTD2xZQanI 5acRkywwramW7jAat+UGF5 IQI6LP66ZG66T3JnFhuloUHduLT +PHRhYmxlIHdpZHRoPScxMDAlJy AncBieVY1kUk4qIYXvOAOu bGx (more content not included)... [facility] Consent Formson 11-19-2023 Consent Forms [id number] [facility] ED Clinical Summaryon 2023 ED Clinical Summary - Emergency Department [address] [place] [id number] ED Clinical Summary PERSON INFORMATION Name: PHILLIP QUEEN Age: 33 Years Sex: FEMALE : 1990 MRN: Acct#: Visit Reason: Ankle pain-swelling; Foot pain-swelling; RT FOOT PAIN Arrival: 11/18/2023 21:57:47 Discharge: 11/19/2023 01:22:00 LOS: 000 03:25 Check In: 11/18/2023 21:57:47 Checkout:11/19/2023 01:22:00 Address: [address] [place] [id number] PCP: Provider, None PROVIDER INFORMATION Provider Role Assigned Unassigned Kay Vazquez DO ED Provider 11/19/2023 00:17:46 Jessy Wooten [employer]WORK ADMINISTRATOR Nurse 11/19/2023 00:31:39 VITALS INFORMATION Vital Sign Triage Latest Temperature Tympanic Temperature Temporal Artery 36.8 DegC Pulse Rate 84 bpm 84 bpm O2 Sat 99 % 99 % Respiratory Rate 20 br/min 20 br/min Blood Pressure /84 mmHg /84 mmHg MEDICAL INFORMATION Medications Given: Medication Dose Route ibuprofen 600 mg Oral Allergy Information: Bactrim; Neosporin; penicillin PHYSICIAN DOCUMENTATION Patient: PHILLIP QUEEN Age: 33 years Sex: FEMALE : 1990 Associated Diagnoses: Elevated blood pressure reading; Foot pain-swelling; Right ankle sprain Author: Kay Vazquez DO Basic Information Additional information: Chief Complaint from Nursing Triage Note : Chief Complaint 11/18/2023 22:06 EDT Chief Complaint Pt states she fell getting off of a ride at [place] at 1000 today c/o right leg/foot pain . History of Present Illness 33-year-old female to the emergency department chief complaint of right ankle and foot pain after twisting it when she fell off her right at [place] this morning at 10:00. Patient states that she was still able to stay at [place] however she was limping and had discomfort with ambulating. No previous injury. No paresthesias. No other injuries. Review of Systems Constitutional symptoms: Negative except as documented in HPI. Skin symptoms: Negative except as documented in HPI. Eye symptoms: Negative except as documented in HPI. ENMT symptoms: Negative except as documented in HPI. Respiratory symptoms: Negative except as documented in HPI. Cardiovascular symptoms: Negative except as documented in HPI. Gastrointestinal symptoms: Negative except as documented in HPI. Genitourinary symptoms: Negative except as documented in HPI. Musculoskeletal symptoms: Muscle pain, Joint pain. Neurologic symptoms: Negative except as documented in HPI. Health Status Allergies: Allergic Reactions (Selected) Unknown Bactrim- No reactions were documented. Neosporin- No reactions were documented. Penicillin- No reactions were documented.. Medications: (Selected) Inpatient Medications Ordered ibuprofen: 600 mg = 1 tab(s), Oral, Once. Past Medical/ Family/ Social History Medical history: No active or resolved past medical history items have been selected or recorded.. Surgical history: No active procedure history items have been selected or recorded.. Family history: No family history items have been selected or recorded.. Social history: Social & Psychosocial Habits Alcohol 11/18/2023 Alcohol Use: Never Substance Use 11/18/2023 Substance use: Never Tobacco 11/18/2023 Smoking tobacco use: Never tobacco user Electronic Cigarette/Vaping 11/18/2023 Electronic Cigarette Use: Never . Problem list: No qualifying data available . Physical Examination Vital Signs Vital Signs 11/18/2023 22:06 EDT Temperature Temporal Artery 36.8 DegC Peripheral Pulse Rate 84 bpm Respiratory Rate 20 br/min Systolic Blood Pressure 142 mmHg HI Diastolic Blood Pressure 84 mmHg SpO2 99 % Oxygen Therapy Room air . Measurements 11/18/2023 22:06 EDT Height 170.18 cm Weight 131.54 kg Weight Dosing 131.540 kg Body Mass Index Measured 45.42 kg/m2 . General: Alert, no acute distress. Skin: Patient with a superficial abrasion left palm and lateral aspect of right ankle.. Head: Normocephalic, atraumatic. Eye: Pupils are equal, round and reactive to light, normal conjunctiva. Cardiovascular: Regular rate and rhythm, No murmur. Respiratory: Lungs are clear to auscultation, respirations are non-labored. Musculoskeletal: Examination of the right lower extremity shows no gross deformity. No redness warmth or signs of infection. Mild appearing swelling about the lateral malleolus with diffuse tenderness both posterior about the Achilles which appears to be intact and also the lateral malleolus into the lateral aspect of the foot. Neurovascular intact distally. No tenderness to palpation proximal fibula.. Neurological: Alert and oriented to person, place, time, and situation, normal sensory observed, normal speech observed. Lymphatics: No lymphadenopathy. Psychiatric: Cooperative. Medical Decision Making Differential Diagnosis: Sprain strain ligament tear fracture. Ankle x-ray findings X-rays of the ri (more content not included)... Normal ED Note - Physicianon 2023 ED Note - Physician Patient: PHILLIP QUEEN Age: 33 years Sex: FEMALE : 1990 Associated Diagnoses: Elevated blood pressure reading; Foot pain-swelling; Right ankle sprain Author: Kay Vazquez DO Basic Information Additional information: Chief Complaint from Nursing Triage Note : Chief Complaint 11/18/2023 22:06 EDT Chief Complaint Pt states she [facility] today c/o right leg/foot pain . History of Present Illness 33-year-old female to the emergency department chief complaint of right ankle and foot pain after twisting it when she fell off her right at [facility] [place] this morning at 10:00. Patient states that she was still able to stay at [facility] however she was limping and had discomfort with ambulating. No previous injury. No paresthesias. No other injuries. Review of Systems Constitutional symptoms: Negative except as documented in HPI. Skin symptoms: Negative except as documented in HPI. Eye symptoms: Negative except as documented in HPI. ENMT symptoms: Negative except as documented in HPI. Respiratory symptoms: Negative except as documented in HPI. Cardiovascular symptoms: Negative except as documented in HPI. Gastrointestinal symptoms: Negative except as documented in HPI. Genitourinary symptoms: Negative except as documented in HPI. Musculoskeletal symptoms: Muscle pain, Joint pain. Neurologic symptoms: Negative except as documented in HPI. Health Status Allergies: Allergic Reactions (Selected) Unknown Bactrim- No reactions were documented. Neosporin- No reactions were documented. Penicillin- No reactions were documented.. Medications: (Selected) Inpatient Medications Ordered ibuprofen: 600 mg = 1 tab(s), Oral, Once. Past Medical/ Family/ Social History Medical history: No active or resolved past medical history items have been selected or recorded.. Surgical history: No active procedure history items have been selected or recorded.. Family history: No family history items have been selected or recorded.. Social history: Social & Psychosocial Habits Alcohol 11/18/2023 Alcohol Use: Never Substance Use 11/18/2023 Substance use: Never Tobacco 11/18/2023 Smoking tobacco use: Never tobacco user Electronic Cigarette/Vaping 11/18/2023 Electronic Cigarette Use: Never . Problem list: No qualifying data available . Physical Examination Vital Signs Vital Signs 11/18/2023 22:06 EDT Temperature Temporal Artery 36.8 DegC Peripheral Pulse Rate 84 bpm Respiratory Rate 20 br/min Systolic Blood Pressure 142 mmHg HI Diastolic Blood Pressure 84 mmHg SpO2 99 % Oxygen Therapy Room air . Measurements 11/18/2023 22:06 EDT Height 170.18 cm Weight 131.54 kg Weight Dosing 131.540 kg Body Mass Index Measured 45.42 kg/m2 . General: Alert, no acute distress. Skin: Patient with a superficial abrasion left palm and lateral aspect of right ankle.. Head: Normocephalic, atraumatic. Eye: Pupils are equal, round and reactive to light, normal conjunctiva. Cardiovascular: Regular rate and rhythm, No murmur. Respiratory: Lungs are clear to auscultation, respirations are non-labored. Musculoskeletal: Examination of the right lower extremity shows no gross deformity. No redness warmth or signs of infection. Mild appearing swelling about the lateral malleolus with diffuse tenderness both posterior about the Achilles which appears to be intact and also the lateral malleolus into the lateral aspect of the foot. Neurovascular intact distally. No tenderness to palpation proximal fibula.. Neurological: Alert and oriented to person, place, time, and situation, normal sensory observed, normal speech observed. Lymphatics: No lymphadenopathy. Psychiatric: Cooperative. Medical Decision Making Differential Diagnosis: Sprain strain ligament tear fracture. Ankle x-ray findings X-rays of the right foot and ankle interpreted by radiologist that show no obvious signs of acute bony abnormality.. Reexamination/ Reevaluation 33-year-old female to the emergency department the right foot and ankle pain after twisting it while at [place] today. X-rays obtained in the emergency department were negative per the radiologist. Patient was given 600 mg of ibuprofen. Pedro wrap and air splint was applied. Discussed need for follow-up. Impression and Plan Diagnosis Elevated blood pressure reading (LDC93-JC R03.0, Discharge, Medical) Complaint of Foot pain-swelling (PNED [id number], Reason For Visit, Patient Stated) Right ankle sprain ([id number] S93.401A, Discharge, Medical) Plan Condition: Stable. Disposition: Discharged: Time 11/19/2023 01:00:00, to home. Patient was given the following educational materials: Ankle Sprain, Tdrf-aa-Meus, Ankle Sprain, Mcxg-vu-Chey. Follow up with: KAY HEBERT Within 3 to 5 days Call for follow up appointment Return if symptoms worsen Follow-up in 3 to 5 days unl (more content not included)... Normal ED Patient Summaryon 024 ED Patient Summary - Emergency Department [address] [place], [place] [id number] PATIENT DISCHARGE INSTRUCTIONS Patient Information Name: PHILLIP QUEEN Age: 33 Years Date of : 1990 [facility]: [id number] Reason For Visit: Ankle pain-swelling; Foot pain-swelling; RT FOOT PAIN Arrival Time: 11/18/2023 21:57:47 Primary Care Physician: Provider, None Attending Physician: Kay Vazquez DO Comment: Visit Diagnosis: Diagnoses This Visit Ankle pain-swelling ([id number]) Elevated blood pressure reading (R03.0) Foot pain-swelling ([id number]) Right ankle sprain (S93.401A) The Pharmacy at [facility] is open Saturday through Saturday from 9A to 6P and Saturday and Saturday from 9A to 5P Prescription Information: If you have been given a prescription for narcotics, seek immediate medical attention if you have any difficulty breathing or any sudden status changes such as confusion and sleepiness. If you or anyone you know is experiencing suicidal thoughts, mental health, alcohol and/or drug addiction problems; contact the [facility] 07/01 Crisis Hotline -Text 6NTWT ll 321000. If you received any narcotics, sedation, or any other medication that causes drowsiness for the next 24 hours, unless otherwise directed: ? Do not drive a car. ? Do not operate machinery such as power tools, lawn mowers, drills, sewing machines, or stoves ? Avoid alcoholic beverages and drugs for allergies, nerves, or sleep ? Do not make important personal or business decisions or sign any legal documents With: Address: When: KAY HEBERT [address] [place], [place] [id number] Business (1) Within 3 to 5 days Comments: Call for follow up appointment Return if symptoms worsen Follow-up in 3 to 5 days unless symptoms are resolving Medication Information: The exam and treatment you received today in the [facility] Emergency Department were for an urgent problem and are not intended as complete care. It is important for you to follow up with a doctor, nurse practitioner, or physician?s educational assistant for ongoing care. If your symptoms become worse or you do not improve as expected and you are unable to reach your usual health care provider, you should return to the Emergency Department, we are available 24 hours a day. For those patients who have received Radiology results, the interpretation of your X-ray as given to you by our Emergency Department physician is only a preliminary report. The Radiologist will review your films and if there is a change in the diagnosis you will be notified by phone. Please make sure you have provided a working phone number so we can reach you if necessary. In the event that you had a lab culture while you were a patient in the Emergency Department, you will be notified by phone if there is a need to change your antibiotic. Please make sure you have provided a working phone number so we can reach you if necessary. Emergency Department has provided you with a complete list of medications post discharge. Please inform your team primary care physician/provider of your visit and for further instruction on these medications. Any specific questions regarding your chronic medications and dosages should be discussed with your primary care physician(s) and/or pharmacist. Visit Information Allergies: Substance Reaction Symptoms Type Comments Bactrim Drug Neosporin Drug penicillin Drug Vital Signs: Vitals and Measurements this Visit (last charted value for your 11/18/2023 visit) Vital Signs This Visit Temperature Temporal Artery: 36.8 DegC Peripheral Pulse Rate: 84 bpm Respiratory Rate: 20 br/min Systolic Blood Pressure: 142 mmHg Diastolic Blood Pressure: 84 mmHg SpO2: 99 % Oxygen Therapy: Room air Measurements This Visit Height/Length Measured: 170.18 cm Weight Measured: 131.54 kg Weight Dosin.540 kg Body Mass Index: 45.42 kg/m2 Problems List: Problem Onset Comments No Problems found Patient Education Ankle Sprain An ankle sprain is a stretch or tear in one of the tough tissues (ligaments) that connect the bones in your ankle. An ankle sprain can happen when the ankle rolls outward (inversion sprain) or inward (eversion sprain). What are the causes? This condition is caused by rolling or twisting the ankle. What increases the risk? You are more likely to develop this condition if you play sports. What are the signs or symptoms? Symptoms of this condition include: ? Pain in your ankle. ? Swelling. ? Bruising. This may happen right after you sprain your ankle or 1?2 days later. ? Trouble standing or walking. How is this diagnosed? This condition is diagnosed with: ? A physical exam. During the exam, your doctor will press on certain parts of your foot (more content not included)... Normal ED Prov Noteon 11-19-2023 ED Prov Note HPI: 11/19/2023, Time: @NOWANSLEY@ Phillip Queen is a 33 y.o. female presenting to the ED for right ankle and foot pain after patient fell at [facility] yesterday, beginning 1 day ago. The complaint has been constant, moderate in severity, and worsened by changing position. No numbness and also complains of right calf pain and injury. ROS: Pertinent positives and negatives are stated within HPI, all other systems reviewed and are negative. PAST HISTORY Past Medical History: @PMHP@ Past Surgical History: has a past surgical history that includes Knee surgery (Left, 2009); Ankle surgery (Left, 2016); adenoidectomy; tonsillectomy; and Carpal tunnel release (Bilateral, 2017). Social History: reports that she has never smoked. Her smokeless tobacco use includes chew. She reports current drug use. Drug: Marijuana. She reports that she does not drink alcohol. Family History: family history includes COPD in her father; Dementia in her paternal grandmother; Diabetes in her mother. The patient's home medications have been reviewed. Allergies: Bactrim [sulfamethoxazole-trimethop rim], Latex, Aspirin, Cortisone, Ketamine, Neosporin (wqk-sqz-jvmit) [uuggbihb-dyltopunveu-afsqs yxnb], Penicillins, and Procaine RESULTS All laboratory and radiology results have been personally reviewed by myself LABS: Results for orders placed or performed during the hospital encounter of 10/23/20 POC CBC and Differential Result Value Ref Range WBC 10.99 4.50 - 11.00 K/mcL RBC 5.07 4.00 - 5.20 M/mcL Hemoglobin 15.0 12.0 - 16.0 g/dL Hematocrit 44.4 36.0 - 46.0 % MCV 87.6 80.0 - 100.0 fL MCH 29.6 26.0 - 34.0 pg MCHC 33.8 31.0 - 37.0 g/dL RDW - CV 14.3 11.6 - 14.8 % Platelets 201 150 - 400 K/mcL MPV 11.6 9.4 - 12.4 fL Neutrophils 63.4 % Lymphocytes 29.3 % Monocytes 5.4 % Eosinophils 1.2 % Basophils 0.5 % IG Percent 0.20 % Neutrophils Abs 6.97 1.70 - 7.00 K/mcL Lymphocytes Abs 3.22 0.90 - 4.00 K/mcL Monocytes Abs 0.59 0.30 - 0.90 K/mcL Eosinophils Abs 0.13 0.00 - 0.50 K/mcL Basophils Abs 0.06 0.00 - 0.30 K/mcL IG Absolute 0.02 0.00 - 0.30 K/mcL EKG 12-lead Result Value Ref Range Ventricular Rate 89 BPM Atrial Rate 89 BPM P-R Interval 124 ms QRS Duration 80 ms Q-T Interval 378 ms QTC Calculation (Bezet) 459 ms P [place] 57 degrees R [place] 61 degrees T [place] 17 degrees POC Basic Metabolic Panel Result Value Ref Range Glucose 144 (H) 65 - 99 mg/dL BUN 9 8 - 25 mg/dL Creatinine 0.71 0.40 - 1.10 mg/dL GFR 115 >=60 mL/min/1.73 m2 Sodium 143 135 - 145 mmol/L Potassium 3.5 3.5 - 5.1 mmol/L Chloride 108 98 - 108 mmol/L TCO2 26 21 - 32 mmol/L Ionized Calcium 4.5 4.5 - 5.3 mg/dL POC D-dimer Result Value Ref Range POC D-Dimer <100 <350 ng/mL DDU RADIOLOGY: Interpreted by Radiologist. XR Foot Right 3+ Views (Standard) Preliminary Result No acute fracture or dislocation. [facility]/[employer] Workstation ID: [id number] XR Ankle Right 3+ Views (Standard) Preliminary Result No acute fracture or dislocation. [facility]/[employer] Workstation ID: [id number] NURSING NOTES AND VITALS REVIEWED The nursing notes within the ED encounter and vital signs as below have been reviewed. BP (!) 146/94 (BP Location: Left arm, Patient Position: Sitting) Pulse 96 Temp 97 degrees F (36.1 degrees C) (Temporal) Resp 16 Ht 5' 7 Wt 133.8 kg (295 lb) LMP 11/12/2023 (Exact Date) SpO2 97% BMI 46.20 kg/m Oxygen Saturation Interpretation: Normal PHY SICAL EXAM Constitutional/General: Alert and oriented x3, well appearing, non toxic in NAD Head: NC/AT Eyes: PERRL, EOMI Mouth: Oropharynx clear, handling secretions, no trismus Neck: Supple, full ROM, no meningeal signs Pulmonary: Lungs clear to auscultation bilaterally, no wheezes, rales, or rhonchi. Not in respiratory distress Cardiovascular: Regular rate and rhythm, no murmurs, gallops, or rubs. 2+ distal pulses Abdomen: Soft, non tender, non distended, Extremities: Moves all extremities x 4. Warm and well perfused, right ankle: Moderate tenderness to palpation over the lateral malleolus and also over the lateral aspect of the foot and also posterior calf but no anterior pretibial tenderness, neurovasc intact Skin: warm and dry without rash Neurologic: GCS 15, Psych: Normal Affect --- ED COURSE/MEDICAL DECISION MAKING - Medications ketorolac (TORADOL) injection 30 mg (30 mg Intramuscular Given 11/19/23 1308) Medical Decision Making: Right ankle and foot injury rule out fracture Counseling: The emergency provider has spoken with the patient and discus (more content not included)... [facility] XR ANKLE RIGHT 3+ VIEWS (STA NDARD)on 11-19-2023 XR ANKLE RIGHT 3+ VIEWS (STANDARD) EXAMINATION: XR ANKLE RIGHT 3+ VIEWS (STANDARD) 11/19/2023 1:02 pm HISTORY: ORDERING SYSTEM PROVIDED HISTORY: Ankle injury, TECHNOLOGIST PROVIDED HISTORY: Injury/Trauma Reason for exam: fall yesterday off a landing/step yesterday has continued pain in posterior and lateral aspects of the ankle radiating to calf Cancer History: no Surgery, RadiationHistory: no Encounter Type: Initial Mechanism of injury: fall ORDERING SYSTEM PROVIDED DIAGNOSIS CODES: COMPARISON: Right ankle x-rays, 11/18/2023. FINDINGS: Three views obtained. Calcaneal bone spurs are noted. Alignment appears normal. The talar dome is intact. Distal tibia and distal fibula are intact. There is some soft tissue swelling around the ankle which appears stable. No acute fracture identified. IMPRESSION: No acute fracture or dislocation. [facility]/r Workstation ID: [id number] Dictated by: NOELLE ROQUE on SatNov 19, 2023 1:22:18 PM EDT Transcribed by: KENDELL COREAS on SatNov 19, 2023 1:25:12 PM EDT Finalized by: NOELLE ROQUE on SatNov 19, 2023 4:05:34 PM EDT [facility] Comment on above: Order Comment: Injur y/Trauma or Illness?:Injury/Trauma How long have you had these symptoms (acute/chronic)?:Acute Reason for exam?:fall yesterday off a landing/step yesterday has continued pain in posterior and lateral aspects of the ankle radiating to calf History of cancer?:no Surgeries, chemotherapy, or radiation?:no Type of Exam?:Initial Mechanism of injury?:fall XR FOOT RIGHT 3+ VIEWS ([place])on 11-19-2023 XR FOOT RIGHT 3+ VIEWS (STANDARD) EXAMINATION: XR FOOT RIGHT 3+ VIEWS (STANDARD) 11/19/2023 1:02 pm HISTORY: ORDERING SYSTEM PROVIDED HISTORY: Injury, TECHNOLOGIST PROVIDED HISTORY: Injury/Trauma Reason for exam: fall yesterday off a landing/step yesterday has continued pain in posterior and lateral aspects of the ankle radiating to calf Cancer History: no Surgery, RadiationHistory: no Encounter Type: Initial Mechanism of injury: fall ORDERING SYSTEM PROVIDED DIAGNOSIS CODES: COMPARISON: None. FINDINGS: Three views obtained. There is a well corticated ossicle adjacent to the navicular bone. Alignment normal. Base of the 5th metatarsal intact. No acute fracture or dislocation. Calcaneal bone spurs are noted. IMPRESSION: No acute fracture or dislocation. [facility]/r Workstation ID: [id number] Dictated by: NOELLE ROQUE on SatNov 19, 2023 1:23:01 PM EDT Transcribed by: KENDELL COREAS on SatNov 19, 2023 1:27:11 PM EDT Finalized by: NOELLE ROQUE on SatNov 19, 2023 4:05:38 PM EDT [facility] Comment on above: Order Comment: Injur y/Trauma or Illness?:Injury/Trauma How long have you had these symptoms (acute/chronic)?:Acute Reason for exam?:fall yesterday off a landing/step yesterday has continued pain in posterior and lateral aspects of the ankle radiating to calf History of cancer?:no Surgeries, chemotherapy, or radiation?:no Type of Exam?:Initial Mechanism of injury?:fall XR Ankle Complete Righton XR Ankle Complete Right EXAM: XR Foot Complete Right, XR Ankle Complete Right [facility] COMPARISON: None. TECHNIQUE: 3 views of the right ankle and 3 views of the right foot were obtained. FINDINGS: No acute fracture or dislocation is seen. There are scattered degenerative changes. There are small plantar Achilles calcaneal enthesophytes. There are scattered degenerative changes. There is no significant right ankle joint effusion. IMPRESSION: 1. No acute fracture or dislocation of the right ankle or right foot is seen. If pain persists, repeat radiographs are recommended in 7-10 days. Final Dictated by: Alessio Cox MD Dictated DT/TM: 11/19/23 0:24 Signed (Electronic Signature): Alessio Cox MD 11/19/23 0:27 am Technologist: [facility] XR Foot Complete Righton XR Foot Complete Right EXAM: XR Foot Complete Right, XR Ankle Complete Right HISTORY: [place] COMPARISON: None. TECHNIQUE: 3 views of the right ankle and 3 views of the right foot were obtained. FINDINGS: No acute fracture or dislocation is seen. There are scattered degenerative changes. There are small plantar Achilles calcaneal enthesophytes. There are scattered degenerative changes. There is no significant right ankle joint effusion. IMPRESSION: 1. No acute fracture or dislocation of the right ankle or right foot is seen. If pain persists, repeat radiographs are recommended in 7-10 days. Final Dictated by: Alessio Cox MD Dictated DT/TM: 11/19/23 0:24 Signed (Electronic Signature): Alessio Cox MD 11/19/23 0:27 am Technologist: [facility] HAND MIN 3 VIEWSon 2 HAND MIN 3 VIEWS Patient Name: PHILLIP SHER STUDY: HAND MIN 3 VIEWS; Left; 08/21/2021 1:14 pm INDICATION: LEFT HAND PAIN AND SWELLING S69.92XA: Injury of left hand. COMPARISON: 05/21/2017 ACCESSION NUMBER(S):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 1.6-2.4 [facility] Comment on above: Performed By: #### C HEMG ####Unless otherwise noted, all testing performed by [address] [phone]: [id number] Director: Ebenezer Freeman M.D. Potassium 4.0 mmol/L Normal 3.5-5.1 [facility] Comment on above: Performed By: #### C HEMG ####Unless otherwise noted, all testing performed by [address] [phone]: [id number] Director: Ebenezer Freeman M.D. Sodium 140 mmol/L Normal 135-145 [facility] Comment on above: Performed By: #### C HEMG ####Unless otherwise noted, all testing performed by [address] [phone]: [id number] Director: Ebenezer Freeman M.D. Urea nitrogen 13 mg/dL Normal 8-25 [facility] Comment on above: Performed By: #### C HEMG ####Unless otherwise noted, all testing performed by [address] [phone]: [id number] Director: Ebenezer Freeman M.D. Progress Noteon 12-24-2016 [employer] Authentication Interface Message Text Phillip is a 26 y.o. female who presents to our office today for evaluationsecondary to multiple subjective complaints. She was previously seen by anallergy doctor/ENT about a year ago in [place], [place] and she underwent testingto pollens and environmental allergens and was supposedly + to everything andfood testing was not done. She reports peanuts make her mouth feel funny andshe may have a little lactose intolerance and grapes seems to bother her withoral numbness and she denies any other symptoms with these ingestions anddenies any other issues with other foods. Previously, she was seeing a[place]ulmonologist in [place] and she is to see a Sap Trainer in [place] (at [facility]) and right now, she is using Symbicort 160/4.5mcgand Dulera 100mcg/5mcg and Spiriva daily and Ventolin and right now she is nottaking any Cetirizine or other antihistamines or nasal sprays and she is nottaking other medications. She did not return due to a domestic relationshipissues. Today, she presents for allergy testing (I have not records of anyprevious testing or medications or other health issues at this visit).-Her other medications are Elavil, Topamax, Omeprazole and BentylEnvironmental Survey/Social History:Lives with significant other and his mother.Special Needs: NonePreferred Language: EnglishPets: Yes: 2 dogs.School/Daycare: No, she does not work.Smoking/Alcohol/Drug Use or Exposure: No, cigarette smoke bothers her.Recreational Activities/Sports: NoReview of Systems/Past Medical History:Constitutional: denies fever, chills, weight loss.Eyes: denies vision changes, color blindness.Ears, nose throat and mouth: see narrative above. History of nasal congestionat time.Respiratory: denies wheezing, cough or chest tightness at this visit/ see abovenarrative.Gastrointest inal: denies diarrhea, constipation, emesis.Genitourinary: denies dysuria or urine odor.Skin/integumentary: denies nail changes or other rash.Neurologic: denies seizures, weakness or speech problems.Hematologic/lympha tic: denies pallor.Allergic/Immunologic : see narrative above. No history of eczema.*Regarding bee stings, at age 15 she was stung and she had tongue swelling andcouldn't breathe and she was stung on her foot at the time. She has not beenstung since and she has an EpiPen to keep on hand (she has one that /17).History reviewed. No pertinent past medical history.Past Surgical History:Procedure Laterality Date ADENOIDECTOMY TONSILLECTOMYCurrent Outpatient PrescriptionsMedication Sig Dispense Refill hydrochlorothiazide (HYDRODIURIL) 25 MG TABS tablet Take 25 mg by mouth daily dicyclomine (BENTYL) 10 MG capsule Take 10 mg by mouth 4 times daily amitriptyline (ELAVIL) 25 MG tablet Take 25 mg by mouth nightly at bedtime Omeprazole 20 MG TBEC Take 20 mg by mouth Mometasone Furo-Formoterol Fum (DULERA) 100-5 MCG/ACT AERO Inhale into thelungs budesonide-formoterol (SYMBICORT) 160-4.5 MCG/ACT inhaler Inhale 2 Puffs intothe lungs 2 times daily Tiotropium [place] Monohydrate (SPIRIVA HANDIHALER IN) Inhale 2.5 mcg into thelungsNo current facility-administered medications for this visit.History reviewed. No pertinent family history.Allergies: PCN/Amoxicillin-? Hallucinations (at age 11). -She has a contact rash to Latex.PE: Nursing note and Vital signs reviewed. BP 134/83 Pulse 73 Ht 169.5 cm Wt (!) 123.4 kg BMI 42.95 kg/q5Twkzusktpuawyj: She was awake, alert and in no apparent distress.Conjunctivae: clear.Nasal mucosa: mildly pale and edematous.Nasal turbinates: mildly enlarged. No polyps visualized.Tympanic membranes: clear.Throat: clear. She did not have cervical adenopathy.Lungs: clear to auscultation bilaterally.Cardio: regular rate and rhythm.Musculoskeletal: good upper extremity strength bilaterally.Neuro: oriented to time and place, good interaction.Skin: upper extremities clear at this visit.Epicutaneous testing to multiple environmental allergens and cattle and horseand foods of grape and peanut revealed good controls and Phillip tested positivefor the following environmental allergens; bertha pollen and horse and otherwisewas negative.Mayur Sher is a 26yo WF with a history of chronic rhinitis, some degree ofallergic rhinitis and asthma and 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 She has not undergone venom testing and testing today was + to ashpollen and horse and food testing was negative. Currently, she is not taking anantihistamine and she is to see a Sap Trainer in the near future.The benefits, side effects of the treatment and treatment alternatives werediscussed.Plan1. Regarding PCN/Amoxicillin, since you only had hallucinations at age 11 andno other issues, your chance of tolerating these medications again appears to bethe same as that of the general population. This does not mean you could nothave another problem with these medications in the future and I have no way ofpredicting this.2. You sound like you also have a contact rash/contact dermatitis to latex andnot a systemic/anaphylaxis response.3. Continue with EpiPen for any symptoms of anaphylaxis after a bee sting. Ifyou are stung, you may take 50 mg of Benadryl and if the reaction isprogressing/not improving, do not delay with EpiPen administration and if used,call 911/EMS or to nearest ED SUPA (see anaphylaxis plan).-See information on Bee Sting allergy. Venom Testing is what is recommended andthis is a half day visit done at our main campus in [place] and we test you toHoneybee, Yellow jacket, Yellow Hornet, White-faced hornet and wasp (done at thebeginning of the morning or afternoon) and if these tests are negative, thenVenom RASTs (IgE) are indicated and can be obtained at the lab on campus thatday. If all testing is negative, then continuation of your EpiPen isrecommended but if you are + to any of the venoms with skin or blood testing,then 3-5 years of venom immunotherapy is recommended and at this time, these areonly administered at [facility]. Call #[phone] if you would like toschedule this testing and you need to be off antihistamines for a few daysbefore this testing (no Benadryl or Cetirizine).4. Continue inhalers per your Sap Trainer and since you are seeing apulmonologist in the future, I will leave this medications alone.5. Please see information on chronic and allergic rhinitis.6. Skin testing was + to Bertha Pollen and Horse and negative to cat, dog, dustmite, feather mix, molds, cockroach and also negative to grass, other tree, weedand ragweed pollens. See information on environmental control measures.7. Food testing was negative to grapes and peanut so your chance of toleratingthese foods appears to be the same as that of the general population so maycontinue with these foods as tolerated.8. Cetirizine 10mg-1 tablet daily in the PM.9. May add Yjgtqdfctav-3-4 sprays each nostril daily in the PM. Stop for 3days in case of nosebleeds.10. Ketotifen-1 drop each eye twice a day as needed.11. Return in 6 months or for venom testing and as needed. Normal [facility] Vital Signs Date Time Vital Sign Value Performing Clinician Facility 12-22-2024 12:33-0400 Body mass index (BMI) [Ratio] 51.29 kg/m2 Warren Jeong BROOMMAKER.RABBIT BREEDER Work Phone: [facility] 12-22-2024 12:33-0400 Body temperature 97.3 [degF] Warren Jeong BROOMMAKER.RABBIT BREEDER Work Phone: [facility] 12-22-2024 12:33-0400 Body weight 144.14 kg Warren Jeong BROOMMAKER.RABBIT BREEDER Work Phone: [facility] 12-22-2024 12:33-0400 Diastolic blood pressure 74 mm[Hg] Warren Jeong BROOMMAKER.RABBIT BREEDER Work Phone: [facility] 12-22-2024 12:33-0400 Heart rate 73 /min Warren Jeong BROOMMAKER.RABBIT BREEDER Work Phone: [facility] 12-22-2024 12:33-0400 Respiratory rate 18 /min Warren Jeong BROOMMAKER.RABBIT BREEDER Work Phone: [facility] 12-22-2024 12:33-0400 SaO2% (BldA) [Mass fraction] 99 % Warren Jeong BROOMMAKER.RABBIT BREEDER Work Phone: [facility] 12-22-2024 12:33-0400 Systolic blood pressure 118 mm[Hg] Warren Jeong BROOMMAKER.RABBIT BREEDER Work Phone: [facility] 08-07-2024 00:05-0500 Body temperature 98.91 [degF] Elizabeth Hernandez DO Work Phone: [facility] 08-07-2024 00:05-0500 Diastolic blood pressure 88 mm[Hg] Elizabeth Hernandez DO Work Phone: [facility] 08-07-2024 00:05-0500 Heart rate 81 /min Elizabeth Hernandez DO Work Phone: [facility] 08-07-2024 00:05-0500 Respiratory rate 17 /min Elizabeth Hernandez DO Work Phone: [facility] 08-07-2024 00:05-0500 SaO2% (BldA) [Mass fraction] 98 % Elizabeth Hernandez DO Work Phone: [facility] 08-07-2024 00:05-0500 Systolic blood pressure 142 mm[Hg] Elizabeth Hernandez DO Work Phone: [phone] [place] [address] 08-06-2024 22:31-0500 Body height 162.6 cm Elizabeth Hernandez DO Work Phone: [phone] [place] [address] 08-06-2024 22:31-0500 Body mass index (BMI) [Ratio] 49.78 kg/m2 Elizabeth Hernandez DO Work Phone: [phone] [place] [address] 08-06-2024 22:31-0500 Body weight 131.54 kg Elizabeth Hernandez DO Work Phone: [facility] 05-23-2024 11:05-0500 Diastolic blood pressure 100 mm[Hg] Ebenezer Garrett APRN.RABBIT BREEDER Work Phone: [facility] Comment on above: recheck manual by provider. 05-23-2024 11:05-0500 Systolic blood pressure 160 mm[Hg] Ebenezer Garrett APRN.RABBIT BREEDER Work Phone: [facility] Comment on above: recheck manual by provider. 05-23-2024 10:29-0500 Body mass index (BMI) [Ratio] 52.59 kg/m2 Ebenezer Garrett APRN.RABBIT BREEDER Work Phone: [facility] 05-23-2024 10:29-0500 Body temperature 95.5 [degF] Ebenezer Garrett APRN.RABBIT BREEDER Work Phone: [facility] 05-23-2024 10:29-0500 Body weight 147.8 kg Ebenezer Garrett APRN.RABBIT BREEDER Work Phone: [facility] 05-23-2024 10:29-0500 Heart rate 73 /min Ebenezer Garrett BROOMMAKER.RABBIT BREEDER Work Phone: [facility] 05-23-2024 10:29-0500 Respiratory rate 16 /min Ebenezer Garrett BROOMMAKER.RABBIT BREEDER Work Phone: [facility] 05-23-2024 10:29-0500 SaO2% (BldA) [Mass fraction] 99 % Ebenezer King BROOMMAKER.RABBIT BREEDER Work Phone: [facility] 05-11-2024 15:05-0500 Body height 167.6 cm Rodolfo Abrams DO Work Phone: [facility] 05-11-2024 15:05-0500 Body mass index (BMI) [Ratio] 47.29 kg/m2 Rodolfo Abrams DO Work Phone: [facility] 05-11-2024 15:05-0500 Body temperature 98.2 [degF] Rodolfo Abrams DO Work Phone: [facility] 05-11-2024 15:05-0500 Body weight 132.9 kg Rodolfo Abrams DO Work Phone: [facility] 05-11-2024 15:05-0500 Diastolic blood pressure 91 mm[Hg] Rodolfo Abrams DO Work Phone: [facility] 05-11-2024 15:05-0500 Heart rate 98 /min Rodolfo Abrams DO Work Phone: [facility] 05-11-2024 15:05-0500 Respiratory rate 18 /min Rodolfo Abrams DO Work Phone: [facility] 05-11-2024 15:05-0500 SaO2% (BldA) [Mass fraction] 95 % Rodolfo Abrams DO Work Phone: [facility] 05-11-2024 15:05-0500 Systolic blood pressure 146 mm[Hg] Rodolfo Abrams DO Work Phone: [facility] 01-16-2024 15:32-0400 Body temperature 98.4 [degF] Estiven Ryder DPM Work Phone: [facility] 01-16-2024 15:32-0400 Diastolic blood pressure 94 mm[Hg] Estiven Ryder DPM Work Phone: [facility] 01-16-2024 15:32-0400 Heart rate 81 /min Estiven Ryder DPM Work Phone: [facility] 01-16-2024 15:32-0400 Systolic blood pressure 157 mm[Hg] Estiven Ryder DPM Work Phone: [facility] 11-21-2023 15:45-0400 Body temperature 97.9 [degF] Estiven Ryder DPM Work Phone: [facility] 11-21-2023 15:45-0400 Diastolic blood pressure 75 mm[Hg] Estiven Ryder DPM Work Phone: [facility] 11-21-2023 15:45-0400 Heart rate 85 /min Estiven Ryder DPM Work Phone: [facility] 11-21-2023 15:45-0400 Systolic blood pressure 130 mm[Hg] Estiven Ryder DPM Work Phone: [facility] 03-14-2021 10:40-0400 Body height 167.64 cm Wendy L Oberhauser Work Phone: [facility] Work Phone: 03-14-2021 10:40-0400 Body mass index (BMI) [Ratio] 47.29 kg/m2 Wendy L Oberhauser Work Phone: [facility] Work Phone: 03-14-2021 10:40-0400 Body surface area Derived from formula 2.35 m2 Wendy L Oberhauser Work Phone: [facility] Work Phone: 03-14-2021 10:40-0400 Body temperature 97.8 [degF] Wendy L Oberhauser Work Phone: [facility] Work Phone: 03-14-2021 10:40-0400 Body weight 132.9 kg Wendy L Oberhauser Work Phone: [facility] Work Phone: 03-14-2021 10:40-0400 Diastolic blood pressure 76 mm[Hg] Wendy L Oberhauser Work Phone: [facility] Work Phone: 03-14-2021 10:40-0400 Heart rate 70 /min Wendy L Oberhauser Work Phone: [facility] Work Phone: 03-14-2021 10:40-0400 Systolic blood pressure 133 mm[Hg] Wendy L Oberhauser Work Phone: [facility] Work Phone: 02-13-2021 15:35-0400 Body height 167.64 cm Wendy L Oberhauser Work Phone: [facility] Work Phone: 02-13-2021 15:35-0400 Body mass index (BMI) [Ratio] 47.29 kg/m2 Wendy L Oberhauser Work Phone: [facility] Work Phone: 02-13-2021 15:35-0400 Body surface area Derived from formula 2.35 m2 Wendy L Oberhauser Work Phone: [facility] Work Phone: 02-13-2021 15:35-0400 Body temperature 97.6 [degF] Wendy L Oberhauser Work Phone: [facility] Work Phone: 02-13-2021 15:35-0400 Body weight 132.9 kg Wendy Link Oberhauser Work Phone: [facility] Work Phone: 02-13-2021 15:35-0400 Diastolic blood pressure 80 mm[Hg] Wendy L Oberhauser Work Phone: [facility] Work Phone: 02-13-2021 15:35-0400 Heart rate 88 /min Wendy L Oberhauser Work Phone: [facility] Work Phone: 02-13-2021 15:35-0400 Systolic blood pressure 130 mm[Hg] Wendy L Oberhauser Work Phone: [facility] Work Phone: 01-24-2021 14:42-0400 Body height 167.64 cm Wendy Link Oberhauser Work Phone: [facility] 300 Work Phone: 01-24-2021 14:42-0400 Body mass index (BMI) [Ratio] 47.37 kg/m2 Wendy Link Oberhauser Work Phone: [facility] 300 Work Phone: 01-24-2021 14:42-0400 Body surface area Derived from formula 2.35 m2 Wendy Link Oberhauser Work Phone: [facility] 300 Work Phone: 01-24-2021 14:42-0400 Body temperature 97.9 [degF] Wendy L Oberhauser Work Phone: [facility] 300 Work Phone: 01-24-2021 14:42-0400 Body weight 133.13 kg Wendy Beavers Work Phone: [facility] 300 Work Phone: 01-24-2021 14:42-0400 Diastolic blood pressure 74 mm[Hg] Wendy Beavers Work Phone: [facility] 300 Work Phone: 01-24-2021 14:42-0400 Systolic blood pressure 126 mm[Hg] Wendy Beavers Work Phone: [facility] 300 Work Phone: 12-15-2020 11:48-0400 Diastolic blood pressure 81 mm[Hg] Rosalinda Quintero MD Work Phone: [facility] 12-15-2020 11:48-0400 Systolic blood pressure 146 mm[Hg] Rosalinda Quintero MD Work Phone: [facility] 12-15-2020 11:46-0400 Body height 167.6 cm Rosalinda Quintero MD Work Phone: [facility] 12-15-2020 11:46-0400 Body mass index (BMI) [Ratio] 46.65 kg/m2 Rosalinda Quintero MD Work Phone: [facility] 12-15-2020 11:46-0400 Body temperature 97.81 [degF] Rosalinda Quintero MD Work Phone: [facility] 12-15-2020 11:46-0400 Body weight 131.09 kg Rosalinda Quintero MD Work Phone: [facility] 12-15-2020 11:46-0400 Heart rate 83 /min Rosalinda Quintero MD Work Phone: [facility] 12-15-2020 11:46-0400 Respiratory rate 18 /min Rosalinda Quintero MD Work Phone: [facility] 12-15-2020 11:46-0400 SaO2% (BldA) [Mass fraction] 97 % Rosalinda Quintero MD Work Phone: [facility] 10-27-2020 20:05-0400 Respiratory rate 16 /min Rosalinda Quintero MD Work Phone: [facility] 10-27-2020 19:13-0400 Body height 167.6 cm Rosalinda Quintero MD Work Phone: [facility] 10-27-2020 19:13-0400 Body mass index (BMI) [Ratio] 48.1 kg/m2 Rosalinda Quintero MD Work Phone: [facility] 10-27-2020 19:13-0400 Body temperature 98.01 [degF] Rosalinda Quintero MD Work Phone: [facility] 10-27-2020 19:13-0400 Body weight 135.17 kg Rosalinda Quintero MD Work Phone: [facility] 10-27-2020 19:13-0400 Diastolic blood pressure 83 mm[Hg] Rosalinda Quintero MD Work Phone: [facility] 10-27-2020 19:13-0400 Heart rate 83 /min Rosalinda Quintero MD Work Phone: [facility] 10-27-2020 19:13-0400 SaO2% (BldA) [Mass fraction] 100 % Rosalinda Quintero MD Work Phone: [facility] 10-27-2020 19:13-0400 Systolic blood pressure 152 mm[Hg] Rosalinda Quintero MD Work Phone: [facility] 10-23-2020 17:01-0400 Body temperature 97.11 [degF] Albina Callejas MD Work Phone: [facility] 10-23-2020 17:01-0400 Diastolic blood pressure 100 mm[Hg] Albina Callejas MD Work Phone: [facility] 10-23-2020 17:01-0400 Heart rate 97 /min Albina Callejas MD Work Phone: [facility] 10-23-2020 17:01-0400 Respiratory rate 16 /min Albina Callejas MD Work Phone: [facility] 10-23-2020 17:01-0400 SaO2% (BldA) [Mass fraction] 100 % Albina Callejas MD Work Phone: [facility] 10-23-2020 17:01-0400 Systolic blood pressure 149 mm[Hg] Albina Callejas MD Work Phone: [facility] 09-20-2020 16:38-0400 BMI (Body Mass Index) 49.29 kg/m2 Kay Perea [facility] 300 Work Phone: 09-20-2020 16:38-0400 Body Temperature 97.1 [degF] Kay Perea [facility] 300 Work Phone: 09-20-2020 16:38-0400 Body weight 138.52 kg Kay Perea [facility] 300 Work Phone: 09-20-2020 16:38-0400 BP Diastolic 62 mm[Hg] Kay Perea [facility] 300 Work Phone: 09-20-2020 16:38-0400 BP Systolic 116 mm[Hg] Kay Perea [facility] 300 Work Phone: 09-20-2020 16:38-0400 BSA (Body Surface Area) 2.39 m2 Kay Perea [facility] [place] [facility] Work Phone: 09-20-2020 16:38-0400 Height 167.64 cm Kay Perea [facility] 300 Work Phone: 09-17-2020 19:59-0400 BMI (Body Mass Index) 48.1 kg/m2 [facility] 09-17-2020 19:59-0400 Body Temperature 97.2 [degF] [facility] 09-17-2020 19:59-0400 Body weight 135.[address] [facility] 09-17-2020 19:59-0400 BP Diastolic 83 mm[Hg] [facility] 09-17-2020 19:59-0400 BP Systolic 168 mm[Hg] [facility] 09-17-2020 19:59-0400 Height 167.[address] [facility] 09-17-2020 19:59-0400 Pulse (Heart Rate) 98 /min [facility] 09-17-2020 19:59-0400 Pulse Oximetry 97 % [facility] 09-17-2020 19:59-0400 Respiratory Rate 18 /min [facility] Encounters Encounter Date Encounter Type Care Provider Facility Start: 01-15-2025 ambulatory Bia Peculiar Facility:[facility] Start: 01-14-2025 End: [facility] Start: 12-22-2024 End: 12-22-2024 Office outpatient visit 25 minutes Warren Jeong APRN.CNP Work Phone: [facility] Comment on above: Dental infection (Pr imary Dx) Start: 12-22-2024 End: 12-22-2024 ambulatory WARREN DUFFYELOY Facility:[facility] Start: 11-16-2024 ambulatory Gustavo Prayson Facili ty:[facility] Start: 10-28-2024 ambulatory Gustavo Prayson Facili ty:[facility] Start: 10-28-2024 End: 10-28-2024 ambulatory Gustavo Prayson Facility:[facility] Start: 10-12-2024 End: 10-12-2024 Emergency department patient visit PHYSICIAN [facility] Start: 09-01-2024 End: 09-01-2024 Subsequent hospital visit by physician Point Of Care Ultrasound [facility] RAD EXTERNAL FILM [facility] Comment on above: Arrived Start: 09-01-2024 End: 09-01-2024 ambulatory DANAE MAJOR [facility] Start: 08-21-2024 End: 08-21-2024 Emergency department patient visit ROSALINDA DONTE QUINTERO [facility] Start: 08-17-2024 End: 08-18-2024 ambulatory Justa Baileynger [facility] Facility:[facility] Start: 08-06-2024 End: 08-07-2024 Emergency department patient visit Elizabeth Hernandez Work Phone: [facility] Comment on above: Chronic right should er pain (Primary Dx) Start: 08-05-2024 End: 08-05-2024 Emergency department patient visit Lexx Payne Facility:[facility] Start: 07-20-2024 End: 08-14-2024 [facility] Start: 07-05-2024 End: 07-05-2024 Emergency department patient visit JADYN SHANNON [facility] Start: 06-23-2024 End: 07-13-2024 Telephone encounter Nurse/[facility] Work Phone: Podiatry Start: 06-18-2024 End: 07-17-2024 ambulatory Justa Light [facility] Facility:[facility] Start: 06-13-2024 End: 06-13-2024 Emergency department patient visit JADYN SHANNON [facility] Start: 06-11-2024 End: 06-11-2024 ambulatory [facility] Facility:[facility] Start: 06-09-2024 End: 06-16-[address] [facility] Facility:[facility] Start: 05-25-2024 End: 05-25-2024 Emergency department patient visit Vern Richards Facility:[facility] Start: 05-23-2024 End: 05-23-2024 ambulatory WENDY BEAVERS Facility:[facility] Start: 05-23-2024 End: 05-23-2024 Patient encounter procedure Ebenezer Garrett APRN.CNP Work Phone: [facility] Comment on above: Toothache (Primary D x); Rash; Acute right-sided low back pain without sciatica Start: 05-18-2024 End: 05-19-2024 Emergency department patient visit Lauri Rodriguez Facility:[facility] Start: 05-11-2024 End: 05-11-2024 Emergency department patient visit Rodolfo Colby Abrams DO Work Phone: [facility] Comment on above: Foot sprain, left, i nitial encounter (Primary Dx) Start: 04-23-2024 End: 05-08-2024 ambulatory Azalia Rashi Facility:[facility] Start: 04-21-2024 End: 04-21-2024 [facility] Start: 04-15-2024 ambulatory Justa Light [facility] Faci lity:[facility] Start: 04-02-2024 End: 04-02-2024 Emergency department patient visit JADYN LIGHT [facility] Start: 03-30-2024 End: 03-30-2024 ambulatory LAWRENCE BRIGGS Facility:[facility] Start: 03-30-2024 End: 03-30-2024 Patient encounter procedure Lawrence Briggs Work Phone: Podiatry Comment on above: Tendonitis, Achilles , right (Primary Dx); Calcaneal spur of foot, right Start: 03-17-2024 End: 03-17-2024 Emergency department patient visit JADYN LIGHT [facility] Start: 03-17-2024 End: 04-14-2024 ambulatory Norma CLEARY Facility:[facility] Start: 03-17-2024 End: 03-17-2024 ambulatory Gustavo Her Facility:[facility] Start: 03-16-2024 End: 03-16-2024 Emergency department patient visit KATHARINA IZAGUIRRE [facility] Start: 03-15-2024 End: 03-15-2024 Emergency department patient visit JADYN LIGHT [facility] Start: 03-07-2024 End: 03-07-2024 Emergency department patient visit GUSTAVO OLSON [facility] Start: 03-05-2024 End: 03-05-2024 ambulatory Norma CLEARY Facility:[facility] Start: 02-25-2024 End: 03-16-2024 ambulatory Norma CLEARY Facility:[facility] Start: 02-04-2024 End: 02-04-2024 Emergency department patient visit PHYSICIAN DANE [facility] Start: 01-16-2024 End: 01-16-2024 Office outpatient visit 15 minutes Estiven Ryder DPM Work Phone: [facility] Comment on above: Bone spur of posteri or portion of right calcaneus (Primary Dx); Insertional tendinopathy of right Achilles tendon; Ingrown nail of great toe of right foot Start: 01-16-2024 End: 01-16-2024 ambulatory ESTIVEN BORDEN [facility] Start: 01-11-2024 End: 01-11-2024 Emergency department patient visit PHYSICIAN [facility] Facility:[facility] Start: 01-10-2024 End: 01-10-2024 Emergency department patient visit Hal Argueta Facility: Start: 01-08-2024 End: 01-08-2024 Emergency department patient visit Maricruz Hurst Facility: Start: 01-08-2024 End: 01-08-2024 ambulatory PHYSICIAN NO [facility] Start: 12-22-2023 End: 12-22-2023 Emergency department patient visit PHYSICIAN DANE [facility] Start: 11-21-2023 End: 11-21-2023 Office outpatient new 30 minutes Estiven Ryder DPM Work Phone: [facility] Comment on above: Achilles tendon tear , right, initial encounter (Primary Dx); Bone spur of posterior portion of right calcaneus Start: 11-21-2023 End: 11-21-2023 ambulatory ESTIVEN BORDEN [facility] Start: 11-19-2023 End: 11-19-2023 Emergency department patient visit PHYSICIAN NO [facility] Start: 11-18-2023 End: 11-19-2023 Emergency department patient visit PHYSICIAN NO [facility] Work Phone: Start: 03-01-[address] Sandra Bhakta Fa cility:[id number] Start: 11-27-2021 AUDIT Wendy Link Oberha user Work Phone: [facility] Work Phone: Start: 11-07-[address] Wendy Beavers Fa cility:[id number] Start: 10-31-2021 Other Wendy L Oberha user Work Phone: [facility] 300 Work Phone: Start: 10-10-2021 AUDIT Wendy L Oberha user Work Phone: [facility] Work Phone: Start: 08-30-2021 Transcribe Orders Wendy Oberha user DO Work Phone: [facility] Comment on above: Pain of left heel (P rimary Dx) Start: 08-18-2021 Chart Update Wendy L Oberha user Work Phone: [facility] Work Phone: Start: 08-17-2021 AUDIT Wendy L Oberha user Work Phone: [facility] Work Phone: Start: 07-13-2021 AUDIT Wendy L Oberha user Work Phone: [facility] Work Phone: Start: 06-30-2021 AUDIT Wendy L Oberha user Work Phone: [facility] Work Phone: Start: 05-23-2021 AUDIT Wendy L Oberha user Work Phone: [facility] Work Phone: Start: 05-22-2021 Office outpatient vi sit 15 minutes Wendy Beavers Work Phone: [facility] Work Phone: Start: 05-22-2021 Patient encounter procedure Wendy Cuellohausjhoana Work Phone: [facility] Work Phone: Start: 05-22-[address] Wendy Beavers Fa cility:[id number] Start: 05-18-2021 Chart Update Wendy Link Oberha user Work Phone: [facility] Work Phone: Start: 05-16-2021 AUDIT Wendy Link Oberha user Work Phone: [facility] Work Phone: Start: 04-06-2021 AUDIT Wendy L Oberha user Work Phone: [facility] Work Phone: Start: 03-24-2021 AUDIT Wendy Fariba Oberha user Work Phone: [facility] Work Phone: Start: 03-14-2021 Office outpatient vi sit 25 minutes Wendy Beavers Work Phone: [facility] Work Phone: Start: 03-14-2021 Patient encounter procedure Wendy Chahalerhauser Work Phone: [facility] Work Phone: Start: 2021 AUDIT Wendy Fariba Oberha user Work Phone: [facility] Work Phone: Start: 2021 Chart Update Wendy L Oberha user Work Phone: [facility] Work Phone: Start: 03-01-2021 AUDIT Wendy L Oberha user Work Phone: [facility] Work Phone: Start: 02-15-2021 AUDIT Wendy L Oberha user Work Phone: [facility] Work Phone: Start: 02-13-2021 FUV, Provider: Wendy Beavers, Status: Pen, Time: 3:40 PM Wendy L Oberhauser Work Phone: [facility] Work Phone: Start: 02-13-2021 Office outpatient vi sit 25 minutes Wendy L Oberhauser Work Phone: [facility] Work Phone: Start: 02-10-2021 AUDIT Wendy L Oberha user Work Phone: [facility] Work Phone: Start: 01-31-2021 AUDIT Wendy L Oberha user Work Phone: [facility] Work Phone: Start: 01-24-2021 Office outpatient vi sit 25 minutes Wendy L Oberhauser Work Phone: [facility] 300 Work Phone: Start: 12-15-2020 End: 12-15-2020 Emergency department patient visit Rosalinda Quintero MD Work Phone: [facility] Start: 12-15-2020 AUDIT Wendy L Oberha user Work Phone: [facility] Work Phone: Start: 10-27-2020 End: 10-27-2020 Emergency department patient visit Rosalinda Quintero MD Work Phone: [facility] Start: 10-23-2020 End: 10-23-2020 Emergency department patient visit Albina Callejas MD Work Phone: [facility] Start: 10-06-2020 Patient encounter procedure Kay Perea DO [facility] Work Phone: Start: 09-20-2020 Patient encounter procedure Kay Perea [facility] 300 Work Phone: Start: 09-17-2020 End: 09-17-2020 Emergency department patient visit Rosalinda Donte Quintero Work Phone: [facility] Start: 09-01-2020 Patient encounter procedure Wendy Beavers [facility] [place] Work Phone: Start: 07-28-2020 Patient encounter procedure Wendy Beavers [facility] [place] Work Phone: Start: 07-15-2020 Patient encounter procedure Wendy Beavers [facility] [place] Work Phone: Start: 07-12-2020 Patient encounter procedure Wendy Beavers [facility] [place] Work Phone: Start: 07-05-2020 Patient encounter procedure Wendy Beavers [facility] [place] Work Phone: Start: 06-22-2020 Patient encounter procedure Wendy Beavers [facility] [place] Work Phone: Start: 04-19-2020 Patient encounter procedure Wendy Beavers [facility] [place] Work Phone: Start: 03-21-2020 Patient encounter procedure Wendy Beavers [facility] [place] Work Phone: Start: 03-08-2020 Patient encounter procedure Wendy Beavers [facility] [place] Work Phone: Start: 01-22-2020 Patient encounter procedure Wendy Beavers [facility] [place] Work Phone: Start: 12-24-2019 Patient encounter procedure Wendy Beavers [facility] [place] Work Phone: Start: 12-11-2019 Patient encounter procedure Wendy Beavers [facility] [place] Work Phone: Start: 09-18-2019 Patient encounter procedure Wendy Beavers [facility] [place] Work Phone: Start: 09-11-2019 Patient encounter procedure Wendy Beavers [facility] [place] Work Phone: Start: 04-16-2019 Patient encounter procedure Wendy Beavers [facility] [place] Work Phone: Start: 12-23-2018 End: 12-23-2018 Patient encounter procedure Normajasvir Gonzalesenhall Work Phone: [facility] Comment on above: Lumbar radiculopathy Start: 09-08-2017 Ambulatory Norma Silva Facility:[place] Start: 09-08-2017 End: 09-08-2017 Ambulatory Norma Silva Work Phone: [facility] Start: 05-30-2017 Ambulatory Woodrow Barker [place] Work Phone: [facility] Start: 12-24-2016 End: 12-24-2016 Ambulatory PAOLA CAREY [facility] Procedures Date Procedure Procedure Detail Performing Clinician Start: 09-01-2024 US Abdomen Danae Major MD Work Phone: Start: 08-06-2024 Radex shoulder complete minimum 2 views Elizabeth W Ace DO Work Phone: Start: 05-11-2024 Radex ankle complete minimum 3 views Rodolfo Abrams DO Work Phone: Start: 12-15-2020 Radex hand minimum 3 views Rosalinda Quintero MD Work Phone: Start: 10-27-2020 End: 10-27-2020 Radex elbow complete minimum 3 views Rosalinda Quintero MD Work Phone: Start: 10-23-2020 End: 10-23-2020 Fibrin dgradj products d-dimer quantitative [facility] Start: 10-23-2020 End: 10-23-2020 Ecg routine ecg w/least 12 lds w/i&r Albina Callejas MD Work Phone: Start: 09-17-2020 X-ray of left foot Rosalinda Quintero Work Phone: Start: 12-23-2018 Referral to neurology service External T ranscribed Bone marrow sampling Wendy O berhauser Decompression of median nerve Wendy Oberhauser Esophagogastroduodenoscopy M dorothy Oberhauser Operative procedure on foot Wendy Oberhauser Operative procedure on knee Wendy Oberhauser Tonsillectomy and adenoidectomy Wendy Oberhauser Plan of Treatment Date Care Activity Detail Author Start: 2041 Zoster Vaccines (1 o f 2) Zoster Vaccines (1 of 2) [facility] Start: 08-29-2031 DTaP/Tdap/Td Vaccine s (6 - Td or Tdap) DTaP/Tdap/Td Vaccines (6 - Td or Tdap) [facility] Start: 08-29-2031 Tetanus vaccination Tetanus: Every 1 0yrs [facility] [place] Start: 08-29-2031 Urine microalbumin profile [facility] Start: 02-15-2025 Influenza vaccination Influenza Vacc ine (#1) [facility] Start: 07-14-2024 End: 07-14-2024 Patient encounter procedure 07/14/2024 9:15 AM EST Office Visit Podiatry [address] [place] [address] Lawrence Briggs [address] [address] B/L great toe ingrown and infected Podiatry Comment on above: B/L great toe ingrow n and infected Start: 02-16-2024 Covid-19 Vaccine ( season) Covid-19 Vaccine ( season) [facility] Start: 02-16-2024 Influenza vaccination [facility] Start: 02-03-2024 End: 02-03-2024 Patient encounter procedure 02/03/2024 2:30 PM EDT Procedure visit [facility] Physician [facility] Podiatry [address] [place] [address] Estiven Ryder, FEDERICO [address] [place] [address] [facility] Start: 12-26-2023 End: 12-26-2023 Patient encounter procedure 12/26/2023 9:15 AM EDT Office Visit [facility] Physician [facility] Podiatry [address] [place] [address] Estiven Ryder, FEDERICO [address] [place] [address] [facility] Phys[facility] Pod[facility] Start: 12-17-2023 End: 12-17-2023 Patient encounter procedure 12/17/2023 9:45 AM EDT Appointment [facility] [address] [place] [address] Estiven Ryder DPM [address] [place] [address] [facility] Start: 11-21-2023 End: 11-20-2024 MR Ankle - right WO contrast MR Ankle Right Without Contrast Imaging STAT Achilles tendon tear, right, initial encounter Bone spur of posterior portion of right calcaneus Expected: 11/21/2023, Expires: 11/20/2024 [facility] Work Phone: Comment on above: Expected: 11/21/2023 , Expires: 11/20/2024 Start: 02-15-2023 COVID-19 Vaccine ( season) COVID-19 Vaccine ( - season) [facility] Start: 11-07-2021 FUV, Provider: Kay Perea, Status: Pen, Time: 11:00 AM FUV, Provider: Kay Perea, Status: Pen, Time: 11:00 AM [facility] Work Phone: Start: 05-01-2021 FUV, Provider: Wendy Beavers, Status: Pen, Time: 1:00 PM FUV, Provider: Wendy Beavers, Status: Pen, Time: 1:00 PM [facility] Work Phone: Start: 03-17-2021 COVID-19 Vaccine (2 - Pfizer 3-dose series) COVID-19 Vaccine (2 - Pfizer 3-dose series) [facility] Start: 03-10-2021 PTEVAADULT, Provider : Margot Garcia, Status: Pen, Time: 2:45 PM PTEVAADULT, Provider: Margot Garcia, Status: Pen, Time: 2:45 PM [facility] Work Phone: Start: 03-10-2021 PTEVAADULT, Provider : Darien Alford, Status: Pen, Time: 2:30 PM PTEVAADULT, Provider: Darien Alford, Status: Pen, Time: 2:30 PM [facility] Work Phone: Start: 2021 Screening for malignant neoplasm of cervix [facility] Start: 02-15-2021 Influenza vaccination [facility] Start: 02-13-2021 FUV, Provider: Wendy Beavers, Status: Pen, Time: 3:40 PM FUV, Provider: Wendy Beavers, Status: Pen, Time: 3:40 PM [facility] Work Phone: Start: 02-09-2021 FUV, Provider: Kay Perea, Status: Pen, Time: 11:00 AM FUV, Provider: Kay Perea, Status: Pen, Time: 11:00 AM [facility] 300 Work Phone: Start: 10-06-2020 Assay of c-peptide C Peptide, Serum [facility] Work Phone: Start: 10-06-2020 Assay of insulin total Insulin Level , Serum [facility] Work Phone: Start: 10-06-2020 Comprehensive metabolic 2000 panel - Serum or Plasma Comprehensive Metabolic Panel [facility] Work Phone: Start: 10-06-2020 Hemoglobin glycosylated a1c Hemoglobin A1C [facility] Work Phone: Start: 10-06-2020 TSH WITH REFLEX TO FREE T4 IF ABNORMAL TSH WITH REFLEX TO FREE T4 IF ABNORMAL [facility] Work Phone: Start: 02-16-2020 Influenza vaccinatio n given Sequential Influenza Vaccine (#1) [facility] Start: 02-15-2019 Influenza vaccinatio n given SEQUENTIAL INFLUENZA VACCINE (#1) [facility] Start: 02-15-2017 Influenza vaccination SEQUENTI AL INFLUENZA VACCINE (#1) [facility] Work Phone: Start: 11-24-2016 Pneumococcal Vaccine : Ped or At-Risk (2 of 2 - PCV) Pneumococcal Vaccine: Ped or At-Risk (2 of 2 - PCV) [facility] Start: 11-24-2016 Pneumococcal Vaccine : Pediatrics (0 to 5 Years) and At-Risk Patients (6 to 64 Years) (2 of 2 - PCV) Pneumococcal Vaccine: Pediatrics (0 to 5 Years) and At-Risk Patients (6 to 64 Years) (2 of 2 - PCV) [facility] Start: 11-24-2016 Pneumococcal Vaccine : Pediatrics and At-Risk Adult Patients (2 of 2 - PCV) Pneumococcal Vaccine: Pediatrics and At-Risk Adult Patients (2 of 2 - PCV) [facility] Start: 2012 Screening for malignant neoplasm of cervix [facility] Start: 2009 Annual PCP Team Chronic Disease Visit Annual PCP Team Chronic Disease Visit [facility] Start: 2009 Anxiety Screening Anxiety Screening [facility] Start: 2009 Hepatitis C antibody , confirmatory test Hepatitis C Screening [facility] Start: 2009 Hepatitis C screening Hepatitis C Sc reening [facility] Start: 2009 HIV screening HIV Screening [facility] Start: 2009 Spirometry Spirometry [facility] Start: 2007 COVID-19 Vaccine (1) COVID-19 Vaccin e (1) [facility] Start: 2006 HIV screening HIV Screening [facility] Start: 2004 Varicella vaccination Varicell a Vaccines (1 of 2 - 13+ 2-dose series) [facility] Start: 2003 Adolescent depressio n screening assessment Depression Screening (PHQ9) [facility] Start: 2003 COVID-19 Vaccine (1) COVID-19 Vaccin e (1) [facility] Start: 2003 Depression screening using PHQ-9 (Patient Health Questionnaire 9) score [facility] Start: 02-22-1998 Hepatitis B Vaccine (3 of 3 - 3-dose series) Hepatitis B Vaccine (3 of 3 - 3-dose series) [facility] Start: 02-22-1998 Hepatitis B Vaccines (3 of 3 - 3-dose series) Hepatitis B Vaccines (3 of 3 - 3-dose series) [facility] Start: 1994 History and physical examination, annual for health maintenance Wellness Visit [facility] Start: 1991 HIV screening HIV Screening [facility] Start: 1991 Lipid panel Lipid Panel [facility] Start: 1991 Screening for malignant neoplasm of cervix [facility] Start: 1991 Tetanus vaccination [facility] Work Phone: Start: 1991 Yearly Adult Physical Yearly Adult P hysical [facility] NEGATED: Highlighted row has been ruled out! Planned Goals not documented [facility] [address] Work Phone: Immunizations Immunization Date Immunization Notes Care Provider Kamaljit kyle 08-28-2021 tetanus toxoid, redu meggan diphtheria toxoid, and acellular pertussis vaccine, adsorbed Wendy Beavers DO Work Phone: [facility] 02-24-2021 Pfizer-BioNTech COVID-19 Vacc 30 MCG/0.3ML Intramuscular Suspension Wendy Beavers Work Phone: [facility] Work Phone: Comment on above: Series: 04-27-2016 influenza, injectabl e, quadrivalent, contains preservative Lawrence Chester Work Phone: [facility] 04-27-2016 influenza virus vaccine, unspecified formulation Estivenstuart GuanRyder DPM Work Phone: [facility] 11-25-2015 pneumococcal polysaccharide vaccine, 23 valent Lawrence Chester Work Phone: [facility] Payers Date Payer Category Payer Self-pay 2022 Medicaid (Managed Care) 1.2. [id number] 2022 Medicaid [id number] 2014 Medicaid [id number] 2014 Medicaid [employer] [facility] MEDICAID [employer] MEDICAID [id number] 2014-Present [id number]. [id number] 2014 Medicaid [id number] 1.13.385.2. [id number] 1991 Unknown [id number] 2.16.840.1.223051.3.579.2. 356 1991 Unknown [id number] 2.16.840.1.521209.3.579.2. 356 1991 Unknown [id number] 2.16.840.1.908408.3.579.2. 356 1991 Unknown [id number] 2.16.840.1.484737.3.579.2. 903 1991 Unknown [id number] 2.16.840.1.125325.3.579.2. 903 1991 Unknown [id number] 2.16.840.1.116290.3.579.2. 718 1991 Unknown [id number] 2.16.840.1.896717.3.579.2. 718 1991 Unknown [id number] 2.16.840.1.674901.3.579.2. 718 1991 Unknown [id number] 2.16.840.1.638795.3.579.2. 900 1991 Unknown [id number] 2.16.840.1.312785.3.579.2. 3 1991 Unknown [id number] 2.16.840.1.300119.3.579.2. 1243 1991 Unknown [id number] 2.16.840.1.680589.3.579.2. 5 1991 Unknown [id number] 2.16.840.1.446950.3.579.2. 2 1991 Unknown [id number] 2.16.840.1.479894.3.579.2. 2 1991 Unknown [id number] 2.16.840.1.242947.3.579.2. 902 1991 Unknown [id number] 2.16.840.1.248040.3.579.2. 2 1991 Unknown [id number] 2.16.840.1.674039.3.579.2. 902 1991 Unknown [id number] 2.16.840.1.869057.3.579.2. 1991 Unknown [id number] 2.16.840.1.853485.3.579.2. 902 1991 Unknown [id number] 2.16.840.1.751819.3.579.2. 1991 Unknown [id number] 2.16.840.1.945984.3.579.2. 902 1991 Unknown [id number] 2.16.840.1.149194.3.579.2. 902 1991 Unknown [id number] 2.16.840.1.460160.3.579.2. 902 1991 Unknown [id number] 2.16.840.1.863820.3.579.2. 902 1991 Unknown [id number] 2.16.840.1.334245.3.579.2. 902 Medicaid [id number] 2..840.1.662431.3.249.13 Unknown [employer] Unknown [employer] [id number] Effective for all dates xx- 1.2.840.093173.1.13.385.2. 7.3.361159.315 Unknown [id number] 2.840.1.618841.3.579.2. 531 Unknown [id number] 2.840.1.991287.3.579.2. 531 Unknown [id number] 2.16840.1.138337.3.579.2. 462 Unknown [id number] 2.16.840.1.618472.3.579.2. 462 Unknown [id number] 2.16840.1.490513.3.579.2. 462 Unknown [id number] 2.16840.1.434514.3.579.2. 462 Unknown [id number] 2.16.840.1.176293.3.579.2. 462 Unknown [id number] 2.16.840.1.336811.3.579.2. 462 Unknown [id number] 2.16.840.1.168477.3.579.2. 462 Unknown [id number] 2.16.840.1.561782.3.579.2. 462 Unknown [id number] 2.16.840.1.698028.3.579.2. 462 Unknown [id number] 2.16.840.1.321819.3.579.2. 462 Unknown [id number] 2.16.840.1.270574.3.579.2. 462 Unknown [id number] 2.16.840.1.364701.3.579.2. 462 Unknown [id number] 2.16.840.1.351161.3.579.2. 462 Unknown [id number] 2.16.840.1.838795.3.579.2. 462 Unknown [id number] 2.16.840.1.384679.3.579.2. 462 Unknown [id number] 2.16.840.1.663401.3.579.2. 462 Unknown [id number] 2.16840.1.423569.3.579.2. 462 Unknown [id number] 2.16840.1.714902.3.579.2. 462 Unknown [id number] 2.16840.1.513219.3.579.2. 462 Unknown [id number] 2.16840.1.370281.3.579.2. 462 Social History Date Type Detail Facility Start: 05-30-2017 End: 05-23-2024 Tobacco smoking status [facility] Never smoker [facility] Start: 1990 Sex Assigned At Not on file [facility] Work Phone: Start: 09-17-2020 End: 12-15-2020 Tobacco use and exposure Former user [facility] Start: 09-17-2020 End: 05-23-2024 Alcohol intake Current non-drinker of alcohol (finding) [facility] Start: 08-12-2021 End: 08-07-2024 Exposure to SARS-CoV-2 (event) Not sure [facility] Start: 11-19-2023 End: 03-30-2024 History of marijuana use History of marijuana use [facility] Work Phone: Start: 02-09-2021 End: 05-23-2024 Tobacco use and exposure User of smokeless tobacco [facility] History of tobacco use Chews Tobacco [facility] Start: 1991 Sex Assigned At Female F [facility] Start: 11-19-2023 End: 03-30-2024 Tobacco use panel [facility] Start: 08-22-2021 Gender identity Identifies as female gender (finding) [facility] Start: 05-14-2022 Sexual orientation Heterosexual (fin ding) [facility] National Score (1-100), lower number is lower risk 51 [facility] Start: 05-11-2024 Tobacco use and exposure Smokeless tobacco non-user [facility] Work Phone: Start: 05-11-2024 Alcoholic beverage intake Lifetime non-drinker (finding) [facility] Work Phone: NEGATED: Highlighted row - - [facility] Work Phone: Functional Status Date Assessment Result Facility NEGATED: Highlighted row Functional performance Functional status health issues are not documented Disease [facility] Work Phone: Mental Status Date Assessment Result Facility NEGATED: Highlighted row Cognitive function [Interpretation] Cognitive status health issues are not documented [facility] Work Phone: Clinical Notes 10-23-2020 to 12-22-2024 Warren Jeong APRN.RABBIT BREEDER - 12/22/2024 12:57 PM EDTalat Hernandez DO - 08/06/2024 10:01 PM Ross Hernandez, DO - 08/06/2024 10:01 PM Ebenezer Zepeda APRN.RABBIT BREEDER - 05/23/2024 11:01 AM ESTAttachments Note Date & Type Note Facility 12-22-2024 Note HNO ID: [id number] Author: WARREN JEONG APRN.CNP Service: ? Author Type: Nurse Practitioner Type: Progress Notes Filed: 12/22/2024 13:45 Note Text: [facility] Stanleywoodrow is a 34 year old female. Patient presents with: Dental Problem: Tooth pain x 2 days Patient came in with tooth pain and concern for possible tooth infection. Patient stated that symptoms began about a week ago. Patient has not seen a dentist in years. Patient reports pain in her lower wisdom tooth on the right side. She had an infection of the same tooth in the past and was prescribed keflex. Pain rated 9/10 and is described as a throbbing pain that radiates along the jaw, neck, and head. Patient has tried heat, ice, and Toradol for the pain but states minimal relief. Patient denies any drainage from the tooth. Denies fever, chills, shortness or breath, difficulty swallowing, facial swelling, neck pain or stiffness, and inability to open jaw completely. Dental Problem Associated symptoms include headaches. Pertinent negatives include no chest pain, fever or sore throat. Review of Systems Constitutional: Negative for fever. HENT: Positive for dental problem. Negative for facial swelling, mouth sores, sore throat and trouble swallowing. Respiratory: Negative for shortness of breath. Cardiovascular: Negative for chest pain. Neurological: Positive for headaches. PAST MEDICAL HISTORY Diagnosis Date Anxiety Depression Morbid obesity due to excess calories 11/25/2015 Poorly controlled persistent asthma 11/25/2015 PAST SURGICAL HISTORY Procedure Laterality Date ORTHOPEDICS SURGERY HX TONSILLECTOMY PRIMARY/SECONDARY Tonsillectomy ALLERGIES Bactrim [Sulfamethoxazole-Trimethoprim] , Gel, Ivp Dye [Iodine], Latex, Neosporin [Ejxsygil-Tiqqbpgsgu-Iwavjbbue] , Penicillins, and Cortisone MEDICATIONS cephALEXin (KEFLEX) 250 mg/5 mL suspension Take 10 mL by mouth three times a day for 7 days. REXULTI 0.5 mg tablet Take 0.5 mg by mouth daily at bedtime. guanFACINE (TENEX) 1 mg tablet Take 1 mg by mouth daily at bedtime. (Patient not taking: Reported on 05/23/2024) tiZANidine (ZANAFLEX) 4 mg tablet Take 4 mg by mouth three times a day as needed. (Patient not taking: Reported on 12/22/2024) cyclobenzaprine (FLEXERIL) 10 mg tablet Take 1 tablet by mouth three times a day as needed. (Patient not taking: Reported on 12/22/2024) lidocaine (LIDODERM) 5 % Apply 1 Patch as directed every 12 hours. Remove old patch prior to placing new patch. Location: back (Patient not taking: Reported on 12/22/2024) Albuterol Sulfate 0.63 mg/3 mL nebulizer solution Inhale 0.63 mg as instructed every 6 hours as needed. (Patient not taking: Reported on 05/23/2024) albuterol HFA (PROVENTIL HFA, VENTOLIN HFA) 90 mcg/actuation inhaler Inhale 2 Puffs as instructed every 4 hours as needed. (Patient not taking: Reported on 05/23/2024) hydrOXYzine pamoate (VISTARIL) 25 mg capsule Take 25 mg by mouth three times a day as needed for anxiety. (Patient not taking: Reported on 05/23/2024) levothyroxine (SYNTHROID) 25 mcg tablet Take 1 tablet by mouth every afternoon. (Patient not taking: Reported on 12/22/2024) OLANZapine (ZYPREXA) 2.5 mg tablet Take 1 tablet by mouth every afternoon. (Patient not taking: Reported on 05/23/2024) ibuprofen (MOTRIN) 600 mg tablet Take 600 mg by mouth every 6 hours as needed. (Patient not taking: Reported on 03/30/2024) ALPRAZolam (XANAX) 0.5 mg tablet Take 0.25 mg by mouth at bedtime as needed. (Patient not taking: Reported on 03/30/2024) SPIRIVA RESPIMAT 1.25 mcg/actuation mist INHALE 2 INHALATION INSTRUCTED ONCE DAILY FOR 30 DAYS. (Patient not taking: Reported on 03/30/2024) EPIPEN 2-LEANNE 0.3 mg/0.3 mL auto-injector (Patient not taking: Reported on 03/30/2024) topiramate (TOPAMAX) 50 mg tablet (Patient not taking: Reported on 12/25/2020) FAMILY HISTORY Problem Relation Age of Onset Diabetes Maternal Grandmother Hypertension Maternal Grandmother Social History Tobacco Use Smoking status: Never Smokeless tobacco: Current Types: Chew Vaping Use Vaping status: Never Used Substance Use Topics Alcohol use: No Drug use: No Objective BP 118/74 Pulse 73 Temp 36.3 ?C (97.3 ?F) (Tympanic) Resp 18 Wt (!) 144.1 kg (317 lb 12.3 oz) LMP 04/27/2024 (Approximate) SpO2 99% BMI 51.29 kg/m? Physical Exam Constitutional: Appearance: Normal appearance. HENT: Head: Normocephalic and atraumatic. Mouth/Throat: Mouth: Mucous membranes are moist. Dentition: Abnormal dentition. Dental tenderness and dental caries present. No dental abscesses. Pharynx: Oropharynx is clear. Uvula midline. Comments: Tenderness of the lower wisdom tooth. Dental caries noted on exam. No tongue swelling, TMJ tenderness, or facial swelling noted. Patient able to open jaw completely for exam. Cardiovascular: Rate and Rhythm: Normal rate and regular rhythm. Heart sounds: No (more content not included)... [facility] 12-22-2024 History of Presen t illness Narrative Images from the original note were not included. [facility] Shahnaz Phillip Queen is a 34 year old female. Patient presents with: Dental Problem: Tooth pain x 2 days Patient came in with tooth pain and concern for possible tooth infection. Patient stated that symptoms began about a week ago. Patient has not seen a dentist in years. Patient reports pain in her lower wisdom tooth on the right side. She had an infection of the same tooth in the past and was prescribed keflex. Pain rated 9/10 and is described as a throbbing pain that radiates along the jaw, neck, and head. Patient has tried heat, ice, and Toradol for the pain but states minimal relief. Patient denies any drainage from the tooth. Denies fever, chills, shortness or breath, difficulty swallowing, facial swelling, neck pain or stiffness, and inability to open jaw completely. Dental Problem Associated symptoms include headaches. Pertinent negatives include no chest pain, fever or sore throat. Review of Systems Constitutional: Negative for fever. HENT: Positive for dental problem. Negative for facial swelling, mouth sores, sore throat and trouble swallowing. Respiratory: Negative for shortness of breath. Cardiovascular: Negative for chest pain. Neurological: Positive for headaches. PAST MEDICAL HISTORY Diagnosis Date Anxiety Depression Morbid obesity due to excess calories 11/25/2015 Poorly controlled persistent asthma 11/25/2015 PAST SURGICAL HISTORY Procedure Laterality Date ORTHOPEDICS SURGERY HX TONSILLECTOMY PRIMARY/SECONDARY <AGE 12 Tonsillectomy ALLERGIES Bactrim [Sulfamethoxazole-Trimethoprim] , Gel, Ivp Dye [Iodine], Latex, Neosporin [Clftjnui-Gifahxwsbg-Jlvspevjw] , Penicillins, and Cortisone MEDICATIONS cephALEXin (KEFLEX) 250 mg/5 mL suspension Take 10 mL by mouth three times a day for 7 days. REXULTI 0.5 mg tablet Take 0.5 mg by mouth daily at bedtime. guanFACINE (TENEX) 1 mg tablet Take 1 mg by mouth daily at bedtime. (Patient not taking: Reported on 05/23/2024) tiZANidine (ZANAFLEX) 4 mg tablet Take 4 mg by mouth three times a day as needed. (Patient not taking: Reported on 12/22/2024) cyclobenzaprine (FLEXERIL) 10 mg tablet Take 1 tablet by mouth three times a day as needed. (Patient not taking: Reported on 12/22/2024) lidocaine (LIDODERM) 5 % Apply 1 Patch as directed every 12 hours. Remove old patch prior to placing new patch. Location: back (Patient not taking: Reported on 12/22/2024) Albuterol Sulfate 0.63 mg/3 mL nebulizer solution Inhale 0.63 mg as instructed every 6 hours as needed. (Patient not taking: Reported on 05/23/2024) albuterol HFA (PROVENTIL HFA, VENTOLIN HFA) 90 mcg/actuation inhaler Inhale 2 Puffs as instructed every 4 hours as needed. (Patient not taking: Reported on 05/23/2024) hydrOXYzine pamoate (VISTARIL) 25 mg capsule Take 25 mg by mouth three times a day as needed for anxiety. (Patient not taking: Reported on 05/23/2024) levothyroxine (SYNTHROID) 25 mcg tablet Take 1 tablet by mouth every afternoon. (Patient not taking: Reported on 12/22/2024) OLANZapine (ZYPREXA) 2.5 mg tablet Take 1 tablet by mouth every afternoon. (Patient not taking: Reported on 05/23/2024) ibuprofen (MOTRIN) 600 mg tablet Take 600 mg by mouth every 6 hours as needed. (Patient not taking: Reported on 03/30/2024) ALPRAZolam (XANAX) 0.5 mg tablet Take 0.25 mg by mouth at bedtime as needed. (Patient not taking: Reported on 03/30/2024) SPIRIVA RESPIMAT 1.25 mcg/actuation mist INHALE 2 INHALATION INSTRUCTED ONCE DAILY FOR 30 DAYS. (Patient not taking: Reported on 03/30/2024) EPIPEN 2-LEANNE 0.3 mg/0.3 mL auto-injector (Patient not taking: Reported on 03/30/2024) topiramate (TOPAMAX) 50 mg tablet (Patient not taking: Reported on 12/25/2020) FAMILY HISTORY Problem Relation Age of Onset Diabetes Maternal Grandmother Hypertension Maternal Grandmother Social History Tobacco Use Smoking status: Never Smokeless tobacco: Current Types: Chew Vaping Use Vaping status: Never Used Substance Use Topics Alcohol use: No Drug use: No Objective BP 118/74 Pulse 73 Temp 36.3 C (97.3 F) (Tympanic) Resp 18 Wt (!) 144.1 kg (317 lb 12.3 oz) LMP 04/27/2024 (Approximate) SpO2 99% BMI 51.29 kg/m Physical Exam Constitutional: Appearance: Normal appearance. HENT: Head: Normocephalic and atraumatic. Mouth/Throat: Mouth: Mucous membranes are moist. Dentition: Abnormal dentition. Dental tenderness and dental caries present. No dental abscesses. Pharynx: Oropharynx is clear. Uvula midline. Comments: Tenderness of the lower wisdom tooth. Dental caries noted on exam. No tongue swelling, TMJ tenderness, or facial swelling noted. Patient able to open jaw completely for exam. Cardiovascular: Rate and Rhythm: Normal rate and regular rhythm. Heart sounds: Normal heart sounds. Pulmonary: Effort: Pulmonary effort is normal. Breath sounds: Normal breath sounds. Musculoskeletal: Cervical back: Full passive range of motion without pain and normal range of motion. No rigidity or tenderness. No pain with movement. Skin: General: Skin is warm and dry. Neurological: Mental Status: She is alert and oriented to person, place, and time. Psychiatric: Behavior: Behavior is cooperative. {ASSESSMENT/PLAN: 1. Dental infection - ICD9: 522.4, ICD10: K04.7 - Patient to begin treatment with Keflex. Patient has tolerated medication in the past with no reactions - Patient educated about supportive therapy with prn analgesics for pain - Patient provided handout of dentists to call for further evaluation and treatment - Patient educated to monitor for fever, chills, difficulty swallowing, facial swelling, neck pain or inability to open jaw completely. Patient instructed to follow up at ED if symptoms occur - Patient agreeable to care plan with no questions at this time. - CEPHALEXIN 250 MG/5 ML ORAL SUSPENSION Max Castorena History and Record Review Clinical information obtained from an independent historian. History obtained from or confirmed by: parent. Procedures TEACHING PROVIDER (Physician/PA/BROOMMAKER) NOTE OF PERSONAL INVOLVEMENT IN CARE: I have personally seen and examined the patient and performed the medical decision-making components. I have reviewed the Advanced Practice Registered Nurse (BROOMMAKER) Student's documentation and verified the findings in the note as written. Any additions or changes are noted in bold/italics. Signature: Warren Jeong Date: 12/22/2024 Time: 1:45 PM documented in this encounter [facility] 08-06-2024 Physician Emergency department Note HPI Chief Complaint Patient presents with Shoulder Pain Pt was supposed to have right shoulder surgery a year ago, states no injury or trauma. Was seen at [facility] yesterday, prescribed pain meds, no relief. 34-year-old female presents with severe right shoulder pain. Patient states she has been symptomatic for several years. Patient was supposed to have surgery which she did not have. Patient denies any recent injury. Patient is complaining of pain with movement. Patient will be given a shot of Toradol 30 mg IM. The patient did get relief. Patient will be referred to local orthopedic surgeon . History provided by: Patient Patient History No past medical history on file. Past Surgical History: Procedure Laterality Date OTHER SURGICAL HISTORY 08/21/2019 Esophagogastroduodenoscopy OTHER SURGICAL HISTORY 08/21/2019 Foot surgery OTHER SURGICAL HISTORY 08/21/2019 Bone marrow biopsy OTHER SURGICAL HISTORY 08/21/2019 Carpal tunnel surgery OTHER SURGICAL HISTORY 08/21/2019 Knee surgery OTHER SURGICAL HISTORY 08/21/2019 Tonsillectomy with adenoidectomy No family history on file. Social History Tobacco Use Smoking status: Never Smokeless tobacco: Never Substance Use Topics Alcohol use: Never Drug use: Never Physical Exam ED Triage Vitals Temp Pulse Resp BP -- -- -- -- SpO2 Temp src Heart Rate Source Patient Position -- -- -- -- BP Location FiO2 (%) -- -- Physical Exam Constitutional: Appearance: She is obese. Musculoskeletal: General: Tenderness present. Comments: Moderate pain in right shoulder. Pain increases with attempted range of motion and movement. Neurovascular is intact. XR shoulder right 2+ views Final Result No acute fracture. MACRO: None Signed by: Collin Smiley 08/06/2024 11:07 PM Dictation workstation: [id number] ED Course & MDM Diagnoses as of 08/06/242358 Chronic right shoulder pain No data recorded Alycia Coma Scale Score: 15 (08/06/24 2232 : Khadijah Sheikh RN) Medical Decision Making 1 take medication as prescribed 2 follow-up with orthopedics, if symptoms worsen return to ED. Procedure Procedures Elizabeth Hernandez DO 08/06/242358 [facility] Work Phone: 08-06-2024 Emergency department Note HPI Chief Complaint Patient presents with Shoulder Pain Pt was supposed to have right shoulder surgery a year ago, states no injury or trauma. Was seen at [facility] yesterday, prescribed pain meds, no relief. 34-year-old female presents with severe right shoulder pain. Patient states she has been symptomatic for several years. Patient was supposed to have surgery which she did not have. Patient denies any recent injury. Patient is complaining of pain with movement. Patient will be given a shot of Toradol 30 mg IM. The patient did get relief. Patient will be referred to local orthopedic surgeon . History provided by: Patient Patient History No past medical history on file. Past Surgical History: Procedure Laterality Date OTHER SURGICAL HISTORY 08/21/2019 Esophagogastroduodenoscopy OTHER SURGICAL HISTORY 08/21/2019 Foot surgery OTHER SURGICAL HISTORY 08/21/2019 Bone marrow biopsy OTHER SURGICAL HISTORY 08/21/2019 Carpal tunnel surgery OTHER SURGICAL HISTORY 08/21/2019 Knee surgery OTHER SURGICAL HISTORY 08/21/2019 Tonsillectomy with adenoidectomy No family history on file. Social History Tobacco Use Smoking status: Never Smokeless tobacco: Never Substance Use Topics Alcohol use: Never Drug use: Never Physical Exam ED Triage Vitals Temp Pulse Resp BP -- -- -- -- SpO2 Temp src Heart Rate Source Patient Position -- -- -- -- BP Location FiO2 (%) -- -- Physical Exam Constitutional: Appearance: She is obese. Musculoskeletal: General: Tenderness present. Comments: Moderate pain in right shoulder. Pain increases with attempted range of motion and movement. Neurovascular is intact. XR shoulder right 2+ views Final Result No acute fracture. MACRO: None Signed by: Collin Smiley 08/06/2024 11:07 PM Dictation workstation: [id number] ED Course & MDM Diagnoses as of 08/06/24 235 Chronic right shoulder pain No data recorded Alycia Coma Scale Score: 15 (08/06/24 2232 : Khadijah Sheikh RN) Medical Decision Making 1 take medication as prescribed 2 follow-up with orthopedics, if symptoms worsen return to ED. Procedure Procedures Elizabeth Hernandez DO 08/06/242358 documented in this encounter [facility] Work Phone: 07-01-2024 Telephone encounter Note Called patient to inform her that aqua therapy order has been sent to [facility]. No response. Left VM. Jennifer Merritt LPN [facility] Work Phone: 07-01-2024 Miscellaneous Notes Called patient to inform her that aqua therapy order has been sent to [facility]. No response. Left VM. Jennifer Merritt LPN Order has been faxed to [facility]. Jennifer Merritt LPN Called patient she states that physical therapy had not helped for Tendonitis, Achilles, right and would like to try aqua therapy. Please advise. Jennifer Merritt LPN Patient was here previously to see Dr. Briggs and he put an order in for PT Patient stopped by and asked if she could do aqua therapy with this order Told her we would check and someone would get back with her documented in this encounter [facility] 07-01-2024 Telephone encounter Note Order has been faxed to [facility]. Jennifer Merritt LPN [facility] 06-29-2024 Telephone encounter Note Called patient she states that physical therapy had not helped for Tendonitis, Achilles, right and would like to try aqua therapy. Please advise. Jennifer Merritt LPN [facility] 06-23-2024 Telephone encounter Note Patient was here previously to see Dr. Briggs and he put an order in for PT Patient stopped by and asked if she could do aqua therapy with this order Told her we would check and someone would get back with her [facility] 05-23-2024 Note HNO ID: [id number] Author: EBENEZER GARRETT APRN.RABBIT BREEDER Service: ? Author Type: Nurse Practitioner Type: Progress Notes Filed: 05/23/2024 11:07 Note Text: Subjective HPI HPI Phillip Queen is a 34 year old female who presents today for CC of itchy painful rash on hands. This started 2 days ago. Has tried nothing for relief. Symptoms are worsened by nothing. Right tooth pain, tried otc medication for relief. Hx of bad dental health. Denies fever. Fall few days ago causing back pain to increase, reports always has back pain, now just worse. Otc medication tried. Denies abd pain. Denies change in bowel/bladder habits. Denies possibility of being . . .Patient presents with: Rash: On RIGHT finger AND little finger x 2 days; itch AND painful PAST MEDICAL HISTORY Diagnosis Date Anxiety Depression Morbid obesity due to excess calories 11/25/2015 Poorly controlled persistent asthma 11/25/2015 PAST SURGICAL HISTORY Procedure Laterality Date ORTHOPEDICS SURGERY HX TONSILLECTOMY PRIMARY/SECONDARY Tonsillectomy ALLERGIES Bactrim [Sulfamethoxazole-Trimethoprim] , Gel, Ivp Dye [Iodine], Latex, Neosporin [Acwmgriy-Ysysyldykn-Qqgbrgzll] , Penicillins, and Cortisone MEDICATIONS REXULTI 0.5 mg tablet Take 0.5 mg by mouth daily at bedtime. tiZANidine (ZANAFLEX) 4 mg tablet Take 4 mg by mouth three times a day as needed. levothyroxine (SYNTHROID) 25 mcg tablet Take 1 tablet by mouth every afternoon. guanFACINE (TENEX) 1 mg tablet Take 1 mg by mouth daily at bedtime. (Patient not taking: Reported on 05/23/2024) cyclobenzaprine (FLEXERIL) 10 mg tablet Take 1 tablet by mouth three times a day as needed. cephALEXin (KEFLEX) 500 mg capsule Take 1 capsule by mouth three times a day for 7 days. triamcinolone acetonide (KENALOG) 0.1 % cream Apply 1 application to affected area three times a day for 10 days. Apply sparingly to area for rash/itching. lidocaine (LIDODERM) 5 % Apply 1 Patch as directed every 12 hours. Remove old patch prior to placing new patch. Location: back Albuterol Sulfate 0.63 mg/3 mL nebulizer solution Inhale 0.63 mg as instructed every 6 hours as needed. (Patient not taking: Reported on 05/23/2024) albuterol HFA (PROVENTIL HFA, VENTOLIN HFA) 90 mcg/actuation inhaler Inhale 2 Puffs as instructed every 4 hours as needed. (Patient not taking: Reported on 05/23/2024) hydrOXYzine pamoate (VISTARIL) 25 mg capsule Take 25 mg by mouth three times a day as needed for anxiety. (Patient not taking: Reported on 05/23/2024) OLANZapine (ZYPREXA) 2.5 mg tablet Take 1 tablet by mouth every afternoon. (Patient not taking: Reported on 05/23/2024) ibuprofen (MOTRIN) 600 mg tablet Take 600 mg by mouth every 6 hours as needed. (Patient not taking: Reported on 03/30/2024) ALPRAZolam (XANAX) 0.5 mg tablet Take 0.25 mg by mouth at bedtime as needed. (Patient not taking: Reported on 03/30/2024) SPIRIVA RESPIMAT 1.25 mcg/actuation mist INHALE 2 INHALATION INSTRUCTED ONCE DAILY FOR 30 DAYS. (Patient not taking: Reported on 03/30/2024) EPIPEN 2-LEANNE 0.3 mg/0.3 mL auto-injector (Patient not taking: Reported on 03/30/2024) topiramate (TOPAMAX) 50 mg tablet (Patient not taking: Reported on 12/25/2020) FAMILY HISTORY Problem Relation Age of Onset Diabetes Maternal Grandmother Hypertension Maternal Grandmother Social History Tobacco Use Smoking status: Never Smokeless tobacco: Current Types: Chew Vaping Use Vaping status: Never Used Substance Use Topics Alcohol use: No Drug use: No Review of Systems Constitutional: Negative for chills, fever and weight loss. Cardiovascular: Negative for leg swelling. Gastrointestinal: Negative for abdominal pain, constipation, diarrhea, nausea and vomiting. Genitourinary: Negative for dysuria, flank pain, frequency, hematuria and urgency. Musculoskeletal: Positive for back pain. Skin: Negative for rash. Neurological: Negative for sensory change and focal weakness. Objective Blood pressure 151/100, pulse 73, temperature (!) 35.3 ?C (95.5 ?F), temperature source Left Tympanic, resp. rate 16, weight (!) 147.8 kg (325 lb 13.4 oz), last menstrual period 04/27/2024, SpO2 99%. Physical Exam Constitutional: General: She is not in acute distress. Appearance: Normal appearance. She is not diaphoretic. HENT: Mouth/Throat: Lips: Mammoth. Mouth: Mucous membranes are moist. Cardiovascular: Pulses: Dorsalis pedis pulses are 2+ on the right side and 2+ on the left side. Posterior tibial pulses are 2+ on the right side and 2+ on the left side. Abdominal: General: Bowel sounds are normal. Palpations: Abdomen is soft. Tenderness: There is no abdominal tenderness. Musculoskeletal: Hands: Lumbar back: Spasms present. Decreased range of motion. Comments: Lumbar paraspinal muscles tender with palpation Neurological: Mental Status: She is alert and oriented to person, place, and time. Gait: Gait is intact. Gait normal (more content not included)... [facility] 05-23-2024 History of Presen t illness Narrative Images from the original note were not included. Subjective HPI HPI Phillip Queen is a 34 year old female who presents today for CC of itchy painful rash on hands. This started 2 days ago. Has tried nothing for relief. Symptoms are worsened by nothing. Right tooth pain, tried otc medication for relief. Hx of bad dental health. Denies fever. Fall few days ago causing back pain to increase, reports always has back pain, now just worse. Otc medication tried. Denies abd pain. Denies change in bowel/bladder habits. Denies possibility of being . . .Patient presents with: Rash: On RIGHT finger & little finger x 2 days; itch & painful PAST MEDICAL HISTORY Diagnosis Date Anxiety Depression Morbid obesity due to excess calories 11/25/2015 Poorly controlled persistent asthma 11/25/2015 PAST SURGICAL HISTORY Procedure Laterality Date ORTHOPEDICS SURGERY HX TONSILLECTOMY PRIMARY/SECONDARY <AGE 13 Tonsillectomy ALLERGIES Bactrim [Sulfamethoxazole-Trimethoprim] , Gel, Ivp Dye [Iodine], Latex, Neosporin [Gasxzdip-Wrndttowjj-Rokhmxqgw] , Penicillins, and Cortisone MEDICATIONS REXULTI 0.5 mg tablet Take 0.5 mg by mouth daily at bedtime. tiZANidine (ZANAFLEX) 4 mg tablet Take 4 mg by mouth three times a day as needed. levothyroxine (SYNTHROID) 25 mcg tablet Take 1 tablet by mouth every afternoon. guanFACINE (TENEX) 1 mg tablet Take 1 mg by mouth daily at bedtime. (Patient not taking: Reported on 05/23/2024) cyclobenzaprine (FLEXERIL) 10 mg tablet Take 1 tablet by mouth three times a day as needed. cephALEXin (KEFLEX) 500 mg capsule Take 1 capsule by mouth three times a day for 7 days. triamcinolone acetonide (KENALOG) 0.1 % cream Apply 1 application to affected area three times a day for 10 days. Apply sparingly to area for rash/itching. lidocaine (LIDODERM) 5 % Apply 1 Patch as directed every 12 hours. Remove old patch prior to placing new patch. Location: back Albuterol Sulfate 0.63 mg/3 mL nebulizer solution Inhale 0.63 mg as instructed every 6 hours as needed. (Patient not taking: Reported on 05/23/2024) albuterol HFA (PROVENTIL HFA, VENTOLIN HFA) 90 mcg/actuation inhaler Inhale 2 Puffs as instructed every 4 hours as needed. (Patient not taking: Reported on 05/23/2024) hydrOXYzine pamoate (VISTARIL) 25 mg capsule Take 25 mg by mouth three times a day as needed for anxiety. (Patient not taking: Reported on 05/23/2024) OLANZapine (ZYPREXA) 2.5 mg tablet Take 1 tablet by mouth every afternoon. (Patient not taking: Reported on 05/23/2024) ibuprofen (MOTRIN) 600 mg tablet Take 600 mg by mouth every 6 hours as needed. (Patient not taking: Reported on 03/30/2024) ALPRAZolam (XANAX) 0.5 mg tablet Take 0.25 mg by mouth at bedtime as needed. (Patient not taking: Reported on 03/30/2024) SPIRIVA RESPIMAT 1.25 mcg/actuation mist INHALE 2 INHALATION INSTRUCTED ONCE DAILY FOR 30 DAYS. (Patient not taking: Reported on 03/30/2024) EPIPEN 2-LEANNE 0.3 mg/0.3 mL auto-injector (Patient not taking: Reported on 03/30/2024) topiramate (TOPAMAX) 50 mg tablet (Patient not taking: Reported on 12/25/2020) FAMILY HISTORY Problem Relation Age of Onset Diabetes Maternal Grandmother Hypertension Maternal Grandmother Social History Tobacco Use Smoking status: Never Smokeless tobacco: Current Types: Chew Vaping Use Vaping status: Never Used Substance Use Topics Alcohol use: No Drug use: No Review of Systems Constitutional: Negative for chills, fever and weight loss. Cardiovascular: Negative for leg swelling. Gastrointestinal: Negative for abdominal pain, constipation, diarrhea, nausea and vomiting. Genitourinary: Negative for dysuria, flank pain, frequency, hematuria and urgency. Musculoskeletal: Positive for back pain. Skin: Negative for rash. Neurological: Negative for sensory change and focal weakness. Objective Blood pressure 151/100, pulse 73, temperature (!) 35.3 C (95.5 F), temperature source Left Tympanic, resp. rate 16, weight (!) 147.8 kg (325 lb 13.4 oz), last menstrual period 04/27/2024, SpO2 99%. Physical Exam Constitutional: General: She is not in acute distress. Appearance: Normal appearance. She is not diaphoretic. HENT: Mouth/Throat: Lips: Mammoth. Mouth: Mucous membranes are moist. Cardiovascular: Pulses: Dorsalis pedis pulses are 2+ on the right side and 2+ on the left side. Posterior tibial pulses are 2+ on the right side and 2+ on the left side. Abdominal: General: Bowel sounds are normal. Palpations: Abdomen is soft. Tenderness: There is no abdominal tenderness. Musculoskeletal: Hands: Lumbar back: Spasms present. Decreased range of motion. Comments: Lumbar paraspinal muscles tender with palpation Neurological: Mental Status: She is alert and oriented to person, place, and time. Gait: Gait is intact. Gait normal. Deep Tendon Reflexes: Reflex Scores: Patellar reflexes are 1+ on the right side and 1+ on the left side. ASSESSMENT/PLAN: 1. Toothache - ICD9: 525.9, ICD10: K08.89 (primary diagnosis) Take medication as ordered See dentist supa Follow up if signs of infection worsen - CEPHALEXIN 500 MG CAPSULE 2. Rash - ICD9: 782.1, ICD10: R21 -use medication as prescribed -follow up if symptoms persist, worsen, change - TRIAMCINOLONE ACETONIDE 0.1 % TOPICAL CREAM 3. Acute right-sided low back pain without sciatica - ICD9: 724.2, ICD10: M54.50 flexeril ordered Home pt provided F/u with pcp if s/s persist/worsen/change Urgent f/u for red flag symptoms - CYCLOBENZAPRINE 10 MG TABLET - LIDOCAINE 5 % TOPICAL PATCH Bp elevated today, f/u with pcp. Ebenezer Garrett APRN.RABBIT BREEDER documented in this encounter [facility] 05-11-2024 Emergency department Note HPI Chief Complaint Patient presents with Ankle Pain Left ankle injury Srikanth, pain now radiating into left thigh. Patient presents to the emergency department complaining of pain over the posterior left calcaneus and Achilles. States that she twisted her ankle twice over the past 4 days causing the injury. Has been able to bear weight but painful to do so home support worker used: No Patient History History reviewed. No pertinent past medical history. Past Surgical History: Procedure Laterality Date OTHER SURGICAL HISTORY 08/21/2019 Esophagogastroduodenoscopy OTHER SURGICAL HISTORY 08/21/2019 Foot surgery OTHER SURGICAL HISTORY 08/21/2019 Bone marrow biopsy OTHER SURGICAL HISTORY 08/21/2019 Carpal tunnel surgery OTHER SURGICAL HISTORY 08/21/2019 Knee surgery OTHER SURGICAL HISTORY 08/21/2019 Tonsillectomy with adenoidectomy No family history on file. Social History Tobacco Use Smoking status: Never Smokeless tobacco: Never Substance Use Topics Alcohol use: Never Drug use: Never Physical Exam ED Triage Vitals [05/11/24 1505] Temperature Heart Rate Respirations BP 36.8 C (98.2 F) 98 18 (!) 146/91 Pulse Ox Temp Source Heart Rate Source Patient Position 95 % Oral -- -- BP Location FiO2 (%) -- -- Physical Exam Vitals and nursing note reviewed. Constitutional: General: She is not in acute distress. Appearance: Normal appearance. She is obese. She is not ill-appearing, toxic-appearing or diaphoretic. HENT: Head: Normocephalic and atraumatic. Nose: Nose normal. No rhinorrhea. Neck: Comments: Trachea is midline Cardiovascular: Pulses: Normal pulses. Musculoskeletal: General: Tenderness present. Normal range of motion. Cervical back: Normal range of motion. Comments: Point tenderness of the distal insertion of the Achilles over the calcaneus. Negative Mariscal's test. Negative Homans' sign. Patient can dorsiflex and plantarflex the left foot without difficulty or deficit. Skin: General: Skin is warm and dry. Findings: No rash. Neurological: General: No focal deficit present. Mental Status: She is alert and oriented to person, place, and time. Mental status is at baseline. Sensory: No sensory deficit. Psychiatric: Mood and Affect: Mood normal. Behavior: Behavior normal. Thought Content: Thought content normal. Judgment: Judgment normal. ED Course & MDM No data recorded Mentor Coma Scale Score: 15 (05/11/24 1507 : Gaetano Zeng RN) Medical Decision Making X-rays are unremarkable. Physical exam findings are not consistent with an Achilles tendon rupture. Again, the patient has been ambulatory for days following the incident. Should be referred to podiatry and prescribed NSAIDs. Ice the affected area and limit activity as tolerated. Return if worse. Procedure Procedures Rodolfo Abrams DO 05/11/24 1604 documented in this encounter [facility] Work Phone: 05-11-2024 Physician Emergency department Note HPI Chief Complaint Patient presents with Ankle Pain Left ankle injury Saturday, pain now radiating into left thigh. Patient presents to the emergency department complaining of pain over the posterior left calcaneus and Achilles. States that she twisted her ankle twice over the past 4 days causing the injury. Has been able to bear weight but painful to do so home support worker used: No Patient History History reviewed. No pertinent past medical history. Past Surgical History: Procedure Laterality Date OTHER SURGICAL HISTORY 08/21/2019 Esophagogastroduodenoscopy OTHER SURGICAL HISTORY 08/21/2019 Foot surgery OTHER SURGICAL HISTORY 08/21/2019 Bone marrow biopsy OTHER SURGICAL HISTORY 08/21/2019 Carpal tunnel surgery OTHER SURGICAL HISTORY 08/21/2019 Knee surgery OTHER SURGICAL HISTORY 08/21/2019 Tonsillectomy with adenoidectomy No family history on file. Social History Tobacco Use Smoking status: Never Smokeless tobacco: Never Substance Use Topics Alcohol use: Never Drug use: Never Physical Exam ED Triage Vitals [05/11/24 1505] Temperature Heart Rate Respirations BP 36.8 C (98.2 F) 98 18 (!) 146/91 Pulse Ox Temp Source Heart Rate Source Patient Position 95 % Oral -- -- BP Location FiO2 (%) -- -- Physical Exam Vitals and nursing note reviewed. Constitutional: General: She is not in acute distress. Appearance: Normal appearance. She is obese. She is not ill-appearing, toxic-appearing or diaphoretic. HENT: Head: Normocephalic and atraumatic. Nose: Nose normal. No rhinorrhea. Neck: Comments: Trachea is midline Cardiovascular: Pulses: Normal pulses. Musculoskeletal: General: Tenderness present. Normal range of motion. Cervical back: Normal range of motion. Comments: Point tenderness of the distal insertion of the Achilles over the calcaneus. Negative Mariscal's test. Negative Homans' sign. Patient can dorsiflex and plantarflex the left foot without difficulty or deficit. Skin: General: Skin is warm and dry. Findings: No rash. Neurological: General: No focal deficit present. Mental Status: She is alert and oriented to person, place, and time. Mental status is at baseline. Sensory: No sensory deficit. Psychiatric: Mood and Affect: Mood normal. Behavior: Behavior normal. Thought Content: Thought content normal. Judgment: Judgment normal. ED Course & MDM No data recorded Alycia Coma Scale Score: 15 (05/11/24 1507 : Gaetano Zeng RN) Medical Decision Making X-rays are unremarkable. Physical exam findings are not consistent with an Achilles tendon rupture. Again, the patient has been ambulatory for days following the incident. Should be referred to podiatry and prescribed NSAIDs. Ice the affected area and limit activity as tolerated. Return if worse. Procedure Procedures Rodolfo Abrams DO 05/11/24 1604 [facility] Work Phone: 03-30-2024 Note HNO ID: [id number] Author: JENNIFER MERRITT LPN Service: ? Author Type: LICENSED NURSE Type: Progress Notes Filed: 03/31/2024 07:54 Note Text: Per Dr. Briggs, Phillip was provided with powerstep gel inserts, size 11, and instructed/educated in its application, wear, and care. All questions were answered, and patient was able to demonstrate competence with the necessary skills to utilize the above equipment. Jennifer Merritt LPN [facility] 03-30-2024 History of Presen t illness Narrative Per Dr. Briggs, Phillip was provided with powerstep gel inserts, size 11, and instructed/educated in its application, wear, and care. All questions were answered, and patient was able to demonstrate competence with the necessary skills to utilize the above equipment. Jennifer Merritt LPN Initial Podiatric Office Visit: Chief Complaint: This 34 year old female who presents with chief complaint:right heel pain HPI Patient presents to clinic for evaluation of right foot Complains of right heel pain that has been present since November. States the pain is all located to the posterior right heel extending up the achilles tendon. Is currently being seen by Dr. Ryedr in [place]. Has tried stretching but was in too much pain. Has been in a pneumatic (black) boot since November. When she is in a boot, she has no pain. When she goes without the boot she is in pain. She states that when she is in the boot, she has more issues with her sciatica. Has been on toradol and naproxen but didn't help. Dr. Ryder discussed surgery but would not do the surgery because she is too overweight. Patient weighs about 295 lbs. PAIN EVALUATION 03/30/2024 1457 Pain Level: 8 Pain Location: Foot-Left Description: Sharp;Burning;Dull;Aching Duration Amount of Time: 4 Duration Units: Months Frequency: Intermittent Intervention/Comfort measure: Relaxation;Reposition No results found for: HBA1C PCP: Wendy Beavers DO PAST MEDICAL HISTORY Diagnosis Date Anxiety Depression Morbid obesity due to excess calories 11/25/2015 Poorly controlled persistent asthma 11/25/2015 Current Outpatient Medications Medication Sig Albuterol Sulfate 0.63 mg/3 mL nebulizer solution Inhale 0.63 mg as instructed every 6 hours as needed. albuterol HFA (PROVENTIL HFA, VENTOLIN HFA) 90 mcg/actuation inhaler Inhale 2 Puffs as instructed every 4 hours as needed. hydrOXYzine pamoate (VISTARIL) 25 mg capsule Take 25 mg by mouth three times a day as needed for anxiety. levothyroxine (SYNTHROID) 25 mcg tablet Take 1 tablet by mouth every afternoon. OLANZapine (ZYPREXA) 2.5 mg tablet Take 1 tablet by mouth every afternoon. ibuprofen (MOTRIN) 600 mg tablet Take 600 mg by mouth every 6 hours as needed. (Patient not taking: Reported on 03/30/2024) ALPRAZolam (XANAX) 0.5 mg tablet Take 0.25 mg by mouth at bedtime as needed. (Patient not taking: Reported on 03/30/2024) SPIRIVA RESPIMAT 1.25 mcg/actuation mist INHALE 2 INHALATION INSTRUCTED ONCE DAILY FOR 30 DAYS. (Patient not taking: Reported on 03/30/2024) EPIPEN 2-LEANNE 0.3 mg/0.3 mL auto-injector (Patient not taking: Reported on 03/30/2024) topiramate (TOPAMAX) 50 mg tablet (Patient not taking: Reported on 12/25/2020) No current facility-administered medications for this visit. ALLERGIES Allergen Reactions Bactrim [Sulfametho* Rash, Vomiting Gel Rash Patient developed rash after the use of ultrasound transmission gel. Ivp Dye [Iodine] Rash Latex Hives Neosporin [Neomycin* Rash Penicillins Cortisone Swelling, Rash Had shots in knee - caused swelling PAST SURGICAL HISTORY Procedure Laterality Date ORTHOPEDICS SURGERY HX TONSILLECTOMY PRIMARY/SECONDARY <AGE 13 Tonsillectomy FAMILY HISTORY Problem Relation Age of Onset Diabetes Maternal Grandmother Hypertension Maternal Grandmother Social History Tobacco Use Smoking status: Never Smokeless tobacco: Current Types: Chew Vaping Use Vaping status: Never Used Substance Use Topics Alcohol use: No Drug use: No REVIEW OF SYSTEMS GENERAL: Negative for Malaise, significant weight loss, fever RESPIRATORY: Negative for cough, wheezing and shortness of breath CARDIOVASCULAR: Negative for chest pain, leg swelling and palpitations GI: Negative for abdominal discomfort, blood in stools or black stools and change in bowel habits : Negative for dysuria, frequency and incontinence MUSCULOSKELETAL: Negative for joint pain or swelling, back pain, and muscle pain. SKIN: Negative for lesions, rash, and itching. HEMATOLOGY/LYMPHOLOGY Negative for prolonged bleeding, bruising easily, and swollen nodes. ENDOCRINE: Negative for cold or heat intolerance, polyuria, polydipsia and goiter. NEURO: negative Physical Exam: Constitutional: Pt is a well developed 34 year old female who is alert, oriented and cooperative Eyes: Following during examination. No redness or drainage. Respiratory: RR normal and nonlabored. Even breathing. No evidence of distress or shortness of breath. Psychology: Patient is engaged during conversation. Normal affect and mood. Does not appear depressed or anxious during encounter. Vascular: Dorsalis pedis and posterior tibial pulses palpable as b/l Capillary Fill time < 5 seconds to digits 1-5 b/l Skin temperature warm to warm proximal to distal b/l Hair growth present to digits Neurological: intact light touch/epicritic sensation b/l intact protective sensation no significant neurological deficits Dermatological: Nails 1-5 b/l appear normal. Webspaces clean and dry 1-4 b/l. Skin appears well hydrated and supple. good color, texture, turgor. No open lesions present. No callosities present. Musculoskeletal/Orthopaedic: Patient has pain to palpation of right posterior heel just below achilles insertion. There is palpable heel spur present. Foot type is neutral structurally AJ ROM is decreased with knee extended and flexed 1st MPJ is full when loaded and no pain or crepitus are noted with ROM. MTJ, STJ are full and free of pain and crepitus. +5/5 muscle strength dorsiflexion, plantarflexion, inversion, eversion b/l Radiographs: 3 views right foot reviewed March 30, 2024: I have personally reviewed and interpreted these XR myself: there is posterior heel spur Mri report reviewed: + tendonopathy of right achilles tendon. ASSESSMENT: (M76.61) Tendonitis, Achilles, right (primary encounter diagnosis) (M77.31) Calcaneal spur of foot, right PLAN: 1. History and physical examination performed. 2. XR reviewed with patient and interpreted today 3. Discussed posterior heel spur and various treatment options. She has tried pneumatic boot which does help but when she goes without the boot, she has pain. Will try a powerstep insert and will refer patient to physical therapy. 4. I will see her back in 4 weeks. If pain still present, can discuss surgical options including posterior heel spur resection 5. I discussed risk of surgery with her weight. Certainly she is at an increased risk of complication, ie blood clot given her weight. 6. Follow- up in 4-5 weeks Lawrence Briggs DPM Podiatry [address] [facility] [address] Dept: [phone] Dept AMB ROOMING INTAKE FLOWSHEET DATA Risk Screening Do you have concerns about personal safety or safety in the home?: No Pain Pain Level: 8 Pain Location: Foot-Left Description: Sharp, Burning, Dull, Aching Duration Amount of Time: 4 Duration Units: Months Frequency: Intermittent Intervention/Comfort measure: Relaxation, Reposition Patient presents with: Left Foot - New, Pain Patient presents for Left foot and ankle pain that has been ongoing since November when she injured foot. States that she was told she has achilles tendon thinning and a heel spur. Pain worse when pointing her toes, states pain shoots up back of leg. Numbness to heel now. Has been primarily in a boot since November, but states that recently it has been causing pain to left hip and side. Has not tried a right heel lift. Unable to walk without pain especially when not wearing the boot. Pain with boot -08/24, Pain without boot -03/26 Brought imaging disk today. Seen in ED for left foot pain 03/17/24 documented in this encounter [facility] 03-30-2024 Instructions Lawrence Briggs - 03/30/2024 3:29 PM EDT Powerstep Original Full length. Can purchase at [facility] [employer] and boots,shoes and more here in [place], [employer] in [place] or [place]. Also can find in [place] in [facility]. Powersteps can also be purchased online, starting around $45.00 If you have a metatarsal or dancer pad for your feet apply the pad directly to the insole so you can interchange between your shoes. Find a shoe with a removable insole and take this out and replace with your powerstep insole. Always bring powersteps with you when shopping for shoes so that you can make sure that everything fits well together documented in this encounter [facility] 03-30-2024 Note HNO ID: [id number] Author: LAWRENCE BRIGGS, ? Service: ? Author Type: Physician Type: Progress Notes Filed: 03/31/2024 07:54 Note Text: Initial Podiatric Office Visit: Chief Complaint: This 34 year old female who presents with chief complaint:right heel pain HPI Patient presents to clinic for evaluation of right foot Complains of right heel pain that has been present since November. States the pain is all located to the posterior right heel extending up the achilles tendon. Is currently being seen by Dr. Ryder in [place]. Has tried stretching but was in too much pain. Has been in a pneumatic (black) boot since November. When she is in a boot, she has no pain. When she goes without the boot she is in pain. She states that when she is in the boot, she has more issues with her sciatica. Has been on toradol and naproxen but didn't help. Dr. Ryder discussed surgery but would not do the surgery because she is too overweight. Patient weighs about 295 lbs. PAIN EVALUATION 03/30/2024 1457 Pain Level: 8 Pain Location: Foot-Left Description: Sharp;Burning;Dull;Aching Duration Amount of Time: 4 Duration Units: Months Frequency: Intermittent Intervention/Comfort measure: Relaxation;Reposition No results found for: HBA1C PCP: Wendy Beavers DO PAST MEDICAL HISTORY Diagnosis Date Anxiety Depression Morbid obesity due to excess calories 11/25/2015 Poorly controlled persistent asthma 11/25/2015 Current Outpatient Medications Medication Sig Albuterol Sulfate 0.63 mg/3 mL nebulizer solution Inhale 0.63 mg as instructed every 6 hours as needed. albuterol HFA (PROVENTIL HFA, VENTOLIN HFA) 90 mcg/actuation inhaler Inhale 2 Puffs as instructed every 4 hours as needed. hydrOXYzine pamoate (VISTARIL) 25 mg capsule Take 25 mg by mouth three times a day as needed for anxiety. levothyroxine (SYNTHROID) 25 mcg tablet Take 1 tablet by mouth every afternoon. OLANZapine (ZYPREXA) 2.5 mg tablet Take 1 tablet by mouth every afternoon. ibuprofen (MOTRIN) 600 mg tablet Take 600 mg by mouth every 6 hours as needed. (Patient not taking: Reported on 03/30/2024) ALPRAZolam (XANAX) 0.5 mg tablet Take 0.25 mg by mouth at bedtime as needed. (Patient not taking: Reported on 03/30/2024) SPIRIVA RESPIMAT 1.25 mcg/actuation mist INHALE 2 INHALATION INSTRUCTED ONCE DAILY FOR 30 DAYS. (Patient not taking: Reported on 03/30/2024) EPIPEN 2-LEANNE 0.3 mg/0.3 mL auto-injector (Patient not taking: Reported on 03/30/2024) topiramate (TOPAMAX) 50 mg tablet (Patient not taking: Reported on 12/25/2020) No current facility-administered medications for this visit. ALLERGIES Allergen Reactions Bactrim [Sulfametho* Rash, Vomiting Gel Rash Patient developed rash after the use of ultrasound transmission gel. Ivp Dye [Iodine] Rash Latex Hives Neosporin [Neomycin* Rash Penicillins Cortisone Swelling, Rash Had shots in knee - caused swelling PAST SURGICAL HISTORY Procedure Laterality Date ORTHOPEDICS SURGERY HX TONSILLECTOMY PRIMARY/SECONDARY Tonsillectomy FAMILY HISTORY Problem Relation Age of Onset Diabetes Maternal Grandmother Hypertension Maternal Grandmother Social History Tobacco Use Smoking status: Never Smokeless tobacco: Current Types: Chew Vaping Use Vaping status: Never Used Substance Use Topics Alcohol use: No Drug use: No REVIEW OF SYSTEMS GENERAL: Negative for Malaise, significant weight loss, fever RESPIRATORY: Negative for cough, wheezing and shortness of breath CARDIOVASCULAR: Negative for chest pain, leg swelling and palpitations GI: Negative for abdominal discomfort, blood in stools or black stools and change in bowel habits : Negative for dysuria, frequency and incontinence MUSCULOSKELETAL: Negative for joint pain or swelling, back pain, and muscle pain. SKIN: Negative for lesions, rash, and itching. HEMATOLOGY/LYMPHOLOGY Negative for prolonged bleeding, bruising easily, and swollen nodes. ENDOCRINE: Negative for cold or heat intolerance, polyuria, polydipsia and goiter. NEURO: negative Physical Exam: Constitutional: Pt is a well developed 34 year old female who is alert, oriented and cooperative Eyes: Following during examination. No redness or drainage. Respiratory: RR normal and nonlabored. Even breathing. No evidence of distress or shortness of breath. Psychology: Patient is engaged during conversation. Normal affect and mood. Does not appear depressed or anxious during encounter. Vascular: Dorsalis pedis and posterior tibial pulses palpable as b/l Capillary Fill time < 5 seconds to digits 1-5 b/l Skin temperature warm to warm proximal to distal b/l Hair growth present to digits Neurological: intact light touch/epicritic sensation b/l intact protective sensation no significant neurological deficits Dermatological: Nails 1-5 b/l appear normal. Webspaces clean and dry 1-4 b/l. Skin appears well hydr (more content not included)... [facility] 03-30-2024 Note HNO ID: [id number] Author: KALYIN BELL RN Service: ? Author Type: Registered Nurse Type: Progress Notes Filed: 03/31/2024 07:54 Note Text: AMB ROOMING INTAKE FLOWSHEET DATA Risk Screening Do you have concerns about personal safety or safety in the home?: No Pain Pain Level: 8 Pain Location: Foot-Left Description: Sharp, Burning, Dull, Aching Duration Amount of Time: 4 Duration Units: Months Frequency: Intermittent Intervention/Comfort measure: Relaxation, Reposition Patient presents with: Left Foot - New, Pain Patient presents for Left foot and ankle pain that has been ongoing since November when she injured foot. States that she was told she has achilles tendon thinning and a heel spur. Pain worse when pointing her toes, states pain shoots up back of leg. Numbness to heel now. Has been primarily in a boot since November, but states that recently it has been causing pain to left hip and side. Has not tried a right heel lift. Unable to walk without pain especially when not wearing the boot. Pain with boot 2-3/10, Pain without boot 8-10/10 Brought imaging disk today. Seen in ED for left foot pain 03/17/24 [facility] 01-16-2024 Note Patient: Phillip herron Date of : 1990 (33 y.o.) PCP: No, Physician Procedures ASSESSMENT/PLAN: Phillip Queen 33 y.o. female with history of retrocalcaneal heel spur with Achilles tendinopathy of the right foot. Morbid obesity Plan: I explained to patient that she is not a great candidate for a posterior heel spur resection. I prescribed 1 blue rocker brace or a articulating AFO with plantarflexion stop to help with symptoms. Patient was told to take Mobic daily and ice the heel down. I told patient that if she loses 50 pounds and the heel does not improve I would consider surgery. Assessment & plan notes cannot be loaded without a specified hospital service. SUBJECTIVE: History Since Last Visit: Patient a 33-year-old female comes in the office with posterior right heel pain. Patient has gone through physical therapy, wearing a cam walker boot, icing the heel and taking Advil inflammatories which have failed to provide relief. Patient recently had an MRI which was negative for Achilles tendon tear or calcaneal fracture. Review of Systems: Morbid obesity OBJECTIVE: Physical Examination: Integument-skin is warm dry and supple on the right foot. Neuro-intact right foot. Musculoskeletal-patient has pain at the insertion of the right Achilles tendon. Patient no pain in the watershed area of the right Achilles tendon. There was some thickening at the insertion of the Achilles tendon. Patient can plantarflex the right foot without difficulty. There is no restriction of dorsiflexion or plantarflexion right ankle. No complaints of pain in the right calf. Vascular-DP and PT pulses are palpable on the right foot. BP (!) 157/94 (BP Location: Left arm, Patient Position: Sitting, BP Cuff Size: Adult) Pulse 81 Temp 98.4 degrees F (36.9 degrees C) (Infrared) LMP 11/22/2023 Laboratory and Additional Data Reviewed: Reviewed:[id number]} MR Ankle Right Without Contrast Narrative: EXAMINATION: MR ANKLE RIGHT WITHOUT CONTRAST HISTORY: ORDERING SYSTEM PROVIDED HISTORY: possible achilles tendon tear, TECHNOLOGIST PROVIDED HISTORY: Injury/Trauma Reason for exam: fell [place] Encounter Type: Initial Mechanism of injury: rt ankle pain ORDERING SYSTEM PROVIDED DIAGNOSIS CODES: S86.011A Achilles tendon tear, right, initial encounter M77.31 Bone spur of posterior portion of right calcaneus COMPARISON: Right ankle x-rays from 11/19/2023. TECHNIQUE: Multiplanar and multisequence imaging of the right ankle was performed without contrast. FINDINGS: No acute fracture is identified in the ankle or visualized foot. The distal tibia and fibula are intact. There is no OCD lesion involving the talar dome. There is no calcaneal stress fracture. There is spurring along the dorsal margin of the talonavicular joint. There is elongation of the posterior process of the talus. The tarsometatarsal alignment is anatomic. There is intermediate signal and mild thickening of the distal 5 cm of the Achilles tendon consistent with moderate tendinopathy. There is a msckgcvv-gx-vmpwy irregular osteophyte at the Achilles insertion. No focal Achilles tendon tear is evident. There is a small amount of fluid in the retrocalcaneal bursa. There is flattening and fraying of the retromalleolar portion of the peroneus brevis. No focal peroneal tendon tear is evident. Flexor and extensor tendons appear intact including the posterior tibialis tendon. There is intermediate signal and mild tendinopathy of the posterior tibialis tendon with a small amount of fluid tracking along the tendon. There is a small accessory navicular bone. Intermediate signal of the anterior talofibular ligament is consistent with a prior low-grade sprain. The calcaneofibular ligament, posterior talofibular ligament and superficial and deep components of the deltoid ligament are intact. There is no cystic or solid mass in the region of the tarsal tunnel. There is no acute abnormality involving the plantar fascia. There is a moderate-sized plantar calcaneal spur. Impression: 1. There is moderate tendinopathy of the distal 5 cm of the Achilles tendon with no well-defined Achilles tendon tear. There is a hzgjlrji-jv-uvbuq irregular osteophyte at the Achilles insertion. 2. No acute or healing fracture in the ankle or visualized foot. 3. There is flattening and fraying of the retromalleolar portion of the peroneus brevis. A small amount of fluid tracks along the posterior tibialis tendon with mild tendinopathy and mild tenosynovitis involving the posterior tibialis tendon. 4. Prior low-grade sprain of the anterior talofibular ligament. [employer] Workstation ID: [id number] AUTHENTICATED BY ESTIVEN RYDER, [place] 01/16/2024 17:01:49 [facility] 01-16-2024 History of Presen t illness Narrative Patient: Phillip Queen Date of : 1990 (33 y.o.) PCP: No, Physician Procedures ASSESSMENT/PLAN: Phillip Queen 33 y.o. female with history of retrocalcaneal heel spur with Achilles tendinopathy of the right foot. Morbid obesity Plan: I explained to patient that she is not a great candidate for a posterior heel spur resection. I prescribed 1 blue rocker brace or a articulating AFO with plantarflexion stop to help with symptoms. Patient was told to take Mobic daily and ice the heel down. I told patient that if she loses 50 pounds and the heel does not improve I would consider surgery. Assessment & plan notes cannot be loaded without a specified hospital service. SUBJECTIVE: History Since Last Visit: Patient a 33-year-old female comes in the office with posterior right heel pain. Patient has gone through physical therapy, wearing a cam walker boot, icing the heel and taking Advil inflammatories which have failed to provide relief. Patient recently had an MRI which was negative for Achilles tendon tear or calcaneal fracture. Review of Systems: Morbid obesity OBJECTIVE: Physical Examination: Integument-skin is warm dry and supple on the right foot. Neuro-intact right foot. Musculoskeletal-patient has pain at the insertion of the right Achilles tendon. Patient no pain in the watershed area of the right Achilles tendon. There was some thickening at the insertion of the Achilles tendon. Patient can plantarflex the right foot without difficulty. There is no restriction of dorsiflexion or plantarflexion right ankle. No complaints of pain in the right calf. Vascular-DP and PT pulses are palpable on the right foot. BP (!) 157/94 (BP Location: Left arm, Patient Position: Sitting, BP Cuff Size: Adult) Pulse 81 Temp 98.4 F (36.9 C) (Infrared) LMP 11/22/2023 Laboratory and Additional Data Reviewed: Reviewed:[id number]} MR Ankle Right Without Contrast Narrative: EXAMINATION: MR ANKLE RIGHT WITHOUT CONTRAST HISTORY: ORDERING SYSTEM PROVIDED HISTORY: possible achilles tendon tear, TECHNOLOGIST PROVIDED HISTORY: Injury/Trauma Reason for exam: fell [place] Encounter Type: Initial Mechanism of injury: rt ankle pain ORDERING SYSTEM PROVIDED DIAGNOSIS CODES: S86.011A Achilles tendon tear, right, initial encounter M77.31 Bone spur of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 Date End Date Wendy Beavers DO PCP - General Internal Medicine 12/24/20 Goals (unrecognized section and content) Goals may be documented in a n alternate section Source Comments (unrecognize d section and content) In the event this informatio n is protected by the Federal Confidentiality of Alcohol and Drug Abuse Patient Records regulations: The Federal rules restrict any use of the information to criminally investigate or prosecute any alcohol or drug abuse patient.Uk HealthcareIn the event this information is protected by the Federal Confidentiality of Alcohol and Drug Abuse Patient Records regulations: The Federal rules restrict any use of the information to criminally investigate or prosecute any alcohol or drug abuse patient.[facility] HealthcareIn the event this information is protected by the Federal Confidentiality of Alcohol and Drug Abuse Patient Records regulations: The Federal rules restrict any use of the information to criminally investigate or prosecute any alcohol or drug abuse patient.[facility] HealthcareIn the event this information is protected by the Federal Confidentiality of Alcohol and Drug Abuse Patient Records regulations: The Federal rules restrict any use of the information to criminally investigate or prosecute any alcohol or drug abuse patient.[facility] FOR RECORDS PERTAINING TO PATIENTS WHO ARE OR HAVE BEEN ENROLLED IN A CHEMICAL DEPENDENCY/SUBSTANCEABUSE PROGRAM, SOME INFORMATION MAY BE OMITTED. This clinical summary was aggregated from multiple sources. Caution should be exercised in using it in the provision of clinical care. This summary normalizes information from multiple sources, and as a consequence, information in this document may materially change the coding, format and clinical context of patient data. In addition, data may be omitted in some cases. CLINICAL DECISIONS SHOULD BE BASED ON THE PRIMARY CLINICAL RECORDS. [facility]. provides no warranty or guarantee of the accuracy or completeness of information in this document.
[2025-01-23] MEDS: DiphenhydrAMINE 50 MG/ML Syringe 25 MG IV (05:07)
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
[2025-01-23] MEDS: 0.9% Normal Saline (1000mL) 1,000 ML 999 ML IV (05:12)
[2025-01-23 05:29] LABS: Hematocrit 40.9 % (37-47); Hemoglobin 13.9 g/dL (12.0-15.0); Immature Granulocytes Count 0.030 X10^3/uL (0.0-0.0); Mean Corp Hgb Conc 34.0 g/dL (32-36); Mean Corpuscular Volume 87.8 fL (81-99); Mean Platelet Vol. 12.8 fl (6.2-12.0); NRBC Flagged by Analyzer 0 % (0-5); Platelet Count 121 K/mm3 (150-450); RBC Distribution Width CV 13.2 % (11.6-14.6); RBC Distribution Width SD 42.3 fl (35.1-43.9); Red Blood Count 4.66 M/mm3 (4.2-5.4); White Blood Count 7.6 K/mm3 (4.4-11.0)
--- NOTE | 2025-01-23 05:30 | RAD_ITS ---
PROCEDURE: ANKLE MIN 3 VIEWS 01/23/2025 REASON FOR EXAM: PAIN TECHNIQUE: ANKLE MIN 3 VIEWS Laterality: Left COMPARISON: 05/18/2024 FINDINGS: Old avulsion fractures. Mild soft tissue swelling. Posterior plantar calcaneal spurs. No acute bone tissue pathology. RAD/Ankle min 3 Views IMPRESSION: No acute bony findings. [facility]
[2025-01-23 05:43] LABS: Internal QC Validated? YES +Cl - CLEAR BKGD
[2025-01-23 05:44] LABS: Pregnancy, Serum, hCG Quali. NEGATIVE Negative; Record Kit Lot#, Serum Preg. 0000962302
[2025-01-23 05:57] LABS: AST(SGOT) 41 U/L (<=31); Alanine Aminotransfer ALT/SGPT 49 U/L (<=34); Albumin, Serum 4.1 g/dL (3.5-5.0); Alkaline Phosphatase 92 U/L (35-104); Anion Gap 12 (5-15); BUN 15 mg/dL (4-19); BUN/Creat Ratio 21.9 RATIO (10-20); Bilirubin, Direct 0.22 mg/dL (0.00-0.30); Calcium,Total 9.1 mg/dL (7.6-11.0); Carbon Dioxide 21.1 mmol/L (21.0-32.0); Chloride 106 mmol/L (98-108); Estimated Creatinine Clearance 172.89 ml/min (50-250); Globulin 3.0 g/dL (2.2-4.2); Glucose 155 mg/dL (70-99); Potassium 3.9 mmol/L (3.3-5.1)
[2025-01-23 06:08] VITALS: BP 126/75; PULSE 66; RESP 18; TEMP 36.9; O2SAT 97
== END 2025-01-23 06:13 | disposition home or self-care (01) ==
PROVIDERS: Emergency Provider Emergency Medicine; Visit Provider Emergency Medicine
DX: R51.9 Headache, unspecified (principal); F43.10 Post-traumatic stress disorder, unspecified; E03.9 Hypothyroidism, unspecified
CPT/HCPCS: 70450; 72125; 73610; 80048; 80076; 84703; 85025; 93005; 96361; 96374; 96375; 99283

== ENCOUNTER 2025-01-28 12:51 | Emergency (ER) | payer MEDICAID, SELFPAY ==
[2025-01-28 12:52] VITALS: BP 174/95; PULSE 84; RESP 17; TEMP 36.8; O2SAT 98
--- NOTE | 2025-01-28 13:20 | EX.ED.DYSGE1 ---
HPI History of Present Illness Chief Complaint: Wound Narrative Narrative: Patient is a 34-year-old female presenting to the emergency department for toe pain. Patient has a past medical history of alcohol use, PTSD, hypothyroidism. Patient states that she has had issues with the toe before. States that she had part of the nail removed once in the emergency department. States that the past few weeks she has had pain and swelling on the right great toe along the medial edge. States that someone in [place] placed her on Keflex and she has been on this for the past week and a half. Denies fever or chills. [facility] Medical History History of alcohol use disorder Panic disorder Major depressive disorder, recurrent severe without psychotic features PTSD (post-traumatic stress disorder) Home Medications ?Medication ?Instructions ?Recorded ?Last Taken ?Type lamotrigine 25 mg tablet (Lamictal) 25 mg PO DAILY 30 days #30 tabs 01/14/25 Unknown Rx levothyroxine 25 mcg tablet 25 mcg PO DAILY 30 days #30 tabs 01/14/25 Unknown Rx Allergy/AdvReac Type Severity Reaction Status Date / Time procaine (From Novocain) Allergy Severe throat Verified 01/28/25 12:53 swelling, itching sulfamethoxazole (From Allergy Severe Anaphylaxis Verified 01/28/25 12:53 Bactrim) trimethoprim (From Bactrim) Allergy Severe Anaphylaxis Verified 01/28/25 12:53 amoxicillin AdvReac Intermediate hallucinati Verified 01/28/25 12:53 ons ketamine AdvReac Intermediate aggression Verified 01/28/25 12:53 Penicillins AdvReac Intermediate hallucinati Verified 01/28/25 12:53 ons bacitracin (From Neosporin AdvReac Mild Rash Verified 01/28/25 12:53 ([id number])) neomycin (From Neosporin AdvReac Mild Rash Verified 01/28/25 12:53 ([id number])) polymyxin B (From Neosporin AdvReac Mild Rash Verified 01/28/25 12:53 ([id number])) Surgical History History of carpal tunnel release History of tonsillectomy and adenoidectomy Social History household members: spouse and children Smoking Status: Never smoker ROS ROS ED ROS Narrative see HPI EXAM Physical Exam Narrative Exam Narrative: Vital signs: Reviewed General: Alert and oriented. No acute distress HEENT: Head is normocephalic and atraumatic, sinuses nontender, pupils equal round and reactive. Nares are patent. Oropharynx and throat exams normal. Neck: Supple without lymphadenopathy nontender Cardiovascular: Regular rate and rhythm, no murmurs. No rubs or gallops. Normal S1 and S2 Respiratory: Clear to auscultation bilaterally. No wheezes, rales, rhonchi Abdominal: Soft and nontender. Normal bowel sounds. No guarding or rebound. Nonsurgical abdomen Extremities: No tenderness. No bruising. Normal range of motion. Normal sensation. Erythema along the right medial side of the great toe at the nail fold consistent with paronychia. There is scant purulent discharge. There is no tenderness or erythema to palpation of the pad of the toe. No extension of the erythema up the dorsal part of the toe or foot. Skin: No rash or redness. Neurological: Cranial nerves II through XII are grossly intact. Normal strength and sensation. Normal cerebellar function The rest of the physical exam is unremarkable Const Vital Signs: 01/28/25 12:52 01/28/25 14:13 Temperature 98.2 F 98.2 F Temperature Source Oral Pulse Rate 84 84 Respiratory Rate 17 17 Blood Pressure 174/95 H 160/78 H Blood Pressure Mean 121 105 Pulse Ox 98 98 Oxygen Delivery Method Room Air MDM MDM MDM Narrative Medical decision making narrative: Patient is a 34-year-old female presenting emergency department for toe pain. Patient was seen and examined. Vitals are stable. Patient resting in bed comfortably no acute distress. Differential includes but is not limited to: Paronychia, felon, abscess, cellulitis Exam consistent with a paronychia. It is currently draining. Given it is draining there is no indication to I&D it here. No tenderness or erythema extending to the pad of the toe to be concerned about felon. No tracking of the erythema up the toe or foot. No tenderness to the toe other than the nail fold laterally, no evidence of osteo. wound was cleaned by myself. She is on antibiotics that she can continue. She was given podiatry follow-up given this is recurrent. Patient was encouraged to keep the wound clean and dry. Patient discharged from the Emergency Department. I do not feel that the patient's evaluation reveals any acute reason for admission at this time. I instructed them to either follow-up with their primary care physician or promptly return to the Emergency Department for reevaluation should symptoms worsen or new symptoms develop. I explained what symptoms would indicate the need to return to the emergency department. Shared decision making was used. The patient voiced understanding of the treatment plan and is agreeable with it. Clinical impression 1. Paronychia 2. Toe pain History & Record Review Discussion w/independent historian: Patient Discharge Plan Triage Chief Complaint: Wound ED Provider: Liss Adame Dx/Rx/DC Orders Instructions: ED Paronychia Prescriptions: No Action lamotrigine [Lamictal] 25 mg tablet 25 mg PO DAILY 30 Days Qty: 30 0RF levothyroxine 25 mcg tablet 25 mcg PO DAILY 30 Days Qty: 30 4RF Primary Care Provider: Care Physician,No Primary Referrals: Warren Zaragoza DPM [Med Staff - Active Staff] - 1 Day Samira Long DO [Med Staff - Active Staff] - 1 Day Care Physician,No Primary [Primary Care Provider] - Print Language: French Disposition Disposition: Home, Self Care Discharge Date/Time: 01/28/25 14:14
[2025-01-28 14:13] VITALS: BP 160/78; PULSE 84; RESP 17; TEMP 36.8; O2SAT 98
== END 2025-01-28 14:14 | disposition home or self-care (01) ==
PROVIDERS: Emergency Provider Student in an Organized Health Care Education/Training Program; Referring Provider Student in an Organized Health Care Education/Training Program; Visit Provider Student in an Organized Health Care Education/Training Program
DX: M79.674 Pain in right toe(s) (principal); L03.031 Cellulitis of right toe; E03.9 Hypothyroidism, unspecified; Z79.890 Hormone replacement therapy
CPT/HCPCS: 96372; 99282

== ENCOUNTER 2025-02-11 00:33 | Emergency (ER) | payer MEDICAID, SELFPAY ==
[2025-02-11 00:33] VITALS: BP 173/98; PULSE 62; RESP 16; TEMP 36.6; O2SAT 99; BMI 49.7
--- NOTE | 2025-02-11 00:44 | ED.VIS.DENTA ---
HPI History of Present Illness Chief Complaint: Dental [facility] Medical History History of alcohol use disorder Panic disorder Major depressive disorder, recurrent severe without psychotic features PTSD (post-traumatic stress disorder) Home Medications ?Medication ?Instructions ?Recorded ?Last Taken ?Type levothyroxine 25 mcg tablet 25 mcg PO DAILY 30 days #30 tabs 01/14/25 Unknown Rx asenapine maleate 5 mg sublingual 5 mg sublingual QHS 30 days #30 02/05/25 Unknown Rx tablet tabs lorazepam 1 mg tablet (Ativan) 1 mg PO DAILY PRN anxiety with MRI 02/05/25 Unknown Rx #1 TAB clindamycin palmitate HCl 75 mg/5 300 mg (20 mL) PO Q8H 7 days #420 02/11/25 Unknown Rx mL oral solution mL Allergy/AdvReac Type Severity Reaction Status Date / Time procaine (From Novocain) Allergy Severe throat Verified 02/11/25 00:33 swelling, itching sulfamethoxazole (From Allergy Severe Anaphylaxis Verified 02/11/25 00:33 Bactrim) trimethoprim (From Bactrim) Allergy Severe Anaphylaxis Verified 02/11/25 00:33 amoxicillin AdvReac Intermediate hallucinati Verified 02/11/25 00:33 ons ketamine AdvReac Intermediate aggression Verified 02/11/25 00:33 Penicillins AdvReac Intermediate hallucinati Verified 02/11/25 00:33 ons bacitracin (From Neosporin AdvReac Mild Rash Verified 02/11/25 00:33 ([id number])) neomycin (From Neosporin AdvReac Mild Rash Verified 02/11/25 00:33 ([id number])) polymyxin B (From Neosporin AdvReac Mild Rash Verified 02/11/25 00:33 ([id number])) Surgical History History of carpal tunnel release History of tonsillectomy and adenoidectomy Social History household members: spouse and children Smoking Status: Never smoker EXAM Physical Exam Const Vital Signs: 02/11/25 00:33 Temperature 97.8 F Temperature Source Temporal Pulse Rate 62 Respiratory Rate 16 Blood Pressure 173/98 H Blood Pressure Mean 123 Pulse Ox 99 [facility] Narrative Medical decision making narrative: HISTORY OF PRESENT ILLNESS: Chief complaint: Dental pain 34-year-old female history of alcohol abuse, depression, PTSD and hypothyroidism presents with dental pain that began this morning. No she took Toradol at 9 PM with no relief. REVIEW OF SYSTEMS: Pertinent positives: Dental pain Pertinent negatives: Fever, double vision PHYSICAL EXAM: Nursing triage notes reviewed, Vital signs reviewed Constitutional: please see [facility] HENT: MMM, overall intact dentition. Dental caries noted to the right lower molars tooth #32 Eyes: Pupils equal round and reactive to light, Extraocular muscles intact Neck: No stridor, no JVD, full neck ROM Lungs: Clear to auscultation, No wheezing or rales. No increased work of breathing, no conversational dyspnea, no accessory muscle use, no nasal flaring. No respiratory distress noted Heart: Regular rate and rhythm, No murmurs, No rubs and No gallops, 2+ distal pulses (radial, femoral, posterior tibial) in all extremities Extremities: No edema Neuro: No new focal neurological deficits, cranial nerves II through XII intact, 5/5 strength in all present extremities. Intact sensation to light touch in all present extremities, 2+ reflexes bilateral patella tendons. Skin: No rash or lesions noted MEDICAL DECISION MAKING: Chief Complaint: please see [facility] External records reviewed: PDMP reviewed: Multiple narcotic prescriptions provided by multiple providers in multiple different cities. Factors affecting care: As per HPI Social determinants of health: history of alcohol use History obtained from others: none Consults: none [facility] Narrative: The patient was initially hemodynamically stable, afebrile and nontoxic-appearing. Exam with dental caries. No sign of dental abscess. I considered the following differential diagnosis: Dental caries, dental abscess, maxillary sinusitis, cavernous sinus thrombosis The patient and/or family, caregivers express understanding. The patient and/or family, caregivers agrees with the plan. Shared decision making: I will have a discussion with the patient and or visitors regarding risk/benefits of further testing or admission. They will be made aware of of the risk/benefits inherent in this decision they will be given the opportunity to voice understanding. Total critical care time today provided was at least 0 minutes. This excludes separately billable procedures. Critical care time (if documented) is secondary to the patient having high probability of clinically significant/life threatening deterioration in the patient's condition which required my urgent intervention. Impression: 1. Dental caries 2. Acute dental pain Dispo: Discharge home This note was generated with dotCloud dictation software. It may contain incorrect words, spelling, and punctuation that were not noted in review of the chart prior to signing. Discharge Plan Triage Chief Complaint: Dental ED Provider: Leonel Looney Dx/Rx/DC Orders Instructions: ED Dental Pain Prescriptions: New clindamycin palmitate HCl 75 mg/5 mL recon soln 300 mg PO Q8H 7 Days Qty: 420 0RF No Action levothyroxine 25 mcg tablet 25 mcg PO DAILY 30 Days Qty: 30 4RF lorazepam [Ativan] 1 mg tablet 1 mg PO DAILY PRN (Reason: anxiety with MRI) Qty: 1 0RF asenapine maleate 5 mg tablet, sublingual 5 mg sublingual QHS 30 Days Qty: 30 0RF Primary Care Provider: Justa Light Referrals: Justa Light, DO [Primary Care Provider] - Activity Restrictions/Additional Instructions: Thank you for trusting us with your care today! Your exam is consistent with dental caries. The erosion of your tooth is causing pain. This needs to be evaluated by dentistry. I provided some local dental resources. Please communicate with the dental resources as to if they cover your insurance Please take Tylenol (2 pills, 650 mg), ibuprofen (2 pills, 400 mg) every 6 hours as needed for pain and fever control. Please take antibiotics as prescribed until course is complete. Please return to the emergency department if your symptoms change or worsen. Please follow with your primary care physician for further outpatient evaluation and management. Print Language: Venezuelan Disposition Disposition: Home, Self Care
[2025-02-11 01:07] VITALS: BP 152/74; PULSE 62; RESP 16; TEMP 36.6; O2SAT 99
--- OUTSIDE RECORDS SUMMARY | 2025-02-11 01:10 | XMS RPT_ITS | CCD ---
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 [id number] Acct: [id number] Name: PHILLIP QUEEN Rep #: [id number] : 1990 F 34 From: Tonny sapp MD PCP: Justa Light DO Status: REG ER Study: Shoulder min 2 Views Date of Exam: 08/05/24 Exam# [id number] Ordering Dr: Lexx Payne MD PROCEDURE: SHOULDER MIN 2 VIEWS REASON FOR EXAM: Atraumatic pain. TECHNIQUE: Four views of the right shoulder were obtained. COMPARISON: None. FINDINGS: RIGHT SHOULDER: No fracture. No suspicious bone lesion. Normal alignment of the acromioclavicular and glenohumeral joints. Soft tissues are unremarkable. RAD/Shoulder min 2 Views IMPRESSION: No acute abnormality is seen. Reading Location: [facility] CC: Dr. Lexx Payne MD; Justa Light DO Lidar Technician: Signed Normal [facility] ED Prov Noteon 07-05-2024 ED Prov Note ED [facility] NAME: Phillip Queen AGE: 34 y.o. : 1990 VISIT DATE: 07/05/2024 CSN: [id number] PCP: Jadyn Light DO No chief complaint [...] Comments) Increased aggressive behavior after surgery Neosporin (Syq-Inr-Phkua) [Robaohwe-Lvqydimielu-Akjnj yxnb] Dermatitis Penicillins Hallucinations Procaine Other (See [...] to arrange follow- (more content not included)... [facility] PHILLIP QUEEN ([id number]) 1990 F Date Time Provider Department 06/23/24 NURSE/JAQUELIN [facility] W[facility] PODIWS During your visit today, we [...] AM Signed Order has been faxed to [employer]. ANGELA Batres Amelia, LPN 07/01/2024 9:41 AM Signed Called patient to inform her that aqua therapy order has been sent to [employer]. No response. Left VM. Jennifer Merritt LPN Allergies As of Date: 06/23/2024 Noted Allergy Reaction BACTRIM (SULFAMETHOXAZOLE-TRIMETH*0 11/25/2015 2 - Rash 11 - Vomiting GEL 01/27/2016 2 - Rash Comments: Patient developed rash after the use of ultrasound transmission gel. IVP DYE (IODINE) 12/24/2020 2 - Rash LATEX 01/18/2016 4 - Hives NEOSPORIN (BQQYGWNZ-RPNLYYPEZR-UB* 2 - Rash PENICILLINS 12/14/2009 CORTISONE 01/05/2021 7 - Swelling 2 - Rash Comments: Had shots in knee - caused swelling Date Reviewed: 05/23/2024 Reviewed by: Laine Ramsey MA - Fully Assessed Primary Visit Diagnosis:Tendonitis, Achilles, right [M76.61] Order(s):CONSULT TO PHYSICAL THERAPY [9032] Order #: [id number]: 1 FUTURE Prescriptions as of 07/13/2024 - [...] Status:Closed by JENNIFER MERRITT on 07/13/24 Normal [facility] ED Prov Noteon 06-13-2024 ED Prov Note HPI: 06/13/2024, Time: @NOWNR@ Phillip Gomez Phu is a 34 y.o. female presenting to the ED for painful ingrown toenail left great toe, beginning 2 weeks ago. The complaint has been constant, moderate in severity, and worsened by walking. No fever or red streaks . ROS: Pertinent positives and negatives are stated within HPI, all other systems reviewed and are negative. PAST HISTORY Past Medical History: @[facility]@ Past Surgical History: has a past [...] Furosemide, Neomycin, Sulfamethoxazole, Trimethoprim, Cortisone, Ketamine, Neosporin (ekf-yhh-gaupx) [tocvnbkp-nekryauvngo-etbnc yxnb], Penicillins, and Procaine RESULTS All laboratory [...] ms QTC Calculation (Bezet) 459 ms P Payson 57 degrees R Payson 61 degrees T Payson 17 degrees POC CBC and Differential Collection [...] providing specific (more content not included)... Normal [facility] Free T3on 06-11-2024 Free T3 [Mass/Vol] 3.1 pg/mL Normal 2.18-3.98 [facility] Comment on above: Performed By: #### L 506.0400, L501.27905, L501.9310, L501.9520, L506.1000 #### [facility] Laboratory [address] [place], [address] T4 Free Directon 06-11-2024 T4 FREE DIRECT 1.12 ng/dL Normal 0.76-1.46 [facility] Comment on above: Performed By: #### L 506.0400, L501.43627, L501.9310, L501.9520, L506.1000 ####[facility] [address] [place], [address] T4 Total, Thyroxinon 024 T4 [Mass/Vol] 8.5 ug/dL Normal 4.8-13.9 [facility] Comment on above: Performed By: #### L 506.0400, L501.23734, L501.9310, L501.9520, L506.1000 ####[facility] [address] [place], [address] Thyroid Stim Hormone (TSH)on 06-11-2024 TSH 7.480 uIU/mL High 0.358-3.74 0 [facility] Comment on above: Performed By: #### L 506.0400, L501.30271, L501.9310, L501.9520, L506.1000 ####[facility] [address] [place], [address] Vitamin D,25 Hydroxyon 06-11 Vitamin D 25-OH 11.0 ng/mL Normal [facility] Comment on above: Result Comment: Светлана min D 25(OH) Status Range Deficiency <20 ng/mL (50nmol/L) Insufficiency 20 - 30 ng/mL (50 - 75 nmol/L) Sufficiency 30 - 100 ng/mL (75 - 250 nmol/L) Toxicity >100 ng/mL (>250 nmol/L) Performed By: #### L 506.0400, L501.66078, L501.9310, L5019520, L506.1000 #### [facility] Laboratory [address] [place], [address] Emergency Department Summary on 05-25-2024 Emergency Department Summary [facility] Medical Records Department [address] [facility] [place] [address] Emergency Department Summary 05/25/24 MR#: [id number] Acct: [id number] Name: PHILLIP QUEEN Rep #: [id number] : 1990 34 From: Vern Richards DO [...] its persistent nature she presents for evaluation [facility] Medical History History of alcohol use disorder [...] Neosporin AdvReac Mild Rash Verified 05/25/24 04:01 (tiu-wqb-wvatz)) neomycin (From Neosporin AdvReac Mild Rash Verified 05/25/24 04:01 (pdq-kgf-xzpdi)) polymyxin B (From Neosporin AdvReac Mild Rash Verified 05/25/24 04:01 (anq-djk-khhhq)) Surgical History History of carpal tunnel release [...] MDM MDM (more content not included)... Normal [facility] CNOVon 05-23-2024 CNOV Office Visit ([facility]WSTR ) PHILLIP QUEEN ([id number]) 1990 F Date Time Provider Department 05/23/24 10:30 AM SILVERIO, EBENEZER UCWSTR During your visit today, we recorded the following information about you: Temperature Pulse Respiration Blood pressure 95.5 degrees 73/minute 16/minute 160/100 Weight Last Period 147.8 kg 04/27/24 Ebenezer Garrett APRN.CNP 05/23/2024 11:07 AM Signed Subjective HPI HPI [...] rim], Gel, Ivp Dye [Iodine], Latex, Neosporin [Vfwhlner-Qmpfkedqtm-Nmkarz zoila], Penicillins, and Cortisone MEDICATIONS REXULTI 0.5 [...] She is not diaphoretic. HENT: Mouth/Throat: Lips: [place]. Mouth: Mucous membranes are moist. Cardiovascular: Pulses: Dorsalis pedis pulses are 2+ on the right side and 2+ on the left side. Posterior tibial pulses are 2+ on the right side and 2+ on the left side. Abdominal: General: Bowel sounds are normal. Palpations: Abdomen is soft. (more content not included)... Normal [facility] Ankle min 3 Viewson 05-18-20 Ankle min 3 Views [facility] Imaging Services [address] [place], [place] [address] Ankle min 3 Views MR#: [id number] Acct: [id number] Name: PHILLIP QUEEN Rep #: [id number] : 1990 F 34 From: Wendi Barber MD PCP: Justa Light DO Status: [facility] ER Study: Ankle min 3 Views Date of Exam: 05/18/24 Exam# [id number] Ordering Dr: Lauri Frias MD [id number] EXAM: XR LEFT ANKLE COMPLETE, 3 OR [...] Dr. Lauri Frias MD; Justa Light DO Lidar Technician: Signed Normal [facility] Emergency Department Summary on 05-18-2024 Emergency Department Summary [facility] Medical Records Department [address] [facility] [place] [address] Emergency Department Summary 05/18/24 MR#: [id number] Acct: [id number] Name: PHILLIP QUEEN Rep #: [id number] : 1990 34 From: Lauri Frias MD [...] similar symptoms: No Recent Illness/Hospitalization: No [facility] Medical History History of alcohol use disorder Panic disorder Major depressive disorder, recurrent severe without psychotic features PTSD (post-traumatic stress disorder) Home Medications ???Medication ???Instructions ???Recorded ???Last Taken ???Type hydroxyzine pamoate 25 mg capsule 25 mg PO TID PRN panic attack(s) 09/25/24 Unknown Rx (Vistaril) 30 days #90 caps [...] Neosporin AdvReac Mild Rash Verified 05/18/24 22:58 (iqh-psy-vntht)) neomycin (From Neosporin AdvReac Mild Rash Verified 05/18/24 22:58 (mxk-vkf-oildo)) polymyxin B (From Neosporin AdvReac Mild Rash Verified 05/18/24 22:58 (xov-ipv-aeytm)) Surgical History History of carpal tunnel release [...] contractures Nutriti (more content not included)... Normal [facility] No Panel Informationon 05-11 No acute bony abnorm ality left ankle and left foot. MACRO: None Signed by: Beth Sin 05/11/2024 3:48 PM Dictation workstation: [id number] MMODAL Interpreted By: Beth Patton, STUDY: XR ANKLE LEFT 3+ VIEWS; XR FOOT LEFT 3+ VIEWS; ; 05/11/2024 3:37 pm INDICATION: Signs/Symptoms:injury; Signs/Symptoms:Injury. COMPARISON: Left ankle 01/31/2014 ACCESSION NUMBER(S): [id number]; [id number] ORDERING CLINICIAN: RODOLFO ABRAMS FINDINGS: Three views [...] mild spurring of the 1st metatarsophalangeal joint. MMODAL Beth Sin M D - 05/11/2024 Interpreted By: Beth Sin, STUDY: XR ANKLE LEFT 3+ VIEWS; XR FOOT LEFT 3+ VIEWS; ; 05/11/2024 3:37 pm INDICATION: Signs/Symptoms:injury; Signs/Symptoms:Injury. COMPARISON: Left ankle 01/31/2014 ACCESSION NUMBER(S): [id number]; [id number] ORDERING CLINICIAN: RODOLFO ABRAMS FINDINGS: Three views [...] Beth Sin 05/11/2024 3:48 PM Dictation workstation: [id number] [facility] Work Phone: Radiology Study observation (narrative) [facility] Work Phone: No Panel InformationOrdered By: Beth Sin on 05-11-2024 [facility] Work Phone: XR ANKLE LEFT 3+ VIEWSon XR ANKLE LEFT 3+ VIEWS Interpreted By: Beth Sin, STUDY: XR ANKLE LEFT 3+ VIEWS; XR FOOT LEFT 3+ VIEWS; ; 05/11/2024 3:37 pm INDICATION: Signs/Symptoms:injury; Signs/Symptoms:Injury. COMPARISON: Left ankle 01/31/2014 ACCESSION NUMBER(S): [id number]; [id number] ORDERING CLINICIAN: RODOLFO ABRAMS FINDINGS: Three views [...] Beth Sin 05/11/2024 3:48 PM Dictation workstation: [id number] [facility] XR FOOT LEFT 3+ VIEWSon 04-18 XR FOOT LEFT 3+ VIEWS Interpreted By: Beth Stearns, STUDY: XR ANKLE LEFT 3+ VIEWS; XR FOOT LEFT 3+ VIEWS; ; 05/11/2024 3:37 pm INDICATION: Signs/Symptoms:injury; Signs/Symptoms:Injury. COMPARISON: Left ankle 01/31/2014 ACCESSION NUMBER(S): [id number]; [id number] ORDERING CLINICIAN: RODOLFO ABRAMS FINDINGS: Three views [...] Beth Sin 05/11/2024 3:48 PM Dictation workstation: [id number] [facility] ED Prov Noteon 04-21-2024 ED Prov Note ED [facility] NAME: Phillip Queen AGE: 34 y.o. : 1990 VISIT DATE: 04/21/2024 CSN: [id number] PCP: Jadyn Light DO Chief Complaint Patient presents with Dental [...] Comments) Increased aggressive behavior after surgery Neosporin (Bzf-Vmy-Tutzn) [Iqyllmkm-Wxfuwvkfbdc-Eqfrc yxnb] Dermatitis Penicillins Hallucinations Procaine Other (See [...] focal deficit (more content not included)... Normal [facility] ED Prov Noteon 04-02-2024 ED Prov Note HPI: 04/02/2024, Time: @NOWNR@ Phillip Gomez Phu is a 34 y.o. [...] are negative. PAST HISTORY Past Medical History: @[facility]@ Past Surgical History: has a past [...] Furosemide, Neomycin, Sulfamethoxazole, Trimethoprim, Cortisone, Ketamine, Neosporin (rjv-cxk-hqpte) [kbqkvazk-bqngrhherrp-ilyqk yxnb], Penicillins, and Procaine RESULTS All laboratory [...] ms QTC Calculation (Bezet) 459 ms P Payson 57 degrees R Payson 61 degrees T Payson 17 degrees POC Basic Metabolic Panel Result [...] today's results, in (more content not included)... Normal [facility] CNOVon 03-30-2024 CNOV Office Visit (PODIWS ) PHILLIP SHER ([id number]) 1990 F Date Time Provider Department 03/30/24 [...] currently being seen by Dr. Ryder in [place]. Has tried stretching but was in too [...] bowel habits (more content not included)... Normal [facility] ED Prov Noteon 03-17-2024 ED Prov Note ED PROVIDER [facility] NAME: Phillip Queen AGE: 34 y.o. : 1990 VISIT DATE: 03/17/2024 CSN: [id number] PCP: Jadyn Light DO Chief Complaint Patient [...] Comments) Increased aggressive behavior after surgery Neosporin (Eyf-Phl-Khtmw) [Lobciofm-Iqymxhupfda-Ihrsu yxnb] Dermatitis Penicillins Hallucinations Procaine Other (See [...] fracture sprain, (more content not included)... Normal [facility] HIP, UNI W/ Pelvis 2-3 Views on 03-17-2024 HIP, UNI W/ Pelvis 2-3 Views [facility] Imaging Services [address] [place] [address] HIP, UNI W/ Pelvis 2-3 Views MR#: [id number] Acct: [id number] Name: PHILLIP QUEEN Rep #: [id number] : 1990 F 34 From: Igor Barker MD PCP: Justa Light DO Status: REG CLI Study: HIP, UNI W/ Pelvis 2-3 Views Date of Exam: 07/10 Exam# [id number] Ordering Dr: Gustavo Her MD [id number] STUDY: X-RAY - PELVIS AND LEFT HIP [...] 15:01 EDT Reading Location ID and State: [address] [place] [address] , Service support , CC: Dr. Gustavo Her MD; Justa Light DO Lidar Technician: Signed Normal [facility] Lumbar Spine 2 or 3 Viewson 03-17-2024 Lumbar Spine 2 or 3 Views [facility] Imaging Services [address] [place], [place] [id number] Lumbar Spine 2 or 3 Views MR#: [id number] Acct: [id number] Name: PHILLIP QUEEN Rep #: [id number] : 1990 F 34 From: Matthew higgins MD PCP: Justa Light DO Status: REG CLI Study: Lumbar Spine 2 or 3 Views Date of Exam: Exam# [id number] Ordering Dr: Justa Light DO 5:[id number] INDICATION: LOW BACK PAIN EXAMINATION/TECHNIQUE: X-RAY - [...] Signed: Matthew Cruz MD at 1:55 EDT , CC: Justa Light DO Lidar Technician: Signed [facility] XR FOOT LEFT 3+ VIEWS (STAND VINAYAK)on [...] SatMar 17, 2024 10:54:00 PM EDT [facility] Comment on above: Order Comment: Injur y/Trauma or Illness?:Injury/Trauma How long have you had these symptoms (acute/chronic)?:Acute Reason for exam?:left lateral foot pain History of cancer?:no Surgeries, chemotherapy, or radiation?:no Type of Exam?:Initial Mechanism of injury?:PT STATES NOW WITH LEFT FOOT PAIN AFTER POPPING SOUND TODAY ED Prov Noteon 03-16-2024 ED Prov Note ED PROVID[facility] NAME: Phillip Queen AGE: 34 y.o. : 1990 VISIT DATE: 03/16/2024 CSN: [id number] PCP: Jadyn Light DO Chief Complaint Patient [...] Comments) Increased aggressive behavior after surgery Neosporin (Soq-Uyc-Ixjtl) [Ehvjjcbk-Uqjvixcouub-Nwpto yxnb] Dermatitis Penicillins Hallucinations Procaine Other (See [...] hypertension. . (more content not included)... Normal [facility] ED Prov Noteon 03-15-2024 ED Prov Note [place] ED Physician Note: NAME: Phillip Queen 34 y.o. CSN: [id number] PCP: No, Physician ED Course / Medical [...] Comments) Increased aggressive behavior after surgery Neosporin (Yue-Pkq-Brljp) [Jcvhabqp-Oayuhkutbrw-Togve yxnb] Dermatitis Penicillins Hallucinations Procaine Other (See Comments) Swelling - but does okay with lidocaine ROS: Review of Systems Constitutional: Negative. HENT: Negative. Respiratory: Negative. Cardiovascular: Negative. Gastrointestinal: Negative. Endocrine: Negative. Genitourinary: Negative. Musculoskeletal: Positive for back pain. Negative for arthralgi (more content not included)... Normal [facility] Thyroglobulin Antibodyon TG AB 496.5 IU/mL High 0.0-0.9 [facility] Comment on above: Result Comment: Thyr oglobulin Antibody measured by [employer] Methodology It should be noted that the presence of thyroglobulin antibodies may not be pathogenic nor diagnostic, especially at very low levels. The assay numerical control drill press operator has found that four percent of individuals without evidence of thyroid disease or autoimmunity will have positive TgAb levels up to 4 IU/mL. Performed at: [facility] [employer] [id number] Transportation Director: Chencho Sanford PhD, Phone: [phone] Performed By: #### L 3300.7027 ####[facility] [address] [place], [address] ED Prov Noteon 03-07-2024 ED Prov Note ED PROVID[facility] NAME: Phillip Queen AGE: 34 y.o. : 1990 VISIT DATE: 03/07/2024 CSN: [id number] PCP: No, Physician Chief Complaint Patient presents [...] Comments) Increased aggressive behavior after surgery Neosporin (Fce-Mgh-Ccmlk) [Hnyohnrm-Bdzyjossltk-Xsarc yxnb] Dermatitis Penicillins Hallucinations Procaine Other (See [...] induration or (more content not included)... Normal [facility] Thyroid Peroxidase ABon 02-16 THYR PEROX AB > 600 High 0-34 [facility] Comment on above: Result Comment: Perf ormed at: - [facility] [address] [id number] Transportation Director: Chencho Sanford PhD, Phone: [phone] Performed By: #### L 100.0100, L501.65650, L501.9310, L501.9520, L501.9985, L503.0105, L500.4100, L3300.6900, L500.4050 ####[facility] [address] [place], [place], [id number] CBC W/Diff, Automatedon 02-15 Absolute Lymph 2.68 X10 3/uL Normal 0.83-4.51 [facility] Comment on above: Performed By: #### L 100.0100, L501.66277, L501.9310, L501.9520, L501.9985, L503.0105, L500.4100, L3300.6900, L500.4050 ####[facility] [address] [place], [address] Absolute Neut 4.1 X10 3/uL Normal 2.0-7.7 [facility] Comment on above: Performed By: #### L 100.0100, L501.51591, L501.9310, L501.9520, L501.9985, L503.0105, L500.4100, L3300.6900, L500.4050 ####[facility] [address] [place], [address] Basophils/100 WBC (Bld) 0.7 % Normal 0-1 [facility] Comment on above: Performed By: #### L 100.0100, L501.15648, L501.9310, L501.9520, L501.9985, L503.0105, L500.4100, L3300.6900, L500.4050 ####[facility] [address] [place], [address] Eosinophils/100 WBC (Bld) 2.0 % Normal 0-5 [facility] Comment on above: Performed By: #### L 100.0100, L501.44888, L501.9310, L501.9520, L501.9985, L503.0105, L500.4100, L3300.6900, L500.4050 ####[facility] [address] [place], [address] Erythrocyte distribution width (RBC) [Ratio] 13.4 % Normal 11.6-14.6 [facility] Comment on above: Performed By: #### L 100.0100, L501.27456, L501.9310, L501.9520, L501.9985, L503.0105, L500.4100, L3300.6900, L500.4050 ####[facility] [address] [place], [address] Hematocrit (Bld) [Volume fraction] 41.8 % Normal 37-47 [facility] Comment on above: Performed By: #### L 100.0100, L501.80379, L501.9310, L501.9520, L501.9985, L503.0105, L500.4100, L3300.6900, L500.4050 ####[facility] [address] [place], [address] Hemoglobin (Bld) [Mass/Vol] 14.0 g/dL Normal 12.0-15.0 [facility] Comment on above: Performed By: #### L 100.0100, L501.07482, L501.9310, L501.9520, L501.9985, L503.0105, L500.4100, L3300.6900, L500.4050 ####[facility] [address] [place], [place], [phone]) IG% 0.400 Normal 0.0-0.9 [facility] Comment on above: Result Comment: IG% - Immature Granulocytes (promyelocytes, myelocytes and metamyelocytes) > 1% indicates that a LEFT SHIFT is Present. Performed By: #### L 100.0100, L501.11061, L501.9310, L501.9520, L501.9985, L503.0105, L500.4100, L3300.6900, L500.4050 ####[facility] [address] [place], [address] Lymphocytes/100 WBC (Bld) 36.1 % Normal 19-41 [facility] Comment on above: Performed By: #### L 100.0100, L501.96627, L501.9310, L501.9520, L501.9985, L503.0105, L500.4100, L3300.6900, L500.4050 ####[facility] [address] [place], [address] MCH (RBC) [Entitic mass] 29.6 pg Normal 27.0-32.0 [facility] Comment on above: Performed By: #### L 100.0100, L501.81843, L501.9310, L501.9520, L501.9985, L503.0105, L500.4100, L3300.6900, L500.4050 ####[facility] [address] [place], [address] MCHC (RBC) [Mass/Vol] 33.5 g/dL Normal 32-36 [facility] Comment on above: Performed By: #### L 100.0100, L501.09828, L501.9310, L501.9520, L501.9985, L503.0105, L500.4100, L3300.6900, L500.4050 ####[facility] [address] [place], [address] MCV (RBC) [Entitic vol] 88.4 fL Normal 81-99 [facility] Comment on above: Performed By: #### L 100.0100, L501.98936, L501.9310, L501.9520, L501.9985, L503.0105, L500.4100, L3300.6900, L500.4050 ####[facility] [address] [place], [address] Monocytes/100 WBC (Bld) 5.5 % Normal 0-10 [facility] Comment on above: Performed By: #### L 100.0100, L501.97095, L501.9310, L501.9520, L501.9985, L503.0105, L500.4100, L3300.6900, L500.4050 ####[facility] [address] [place], [address] Neutrophils/100 WBC (Bld) 55.3 % Normal 47-70 [facility] Comment on above: Performed By: #### L 100.0100, L501.40150, L501.9310, L501.9520, L501.9985, L503.0105, L500.4100, L3300.6900, L500.4050 ####[facility] [address] [place], [address] Nucleated RBC (Bld) [#/Vol] 0 10*3/uL Normal 0-5 [facility] Comment on above: Performed By: #### L 100.0100, L501.38750, L501.9310, L501.9520, L501.9985, L503.0105, L500.4100, L3300.6900, L500.4050 ####[facility] [address] [place], [address] Platelet mean volume (Bld) [Entitic vol] 12.5 fL High 6.2-12.0 [facility] Comment on above: Performed By: #### L 100.0100, L501.52625, L501.9310, L501.9520, L501.9985, L503.0105, L500.4100, L3300.6900, L500.4050 ####[facility] [address] [place], [address] Platelets (Bld) [#/Vol] 122 10*3/uL Low 150-450 [facility] Comment on above: Performed By: #### L 100.0100, L501.81178, L501.9310, L501.9520, L501.9985, L503.0105, L500.4100, L3300.6900, L500.4050 ####[facility] [address] [place], [address] RBC (Bld) [#/Vol] 4.73 10*6/uL Normal 4.2-5.4 [facility] Comment on above: Performed By: #### L 100.0100, L501.92354, L501.9310, L501.9520, L501.9985, L503.0105, L500.4100, L3300.6900, L500.4050 ####[facility] [address] [place], [address] RDW SD 43.5 fl Normal 35.1-43.9 [facility] Comment on above: Performed By: #### L 100.0100, L501.39813, L501.9310, L501.9520, L501.9985, L503.0105, L500.4100, L3300.6900, L500.4050 ####[facility] [address] [facility] [place], [address] WBC (Bld) [#/Vol] 7.4 10*3/uL Normal 4.4-11.0 [facility] Comment on above: Performed By: #### L 100.0100, L501.59521, L501.9310, L501.9520, L501.9985, L503.0105, L500.4100, L3300.6900, L500.4050 ####[facility] [address] [facility] [place], [address] Comprehensive Metabolic Prof mdon 03-05-2024 Albumin [Mass/Vol] 3.5 g/dL Normal 3.2-5.0 [facility] Comment on above: Performed By: #### L 100.0100, L501.76802, L501.9310, L501.9520, L501.9985, L503.0105, L500.4100, L3300.6900, L500.4050 ####[facility] [address] [facility] [place], [address] Albumin/Globulin [Mass ratio] 0.8 {ratio} Low 0.9-2.4 [facility] Comment on above: Performed By: #### L 100.0100, L501.83690, L501.9310, L501.9520, L501.9985, L503.0105, L500.4100, L3300.6900, L500.4050 ####[facility] [address] [place], [place], [id number] ALK P 97 U/L Normal 45-117 [facility] Comment on above: Performed By: #### L 100.0100, L501.30701, L501.9310, L501.9520, L501.9985, L503.0105, L500.4100, L3300.6900, L500.4050 ####[facility] [address] [place], [place], [id number] ALT [Catalytic activity/Vol] 59 U/L High 13-56 [facility] Comment on above: Performed By: #### L 100.0100, L501.00305, L501.9310, L501.9520, L501.9985, L503.0105, L500.4100, L3300.6900, L500.4050 ####[facility] [address] [place], [address] AST [Catalytic activity/Vol] 39 U/L High 15-37 [facility] Comment on above: Performed By: #### L 100.0100, L501.26086, L501.9310, L501.9520, L501.9985, L503.0105, L500.4100, L3300.6900, L500.4050 ####[facility] [address] [place], [place], [id number] Bilirubin [Mass/Vol] 0.60 mg/dL Normal 0.20-1.00 [facility] Comment on above: Result Comment: For patients on eltrombopag therapy, use of Dimension [place] TBIL is not recommended. Performed By: #### L 100.0100, L501.47737, L501.9310, L501.9520, L501.9985, L503.0105, L500.4100, L3300.6900, L500.4050 ####[facility] [address] [place], [address] BUN/CRE 21.6 RATIO High 10-20 [facility] Comment on above: Performed By: #### L 100.0100, L501.86444, L501.9310, L501.9520, L501.9985, L503.0105, L500.4100, L3300.6900, L500.4050 ####[facility] [address] [place], [address] CA,Total 9.0 mg/dL Normal 8.5-10.1 [facility] Comment on above: Performed By: #### L 100.0100, L501.99668, L501.9310, L501.9520, L501.9985, L503.0105, L500.4100, L3300.6900, L500.4050 ####[facility] [address] [place], [address] Chloride [Moles/Vol] 106 mmol/L Normal 98-107 [facility] Comment on above: Performed By: #### L 100.0100, L501.96141, L501.9310, L501.9520, L501.9985, L503.0105, L500.4100, L3300.6900, L500.4050 ####[facility] [address] [place], [address] CO2 [Moles/Vol] 23.0 mmol/L Normal 21.0-32.0 [facility] Comment on above: Performed By: #### L 100.0100, L501.16359, L501.9310, L501.9520, L501.9985, L503.0105, L500.4100, L3300.6900, L500.4050 ####[facility] [address] [place], [address] Creatinine [Mass/Vol] 0.69 mg/dL Normal 0.55-1.02 [facility] Comment on above: Result Comment: The validity of the calculated GFR GFRAA in patients over 70 years has not been determined. Clinical correlation is essential. Performed By: #### L 100.0100, L501.01038, L501.9310, L501.9520, L501.9985, L503.0105, L500.4100, L3300.6900, L500.4050 ####[facility] [address] [place], [address] EST GFR - AA 125 mL/min Normal >60 [facility] Comment on above: Result Comment: Afri can Sammarinese GFR Calc Performed By: #### L 100.0100, L501.18952, L501.9310, L501.9520, L501.9985, L503.0105, L500.4100, L3300.6900, L500.4050 ####[facility] [address] [place], [place], [id number] GAP 7 Normal 5-15 [facility] Comment on above: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 lnbjogbGVmdDsgdmVydGlj ELrvAUpqL539ODNxeTtnFdHrRZc uZyBEYXRlOiAgMDYvMTQvMjAyND wvdGQ+XUHcDNT8xFebYDTb uOBsINdxOy6uuOragQdlHA7tMJH xqkynAIAixN6jRSMqxYMrrEtzKB 8qQRTtygxdl251PrIsMLF1 ELTwrITfE7PotV9cEgTkIQUbJQJ fL3QlmICcRZtoB677LKykVpW3SP PubzLqS3AbNUTxaXwdVfJ4 m9P8Yq7Jr1XapvqvO6YrpDNcIaH bPhfrRWl9C0LwHcsafAI+PC90YW TtDY07SFt5PWV2vOirSVgl UBXcE1TwfW5kWeRgUXXfXZObEwq +PHRhYmxlIHdpZHRoPScxMDAlJy EdsOcdAI2rBi9yBRAsCXJb lZdxnXMuKfIea1gmMKKmAPoxVS0 zbOjvB1LmlLE4JGCuj7v2Gb69Q8 0jG6WtoJK+CBWevVI0dDO4 qX0jSnIzZiU0OJqhJ227UyAesIT jTllhl1img8aixQb4VmV8RKXtei CxeXpfLNI1k4EaAj84E02z IHdpZHRoPSIxNSUiIHZhbGlnbj0 umY4rXb8+GJHpbVE0qJM4zH1qFr FpZvU9XRifX026VwMlrGDx Dwjro2bpq8xywIz7LeJqXKCmpcK uwIldQCC1h8XjSk85V2DjvUqrj9 BrEmw8le40qSHlg8T1pFP2 W4HvWSIpqwsfmUVvlUenWZ9hIGN ryaebVJGogK2rRHWhJ5s9MzNuHy N6XGgtX5IygnX6LMHtsXIa MAGttAHGeT2nttwpt1qdgbftEpZ pAGRcUNj1AWd4XJLupQsoVmGjUK Y7IpB8KLO8zEExbK8maOlg zdmpuV4zHte+DZO7oGCxmBNFRO2 lOjwvdGQ+AIAbUBR2kUorXKahNE CxwT2zFLYiQ6o1OgRhDyD5 PRsfA9XntdN4GJEhnYBoUEQvgIW QpR6uaqpzp1ccgkmvJwKwOAVxBP g9TZt4OLZtmHjtAyFzQVS8 GtT9SNF4mVBsaI6jxYkcstxfnF9 wOyc+VqnxaZugQVG3FHp1T9WuJo o9PQVynGtxHR5jkRFuVEzt Et6icAkkwWxjYM9bJHXwcqoib88 1EaXfr7lyOXKomKOfCEeyLXG4X1 3xr3D1SUBbYFQmIOK3dAP5 lS1vcCbeaiallRZgcHuozwSjjMw uMBymTUngX172XVLwgLuuViPhCZ t9K6AaQdv8RPGhfZecSH9g hKBoSGvfSz9cbOemrShyGG1pYGR cmbwym188QhEbt5gaVWZpzNPfCZ cfRKU9B11eq2V6YHQbJBZb WPA7zCB1wL2dxJycmrrzuVDzcPx yjcIjiHoeCEmvCJenK354ETFmgQ gwPcPdgUy5J4LpQsm4ZPOv uNofYJ7vlILzTVklBm2cjBrhnXl qEI2dDNHimnfxv661ZgUic7oyOH LzsVZgUQhfVLV1K25tt5C7 FJLcKGRdDJP0rOC7oY4whTvzkyq gbGVmdDsgdmVydGljYWwtYWxpZ2 46IHRvcDsnPlBhdGllbnQg DOlsWVd5N6JyBatocGN+NO62SBX fZA91rNNrfYSuw2plcIc9AzQkRR ImUMT7kXevLVjpn2OrYWRb F87bwHKll0V9DMLqbKrisRTiBoZ srCC5cL7bDGoizaiec9nyoquqPo jef0agvd00rX51X43bBSmp IZXiXMPwEIGmVVYynQlkui8gsQ9 wIi8+JQMmsHC9gYJ4nC4nQAFfGl A8UHtuM404DlAwnJQcPwhy q6uew2cjlLo7LfU5CALxzzTovHb jWSF8n4TdWw17Y11kYWgqGWQoVV FdUBYjWWJseAbwjs6tlD1z Ii8+TDMvqNB1xJT2kE9ePmGmZbQ 9TAtbK106PfWbvMLbAxqxN12sC1 JvdXA+WTSqMop8KRRyaJul DQ2hsLXzTCmlUv3zLSC1TvFcAlF aUJbeE5VsPAAfruwjhawjsMN6WV IyWWMdeZ68Dp9jmBjpSANy gHNZhK5yyztcx3asljdgSaRvHMF bMBa5RYz4JQAlxNtvTyWeROW4Dv E2WLV2eODtkT1qoDrthxaa wW5bP1JsRTUikzwfRx25iH4aJjA ePmT7GGcpZvs+WUFORUssIEVSSU 7gRNAHIPY0I5WmNdn4DYAd cPhjQH0jfFSeWIbgXv2dzLnviCe gAM7sLOJpdhcjVPSthC1vYMGgmJ AvqXgrZV7pWLTsfstqj772 StEyGRF0RPIujWAdM4UmfP5cMqI kWALcAXNqX9JbtWWlBZggE397SP zrBhG2DQVgejVwA5UvWIXa qErkPkD5l0D9Os8vTG6jEc4lXFo zLT21QT27zXJse8J8iJR1Y1DpCB TvvkzhjiyycLJ8BPKrGXUi rU16bLLyQTqgGk1qk5V1m599OAB vHZRdtE60Rz3ikMqjOLLjhKVOuV 7jzxczt3dkmhnkVtSmIFZu HEc2WNy9OEPccDrfApRcFYS4ZjD 8EZF8qCBzxC5kqYhawzdnbG0eQo c+VoNfDXYdpqC4H6BcAdd2 BKCgfBbkYC2wlMDuFFnzLq8ijNw xrEzvMQ2xJVIvghprNOIroG5iAS VwwIIqeDcrAQ1hBQNlugam g238OpZjDKC6IQSerMCoJ2BkiR2 zNsGsNQMrQMMqY5CvgBMrROjcN6 49AYgrVuS9OCYlnmBqD1Bj CRGwkYgyAfA2r4S5Pi3VPI2YMEP 6W4MjCst4HAAmfImvRC7ryDYoCG bbRr2heTfqaSuySV5nAVQn bxvpMJYkuW8aENEomCMcwInbQH0 dQSHbzynhk588AfMsKME8KGHnvH FfJ2FakF5xPfEqOAIsOFBb E4MtlZWsRLygY531MGlhAyN9LHE imxSrQ1ObWALfaOouOtQ1p0J5Ha 5HfYSpB1JtR1x5A8UbWine dHI+TY83VRDjRR28nRZqfPDge5i kgMo7HzMeJSBcXAV6xDnqAZvsg5 OjAXQrH74whPKfa9G5TNJv vLcpcIPjPwSmfOX0tL9bDDpsopa zn5nrgsfdFdocp1lkdb59fL03W8 9sIHdpZHRoPSIzMCUiIHZh gQfxmg6imY4yUa3+GOHwkOM0eMI 6lS6aIaLwLkW1JAxxT333EgXfdO HwPjcjh6vhv7absVd3EvAj SOZkofPkcQxiQOX7o0MwYu82M68 sIHdpZHRoPSIyMCUiIHZhbGlnbj 0ifQ0jIp8+LG6tn7vyns36 qU86uBK+LRRxYPM4tTgtHQkfQVP unT2dCQbaAdK7JSPvSfEfgR52sC YkODgiGp8giErsbPbcQF3m COLggtzni393WcVyo1qfZAXtwRS vCYmzFRO5T95ar6Y2HYSzWRBzYS E2lKP6pY4dlApnjwiltQRs mQwcakXdhRexCDksWZesG777LPT slKjxRgTslGBnJ8quhvGANQ5wFs wvdGQ+MVKzSZC0uXmbMIhf RYEpsZ1sCMOaY9w2PjMuFnY9QGk xD1JexjG6WVMoxCWlRVNzoLCTuE 2wyizlm8vhzjnuRaQsYXHj JYk5HFa6VQXmjDwzQcXuRPD3YhO 1XRB9iNZmeB3ygWssodzxtG1dAy c+RklOOjwvdGQ+PHRkIHN0 aQlbEZebUGPdpJ8qILZvE7i2MqF cWzG6ABvjO4IdnyF8BESthTAuJZ LzaDVApY5dntwjv6gtrhvh FvSsDLLiUPw6PSi1CERpmAhxRyQ sABE9GpF5ZVG4gUTjvH6mrYkplg ihbR7aDqy+TVJOOjwvdGQ+ RRVuSLH4pLyfRUdhTZWtuL4iOWZ bF4h2SgTcInB1HAcxU8KxbfK3EO IzhHDoXTBefRDEfQ6jafhc f9pqydrxToQbUBXkSAn2JPs6ICJ tySqkDmRxDYK7WuK9TMS1qRLcsX 9laWujxbvrmR0gDlp+UGF5 UZA5XO92IN45G0QkVtynoXQzrTR +PHRhYmxlIHdpZHRoPScxMDAlJy BzyXwaTP8pQd0tUCCfWJJw bGx (more content not included)... [facility] Consent Formson 11-19-2023 Consent Forms [id number] Normal [facility] ED Clinical Summaryon 2023 ED Clinical Summary [facility] - Emergency Department [address] [place], [place] [id number] ED Clinical Summary PERSON INFORMATION Name: PHILLIP QUEEN Age: 33 Years Sex: FEMALE : 1990 MRN: Acct#: Visit Reason: Ankle pain-swelling; Foot pain-swelling; RT FOOT PAIN Arrival: 11/18/2023 21:57:47 Discharge: 11/19/2023 01:22:00 LOS: 000 03:25 Check In: 11/18/2023 21:57:47 Checkout:11/19/2023 01:22:00 Address: [address] [place] [address] PCP: Provider, None PROVIDER INFORMATION Provider Role Assigned Unassigned Kay Vazquez DO ED Provider 11/19/2023 00:17:46 Jessy Wooten [employer]IRSPRING ADJUSTER Nurse 11/19/2023 00:31:39 VITALS INFORMATION Vital Sign [...] fell getting off of a ride at [place] at 1000 today c/o right leg/foot pain . History of Present Illness 33-year-old female to the emergency department chief complaint of right ankle and foot pain after twisting it when she fell off her right at [place] this morning at 10:00. Patient states that she was still able to stay at [place] however she was limping and had [...] the ri (more content not included)... Normal [facility] ED Note - Physicianon 2023 ED Note - Physician Patient: PHILLIP QUEEN Age: 33 years Sex: FEMALE : 1990 Associated Diagnoses: Elevated blood pressure reading; Foot pain-swelling; Right ankle sprain Author: Kay Vazquez DO Basic Information Additional information: Chief Complaint from Nursing Triage Note : Chief Complaint 11/18/2023 22:06 EDT Chief Complaint Pt states she fell getting off of a ride at [place] at 1000 today c/o right leg/foot [...] and Plan Diagnosis Elevated blood pressure reading ([id number] R03.0, Discharge, Medical) Complaint of Foot pain-swelling (PNED [id number], Reason For Visit, Patient Stated) Right ankle sprain ([id number] S93.401A, Discharge, Medical) Plan Condition: Stable. Disposition: Discharged: Time 11/19/2023 01:00:00, to home. Patient was given the following educational materials: Ankle Sprain, Xvsy-tx-Vkze, Ankle Sprain, Wusd-zg-Cqfv. Follow up with: KAY HEBERT Within 3 to 5 days Call for follow up appointment Return if symptoms worsen Follow-up in 3 to 5 days unl (more content not included)... Normal [facility] ED Patient Summaryon 024 ED Patient Summary [facility] - Emergency Department [address] [place] [address] PATIENT DISCHARGE INSTRUCTIONS Patient Information Name: PHILLIP UQEEN Age: 33 Years Date of : 1990 Reason For Visit: Ankle pain-swelling; Foot pain-swelling; RT FOOT PAIN Arrival Time: 11/18/2023 21:57:47 Primary Care Physician: Provider, None Attending Physician: Kay Vazquez DO Comment: Visit Diagnosis: Diagnoses This Visit Ankle pain-swelling ([id number]) Elevated blood pressure reading (R03.0) Foot pain-swelling ([id number]) Right ankle sprain (S93.401A) The Pharmacy at [facility] is open Saturday through Saturday from 9A [...] alcohol and/or drug addiction problems; contact the [facility] 07/01 Crisis Hotline -Text 4HLTM wf 971948. If you received any narcotics, sedation, or [...] documents With: Address: When: KAY HEBERT [address] [place], [place] [id number] Business (1) Within 3 to 5 days Comments: Call for follow up appointment Return if symptoms worsen Follow-up in 3 to 5 days unless symptoms are resolving Medication Information: The exam and treatment you received today in the [facility] Emergency Department were for an urgent problem and are not intended as complete care. It is important for you to follow up with a doctor, nurse practitioner, or physician?s assistant head cashier for ongoing care. If your symptoms become [...] so we can reach you if necessary. [facility] Emergency Department has provided you with a complete list of medications post discharge. Please inform your district manager primary care sales/provider of your visit and for further instruction [...] of your foot (more content not included)... [facility] XR Ankle Complete Righton XR Ankle Complete [...] DT/TM: 11/19/23 0:24 Signed (Electronic Signature): Alessio Cxo MD 11/19/23 0:27 am Technologist: Rashard BAUM [facility] XR Foot Complete Righton XR Foot Complete [...] Alessio Cox MD 11/19/23 0:27 am Technologist: Rashard BAUM [facility] HAND MIN 3 VIEWSon 2 HAND MIN 3 VIEWS Patient Name: PHILLIP SHER STUDY: HAND MIN 3 VIEWS; Left; 08/21/2021 1:14 pm INDICATION: LEFT HAND PAIN AND SWELLING S69.92XA: Injury of left hand. COMPARISON: 05/21/2017 ACCESSION NUMBER(S): [id number] ORDERING CLINICIAN: WENDY BEAVERS FINDINGS: LEFT HAND-AP, [...] hand. Electronically signed by: OLIVERIO QUINONEZ MD [facility] Office Visit (Internal Medic ine)on 05-22-2021 Follow-up [...] [facility]; Last Updated By: Dustin Malhotra[employer] Committee; 05/22/2021 4:23:32 PM Vertigo Start: Meclizine HCl [...] History Prob (more content not included)... Normal 3 day [employer] CORONAVIRUS 2019 BY PCRon SARS-CoV-2 (COVID-19) RNA JUDSON+probe Ql (Unsp spec) Not detected Normal Not Detected [facility] Comment on above: Result Comment: [...] patient management decisions. Fact sheet for providers: https://www.fda.gov/media/071486/download Fact sheet for patients: https://www.fda.gov/media/220098/download This test has received FDA Emergency Use Authorization (EUA) and has been verified by [facility] ([facility]). This test is only authorized for the duration of time that circumstances exist to justify the authorization of the emergency use of in vitro diagnostic tests for the detection of SARS-CoV-2 virus and/or diagnosis of COVID-19 infection under section 564(b)(1) of the Act, 21 U.S.C. 360bbb-3(b)(1), unless the authorization is terminated or revoked sooner. [facility] is certified under CLIA-88 as qualified to perform high complexity testing. Testing is performed in the [facility] laboratories located at [address] [place] [address]. Performed By: #### C OV19 #### [address] [place] [address] Covid 19 Resultson 1 SARS-CoV-2 (COVID-19) RNA [...] You may also be contacted by the [facility] to see if any of your close [...] or Naproxen (Aleve) can also be used. Zzvu-smw-skmbpbq cough and cold medicines can be used according to the instructions on the package. Some epow-bnh-yytefrg medicines also contain acetaminophen. Make sure you [...] water are not available, use alcohol-based hand woven wood shade assembler. Avoid touching your eyes, nose, and mouth [...] [address] (more content not included)... Normal [facility] CORONAVIRUS 2019 BY PCRon DATE OF SYMPTOM ONSET [[id number]]? [id number] Normal [facility] Comment on above: Performed By: #### C OV19 #### [facility] [id number] [place] [id number] Lab Specimen Source Nasal, Nasopharyngeal Normal [facility] Comment on above: Performed By: #### C OV19 #### [facility] [address] [place] [address] Coronavirus 2019 RNA by PCR, Symptomaticon 05-17-2021 Date and time of symptom onset [id number] 1 [facility] Work Phone: Coronavirus 2019 RNA by PCR, Symptomatic Not detected Normal See Below [facility] Work Phone: Comment on above: SOURCE: Nasal, [...] make patient management decisions.Fact sheet for providers: https://www.fda.gov/media/117219/downloadFact sheet for patients: https://www.fda.gov/media/990839/downloadThis test has received FDA Emergency Use Authorization (EUA) and has been verified by [facility] ([facility]). This test is only authorized for the duration of time that circumstances exist to justify the authorization of the emergency use of in vitro diagnostic tests for the detection of SARS-CoV-2 virus and/or diagnosis of COVID-19 infection under section 564(b)(1) of the Act, 21 U.S.C. 360bbb-3(b)(1), unless the authorization is terminated or revoked sooner. [facility] is certified under CLIA-88 as qualified to perform high complexity testing. Testing is performed in the [facility] laboratories located at [address] [place] [address]. Blood Pressure Cuff Sizeon 0 03-14-2021 Fall risk assessment a) No falls within the last year [facility] Work Phone: Tobacco use status CPHS a) Yes [facility] Work Phone: [phone] Blood Pressure Cuff Size Adult [facility] Work Phone: Blood Pressure Cuff Size Yes [facility] Work Phone: Office Visit (Internal Medic ine)on 03-14-2021 Follow-up [...] Asthma; NEETU = N; Verified Transmission to [facility]; Last Updated By: Zounds; 03/14/2021 11:21:41 AM Calf pain VASC LAB Venous Duplex Ultrasound for DVT; Status:Resulted - Preliminary; Done: 14Mar2021 11:53AM Due:12Jun2021;Ordered; For:Calf pain; Ordered By:Wendy Beavers; Laterality : Left Chronic back pain Start: Lidocaine 5 % External Patch; APPLY 1 PATCH TO THE AFFECTED AREA AND LEAVE IN PLACE FOR 12 HOURS, THEN REMOVE AND LEAVE OFF FOR 12 HOURS Rx By: Wendy Beavers; Dispense: 30 Days ; #:30 Patch; Refill: 0;For: Chronic back pain; NEETU = N; Verified Transmission to [email or web address] #44; Last Updated By: Zounds; 03/14/2021 11:14:11 AM Left-sided low back pain with sciatica Start: Baclofen 20 MG Oral Tablet; TAKE 1 TABLET 3 TIMES A DAY Rx By: Wendy Beavers; Dispense: 30 Days ; #:90 Tablet; Refill: 0;For: Left-sided low back pain with sciatica; NEETU = N; Verified Transmission to [email or web address] #44; Last Updated By: Zounds; 03/14/2021 11:14:09 AM MRI L Spine without Contrast; Status:Hold For - Scheduling; Requested for:14Mar2021; Perform:[facility]; Due:12Jun2021;Ordered; For:Left-sided low back pain with sciatica; Ordered By:Wendy Beavers; Radiologist to Determine Optimal Study : Y Does the patient have a Cochlear Implant, Pacemaker, Defibrilator, Pacing Wire, Brain Aneurysm Clip, Implanted Nerve or Bone Graft Simulator, Implanted Breast Tissue Clerk Specialist, Glucose Monitor, or Neulasta Device? : No [...] Signature Pending MRI Liver without Contrast; Status:Canceled; Perform:[facility];Ordered; For:Left-sided low back pain with sciatica; Ordered By:Wendy Beavers; Radiology Cancel Reason: ADMINISTRATIVE CANCEL Radiologist to Determine Optimal Study : Y Does the patient have a Cochlear Implant, Pacemaker, Defibrilator, Pacing Wire, Brain Aneurysm Clip, Implanted Nerve or Bone Graft Simulator, Implanted Breast Tissue Clerk Specialist, Glucose Monitor, or Neulasta Device? : No Is the patient or breast feeding? : No What are the patient's signs and symptoms? : sciatica, left sided Provider Impressions 1. Sciatica - will DC tizanidine and try baclofen - will give another rx of [place] - advised high risk to be taken [...] Substance Agreement (more content not included)... Normal 3 day Blinds VASC LAB Venous Duplex Ultra sound DVTon 03-14-2021 VASC LAB Venous [place] [address] [phone], Vascular Lab Report Lower Venous Duplex Ultrasound Patient Name: PHILLIP SHER Reading Physician: [id number] Sebastián Rai MD Study Date: 03/14/2021 Referring Physician: [id number] BEAVERS MRN/PID: [id number] PCP: Accession/Order#: [id number] CC Report to: Date of : 1990 Technologist: Camila Thomas RVT Gender: F Technologist 2: Admission Status: Outpatient Location Performed: [facility] Diagnosis/ICD: M79.89-Left leg swelling Procedure/CPT: 34001 Peripheral venous duplex scan for DVT [id number]-[id number] CONCLUSIONS: Right Lower Venous: Right common femoral [...] Spontaneous/Phasic Peroneal Yes None PTV Yes None [id number] Sebastián Rai MD Final Normal [facility] LAB Venous Duplex Ultra sound for DVTon 03-14-2021 [facility] LAB Venous Duplex Ultrasound for DVT Please click on the link to view the study images Normal [facility] Work Phone: [facility] LAB Venous Duplex Ultrasound for DVT [facility] Work Phone: Coronavirus 2019 RNA by PCR, Symptomaticon 03-01-2021 Date and time of symptom onset [id number] 1 [facility] Work Phone: Coronavirus 2019 RNA by PCR, Symptomatic Detected Abnormal See Below [facility] Work Phone: Comment on above: SOURCE: Nasal, [...] make patient management decisions.Fact sheet for providers: https://www.fda.gov/media/053037/downloadFact sheet for patients: https://www.fda.gov/media/590222/downloadThis test has received FDA Emergency Use Authorization (EUA) and has been verified by [facility] ([facility]). This test is only authorized for the duration of time that circumstances exist to justify the authorization of the emergency use of in vitro diagnostic tests for the detection of SARS-CoV-2 virus and/or diagnosis of COVID-19 infection under section 564(b)(1) of the Act, 21 U.S.C. 360bbb-3(b)(1), unless the authorization is terminated or revoked sooner. [facility] is certified under CLIA-88 as qualified to perform high complexity testing. Testing is performed in the [facility] laboratories located at [id number] [place] [address].COVID CALLED TO GAIL JAMA, 2021 08:45 Blood Pressure Cuff Sizeon 0 02-13-2021 Fall risk assessment a) No falls within the last year [facility] Work Phone: Tobacco use status CP a) Yes [facility] Work Phone: Blood Pressure Cuff Size Adult [facility] Work Phone: [phone] Blood Pressure Cuff Size Yes [facility] Work Phone: Office Visit (Internal Medic ine)on 02-13-2021 Follow-up visit Diagnoses/Problems Assessed Sciatica (724.3) (M54.30) Anxiety (300.00) (F41.9) Orders Anxiety Start: hydrOXYzine HCl - 50 MG Oral Tablet; TAKE 1 TABLET BY MOUTH 4 TIMES DAILY Rx By: Wendy Beavers; Dispense: 0 Days ; #:90 Tablet; Refill: 3;For: Anxiety; NEETU = N;eRx Message Publishing Failed; Last Updated By: System, [employer]; 02/13/2021 4:07:37 PM Asthma Renew: Ventolin HFA 108 (90 Base) MCG/ACT Inhalation Aerosol Solution (Albuterol Sulfate HFA); INHALE 1 PUFF EVERY 4 HOURS NEEDED Rx By: Wendy Beavers; Dispense: 90 Days ; #:3 X 8 GM Inhaler; Refill: 3;For: Asthma; NEETU = N; Sent To: [facility]; Last Updated By: Gail Jama; 02/13/2021 3:42:30 PM Bee sting allergy Start: EPINEPHrine 0.3 MG/0.3ML Injection Solution Auto-injector; INJECT 0.3ML INTRAMUSCULARLY DIRECTED Rx By: Wendy Beavers; Dispense: 0 Days ; #:2 Each; Refill: 2;For: Bee sting allergy; NEETU = N; Sent To: [facility] #[facility]; Last Updated By: Gail Jama; 02/13/2021 3:43:29 PM Chronic back pain Stop: Cyclobenzaprine HCl - 10 MG Oral Tablet Rx By: Wendy Beavers; Dispense: 10 Days ; #:30 Tablet; Refill: 3;For: Chronic back pain; NEETU = N; Sent To: [facility] Stop: traMADol HCl - 50 MG Oral Tablet Rx By: Wendy Beavers; Dispense: 5 Days ; #:15 Tablet; Refill: 0;For: Chronic back pain; NEETU = N; Sent To: [facility] Sciatica Start: HYDROcodone-Acetaminophen 5-325 MG Oral Tablet; Take 1 tab q6 hr prn Rx By: Wendy Beavers; Dispense: 0 Days ; #:15 Tablet; Refill: 0;For: Sciatica; NEETU = N;EPCS Digital Signature Failed Physical Therapy - General Referral Evaluation and Treatment Evaluate AND Treat Status: Hold For - Scheduling Requested for: 13Feb2021 Ordered;For: Sciatica; Ordered By: Wendy Beavers Performed: Due: 14May2021 Start: PARoxetine HCl - 20 MG Oral Tablet; TAKE 1 TABLET BY MOUTH EVERY DAY Rx By: Wendy Beavers; Dispense: 30 Days ; #:30 Tablet; Refill: 1;For: Sciatica; NEETU = N;eRx Message Publishing Failed; Last Updated By: Alere; 02/13/2021 4:08:11 PM Start: tiZANidine HCl - 4 MG Oral Tablet; TAKE 1 OR 2 TABLETS EVERY 8 HOURS NEEDED Rx By: Wendy Beavers; Dispense: 10 Days ; #:60 Tablet; Refill: 0;For: Sciatica; NEETU = N;eRx Message Publishing Failed; Last Updated By: Alere; 02/13/2021 4:07:08 PM Provider Impressions 1. Sciatica [...] (490) (J40 (more content not included)... Normal 3 day Blinds Established Visit (Orthopaed ic Surgery)on 01-24-2021 Established Visit (Orthopaedic Surgery) Diagnoses/Problems Assessed Achilles tendinitis of left lower extremity (726.71) (M76.62) Ankle pain, left (719.47) (M25.572) Left foot pain (729.5) (M79.672) Orders Achilles tendinitis of left lower extremity, Ankle pain, left, Left foot pain MRI Ankle without Contrast; Status:Active; Requested for:[id number]; Laterality : Left Radiologist to Determine Optimal Study : Y Does the patient have a Cochlear Implant, Pacemaker, Defibrilator, Pacing Wire, Brain Aneurysm Clip, Implanted Nerve or Bone Graft Simulator, Implanted Breast Tissue Clerk Specialist, Glucose Monitor, or Neulasta Device? : No [...] reactions - (more content not included)... Normal 3 day Blinds Tobacco Screening.on 021 Fall risk assessment b) One or more fall s in the last year [facility] Work Phone: Tobacco use status [facility] b) No [facility] 300 Work Phone: ED PROV NOTEon 12-28-2020 ED PROV NOTE HNO ID: [id number] Author: Vanessa Dangelo MD Service: Emergency Medicine [...] SIGNATURE: MD Vanessa Lenz MD 12/28/20 0519 [facility] ED NOTEon 12-25-2020 ED NOTE HNO ID: [id number] Author: Anjelica Dixon RN Service: Emergency Medicine Author Type: Registered Nurse Type: ED Notes Filed: 12/25/2020 2:32 AM Note Text: Discharge instructions, medications, and follow up reviewed with pt, pt advised to return to ED with worsening symptoms, pt verbalized understanding. Discharge instructions reviewed with pt's family also due to pt being very tired Pt taken to visitors car in wheelchair [facility] ED NOTE HNO ID: [id number] Author: Anjelica Dixon RN Service: Emergency Medicine Author Type: Registered Nurse Type: ED Notes Filed: 12/25/2020 1:40 AM Note Text: Pt does not want the Reglan because she does not know how she will react, has never had it before. Normal [facility] ED PROV NOTEon 12-25-2020 ED PROV NOTE HNO ID: [id number] Author: Karoline Dumont MD Service: Emergency Medicine [...] and the (more content not included)... Normal [facility] ED NOTEon 12-24-2020 ED NOTE HNO ID: [id number] Author: Alicia Willis RN Service: ? Author Type: Registered Nurse Type: ED Notes Filed: 12/24/2020 5:45 PM Note Text: Pt with c/o right lower dental pain- onset today- time of onset unknown. Normal [facility] ED PROV NOTEon 12-24-2020 ED PROV NOTE HNO ID: [id number] Author: Lurdes Saldana PA-C Service: ? Author Type: Physician Plating Machine Operator Type: ED Provider Notes Filed: [...] and Affe (more content not included)... Normal [facility] No Panel InformationOrdered By: Rosalinda Quintero on 12-15-2020 No dislocation or fr acture in the left hand or left wrist. [employer] Workstation ID: [id number] [facility] EXAMINATION: XR HAND LEFT 3+ VIEWS (STANDARD); [...] No erosive arthropathy or other bony abnormality [facility] Interface, Rad In Fu ji Speechq - [...] wrist. PRL/pji Workstation ID: [id number] [facility] XR Elbow Left 3+ Views (Matt dolan)Ordered By: Rosalinda Quintero on 10-27-2020 No fracture. WTW/sms Workstation ID: [id number] [facility] EXAMINATION: XR ELBO W LEFT 3+ VIEWS [...] or bony demineralization. No elbow joint effusion. [facility] Zaida, Jose R In Dat ji Speechq - 10/27/2020 8:27 PM EDT [...] No elbow joint effusion. IMPRESSION: No fracture. [employer] Workstation ID: [id number] [facility] XR Shoulder Left 2+ Views (S tandard)Ordered By: Rosalinda Quintero on 10-27-2020 No fracture or osseo us malalignment. WTW/sms Workstation ID: [id number] [facility] EXAMINATION: XR SHOU LDER LEFT 2+ VIEWS [...] bony demineralization. Visualized left lung is clear. [facility] Interface, Rad In Fu ji Speechq - [...] clear. IMPRESSION: No fracture or osseous malalignment. [employer] Workstation ID: [id number] [facility] ECG 12-LEADOrdered By: Albina Callejas on 10-23-2020 Atrial Rate 89 BPM [facility] P [place] 57 degrees [facility] P-R Interval 124 ms [facility] Q-T Interval 378 ms [facility] QRS Duration 80 ms [facility] QTC Calculation (Bezet) 459 ms [facility] R [place] 61 degrees [facility] T P[place] 17 degrees [facility] Ventricular Rate [address] [facility] th Normal sinus rhythm Normal ECG ECG Cart Interpretation see physician note for interpretation. Confirmed by Rebekah Morales ([id number]) on 10/23/2020 5:44:46 PM [facility] Albina Callejas MD 10/23/2020 7:17 PM ECG 12 Lead Date/Time: 10/23/2020 5:24 PM Performed by: Albina Callejas MD Authorized by: Albina Callejas MD Previous ECG: no previous ECG available Rhythm: sinus rhythm BPM: 89 Conduction: conduction normal ST Segments: ST segments normal T Waves: T waves normal normal CA interval CA Interval: 124 QRS Interval: 80 QT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 fraction] 97 % Rosalinda Quintero MD Work Phone: [facility] 10-27-2020 20:05-0400 Respiratory rate 16 /min Rosalinda Quintero MD Work Phone: [facility] 10-27-2020 19:13-0400 Body height 167.6 cm Rosalinda Quintero MD Work Phone: [facility] 10-27-2020 19:13-0400 Body mass index (BMI) [Ratio] 48.1 kg/m2 Rosalinda Quintero MD Work Phone: [facility] 10-27-2020 19:13-0400 Body temperature 98.01 [degF] Rosalinda Quintero MD Work Phone: [facility] 10-27-2020 19:13-0400 Body weight 135.17 kg Rosalinda Quintero MD Work Phone: [facility] 10-27-2020 19:13-0400 Diastolic blood pressure 83 mm[Hg] Rosalinda Quintero MD Work Phone: [facility] 10-27-2020 19:13-0400 Heart rate 83 /min Rosalinda Quintero MD Work Phone: [facility] 10-27-2020 19:13-0400 SaO2% (BldA) [Mass fraction] 100 % Rosalinda Quintero MD Work Phone: [facility] 10-27-2020 19:13-0400 Systolic blood pressure 152 mm[Hg] Rosalinda Quintero MD Work Phone: [facility] 10-23-2020 17:01-0400 Body temperature 97.11 [degF] Albina Callejas MD Work Phone: [facility] 10-23-2020 17:01-0400 Diastolic blood pressure 100 mm[Hg] Albina Callejas MD Work Phone: [facility] 10-23-2020 17:01-0400 Heart rate 97 /min Albina Callejas MD Work Phone: [facility] 10-23-2020 17:01-0400 Respiratory rate 16 /min Albina Callejas MD Work Phone: [facility] 10-23-2020 17:01-0400 SaO2% (BldA) [Mass fraction] 100 % Albina Callejas MD Work Phone: [facility] 10-23-2020 17:01-0400 Systolic blood pressure 149 mm[Hg] Albina Callejas MD Work Phone: [facility] 09-20-2020 16:38-0400 BMI (Body Mass Index) 49.29 kg/m2 Kay Perea [facility] 300 Work Phone: 09-20-2020 16:38-0400 Body Temperature 97.1 [degF] Kay Perea [facility] 300 Work Phone: 09-20-2020 16:38-0400 Body weight 138.52 kg Kay Perea [facility] 300 Work Phone: 09-20-2020 16:38-0400 BP Diastolic 62 mm[Hg] Kay Perea [facility] 300 Work Phone: 09-20-2020 16:38-0400 BP Systolic 116 mm[Hg] Kay Perea [facility] 300 Work Phone: 09-20-2020 16:38-0400 BSA (Body Surface Area) 2.39 m2 Kay Perea [facility] 300 Work Phone: 09-20-2020 16:38-0400 Height 167.64 cm Kay Perea [facility] 300 Work Phone: 09-17-2020 19:59-0400 BMI (Body Mass Index) 48.1 kg/m2 Rosalinda Quintero [facility] 09-17-2020 19:59-0400 Body Temperature 97.2 [degF] Rosalinda Quintero [facility] 09-17-2020 19:59-0400 Body weight 135.17 kg Rosalinda Rodarten [facility] 09-17-2020 19:59-0400 BP Diastolic 83 mm[Hg] [facility] Ern [facility] 09-17-2020 19:59-0400 BP Systolic 168 mm[Hg] [facility] 09-17-2020 19:59-0400 Height 167.6 cm [facility] 09-17-2020 19:59-0400 Pulse (Heart Rate) 98 /min [facility] 09-17-2020 19:59-0400 Pulse Oximetry 97 % [facility] Quinter[facility] 09-17-2020 19:59-0400 Respiratory Rate 18 /min [facility] Encounters Encounter Date Encounter Type Care Provider Facility Start: 02-12-2025 ambulatory Gustavo Bui ty:[facility] Start: 02-05-2025 ambulatory Bia Brown Facility:[facility] Start: 01-28-2025 End: 01-28-2025 Emergency department patient visit No Primary Care Physician Facility:[facility] Start: 01-25-2025 End: 01-25-2025 Emergency department patient visit PHYSICIAN NO [facility] Start: 01-23-2025 End: 01-23-2025 Emergency department patient visit No Primary Care Physician Facility:[facility] Start: 01-15-2025 ambulatory Justa Horneer VSC Faci lity:[facility] Start: 01-14-2025 End: 01-14-2025 ambulatory Justa Light VS Facility:[facility] Start: 12-22-2024 End: 12-22-2024 Office outpatient visit 25 minutes Warren Jeong APRN.COLLEGE INTERN Work Phone: [facility] Comment on above: Dental infection (Pr imary Dx) Start: 12-22-2024 End: 12-22-2024 ambulatory WARREN JEONG Facility:[facility] Start: 11-16-2024 ambulatory Justa Nadege VSC Faci lity:[facility] Start: 10-28-2024 ambulatory Justa Nadege VSC Faci lity:[facility] Start: 10-28-2024 End: 10-28-2024 ambulatory Justa Light [facility] Facility:[facility] Start: 10-12-2024 End: 10-12-2024 Emergency department patient visit PHYSICIAN CAROLYNN [facility] Start: 09-01-2024 End: 09-01-2024 Subsequent hospital visit by physician Point Of Care Ultrasound EF RAD EXTERNAL FILM [facility]IRTUAL Comment on above: Arrived Start: 09-01-2024 End: 09-01-2024 ambulatory [facility] Start: 08-21-2024 End: 08-21-2024 Emergency department patient visit PHYSICIAN CAROLYNN [facility] Start: 08-17-2024 End: 08-18-2024 ambulatory Justa Light [facility] Facility:[facility] Start: 08-06-2024 End: 08-07-2024 Emergency department patient visit Elizabeth Hernandez DO Work Phone: [facility] Comment on above: Chronic right should er pain (Primary Dx) Start: 08-05-2024 End: 08-05-2024 Emergency department patient visit Justa Light [facility] Facility:[facility] Start: 07-20-2024 End: 08-14-2024 ambulatory Justa Nadege [facility] Facility:[facility] Start: 07-05-2024 End: 07-05-2024 Emergency department patient visit JADYN LIGHT [facility] Start: 06-23-2024 End: 07-13-2024 Telephone encounter Nurse/[facility] Work Phone: Podiatry Start: 06-18-2024 End: 07-17-2024 ambulatory Justa Nadege [facility] Facility:[facility] Start: 06-13-2024 End: 06-13-2024 Emergency department patient visit JADYN ANTONIO NADEGE [facility] Start: 06-11-2024 End: 06-11-2024 ambulatory Justa Nadege [facility] Facility:[facility] Start: 06-09-2024 End: 06-16-2024 ambulatory Justa Nadege [facility] Facility:[facility] Start: 05-25-2024 End: 05-25-2024 Emergency department patient visit Justa Light [facility] Facility:[facility] Start: 05-23-2024 End: 05-23-2024 ambulatory WENDY CUELLOYULIA Facility:[facility] Start: 05-23-2024 End: 05-23-2024 Patient encounter procedure Ebenezer Garrett ZENONCristinaRADHIKA Work Phone: [facility] Comment on above: Toothache (Primary D x); Rash; Acute right-sided low back pain without sciatica Start: 05-18-2024 End: 05-19-2024 [facility] Start: 05-11-2024 End: 05-11-2024 Emergency department patient visit Rodolfo Bowman Heriberto DO Work Phone: [facility] Comment on above: Foot sprain, left, i nitial encounter (Primary Dx) Start: 04-23-2024 End: 05-08-2024 [facility] Start: 04-21-2024 End: 04-21-2024 Emergency department patient visit JADYN PACO [facility] Start: 04-15-[address] [facility] Faci lity:[facility] Start: 04-02-2024 End: 04-02-2024 Emergency department patient visit JADYNLEROY ANTONIO [facility] Start: 03-30-2024 End: 03-30-2024 ambulatory LAWRENCE BRIGGS Facility:[facility] Start: 03-30-2024 End: 03-30-2024 Patient encounter procedure Lawrence Briggs Work Phone: Podiatry Comment on above: Tendonitis, Achilles , right (Primary Dx); Calcaneal spur of foot, right Start: 03-17-2024 End: 03-17-2024 Emergency department patient visit ARLINE RODARTE [facility] Start: 03-17-2024 End: 04-14-2024 ambulatory Azalia Markham Facility:[facility] Start: 03-17-2024 End: 03-17-2024 ambulatory Gustavo Her Facility:[facility] Start: 03-16-2024 End: 03-16-2024 Emergency department patient visit KATHARINA SEBAS Hilda DMITRIY [facility] Start: 03-15-2024 End: 03-15-2024 Emergency department patient visit DOMENICO COELHO JOHN [facility] Start: 03-07-2024 End: 03-07-2024 Emergency department patient visit PHYSICIAN CAROLYNN [facility] Start: 03-05-2024 End: 03-05-2024 ambulatory Justa Light Breanna Facility:[facility] Start: 02-25-2024 End: 03-16-2024 ambulatory Azalia Markham Facility:[facility] Start: 02-04-2024 End: 02-04-2024 Emergency department patient visit ARLINE RODARTE [facility] Start: 01-16-2024 End: 01-16-2024 Office outpatient visit 15 minutes Estiven Ryder DPM Work Phone: [facility] Comment on above: Bone spur of posteri or portion of right calcaneus (Primary Dx); Insertional tendinopathy of right Achilles tendon; Ingrown nail of great toe of right foot Start: 01-16-2024 End: 01-16-2024 ambulatory ESTIVEN BORDEN [facility] Ambulatory Start: 01-11-2024 End: 01-11-2024 Emergency department patient visit PHYSICIAN CAROLYNN JONES Facility:[facility] Start: 01-10-2024 End: 01-10-2024 Emergency department patient visit Hal Argueta Facility:[facility] Start: 01-08-2024 End: 01-08-2024 Emergency department patient visit Maricruz Hurst Facility:[facility] Start: 01-08-2024 End: 01-08-2024 ambulatory PHYSICIAN NO [facility] Start: 11-21-2023 End: 11-21-2023 Office outpatient new 30 minutes Estiven Ryder DPM Work Phone: [facility] Comment on above: Achilles tendon tear , right, initial encounter (Primary Dx); Bone spur of posterior portion of right calcaneus Start: 11-21-2023 End: 11-21-2023 ambulatory ESTIVEN BORDEN [facility] Ambulatory Start: 11-18-2023 End: 11-19-2023 Emergency department patient visit PHYSICIAN CAROLYNN [facility] Work Phone: Start: 03-01-[address] Sandra Bhakta Fa cility:[id number] Start: 11-27-2021 AUDIT Wendy Link Oberha user Work Phone: [facility] Work Phone: Start: 11-07-[address] Wendy Beavers Fa cility:[id number] Start: 10-31-2021 Other Wendy L Oberha user Work Phone: [facility] 300 Work Phone: Start: 10-10-2021 AUDIT Wendy L Oberha user Work Phone: [facility] Work Phone: Start: 08-30-2021 Transcribe Orders Wendy Oberha user DO Work Phone: [facility] Comment on above: Pain of left heel (P rimary Dx) Start: 08-18-2021 Chart Update Wendy L Oberha user Work Phone: [facility] Work Phone: Start: 08-17-2021 AUDIT Wendy L Oberha user Work Phone: [facility] Work Phone: Start: 07-13-2021 AUDIT Wendy L Oberha user Work Phone: [facility] Work Phone: Start: 06-30-2021 AUDIT Wendy L Oberha user Work Phone: [facility] Work Phone: Start: 05-23-2021 AUDIT Wendy L Oberha user Work Phone: [facility] Work Phone: Start: 05-22-2021 Office outpatient vi sit 15 minutes Wendy Beavers Work Phone: [facility] Work Phone: Start: 05-22-2021 Patient encounter procedure Wendy Beavers Work Phone: [facility] Work Phone: Start: 05-22-[address] Wendy Beavers Fa cility:[id number] Start: 05-18-2021 Chart Update Wendy Link Oberha user Work Phone: [facility] Work Phone: Start: 05-16-2021 AUDIT Wendy Fariba Oberha user Work Phone: [facility] Work Phone: Start: 04-06-2021 AUDIT Wendy L Oberha user Work Phone: [facility] Work Phone: Start: 03-24-2021 AUDIT Wendy Fariba Oberha user Work Phone: [facility] Work Phone: Start: 03-14-2021 Office outpatient vi sit 25 minutes Wendy Beavers Work Phone: [facility] Work Phone: Start: 03-14-2021 Patient encounter procedure Wendy Link Oberhauser Work Phone: [facility] Work Phone: Start: 2021 AUDIT Wendy Link Oberha user Work Phone: [facility] Work Phone: Start: 2021 Chart Update Wendy Link Oberha user Work Phone: [facility] Work Phone: Start: 03-01-2021 AUDIT Wendy L Oberha user Work Phone: [facility] Work Phone: Start: 02-15-2021 AUDIT Wendy L Oberha user Work Phone: [facility] Work Phone: Start: 02-13-2021 FUV, Provider: Wendy Beavers, Status: Pen, Time: 3:40 PM Wendy Chahalerhauser Work Phone: [facility] Work Phone: Start: 02-13-2021 Office outpatient vi sit 25 minutes Wendy Cuelloyulia Work Phone: [facility] Work Phone: Start: 02-10-2021 AUDIT Wendy L Oberha user Work Phone: [facility] Work Phone: Start: 01-31-2021 AUDIT Wendy L Oberha user Work Phone: [facility] Work Phone: Start: 01-24-2021 Office outpatient vi sit 25 minutes Wendy Cuelloyulia Work Phone: [facility] 300 Work Phone: Start: 12-15-2020 End: 12-15-2020 Emergency department patient visit Rosalinda Quintero MD Work Phone: [facility] Start: 12-15-2020 AUDIT Wendy L Oberha user Work Phone: [facility] Work Phone: Start: 10-27-2020 End: 10-27-2020 Emergency department patient visit Rosalinda Quintero MD Work Phone: [facility] Start: 10-23-2020 End: 10-23-2020 Emergency department patient visit Albina Callejas MD Work Phone: [facility] Start: 10-06-2020 Patient encounter procedure Kay Perea DO -[facility] Work Phone: Start: 09-20-2020 Patient encounter procedure Kay Perea [facility] 300 Work Phone: Start: 09-17-2020 End: 09-17-2020 Emergency department patient visit Rosalinda Quintero Work Phone: [facility] Start: 09-01-2020 Patient encounter procedure Wendy Beavers [facility] Work Phone: Start: 07-28-2020 Patient encounter procedure Wendy Beavers [facility] Work Phone: Start: 07-15-2020 Patient encounter procedure Wendy Beavers [facility] Work Phone: Start: 07-12-2020 Patient encounter procedure Wendy Beavers [facility] Work Phone: Start: 07-05-2020 Patient encounter procedure Wendy Beavers [facility] Work Phone: Start: 06-22-2020 Patient encounter procedure Wendy Beavers [facility] Work Phone: Start: 04-19-2020 Patient encounter procedure Wendy Beavers [facility] Work Phone: Start: 03-21-2020 Patient encounter procedure Wendy Beavers [facility] Work Phone: Start: 03-08-2020 Patient encounter procedure Wendy Beavers [facility] Work Phone: Start: 01-22-2020 Patient encounter procedure Wendy PHAN [facility] Work Phone: Start: 12-24-2019 Patient encounter procedure Wendy Beavers [facility] Work Phone: Start: 12-11-2019 Patient encounter procedure Wendy Beavers [facility] Work Phone: Start: 09-18-2019 Patient encounter procedure Wendy Beavers [facility] Work Phone: Start: 09-11-2019 Patient encounter procedure Wendy Beavers [facility] Work Phone: Start: 04-16-2019 Patient encounter procedure Wendy Beavers [facility] Work Phone: Start: 12-23-2018 End: 12-23-2018 Patient encounter procedure Norma Gonzalesenhall Work Phone: [facility] Comment on above: Lumbar radiculopathy Start: 09-08-2017 Ambulatory Norma Silva Facility:[facility] Start: 09-08-2017 End: 09-08-2017 Ambulatory Norma Silva Work Phone: [facility] Start: 05-30-2017 Ambulatory Woodrow Mj Lofton Work Phone: [facility] Start: 12-24-2016 End: 12-24-2016 Ambulatory PAOLA CAREY [facility] Procedures Date Procedure Procedure Detail Performing Clinician Start: 09-01-2024 [facility] Danae Major MD Work Phone: Start: 08-06-2024 Radex shoulder complete minimum 2 views Elizabeth Hernandez DO Work Phone: Start: 05-11-2024 Radex ankle complete minimum 3 views Rodolfo Abrams DO Work Phone: Start: 12-15-2020 Radex hand minimum 3 views Rosalinda Quintero MD Work Phone: Start: 10-27-2020 End: 10-27-2020 Radex elbow complete minimum 3 views Rosalinda Quintero MD Work Phone: Start: 10-23-2020 End: 10-23-2020 Fibrin dgradj products d-dimer quantitative [facility] Start: 10-23-2020 End: 10-23-2020 Ecg [...] f 2) Zoster Vaccines (1 of 2) [facility] Start: 08-29-2031 DTaP/Tdap/Td Vaccine s (6 - Td or Tdap) DTaP/Tdap/Td Vaccines (6 - Td or Tdap) [facility] Start: 08-29-2031 Tetanus vaccination Tetanus: Every 1 0yrs [facility] Start: 08-29-2031 Urine microalbumin profile [facility] Start: 02-15-2025 Influenza vaccination Influenza Vacc ine (#1) [facility] Start: 07-14-2024 End: 07-14-2024 Patient encounter procedure 07/14/2024 9:15 AM EST Office Visit Podiatry [address] [place] [address] Lawrence Briggs [address] [id number] B/L great toe ingrown and infected Podiatry Comment on above: B/L great toe ingrow n and infected Start: 02-16-2024 Covid-19 Vaccine ( season) Covid-19 Vaccine ( season) [facility] Start: 02-16-2024 Influenza vaccination [facility] Start: 02-03-2024 End: 02-03-2024 Patient encounter procedure 02/03/2024 2:30 PM EDT Procedure visit [facility] [address] [place] [address] Estiven Ryder DPM [address] [place] [address] [facility] Start: 12-26-2023 End: 12-26-2023 Patient encounter procedure 12/26/2023 9:15 AM EDT Office Visit [facility] [address] [place] [address] Estiven Ryder, [place] [address] [place] [address] [facility] Start: 12-17-2023 End: 12-17-2023 Patient encounter procedure 12/17/2023 9:45 AM EDT Appointment [facility] [address] [place] [address] Estiven Ryder DPM [address] [place] [address] [facility] Start: 11-21-2023 End: 11-20-2024 MR Ankle - right WO contrast MR Ankle Right Without Contrast Imaging STAT Achilles tendon tear, right, initial encounter Bone spur of posterior portion of right calcaneus Expected: 11/21/2023, Expires: 11/20/2024 [facility] Work Phone: Comment on above: Expected: 11/21/2023 , Expires: 11/20/2024 Start: 02-15-2023 COVID-19 Vaccine ( season) COVID-19 Vaccine ( season) [facility] Start: 11-07-2021 FUV, Provider: Kay Perea, Status: Pen, Time: 11:00 AM FUV, Provider: Kay Perea, Status: Pen, Time: 11:00 AM [facility] 300 Work Phone: Start: 05-01-2021 FUV, Provider: Wendy Beavers, Status: Pen, Time: 1:00 PM FUV, Provider: Wendy Beavers, Status: Pen, Time: 1:00 PM [facility] Work Phone: Start: 03-17-2021 COVID-19 Vaccine (2 - Pfizer 3-dose series) COVID-19 Vaccine (2 - Pfizer 3-dose series) [facility] Start: 03-10-2021 PTEVAADULT, Provider : Margot Garcia, Status: Pen, Time: 2:45 PM PTEVAADULT, Provider: Margot Garcia, Status: Pen, Time: 2:45 PM [facility] Work Phone: Start: 03-10-2021 PTEVAADULT, Provider : Darien Alford, Status: Pen, Time: 2:30 PM PTEVAADULT, Provider: Darien Alford, Status: Pen, Time: 2:30 PM [facility] Work Phone: Start: 2021 Screening for malignant neoplasm of cervix [facility] Start: 02-15-2021 Influenza vaccination [facility] Start: 02-13-2021 FUV, Provider: Wendy Beavers, Status: Pen, Time: 3:40 PM FUV, Provider: Wendy Beavers, Status: Pen, Time: 3:40 PM [facility] Work Phone: Start: 02-09-2021 FUV, Provider: Kay Perea, Status: Pen, Time: 11:00 AM FUV, Provider: Kay Perea, Status: Pen, Time: 11:00 AM [facility] 300 Work Phone: Start: 10-06-2020 Assay of c-peptide C Peptide, Serum [facility] Work Phone: Start: 10-06-2020 Assay of insulin total Insulin Level , Serum [facility] Work Phone: Start: 10-06-2020 Comprehensive metabolic 2000 panel - Serum or Plasma Comprehensive Metabolic Panel [facility] Work Phone: Start: 10-06-2020 Hemoglobin glycosylated a1c Hemoglobin A1C [facility] Work Phone: Start: 10-06-2020 TSH WITH REFLEX TO FREE T4 IF ABNORMAL TSH WITH REFLEX TO FREE T4 IF ABNORMAL [facility] Work Phone: Start: 02-16-2020 Influenza vaccinatio n given Sequential Influenza Vaccine (#1) [facility] Start: 02-15-2019 Influenza vaccinatio n given SEQUENTIAL INFLUENZA VACCINE (#1) [facility] Start: 02-15-2017 Influenza vaccination SEQUENTI AL INFLUENZA VACCINE (#1) [facility] Work Phone: Start: 11-24-2016 Pneumococcal Vaccine : Ped or At-Risk (2 of 2 - PCV) Pneumococcal Vaccine: Ped or At-Risk (2 of 2 - PCV) [facility] Start: 11-24-2016 Pneumococcal Vaccine : Pediatrics (0 to 5 Years) and At-Risk Patients (6 to 64 Years) (2 of 2 - PCV) Pneumococcal Vaccine: Pediatrics (0 to 5 Years) and At-Risk Patients (6 to 64 Years) (2 of 2 - PCV) [facility] Start: 11-24-2016 Pneumococcal Vaccine : Pediatrics and At-Risk Adult Patients (2 of 2 - PCV) Pneumococcal Vaccine: Pediatrics and At-Risk Adult Patients (2 of 2 - PCV) [facility] Start: 2012 Screening for malignant neoplasm of cervix [facility] Start: 2009 Annual PCP Team Chronic Disease Visit Annual PCP Team Chronic Disease Visit [facility] Start: 2009 Anxiety Screening Anxiety Screening [facility] Start: 2009 Hepatitis C antibody , confirmatory test Hepatitis C Screening [facility] Start: 2009 Hepatitis C screening Hepatitis C Sc reening [facility] Start: 2009 HIV screening HIV Screening [facility] Start: 2009 Spirometry Spirometry [facility] Start: 2007 COVID-19 Vaccine (1) COVID-19 Vaccin e (1) [facility] Start: 2006 HIV screening HIV Screening [facility] Start: 2004 Varicella vaccination Varicell a Vaccines (1 of 2 - 13+ 2-dose series) [facility] Start: 2003 Adolescent depressio n screening assessment Depression Screening (PHQ9) [facility] Start: 2003 COVID-19 Vaccine (1) COVID-19 Vaccin e (1) [facility] Start: 2003 Depression screening using PHQ-9 (Patient Health Questionnaire 9) score [facility] Start: 02-22-1998 Hepatitis B Vaccine (3 of 3 - 3-dose series) Hepatitis B Vaccine (3 of 3 - 3-dose series) [facility] Start: 02-22-1998 Hepatitis B Vaccines (3 of 3 - 3-dose series) Hepatitis B Vaccines (3 of 3 - 3-dose series) [facility] Start: 1994 History and physical examination, annual for health maintenance Wellness Visit [facility] Start: 1991 HIV screening HIV Screening [facility] Start: 1991 Lipid panel Lipid Panel [facility] Start: 1991 Screening for malignant neoplasm of cervix [facility] Start: 1991 Tetanus vaccination [facility] Work Phone: Start: 1991 Yearly Adult Physical Yearly Adult P [facility] NEGATED: Highlighted row has been ruled out! Planned Goals not documented [facility] 300 Work Phone: Immunizations Immunization Date Immunization Notes Care Provider Kamaljit kyle 08-28-2021 tetanus toxoid, redu meggan diphtheria toxoid, and acellular pertussis vaccine, adsorbed Wendy Oberhauser DO Work Phone: [facility] 02-24-2021 Pfizer-BioNTech COVID-19 Vacc 30 MCG/0.3ML Intramuscular Suspension Wendy Beavers Work Phone: [facility] Work Phone: Comment on above: Series: 04-27-2016 influenza, injectabl e, quadrivalent, contains preservative aLwrence Briggs Work Phone: [facility] 04-27-2016 influenza virus vaccine, unspecified formulation Estiven Ryder DPM Work Phone: [facility] 11-25-2015 pneumococcal polysaccharide vaccine, 23 valent Lawrence Briggs Work Phone: [facility] Payers Date Payer Category Payer Self-pay 2022 Medicaid (Managed Care) 1.2. [id number] 2022 Medicaid [id number] 2014 Medicaid [id number] 2014 Medicaid [employer] [facility] MEDICAID [employer] MEDICAID [id number] 2014-Present [id number]. [id number] 2014 Medicaid [id number] [id number]. [id number] 1991 Unknown [id number] 2.16.840.1.279576.3.579.2. 356 1991 Unknown [id number] 2.16.840.1.155567.3.579.2. 356 1991 Unknown [id number] 2.16.840.1.384492.3.579.2. 356 1991 Unknown [id number] 2.16.840.1.792347.3.579.2. 903 1991 Unknown [id number] 2.16.840.1.457158.3.579.2. 903 1991 Unknown [id number] 2.16.840.1.630159.3.579.2. 718 1991 Unknown [id number] 2.16.840.1.863353.3.579.2. 718 1991 Unknown [id number] 2.16.840.1.904797.3.579.2. 718 1991 Unknown [id number] 2.16.840.1.689502.3.579.2. 900 1991 Unknown [id number] 2.16.840.1.013616.3.579.2. 124 1991 Unknown [id number] 2.16.840.1.321531.3.579.2. 124 1991 Unknown [id number] 2.16.840.1.308754.3.579.2. 124 1991 Unknown [id number] 2.16.840.1.782025.3.579.2. 2 1991 Unknown [id number] 2.16.840.1.229420.3.579.2. 902 1991 Unknown [id number] 2.16.840.1.918126.3.579.2. 902 1991 Unknown [id number] 2.16.840.1.736379.3.579.2. 90 1991 Unknown [id number] 2.16.840.1.924750.3.579.2. 1991 Unknown [id number] 2.16.840.1.480864.3.579.2. 902 1991 Unknown [id number] 2.16.840.1.745898.3.579.2. 902 1991 Unknown [id number] 2.16.840.1.146263.3.579.2. 902 1991 Unknown [id number] 2.16.840.1.352200.3.579.2. 902 1991 Unknown [id number] 2..840.1.305802.3.579.2. 902 1991 Unknown [id number] 2.840.1.125278.3.579.2. 902 1991 Unknown [id number] 2.840.1.346477.3.579.2. 902 Medicaid [id number] 2.840.1.235665.3.249.13 Unknown [employer] Unknown [employer] [id number] Effective for all dates xx- 1..[id number]. 7.3.127361.315 Unknown [id number] 2.840.1.608272.3.579.2. 531 Unknown [id number] 2.840.1.689218.3.579.2. 531 Unknown [id number] 2.840.1.229085.3.579.2. 462 Unknown [id number] 2.840.1.684079.3.579.2. 462 Unknown [id number] 2.840.1.331134.3.579.2. 462 Unknown [id number] 2.840.1.262044.3.579.2. 462 Unknown [id number] 2.16840.1.698061.3.579.2. 462 Unknown [id number] 2.16840.1.723985.3.579.2. 462 Unknown [id number] 2.840.1.811972.3.579.2. 462 Unknown [id number] 2.16.840.1.320354.3.579.2. 462 Unknown [id number] 2.16.840.1.564780.3.579.2. 462 Unknown [id number] 2.16840.1.478138.3.579.2. 462 Unknown [id number] 2.16.840.1.869995.3.579.2. 462 Unknown [id number] 2.16840.1.049887.3.579.2. 462 Unknown [id number] 2.16840.1.941861.3.579.2. 462 Unknown [id number] 2.840.1.266448.3.579.2. 462 Unknown [id number] 2.840.1.520309.3.579.2. 462 Unknown [id number] 2.840.1.555959.3.579.2. 462 Unknown [id number] 2.840.1.070487.3.579.2. 462 Unknown [id number] 2.840.1.196052.3.579.2. 462 Unknown [id number] 2.840.1.073735.3.579.2. 462 Unknown [id number] 2.840.1.406716.3.579.2. 462 Unknown [id number] 2.840.1.448126.3.579.2. 462 Unknown [id number] 2.840.1.846818.3.579.2. 462 Unknown [id number] 2.840.1.640154.3.579.2. 462 Unknown [id number] 2.840.1.305430.3.579.2. 462 Social History Date Type Detail Facility Start: 05-30-2017 End: 05-23-2024 Tobacco smoking status [facility] Never smoker [facility] Start: 1990 Sex Assigned At Not on file [facility] [employer] Work Phone: Start: 09-17-2020 End: 12-15-2020 Tobacco use and exposure Former user [facility] Start: 09-17-2020 End: 05-23-2024 Alcohol intake Current non-drinker of alcohol (finding)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 Systems All other systems reviewed and are negative. Patient Vitals for the past 24 hrs: BP Temp Temp src Pulse Resp SpO2 Height Weight 09/17/201958 (!) 168/83 97.2 F (36.2 C) Oral 98 18 97 % 5' 6 135.2 kg (298 lb) Physical Exam Vitals signs and nursing note reviewed. Exam conducted with a senior marketing engineer present. Constitutional: Appearance: Normal appearance. She is [...] 1. Wendy Beavers DO. Specialty: Internal Medicine [address] [place] [address] Contact information for after-discharge care Follow-up information has not been specified. Discontinued Medications Disp Refills Start End topiramate (TOPAMAX) 100 MG tablet 09/17/2020 Class: Historical Med Reason for Discontinue: Therapy completed traZODone (DESYREL) 150 MG tablet 09/17/2020 Class: Historical Med Reason for Discontinue: Discontinued by another clinician Rosalinda Quintero MD 09/17/20 2018 Hx of left achilles injury. minerva was jumping and playing with brother and landed on left foot. Warrick crack and has pain to lateral aspect [...] 1 dose 2224 (Given - Provider: Shay Morris, LEORA) ondansetron ODT (Zofran-ODT) disintegrating tablet 4 mg (COMPLETED) 4 mg, oral, Once, On Veronica 08/06/24 at 2250, For 1 dose 2254 (Given - Provider: Kaylin Haines, LEORA) Care Teams (unrecognized sec tion and content) Sleep Tech Relationship Specialty Start Date End Date Wendy Beavers DO [address] [place] [address] PCP - General Internal Medicine 12/23/18 Team Status: Active Member Role Status Dates PHYSICIAN NO FAMILY Primary Care Provider Active Team Status: Inactive Member Role Status Dates PHYSICIAN NO FAMILY Primary Care Provider Active Start: November 18, 2023 End: November 18, 2023 Srinath Israel DO Emergency Provider Active St art: November 18, 2023 End: November 18, 2023 Sleep Tech Relationship Specialty Start Date End Date No, Physician [facility] PCP - General 11/19/23 Sleep Tech Relationship Specialty Start Date End Date No, Physician [facility] PCP - General 11/19/23 Sleep Tech Relationship Specialty Start Date End Date Wendy Beavers DO [address] [place] [address] PCP - General Internal Medicine 12/24/20 Sleep Tech Relationship Specialty Start Date End Date Jadyn Light DO [address] [place] [address] PCP - General Family Medicine 05/11/24 Sleep Tech Relationship Specialty Start Date End Date Wendy Beavers DO [address] [place] [address] PCP - General Internal Medicine 12/24/20 Sleep Tech Relationship Specialty Start Date End Date Wendy Beavers DO [address] [place] [address] PCP - General Internal Medicine 12/24/20 Sleep Tech Relationship Specialty Start Date End Date Jadyn Light DO [address] [place] [address] PCP - General Family Medicine 05/11/24 Sleep Tech Relationship Specialty Start Date End Date Jadyn Light DO [address] [place] [address] PCP - General Family Medicine 05/11/24 Sleep Tech Relationship Specialty Start Date End Date Wendy [...] or prosecute any alcohol or drug abuse patient.[facility] the event this information is protected by the Federal Confidentiality of Alcohol and Drug Abuse Patient Records regulations: The Federal rules restrict any use of the information to criminally investigate or prosecute any alcohol or drug abuse patient.[facility] Center[facility] the event this information is protected by the Federal Confidentiality of Alcohol and Drug Abuse Patient Records regulations: The Federal rules restrict any use of the information to criminally investigate or prosecute any alcohol or drug abuse patient.[facility] the event this information is protected by the Federal Confidentiality of Alcohol and Drug Abuse Patient Records regulations: The Federal rules restrict any use of the information to criminally investigate or prosecute any alcohol or drug abuse patient.[facility] FOR RECORDS PERTAINING TO PATIENTS WHO ARE [...] BE BASED ON THE PRIMARY CLINICAL RECORDS. [facility]. provides no warranty or guarantee of the accuracy or completeness of information in this document.
[2025-02-11] MEDS: Clindamycin Palmitate 75 MG/5 ML 300 MG PO (01:16)
== END 2025-02-11 01:18 | disposition home or self-care (01) ==
LOC: ED 01:07
PROVIDERS: Emergency Provider Emergency Medicine; Visit Provider Emergency Medicine
DX: K08.89 Other specified disorders of teeth and supporting structures (principal); K02.9 Dental caries, unspecified; E03.9 Hypothyroidism, unspecified; Z79.890 Hormone replacement therapy
CPT/HCPCS: 99282